=== PATIENT | female | born 1955 | race Caucasian/White ===

== ENCOUNTER 2016-11-07 15:25 | Inpatient (IN) | payer BC ==
[2016-11-07 15:45] LABS: #Lymphocytes 1.2 thou/uL (1.20-3.40); #Neutrophils 9.1 thou/uL (1.40-6.50); %Basophils 0.3 % (0.0-1.0); %Eosinophils 0.3 % (0.0-10.0); %Lymphocytes 10.4 % (21.0-51.0); Hematocrit 38.5 % (36.0-47.0); Mean Platelet Volume 7.3 fL (7.4-10.4); White Blood Cell (WBC) Count 11.3 thou/uL (4.8-10.8)
[2016-11-07 15:46] LABS: Oxyhemoglobin 96.4 % (94.0-97.0); Sodium 140 mmol/L (135-148)
[2016-11-07 15:47] LABS: Mode RA; Modified Allen's Test POSITIVE; Vent NO
[2016-11-07] MEDS ORDERED: Nitroglycerin 0.4 MG TAB (25 Tab Bottle) SL PRN (16:01)
[2016-11-07] MEDS ORDERED: Mag-Al 1200 mg/1200 mg/30 ML UDCUP PO PRN (16:01)
[2016-11-07] MEDS ORDERED: Bisacodyl 5 MG TAB PO PRN ×2 (16:01)
[2016-11-07] MEDS ORDERED: Senokot 8.6 MG TAB PO PRN ×2 (16:01)
[2016-11-07] MEDS ORDERED: Calcium Carbonate 500 MG ChewTAB PO PRN (16:01)
[2016-11-07] MEDS ORDERED: cloNIDine HCl 0.1 MG TAB PO PRN (16:01)
[2016-11-07] MEDS ORDERED: Loratadine 10 MG TAB PO PRN (16:01)
[2016-11-07] MEDS ORDERED: Potassium Chloride 20 MEQ TAB ONE (16:05)
[2016-11-07 16:09] LABS: Lactic Acid - Sepsis 3.9 mmol/L (0.5-2.2)
[2016-11-07 16:13] LABS: ALT (SGPT) 54 U/L (8-55); AST (SGOT) 41 U/L (5-34); Alkaline Phosphatase 384 U/L (40-150); Anion Gap 19 mmol/L (10-20); BUN (Urea Nitrogen) 6 mg/dL (9.8-20.1); Bilirubin, Total 0.5 mg/dL (0.2-1.2); CK (CPK) 595 U/L (29-168); Calc. Creatinine Clearance 0 mL/min (70-130); Calcium 9.1 mg/dL (7.8-10.44); Carbon Dioxide 20 mmol/L (22-29); Chloride 103 mmol/L (98-107); Estimated GFR-MDRD Greater than 90; Globulin 3.3 g/dL (2.4-3.5); Protein, Total 7.1 g/dL (6.0-8.3)
[2016-11-07 16:17] LABS: Troponin I Less than 0.010 ng/mL (< 0.028)
--- NOTE | 2016-11-07 16:19 | RAD ---
PORTABLE CHEST ONE VIEW: 11/07/16 at 3:11 p.m. HISTORY: Cough, fever, chills. FINDINGS: Comparison made to the exam of 07/10/15. The heart size is borderline. There is mild infiltrate in the right suprahilar region. No pneumothor aces or large effusions are seen. IMPRESSION: Findings are suspicious for pneumonia. POS: [facility]
[2016-11-07 17:17] LABS: Bilirubin Negative (Negative); Blood, Urine Small (Negative); Glucose, Urine (Dipstick) Negative (Negative); Ketone, Urine Negative (Negative); Nitrite Negative (Negative); Protein, Urine (Dipstick) Trace mg/dL (Neg-Trace); Urobilinogen 0.2 mg/dL (0.2-1.0)
[2016-11-07 17:26] LABS: Bacteria/HPF Rare-Few HPF (None Seen); Hyaline Casts/LPF 4-6 HYALINE CAST LPF (0-3 Hyaline); RBC/HPF 0-3 HPF (0-3); Squamous Epithelial 0-3 HPF (0-3)
[2016-11-07] MEDS: Benzonatate 100 MG CAP PO PRN (20:16)
[2016-11-07] MEDS: guaiFENesin ER 600 MG TAB PO SCH (20:16)
[2016-11-07] MEDS: Lorazepam 1 MG TAB PO PRN (20:16)
[2016-11-07] MEDS: Famotidine 20 MG TAB PO SCH (20:16)
[2016-11-07] MEDS: 1/2 NS w/KCL 20 mEq 1,000 ML IV SCH (20:17)
[2016-11-07] MEDS: Acetaminophen 325 MG TAB PO PRN (20:46)
[2016-11-07 21:01] LABS: Bilirubin Negative (Negative); Blood, Urine Trace (Negative); Glucose, Urine (Dipstick) Negative (Negative); Ketone, Urine Negative (Negative); Nitrite Negative (Negative); Protein, Urine (Dipstick) Negative (Neg-Trace); Urobilinogen 0.2 mg/dL (0.2-1.0)
[2016-11-07 21:03] LABS: Bacteria/HPF None Seen HPF (None Seen); Hyaline Casts/LPF 0-3 HYALINE CAST LPF (0-3 Hyaline); Squamous Epithelial 0-3 HPF (0-3); WBC/HPF 0-3 HPF (0-3)
--- NOTE | 2016-11-07 21:49 | NM ---
NUCLEAR MEDICINE VQ SCAN: 11/07/16 COMPARISON: 01/26/15 HISTORY: Dyspnea with cough, fever and chills for the past two days. TECHNIQUE: A nuclear medicine VQ scan was performed. Ventilation images were obtained using 17 millicuries of X enon 133. Perfusion images were obtained using 6.3 millicuries of technetium 99m MAA. FINDINGS: VENTILATION: Breath hold, equilibrium, and washout phases are normal. No air trapping is seen. No ventilatory def ects are seen. PERFUSION: No small, medium, or large perfusion defects are seen. IMPRESSION: Normal VQ scan. POS: [facility]
--- NOTE | 2016-11-07 23:11 | HP ---
DATE OF ADMISSION: 11/07/2016 PRIMARY CARE PHYSICIAN: Pedro Herrmann M.D. CHIEF COMPLAINT: Fever and worsening cough. HISTORY OF PRESENT ILLNESS: Ms. Henderson is a 61-year-old female with past medical history of Prabhakar-e n-Y gastric bypass status post PEG tube placement, chronic pain, and nonalcoholic steatohepatitis, w ho presented as a direct admit from Dr. Herrmann's office for above-mentioned complaints. History is m ainly obtained by the patient herself and discussion with Dr. Herrmann. Electronic medical records hav e been reviewed. The patient came up to the floor as a direct admit, but unfortunately had trouble breathing at the t maribeth of reaching the floor and a code green was called and she was sent into the emergency room for s tabilization and evaluation. I have seen and examined the patient in the emergency room 26. According to Ms. Henderson, she started to have high-grade fever of 103 about 1 week ago associated wi th worsening cough. She did not have any particular shortness of breath. She denies any other rece nt illnesses. She did have sick contacts in the form of her . She did receive her influenza and pneumococcal vaccine earlier this year. She denies any recent travel. She denies any chest pa in or swelling of the legs. She presented to her primary care physician's office and was noticed to be in mild respiratory discomfort and was sent over here with presumptive diagnosis of pneumonia fo r direct admission. After the code green was called and the patient was transferred to the ER. She underwent a chest x- ray which suggested right upper lobe pneumonia. Because of the code green, she also had ABGs done w hich mainly demonstrated hyperventilation with pH of 7.5, pCO2 of 22 and pO2 of 82. She did have ev idence of leukocytosis with left shift and elevated lactic acid. She did have D-dimer elevated at 0 .58 and is scheduled to undergo a VQ scan and the clinical probability is low. She has reported all ergy to IODINATED CONTRAST MEDIA. Her cardiac enzymes and her BNP are within normal limits. Her po tassium was found to be low at 2.5 and ABGs with normal magnesium. She is being admitted for commun ity-acquired pneumonia at this time with need to rule out silent aspiration due to PEG tube feeds. The patient reports that she has not eaten anything by mouth for the last week or so and even prior to that, she was eating very little. For the last week she has been using her PEG feed entirely. S he also follows up with Gastroenterology, Dr. Bauer for chronically elevated liver enzymes and rece ntly had an MRCP/MRI done and the results were relayed to me by Dr. Bauer's today on the phone as t he MRI being normal. PAST MEDICAL HISTORY: 1. Chronic abdominal pain. 2. History of recurrent urinary tract infection. 3. Nonalcoholic steatohepatitis. 4. Chronic back pain and chronic narcotic dependence. 5. History of pneumonia, multiple times. PAST SURGICAL HISTORY: 1. MINH-BSO. 2. Laparoscopic cholecystectomy. 3. Appendectomy. 4. Abdominoplasty 5. Prabhakar-en-Y gastric bypass. 6. Status post bilateral breast reduction surgery in [place], [place]. 7. Status post PEG tube placement. FAMILY HISTORY: Significant for coronary artery disease in her mother. Both her parents are alive. SOCIAL HISTORY: The patient is and lives with her . She denies any drug, alcohol or tobacco abuse. She does use chronic narcotics for her abdominal pain and she is trying to minimize those. She has 2 grown children and 5 grandchildren. ALLERGIES: 1. CIPROFLOXACIN. 2. ORAL AND IV CONTRAST. 3. MORPHINE. 4. NSAIDS. CURRENT MEDICATIONS: Unknown at this time, but according to her last ER visit, she takes the follow in. Alprazolam. 2. Protonix. 3. Phenergan. 4. Folic acid. 5. Potassium chloride, doses need to be confirmed. REVIEW OF SYSTEMS: Twelve-point review of systems is done and except for those mentioned in the HPI , it is negative. The following complete review of systems was negative, unless otherwise mentioned in the HPI or belo w: Constitutional: Weight loss or gain, ability to conduct usual activities. Skin: Rash, itching. Eyes: Double vision, pain. ENT/Mouth: Nose bleeding, neck stiffness, pain, tenderness. Cardiovascular: Palpitations, dyspnea on exertion, orthopnea. Respiratory: Shortness of breath, wheezing, cough, hemoptysis, fever or night sweats. Gastrointestinal: Poor appetite, abdominal pain, heartburn, nausea, vomiting, constipation, or diar marcia. Genitourinary: Urgency, frequency, dysuria, nocturia. Musculoskeletal: Pain, swelling. Neurologic/Psychiatric: Anxiety, depression. Allergy/Immunologic: Skin rash, bleeding tendency. LABORATORY DATA: Her CBC shows WBCs at 11.3 with 80% neutrophils, hemoglobin 12.3, and platelet cou nt 308. D-dimer is 0.58. ABG as per HPI. Serum chemistry, bicarbonate at 20, blood sugar 155, lac tic acid 3.9, AST 41, ALT 54, alkaline phosphatase is 384, and creatinine kinase 595. BNP 85. Trop onin less than 0.010. Chest x-ray by my review has evidence of right upper lobe infiltrate. PHYSICAL EXAMINATION: VITAL SIGNS: Upon presentation include blood pressure 149/66, pulse of 89, saturating 97% on room a ir, respirations 36, and temperature 100.4. GENERAL: She is coughing and appears somewhat sick and toxic looking, but no acute distress. She i s awake, alert, and oriented x3. HEENT: Mucous membranes appear slightly dry. No oropharyngeal exudate or erythema. Head is normoc ephalic and atraumatic. Pupils are equal and reactive to light and accommodation. Extraocular move ments are intact. NECK: Supple without any lymphadenopathy, JVD or bruit. CHEST: Clear to auscultation without any wheezing, rales or rhonchi. Rate and rhythm is regular wi thout any murmur, rubs or gallops. ABDOMEN: Soft, nontender, nondistended, positive bowel sounds. EXTREMITIES: Free of any cyanosis, clubbing, or edema. NEUROLOGIC: Neurological examination is nonfocal. SKIN: Free of any rashes or bruises, feel warm and dry to touch. PSYCHIATRIC: Somewhat anxious. VASCULAR: +2 pedal pulses felt bilaterally. IMPRESSION AND PLAN: 1. Acute respiratory distress. This is likely secondary to pneumonia. At this time, we will start her on empiric antibiotic and obtain influenza testing as well. Start her on normal saline with se psis protocol and provide symptomatic and supportive care in the form of p.r.n. and scheduled nebuli zers. We will start her on Robitussin as well as p.r.n. medications for intractable cough. We will consult Pulmonary Medicine, Dr. Cifuentes who has seen her in the past. We will also consult speech therapist for possible aspiration. 2. Pneumonia. As #1, continue IV antibiotics and consult speech therapist to evaluate for aspirati on pneumonia. Continue tube feeds for now. 3. Elevated D-dimer. The patient's presenting symptoms are not consistent with pulmonary embolism. She has no history of shortness of breath. She does not have any lower extremity edema. She does not have any history of recent travel. However, given the fever, we will obtain a nuclear medicine lung ventilation perfusion scan for completion. The patient cannot get a CT angio due to allergic reaction to IODINATED CONTRAST MEDIA. 4. Hypokalemia. We will replace as required and recheck in the morning. Continue with potassium c hloride and the normal saline for now. 5. Chronically elevated liver enzymes. The patient follows up with Dr. Bauer and her recent MRI a s an outpatient is normal. 6. Vitamin B12 deficiency. We will recheck the levels in the hospital and start her on oral supple mentation as required. 7. History of narcotic dependence. We will avoid any narcotics and sedatives while she is in the h ospital. 8. History of gastric bypass. Continue symptomatic care. 9. Deep venous thrombosis and gastrointestinal prophylaxis. CODE STATUS: FULL CODE. DISPOSITION: The patient will be admitted to telemetry unit due to her \\\\"code green\\\\" for respira tory distress. She appears stable for now. She can be transferred to medical floor in the morning if she remains stable throughout the night. Estimated length of stay is at least 2-3 midnight at th is point. Further management will depend upon her clinical course.
[2016-11-07] MEDS: Zolpidem Tartrate 5 MG TAB PO PRN (23:27)
[2016-11-08] MEDS: Diabetic Tussin 200 MG/10 ML UDCUP PO PRN ×3 (01:26→19:48)
[2016-11-08] MEDS: Acetaminophen 325 MG TAB PO PRN ×3 (01:26→19:48)
[2016-11-08] MEDS: guaiFENesin/Codeine Phosphate 200 mg/20 mg 10 ml UD Cup PO PRN (05:19)
[2016-11-08 06:05] LABS: #Eosinphils 0.1 thou/uL (0.0-0.7); #Lymphocytes 1.5 thou/uL (1.20-3.40); #Monocytes 0.7 thou/uL (0.11-0.59); #Neutrophils 3.8 thou/uL (1.40-6.50); %Basophils 0.1 % (0.0-1.0); %Eosinophils 1.5 % (0.0-10.0); %Monocytes 11.4 % (0.0-10.0); Hematocrit 33.5 % (36.0-47.0); Mean Platelet Volume 7.5 fL (7.4-10.4); Red Blood Cell (RBC) Count 3.35 mill/uL (4.20-5.40); White Blood Cell (WBC) Count 6.2 thou/uL (4.8-10.8)
[2016-11-08 06:28] LABS: Anion Gap 14 mmol/L (10-20); BUN (Urea Nitrogen) 5 mg/dL (9.8-20.1); Calc. Creatinine Clearance 116 mL/min (70-130); Calcium 8.3 mg/dL (7.8-10.44); Carbon Dioxide 23 mmol/L (22-29); Chloride 106 mmol/L (98-107); Estimated GFR-MDRD Greater than 90
[2016-11-08] MEDS: guaiFENesin ER 600 MG TAB PO SCH ×2 (08:34→19:49)
[2016-11-08] MEDS: 1/2 NS w/KCL 20 mEq 1,000 ML IV SCH ×2 (08:34→19:51)
[2016-11-08] MEDS: Famotidine 20 MG TAB PO SCH ×2 (08:35→19:50)
[2016-11-08] MEDS: Enoxaparin Sodium 40 MG/0.4 ML SYRINGE SC SCH (08:36)
[2016-11-08] MEDS: Lorazepam 1 MG TAB PO PRN (08:38)
[2016-11-08] MEDS ORDERED: Zolpidem Tartrate 5 MG TAB PO PRN (08:42)
[2016-11-08] MEDS: Benzonatate 100 MG CAP PO PRN ×2 (10:45→16:29)
[2016-11-08] MEDS: Folic Acid 1 MG TAB PO SCH (10:46)
[2016-11-08] MEDS: Magnesium Oxide 250 MG TAB PO SCH (10:46)
[2016-11-08] MEDS: Lorazepam 1 MG TAB PO SCH ×3 (10:46→19:51)
--- NOTE | 2016-11-08 11:20 | PQF ---
CLINICAL DOCUMENTATION IMPROVEMENT CLARIFICATION FORM: ICD-10 Updated PLEASE DO AN ADDENDUM TO THE PROGRESS NOTE WITH ANY DOCUMENTATION UPDATES OR ADDITIONS AND CARRY THROUGH TO DC SUMMARY. THANK YOU. DATE: 11/08/16 ATTN: DR. ZHENG The following CLINICAL INDICATORS - SIGNS / SYMPTOMS are present in the medical record: H&P: "SHE DID HAVE EVIDENCE OF LEUKOCYTOSIS WITH LEFT SHIFT AND ELEVATED LACTIC ACID." "START HER ON NORMAL SALINE WITH SEPSIS PROTOCOL AND PROVIDE SYMPTOMATIC AND SUPPORTIVE CARE IN THE FORM OF PRN AND SCHEDULED NEBULIZERS." TEMP 102.1 RR 36 WBC 11.3 LACTIC ACID 3.9 GLUCOSE 155 RISKS: PNEUMONIA TREATMENT: IV LEVAQUIN (ER-PRESENT) UNASYN (11-08) IV FLUIDS BLOOD CULTURES SERIAL LABS TELEMETRY MONITORING Please provide a response below if a more specific term indicating a diagnosis and/or acuity level for this condition can be identified. Please exercise your independent, professional judgment in responding to the clarification form. Present on Admission:[ X ] Yes[ ] No[ ] Unable to determine [ X] Sepsis (include causative agent if known) Due to: [ ] Device [ ] Implant [ ] Graft [ ] Infusion [ ] [ ] SIRS due to non-infectious process [ ] with organ dysfunction [ ] without organ dysfunction [ ] Severe sepsis with acute organ dysfunction of: (Examples: respiratory failure, encephalopathy, acute kidney failure, other) [ ] Septic shock [ ] Sepsis related to a device (i.e. port, IV line, pacer / ICD leads, New, etc.) [ ] Does not apply to this patient [ ] Unable to determine [ ] Other diagnosis Definitions [facility] clinic 2002: SIRS- clinical response to an insult, infection, or trauma that includes a systemic in?ammation as well as increased or decreased temp, increased pulse, respiration and white count. SEPSIS- SIRS due to infection without organ dysfunction. SEVERE SEPSIS- SIRS due to an infection that progress to organ dysfunction. SEPTIC SHOCK- circulatory failure associated with severe sepsis, and represents a type of acute organ dysfunction. (This form is maintained as a part of the permanent medical record) 2014 [employer] All Rights Reserved [email or web address] Office: [phone] [facility] CENTERTucker
--- NOTE | 2016-11-08 11:45 | PDOC.PN ---
- Subjective Encounter Start Date: 11/08/16 Encounter Start Time: 11:43 Subjective: feels a little better.still significant cough.no SOB - Objective MAR Reviewed: Yes Vital Signs & Weight: Vital Signs (12 hours) Temp Pulse Resp BP Pulse Ox 11/08/16 11:06 82 22 H 96 11/08/16 08:44 98.6 F 84 19 131/62 93 L 11/08/16 08:00 98.6 F 84 19 93 L 11/08/16 07:38 82 20 98 11/08/16 04:00 98.9 F 77 18 109/55 L 93 L 11/08/16 02:02 76 16 97 I&O: 11/07/16 11/08/16 11/09/16 06:59 06:59 06:59 Intake Total 1032 Output Total 900 Balance 132 Result Diagrams: 11/08/16 04:57 11/08/16 04:57 Additional Labs: Microbiology 11/07/16 20:38 Nasopharynx - Nares Influenza Types A,B Direct EIA - Final 11/07/16 15:34 Venous blood - Right Arm Blood Culture - Preliminary Specimen has been received and culture in progress. No Growth to date. 11/07/16 15:32 Venous blood - Left Arm Blood Culture - Preliminary Specimen has been received and culture in progress. No Growth to date. Phys Exam - Physical Examination Constitutional: NAD HEENT: PERRLA, moist MMs, sclera anicteric, oral pharynx no lesions Neck: no nodes, no JVD, supple, full ROM Respiratory: no wheezing, no rales, no rhonchi, clear to auscultation bilateral Cardiovascular: RRR, no significant murmur Gastrointestinal: soft, non-tender, no distention, positive bowel sounds Musculoskeletal: no edema, pulses present Neurological: non-focal, normal sensation, moves all 4 limbs Psychiatric: normal affect, A&O x 3 Skin: no rash Dx/Plan (1) Sepsis Code(s): A41.9 - SEPSIS, UNSPECIFIED ORGANISM Status: Acute (2) PNA (pneumonia) Code(s): J18.9 - PNEUMONIA, UNSPECIFIED ORGANISM Status: Acute (3) Hypokalemia Code(s): E87.6 - HYPOKALEMIA Status: Acute (4) Bariatric surgery status Status: Chronic (5) MORRIS (nonalcoholic steatohepatitis) Code(s): K75.81 - NONALCOHOLIC STEATOHEPATITIS (MORRIS) Status: Chronic - Plan continue antibiotics, 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 supportive care -: nebs.Is,O2 prn. -: restart home meds. -: am labs * . Review of Systems - Review of Systems Constitutional: Weakness, Malaise. negative: Fever, Chills, Sweats, Other Respiratory: Cough. negative: Dry, Shortness of Breath, Hemoptysis, SOB with Excertion, Pleuritic Pain, Sputum, Wheezing Cardiovascular: negative: Chest Pain, Palpitations, Orthopnea, Paroxysmal Noc. Dyspnea, Edema, Light Headedness, Other Gastrointestinal: negative: Nausea, Vomiting, Abdominal Pain, Diarrhea, Constipation, Melena, Hematochezia, Other Genitourinary: negative: Dysuria, Frequency, Incontinence, Hematuria, Retention , Other Musculoskeletal: negative: Neck Pain, Shoulder Pain, Arm Pain, Back Pain, Hand Pain, Leg Pain, Foot Pain, Other Neurological: negative: Weakness, Numbness, Incoordination, Change in Speech, Confusion, Seizures, Other - Medications/Allergies Allergies/Adverse Reactions: Allergies Allergy/AdvReac Type Severity Reaction Status Date / Time ciprofloxacin AdvReac Mild Stomach Verified 09/30/14 02:03 Ache Iodinated Contrast- Oral and AdvReac Mild Stomach Verified 09/30/14 02:03 IV Dye Ache [Iodinated Contrast Media - IV Dye] iodine AdvReac Mild Stomach Verified 09/30/14 02:03 Ache morphine AdvReac Mild Rash Verified 09/30/14 02:03 Medications: Current Medications Acetaminophen (Tylenol) 650 mg PO Q4H PRN PRN Reason: Headache/Fever or Pain Last Admin: 11/08/16 08:33 Dose: 650 mg Al Hydroxide/Mg Hydroxide (Maalox) 30 ml PO Q6H PRN PRN Reason: Heartburn or Indigestion Albuterol/Ipratropium (Duoneb) 3 ml NEB [id number] PRN PRN Reason: SOB &/or Wheezing Albuterol/Ipratropium (Duoneb) 3 ml NEB [id number] KAILEY Last Admin: 11/08/16 11:06 Dose: 3 ml Benzonatate (Tessalon) 100 mg PO Q4H PRN PRN Reason: Cough Last Admin: 11/08/16 10:45 Dose: 100 mg Bisacodyl (Dulcolax) 10 mg PO DAILYPRN PRN PRN Reason: Constipation Calcium Carbonate (Tums) 1,000 mg PO Q4H PRN PRN Reason: Heartburn or Indigestion Clonidine HCl (Catapres) 0.1 mg PO Q4H PRN PRN Reason: Systolic BP > 160 Cyanocobalamin (Vitamin B-12) 1,000 mcg IM [id number] REPLACED BY [facility] Enoxaparin Sodium (Lovenox) 40 mg SC 09 REPLACED BY [facility] Last Admin: 11/08/16 08:36 Dose: 40 mg Famotidine (Pepcid) 20 mg PO BID REPLACED BY [facility] Last Admin: 11/08/16 08:35 Dose: 20 mg Folic Acid (Folvite) 1 mg PO DAILY REPLACED BY [facility] Last Admin: 11/08/16 10:46 Dose: 1 mg Guaifenesin (Robitussin Sf) 200 mg PO Q4H PRN PRN Reason: Cough Last Admin: 11/08/16 01:26 Dose: 200 mg Guaifenesin (Mucinex) 600 mg PO Q12HR REPLACED BY [facility] Last Admin: 11/08/16 08:34 Dose: 600 mg Guaifenesin/Codeine Phosphate (Robitussin Ac) 10 ml PO Q6H PRN PRN Reason: Cough Last Admin: 11/08/16 05:19 Dose: 10 ml Hydralazine HCl (Apresoline) 10 mg SLOW IVP Q4H PRN PRN Reason: Systolic BP > 170 Levofloxacin 750 mg/ Device 150 mls @ 100 mls/hr IVPB 1700 REPLACED BY [facility] Potassium Chloride/Sodium Chloride (1/2 Ns W/Kcl 20 Meq) 1,000 mls @ 75 mls/hr IV .[id number] REPLACED BY [facility] Last Admin: 11/08/16 08:34 Dose: 1,000 mls Ampicillin Sodium/Sulbactam (Sodium 3 gm/ Sodium Chloride) 100 mls @ 200 mls/ hr IVPB Q6HR REPLACED BY [facility] Loratadine (Claritin) 10 mg PO DAILYPRN PRN PRN Reason: Sinus Symptoms Lorazepam (Ativan) 1 mg PO Q4H PRN PRN Reason: Anxiety/Agitation Last Admin: 11/08/16 08:38 Dose: 1 mg Lorazepam (Ativan) 1 mg PO TID REPLACED BY [facility] Last Admin: 11/08/16 10:46 Dose: Not Given Magnesium Oxide (Magnesium Oxide) 250 mg PO DAILY REPLACED BY [facility] Last Admin: 11/08/16 10:46 Dose: 250 mg Nitroglycerin (Nitrostat) 0.4 mg SL Q5MIN PRN PRN Reason: Chest Pain Ondansetron HCl (Zofran) 4 mg IVP Q6H PRN PRN Reason: Nausea/Vomiting Ondansetron HCl (Zofran Odt) 4 mg PO Q4H PRN PRN Reason: Nausea/Vomiting Pantoprazole Sodium (Protonix) 40 mg PO BID REPLACED BY [facility] Last Admin: 11/08/16 10:46 Dose: 40 mg Potassium Chloride (Klor-Con) 40 meq PER TUBE 0700,1200 REPLACED BY [facility] Stop: 11/08/16 13:00 Last Admin: 11/08/16 06:54 Dose: 40 meq Senna (Senokot) 2 tab PO HSPRN PRN PRN Reason: Constipation Sodium Chloride (Flush - Normal Saline) 10 ml IVF Q12HR REPLACED BY [facility] Last Admin: 11/08/16 08:34 Dose: Not Given Sodium Chloride (Flush - Normal Saline) 10 ml IVF PRN PRN PRN Reason: Saline Flush Zolpidem Tartrate (Ambien) 10 mg PO HSPRN PRN PRN Reason: Insomnia Last Admin: 11/07/16 23:27 Dose: 10 mg Zolpidem Tartrate (Ambien) 10 mg PO HS PRN PRN Reason: Insomnia
[2016-11-08] MEDS: Ampicillin/Sulbactam 3 GM in Sodium Chloride 0.9% 100 ML IVPB SCH ×3 (13:56→23:16)
--- NOTE | 2016-11-08 14:42 | CON ---
DATE OF CONSULTATION: 11/08/2016 CONSULTING PHYSICIAN: Antonella Rock MD REASON FOR CONSULTATION: Pneumonia. HISTORY OF PRESENT ILLNESS: Ms. Henderson is a 61-year-old female with fairly complex past medical hi story. I do not believe I have seen her in the last 4-5 years. She developed a fever on Friday and tried to tough it out at home. She felt that because she had taken the pneumonia shot in the past that she was immune from getting pneumonia. She also does not want to come to the hospital because she had bad experiences with being endotracheally intubated in the past. She was started on antibiotics last night and now feels better. She tells me that she takes most of her food through her PEG tube, but does occasionally try to drink soft drinks and water. She does not feel like she aspirated at this time. PAST MEDICAL HISTORY: 1. Cirrhosis of the liver. 2. Aspiration pneumonia. 3. Multiple episodes of respiratory failure. 4. Nonalcoholic steatohepatitis. 5. Chronic abdominal pain. 6. Recurrent urinary tract infections. 7. Anxiety. 8. Hypertension. PAST SURGICAL HISTORY: Breast reduction, bariatric surgery, appendectomy, cholecystectomy, hysterec deandre, spinal surgery, tonsillectomy, PEG tube placement. SOCIAL HISTORY: She is , lives with her . No alcohol or tobacco abuse. ALLERGIES: CIPRO, MORPHINE, NSAIDS. MEDICATIONS: Prior to admission, alprazolam, Protonix, Phenergan, folate, potassium chloride. REVIEW OF SYSTEMS: Twelve-point review of systems otherwise negative except for that mentioned abov e. PHYSICAL EXAMINATION: VITAL SIGNS: Temperature 98.6, pulse 84, respirations 19, O2 sat 93%, blood pressure 131/62. GENERAL: She is awake and alert and in no distress. HEENT: Pupils react. Sclerae anicteric. Oropharynx is clear. NECK: Without adenopathy or JVD. LUNGS: Few crackles in the right side, clear on the left. CARDIAC: S1, S2 regular. ABDOMEN: PEG tube in place, well cared for. EXTREMITIES: No clubbing, cyanosis, or edema. LABORATORY DATA: White blood cell count 6.2, down from 11.3 yesterday, hematocrit 33.5, platelet co unt 250. Sodium 140, potassium 2.9, chloride 106, CO2 23, BUN 5, creatinine 0.6, glucose 105. Ches t x-ray shows a right-sided infiltrate, perfusion scanning of her lungs was negative. ASSESSMENT: 1. Right-sided pneumonia. 2. History of multiple episodes of respiratory failure. 3. History of bariatric surgery with numerous complications. 4. PEG tube placement. RECOMMENDATIONS: 1. Agree with current antibiotic therapy. She seems to be responding because of aspiration risk. I would also favor her being on coverage for that. I think IV Unasyn would probably cover that very well. 2. If she is doing well over the weekend, she can probably switch to Augmentin through her PEG tube .
[2016-11-08] MEDS: Zolpidem Tartrate 5 MG TAB PO PRN (19:50)
[2016-11-09] MEDS: guaiFENesin/Codeine Phosphate 200 mg/20 mg 10 ml UD Cup PO PRN ×4 (01:07→20:41)
[2016-11-09] MEDS: Benzonatate 100 MG CAP PO PRN ×3 (01:07→15:31)
[2016-11-09] MEDS: Lorazepam 1 MG TAB PO PRN ×2 (01:07→15:31)
[2016-11-09] MEDS: 1/2 NS w/KCL 20 mEq 1,000 ML IV SCH (04:29)
[2016-11-09] MEDS: Ampicillin/Sulbactam 3 GM in Sodium Chloride 0.9% 100 ML IVPB SCH ×3 (05:08→18:59)
[2016-11-09 05:31] LABS: #Eosinphils 0.2 thou/uL (0.0-0.7); #Lymphocytes 1.7 thou/uL (1.20-3.40); #Monocytes 0.6 thou/uL (0.11-0.59); #Neutrophils 3.4 thou/uL (1.40-6.50); %Basophils 0.7 % (0.0-1.0); %Eosinophils 3.7 % (0.0-10.0); %Lymphocytes 28.3 % (21.0-51.0); %Monocytes 9.5 % (0.0-10.0); Mean Platelet Volume 7.1 fL (7.4-10.4); White Blood Cell (WBC) Count 5.9 thou/uL (4.8-10.8)
[2016-11-09 05:58] LABS: Anion Gap 13 mmol/L (10-20); BUN (Urea Nitrogen) 5 mg/dL (9.8-20.1); Calc. Creatinine Clearance 119 mL/min (70-130); Calcium 8.3 mg/dL (7.8-10.44); Carbon Dioxide 23 mmol/L (22-29); Chloride 108 mmol/L (98-107); Estimated GFR-MDRD Greater than 90
[2016-11-09] MEDS: Enoxaparin Sodium 40 MG/0.4 ML SYRINGE SC SCH (08:46)
[2016-11-09] MEDS: Magnesium Oxide 250 MG TAB PO SCH (08:47)
[2016-11-09] MEDS: guaiFENesin ER 600 MG TAB PO SCH ×2 (08:48→20:37)
[2016-11-09] MEDS: Famotidine 20 MG TAB PO SCH ×2 (08:48→20:37)
[2016-11-09] MEDS: Folic Acid 1 MG TAB PO SCH (08:49)
[2016-11-09] MEDS: Lorazepam 1 MG TAB PO SCH ×3 (08:49→20:37)
[2016-11-09] MEDS ORDERED: Cyanocobalamin 1000 MCG/ML VIAL IM SCH (09:00)
--- NOTE | 2016-11-09 11:54 | PDOC.PN ---
- Subjective Encounter Start Date: 11/09/16 Encounter Start Time: 08:40 -: old records requested/rev pt feels better than yesterday, she has cough and so that she is hurting in chest and abdomen - Objective MAR Reviewed: Yes Vital Signs & Weight: Vital Signs (12 hours) Temp Pulse Resp BP Pulse Ox 11/09/16 11:03 83 24 H 11/09/16 06:37 92 28 H 97 11/09/16 04:39 99.5 F 88 18 119/66 95 11/09/16 03:10 77 18 97 11/09/16 00:05 99.0 F 85 20 114/53 L 96 Weight Admit Weight 158 lb 4.8 oz Weight 159 lb 1.6 oz I&O: 11/08/16 11/09/16 11/10/16 06:59 06:59 06:59 Intake Total 1032 3270 Output Total 900 1900 Balance 132 1370 Result Diagrams: 11/09/16 04:53 11/09/16 04:53 Phys Exam - Physical Examination Constitutional: NAD HEENT: PERRLA, moist MMs, sclera anicteric Neck: no JVD, supple Respiratory: no wheezing, no rhonchi few scattered rales Cardiovascular: RRR, no significant murmur, no rub Gastrointestinal: soft, non-tender, no distention, positive bowel sounds peg tube+ Musculoskeletal: no edema, pulses present Neurological: non-focal, normal sensation, moves all 4 limbs Lymphatic: no nodes Psychiatric: normal affect, A&O x 3 Skin: no rash, normal turgor Dx/Plan (1) PNA (pneumonia) Code(s): J18.9 - PNEUMONIA, UNSPECIFIED ORGANISM Status: Acute Qualifiers: Laterality: right Comment: community acquired bacterial (2) Sepsis Code(s): A41.9 - SEPSIS, UNSPECIFIED ORGANISM Status: Acute (3) Abnormal LFTs Code(s): R79.89 - OTHER SPECIFIED ABNORMAL FINDINGS OF BLOOD CHEMISTRY Status : Chronic (4) Anxiety and depression Code(s): F41.8 - OTHER SPECIFIED ANXIETY DISORDERS Status: Chronic (5) Bariatric surgery status Status: Chronic (6) Macrocytic anemia with vitamin B12 deficiency Code(s): D51.9 - VITAMIN B12 DEFICIENCY ANEMIA, UNSPECIFIED Status: Chronic (7) MORRIS (nonalcoholic steatohepatitis) Code(s): K75.81 - NONALCOHOLIC STEATOHEPATITIS (MORRIS) Status: Chronic (8) Hypokalemia Code(s): E87.6 - HYPOKALEMIA Status: Resolved (9) Lactic acidosis Code(s): E87.2 - ACIDOSIS Status: Resolved - Plan cont current plan of care, continue antibiotics * continue IV unasyn and levaquin * medication reviewed as below * symptomatic treatment.. Review of Systems - Review of Systems ENT: negative: Ear Pain, Ear Discharge, Nose Pain, Nose Discharge, Nose Congestion, Mouth Pain, Mouth Swelling, Throat Pain, Throat Swelling, Other Respiratory: Cough, Shortness of Breath. negative: Dry, Hemoptysis, SOB with Excertion, Pleuritic Pain, Sputum, Wheezing Cardiovascular: negative: Chest Pain, Palpitations, Orthopnea, Paroxysmal Noc. Dyspnea, Edema, Light Headedness, Other Gastrointestinal: negative: Nausea, Vomiting, Abdominal Pain, Diarrhea, Constipation, Melena, Hematochezia, Other Genitourinary: negative: Dysuria, Frequency, Incontinence, Hematuria, Retention , Other Musculoskeletal: negative: Neck Pain, Shoulder Pain, Arm Pain, Back Pain, Hand Pain, Leg Pain, Foot Pain, Other - Medications/Allergies Allergies/Adverse Reactions: Allergies Allergy/AdvReac Type Severity Reaction Status Date / Time ciprofloxacin AdvReac Mild Stomach Verified 09/30/14 02:03 Ache Iodinated Contrast- Oral and AdvReac Mild Stomach Verified 09/30/14 02:03 IV Dye Ache [Iodinated Contrast Media - IV Dye] iodine AdvReac Mild Stomach Verified 09/30/14 02:03 Ache morphine AdvReac Mild Rash Verified 09/30/14 02:03 Medications: Current Medications Acetaminophen (Tylenol) 650 mg PO Q4H PRN PRN Reason: Headache/Fever or Pain Last Admin: 11/08/16 19:48 Dose: 650 mg Al Hydroxide/Mg Hydroxide (Maalox) 30 ml PO Q6H PRN PRN Reason: Heartburn or Indigestion Albuterol/Ipratropium (Duoneb) 3 ml NEB [id number] PRN PRN Reason: SOB &/or Wheezing Albuterol/Ipratropium (Duoneb) 3 ml NEB [id number] [facility] Last Admin: 11/09/16 11:03 Dose: 3 ml Benzonatate (Tessalon) 100 mg PO Q4H PRN PRN Reason: Cough Last Admin: 11/09/16 08:48 Dose: 100 mg Bisacodyl (Dulcolax) 10 mg PO DAILYPRN PRN PRN Reason: Constipation Calcium Carbonate (Tums) 1,000 mg PO Q4H PRN PRN Reason: Heartburn or Indigestion Clonidine HCl (Catapres) 0.1 mg PO Q4H PRN PRN Reason: Systolic BP > 160 Cyanocobalamin (Vitamin B-12) 1,000 mcg IM [id number] [facility] Last Admin: 11/09/16 08:46 Dose: 1,000 mcg Enoxaparin Sodium (Lovenox) 40 mg SC 09 [facility] Last Admin: 11/09/16 08:46 Dose: 40 mg Famotidine (Pepcid) 20 mg PO BID [facility] Last Admin: 11/09/16 08:48 Dose: 20 mg Folic Acid (Folvite) 1 mg PO DAILY [facility] Last Admin: 11/09/16 08:49 Dose: 1 mg Guaifenesin (Robitussin Sf) 200 mg PO Q4H PRN PRN Reason: Cough Last Admin: 11/08/16 19:48 Dose: 200 mg Guaifenesin (Mucinex) 600 mg PO Q12HR [facility] Last Admin: 11/09/16 08:48 Dose: 600 mg Guaifenesin/Codeine Phosphate (Robitussin Ac) 10 ml PO Q6H PRN PRN Reason: Cough Last Admin: 11/09/16 08:56 Dose: 10 ml Hydralazine HCl (Apresoline) 10 mg SLOW IVP Q4H PRN PRN Reason: Systolic BP > 170 Levofloxacin 750 mg/ Device 150 mls @ 100 mls/hr IVPB 1700 [facility] Last Admin: 11/08/16 17:27 Dose: 150 mls Potassium Chloride/Sodium Chloride (1/2 Ns W/Kcl 20 Meq) 1,000 mls @ 75 mls/hr IV .[id number] [facility] Last Admin: 11/09/16 04:29 Dose: 1,000 mls Ampicillin Sodium/Sulbactam (Sodium 3 gm/ Sodium Chloride) 100 mls @ 200 mls/ hr IVPB Q6HR [facility] Last Admin: 11/09/16 05:08 Dose: 100 mls Loratadine (Claritin) 10 mg PO DAILYPRN PRN PRN Reason: Sinus Symptoms Lorazepam (Ativan) 1 mg PO Q4H PRN PRN Reason: Anxiety/Agitation Last Admin: 11/09/16 01:07 Dose: 1 mg Lorazepam (Ativan) 1 mg PO TID [facility] Last Admin: 11/09/16 08:49 Dose: 1 mg Magnesium Oxide (Magnesium Oxide) 250 mg PO DAILY [facility] Last Admin: 11/09/16 08:47 Dose: 250 mg Nitroglycerin (Nitrostat) 0.4 mg SL Q5MIN PRN PRN Reason: Chest Pain Ondansetron HCl (Zofran) 4 mg IVP Q6H PRN PRN Reason: Nausea/Vomiting Ondansetron HCl (Zofran Odt) 4 mg PO Q4H PRN PRN Reason: Nausea/Vomiting Pantoprazole Sodium (Protonix) 40 mg PO BID [facility] Last Admin: 11/09/16 08:49 Dose: 40 mg Senna (Senokot) 2 tab PO HSPRN PRN PRN Reason: Constipation Sodium Chloride (Flush - Normal Saline) 10 ml IVF Q12HR [facility] Last Admin: 11/09/16 08:58 Dose: Not Given Sodium Chloride (Flush - Normal Saline) 10 ml IVF PRN PRN PRN Reason: Saline Flush Zolpidem Tartrate (Ambien) 10 mg PO HSPRN PRN PRN Reason: Insomnia Last Admin: 11/08/16 19:50 Dose: 10 mg Zolpidem Tartrate (Ambien) 10 mg PO HS PRN PRN Reason: Insomnia
[2016-11-09] MEDS: Ondansetron ODT 4 MG TAB PO PRN ×2 (12:50→17:21)
--- NOTE | 2016-11-09 14:25 | PRG ---
DATE OF SERVICE: 11/09/2016 SUBJECTIVE: She looks better this morning, less shortness of breath. OBJECTIVE: VITAL SIGNS: Respirations 28, temperature 98.5, blood pressure 190/66. No coughing or wheezing. CHEST: Decreased breath sounds, no wheezing. CARDIAC: Normal S1, S2, no gallops. ABDOMEN: Soft, no masses. LABORATORY DATA: White count is only 5000, H\T\H 10 and 32, platelet count 239. Electrolytes are n ormal. IMPRESSION: Aspiration pneumonia, improved. PLAN: Continue present supportive care, neb treatment, and supportive care. We will follow.
[2016-11-09] MEDS: Zolpidem Tartrate 5 MG TAB PO PRN (20:41)
[2016-11-10] MEDS: 1/2 NS w/KCL 20 mEq 1,000 ML IV SCH (00:01)
[2016-11-10] MEDS: Ampicillin/Sulbactam 3 GM in Sodium Chloride 0.9% 100 ML IVPB SCH ×5 (00:37→23:29)
[2016-11-10] MEDS: guaiFENesin/Codeine Phosphate 200 mg/20 mg 10 ml UD Cup PO PRN ×2 (06:07→20:43)
[2016-11-10] MEDS: Ondansetron ODT 4 MG TAB PO PRN ×2 (09:23→13:30)
[2016-11-10] MEDS: Famotidine 20 MG TAB PO SCH ×2 (09:24→20:40)
[2016-11-10] MEDS: Benzonatate 100 MG CAP PO PRN ×2 (09:24→23:33)
[2016-11-10] MEDS: Enoxaparin Sodium 40 MG/0.4 ML SYRINGE SC SCH (09:24)
[2016-11-10] MEDS: guaiFENesin ER 600 MG TAB PO SCH ×2 (09:25→20:40)
[2016-11-10] MEDS: Folic Acid 1 MG TAB PO SCH (09:25)
[2016-11-10] MEDS: Magnesium Oxide 250 MG TAB PO SCH (09:25)
[2016-11-10] MEDS: Lorazepam 1 MG TAB PO SCH ×3 (09:25→20:40)
--- NOTE | 2016-11-10 10:26 | PDOC.PN ---
- Subjective Encounter Start Date: 11/10/16 Encounter Start Time: 08:40 Patient seen and examined. No new complaints. No overnight events - Objective MAR Reviewed: Yes Vital Signs & Weight: Vital Signs (12 hours) Temp Pulse Resp BP Pulse Ox 11/10/16 10:06 82 12 11/10/16 08:10 98.4 F 85 20 114/74 96 11/10/16 06:23 82 16 11/10/16 04:00 98.6 F 81 18 120/64 96 11/10/16 02:32 12 11/09/16 22:52 81 16 Weight Admit Weight 158 lb 4.8 oz Weight 159 lb 1.6 oz I&O: 11/09/16 11/10/16 11/11/16 06:59 06:59 06:59 Intake Total 3270 270 Output Total 1900 Balance 1370 270 Result Diagrams: 11/09/16 04:53 11/09/16 04:53 Phys Exam - Physical Examination Constitutional: NAD HEENT: PERRLA, moist MMs, sclera anicteric Neck: no JVD, supple Respiratory: no wheezing, no rales, no rhonchi Cardiovascular: RRR, no significant murmur, no rub Gastrointestinal: soft, non-tender, no distention, positive bowel sounds peg+ Musculoskeletal: no edema, pulses present Neurological: non-focal, normal sensation Lymphatic: no nodes Psychiatric: normal affect, A&O x 3 Skin: no rash, normal turgor Dx/Plan (1) PNA (pneumonia) Code(s): J18.9 - PNEUMONIA, UNSPECIFIED ORGANISM Status: Acute Qualifiers: Laterality: right Comment: community acquired bacterial (2) Sepsis Code(s): A41.9 - SEPSIS, UNSPECIFIED ORGANISM Status: Acute (3) Abnormal LFTs Code(s): R79.89 - OTHER SPECIFIED ABNORMAL FINDINGS OF BLOOD CHEMISTRY Status : Chronic (4) Anxiety and depression Code(s): F41.8 - OTHER SPECIFIED ANXIETY DISORDERS Status: Chronic (5) Bariatric surgery status Status: Chronic (6) Macrocytic anemia with vitamin B12 deficiency Code(s): D51.9 - VITAMIN B12 DEFICIENCY ANEMIA, UNSPECIFIED Status: Chronic (7) MORRIS (nonalcoholic steatohepatitis) Code(s): K75.81 - NONALCOHOLIC STEATOHEPATITIS (MORRIS) Status: Chronic (8) Hypokalemia Code(s): E87.6 - HYPOKALEMIA Status: Resolved (9) Lactic acidosis Code(s): E87.2 - ACIDOSIS Status: Resolved - Plan cont current plan of care, continue antibiotics, respiratory therapy * DC IVF * continue unasyn and levaquin for now * medication reviewed as below * symptomatic treatment.. * expecting discharge tomorrow on oral antibiotics Review of Systems - Review of Systems Constitutional: negative: Fever, Chills, Sweats, Weakness, Malaise, Other Respiratory: Cough. negative: Dry, Shortness of Breath, Hemoptysis, SOB with Excertion, Pleuritic Pain, Sputum, Wheezing Cardiovascular: negative: Chest Pain, Palpitations, Orthopnea, Paroxysmal Noc. Dyspnea, Edema, Light Headedness, Other Gastrointestinal: negative: Nausea, Vomiting, Abdominal Pain, Diarrhea, Constipation, Melena, Hematochezia, Other Genitourinary: negative: Dysuria, Frequency, Incontinence, Hematuria, Retention , Other Musculoskeletal: negative: Neck Pain, Shoulder Pain, Arm Pain, Back Pain, Hand Pain, Leg Pain, Foot Pain, Other - Medications/Allergies Allergies/Adverse Reactions: Allergies Allergy/AdvReac Type Severity Reaction Status Date / Time ciprofloxacin AdvReac Mild Stomach Verified 09/30/14 02:03 Ache Iodinated Contrast- Oral and AdvReac Mild Stomach Verified 09/30/14 02:03 IV Dye Ache [Iodinated Contrast Media - IV Dye] iodine AdvReac Mild Stomach Verified 09/30/14 02:03 Ache morphine AdvReac Mild Rash Verified 09/30/14 02:03 Medications: Current Medications Acetaminophen (Tylenol) 650 mg PO Q4H PRN PRN Reason: Headache/Fever or Pain Last Admin: 11/08/16 19:48 Dose: 650 mg Al Hydroxide/Mg Hydroxide (Maalox) 30 ml PO Q6H PRN PRN Reason: Heartburn or Indigestion Albuterol/Ipratropium (Duoneb) 3 ml NEB [id number] PRN PRN Reason: SOB &/or Wheezing Albuterol/Ipratropium (Duoneb) 3 ml NEB [id number] [facility] Last Admin: 11/10/16 10:06 Dose: 3 ml Benzonatate (Tessalon) 100 mg PO Q4H PRN PRN Reason: Cough Last Admin: 11/10/16 09:24 Dose: 100 mg Bisacodyl (Dulcolax) 10 mg PO DAILYPRN PRN PRN Reason: Constipation Calcium Carbonate (Tums) 1,000 mg PO Q4H PRN PRN Reason: Heartburn or Indigestion Clonidine HCl (Catapres) 0.1 mg PO Q4H PRN PRN Reason: Systolic BP > 160 Cyanocobalamin (Vitamin B-12) 1,000 mcg IM [id number] [facility] Last Admin: 11/09/16 08:46 Dose: 1,000 mcg Enoxaparin Sodium (Lovenox) 40 mg SC 899 [facility] Last Admin: 11/10/16 09:24 Dose: 40 mg Famotidine (Pepcid) 20 mg PO BID [facility] Last Admin: 11/10/16 09:24 Dose: 20 mg Folic Acid (Folvite) 1 mg PO DAILY [facility] Last Admin: 11/10/16 09:25 Dose: 1 mg Guaifenesin (Robitussin Sf) 200 mg PO Q4H PRN PRN Reason: Cough Last Admin: 11/08/16 19:48 Dose: 200 mg Guaifenesin (Mucinex) 600 mg PO Q12HR [facility] Last Admin: 11/10/16 09:25 Dose: 600 mg Guaifenesin/Codeine Phosphate (Robitussin Ac) 10 ml PO Q6H PRN PRN Reason: Cough Last Admin: 11/10/16 06:07 Dose: 10 ml Hydralazine HCl (Apresoline) 10 mg SLOW IVP Q4H PRN PRN Reason: Systolic BP > 170 Levofloxacin 750 mg/ Device 150 mls @ 100 mls/hr IVPB 1700 [facility] Last Admin: 11/09/16 17:21 Dose: 150 mls Potassium Chloride/Sodium Chloride (1/2 Ns W/Kcl 20 Meq) 1,000 mls @ 75 mls/hr IV .[id number] [facility] Last Admin: 11/10/16 00:01 Dose: 1,000 mls Ampicillin Sodium/Sulbactam (Sodium 3 gm/ Sodium Chloride) 100 mls @ 200 mls/ hr IVPB Q6HR [facility] Last Admin: 11/10/16 05:22 Dose: 100 mls Loratadine (Claritin) 10 mg PO DAILYPRN PRN PRN Reason: Sinus Symptoms Lorazepam (Ativan) 1 mg PO Q4H PRN PRN Reason: Anxiety/Agitation Last Admin: 11/09/16 15:31 Dose: 1 mg Lorazepam (Ativan) 1 mg PO TID [facility] Last Admin: 11/10/16 09:25 Dose: 1 mg Magnesium Oxide (Magnesium Oxide) 250 mg PO DAILY [facility] Last Admin: 11/10/16 09:25 Dose: 250 mg Nitroglycerin (Nitrostat) 0.4 mg SL Q5MIN PRN PRN Reason: Chest Pain Ondansetron HCl (Zofran) 4 mg IVP Q6H PRN PRN Reason: Nausea/Vomiting Ondansetron HCl (Zofran Odt) 4 mg PO Q4H PRN PRN Reason: Nausea/Vomiting Last Admin: 11/10/16 09:23 Dose: 4 mg Pantoprazole Sodium (Protonix) 40 mg PO BID [facility] Last Admin: 11/10/16 09:25 Dose: 40 mg Senna (Senokot) 2 tab PO HSPRN PRN PRN Reason: Constipation Sodium Chloride (Flush - Normal Saline) 10 ml IVF Q12HR [facility] Last Admin: 11/10/16 09:26 Dose: Not Given Sodium Chloride (Flush - Normal Saline) 10 ml IVF PRN PRN PRN Reason: Saline Flush Zolpidem Tartrate (Ambien) 10 mg PO HSPRN PRN PRN Reason: Insomnia Last Admin: 11/09/16 20:41 Dose: 10 mg Zolpidem Tartrate (Ambien) 10 mg PO HS PRN PRN Reason: Insomnia
--- NOTE | 2016-11-10 17:19 | PRG ---
DATE OF SERVICE: 11/10/2016 SUBJECTIVE: The patient says she is better and less cough. OBJECTIVE: VITAL SIGNS: She is afebrile, temperature 98, pulse 82, respirations 12, blood pressure 100/74. CHEST: Decreased breath sounds, no wheezing. CARDIAC: Normal S1 and S2. No gallops. ABDOMEN: Soft, no masses. LABORATORY DATA: All cultures are negative. IMPRESSION: Pneumonia, probably aspiration. PLAN: Consider switching over to oral antibiotics. Continue neb treatments.
[2016-11-10] MEDS: Zolpidem Tartrate 5 MG TAB PO PRN (20:41)
[2016-11-11] MEDS: Ampicillin/Sulbactam 3 GM in Sodium Chloride 0.9% 100 ML IVPB SCH (05:05)
[2016-11-11] MEDS: guaiFENesin/Codeine Phosphate 200 mg/20 mg 10 ml UD Cup PO PRN ×4 (05:05→20:56)
--- NOTE | 2016-11-11 08:40 | PRG ---
DATE OF SERVICE: 11/11/2016 The patient is doing better. She was able to move up to the floor over the weekend. PHYSICAL EXAMINATION: VITAL SIGNS: Temperature is 98.1, pulse 73, respirations 12, O2 sat 92%, blood pressure 104/68. HEENT: Unremarkable. NECK: No JVD. CHEST: Fairly clear without rhonchi or wheezing. CARDIAC: S1 and S2 regular. ABDOMEN: Soft. EXTREMITIES: No edema. ASSESSMENT: Aspiration pneumonia. PLAN: I believe we can go ahead and switch her to antibiotics that can be given through her PEG tub e and I would anticipate her being able to go home by tomorrow at the latest.
[2016-11-11] MEDS: guaiFENesin ER 600 MG TAB PO SCH ×2 (09:33→20:51)
[2016-11-11] MEDS: Famotidine 20 MG TAB PO SCH ×2 (09:34→20:51)
[2016-11-11] MEDS: Enoxaparin Sodium 40 MG/0.4 ML SYRINGE SC SCH (09:34)
[2016-11-11] MEDS: Lorazepam 1 MG TAB PO SCH ×3 (09:34→20:51)
[2016-11-11] MEDS: Folic Acid 1 MG TAB PO SCH (09:34)
[2016-11-11] MEDS: Magnesium Oxide 250 MG TAB PO SCH (09:35)
[2016-11-11] MEDS: Benzonatate 100 MG CAP PO PRN (09:44)
[2016-11-11] MEDS: Amoxicillin/Potassium Clav 500 MG TAB PER TUBE SCH ×2 (10:32→20:50)
--- NOTE | 2016-11-11 11:08 | PDOC.PN ---
- Subjective Encounter Start Date: 11/11/16 Encounter Start Time: 08:15 Patient seen and examined. No new complaints. No overnight events - Objective MAR Reviewed: Yes Vital Signs & Weight: Vital Signs (12 hours) Temp Pulse Resp BP Pulse Ox 11/11/16 09:38 73 16 96 11/11/16 07:47 98.1 F 73 12 104/68 92 L 11/11/16 06:23 88 12 97 11/11/16 03:01 12 Weight Admit Weight 158 lb 4.8 oz Weight 159 lb 1.6 oz I&O: 11/10/16 11/11/16 11/12/16 06:59 06:59 06:59 Intake Total 510 Balance 510 Result Diagrams: 11/09/16 04:53 11/09/16 04:53 Phys Exam - Physical Examination Constitutional: NAD HEENT: PERRLA, moist MMs, sclera anicteric Neck: no JVD, supple Respiratory: no wheezing, no rales, no rhonchi Cardiovascular: RRR, no significant murmur, no rub Gastrointestinal: soft, non-tender, no distention, positive bowel sounds PEG+ Musculoskeletal: no edema, pulses present Neurological: non-focal, normal sensation Psychiatric: normal affect, A&O x 3 Skin: no rash, normal turgor Dx/Plan (1) PNA (pneumonia) Code(s): J18.9 - PNEUMONIA, UNSPECIFIED ORGANISM Status: Acute Qualifiers: Laterality: right Comment: community acquired bacterial (2) Sepsis Code(s): A41.9 - SEPSIS, UNSPECIFIED ORGANISM Status: Acute (3) Abnormal LFTs Code(s): R79.89 - OTHER SPECIFIED ABNORMAL FINDINGS OF BLOOD CHEMISTRY Status : Chronic (4) Anxiety and depression Code(s): F41.8 - OTHER SPECIFIED ANXIETY DISORDERS Status: Chronic (5) Bariatric surgery status Status: Chronic (6) Macrocytic anemia with vitamin B12 deficiency Code(s): D51.9 - VITAMIN B12 DEFICIENCY ANEMIA, UNSPECIFIED Status: Chronic (7) MORRIS (nonalcoholic steatohepatitis) Code(s): K75.81 - NONALCOHOLIC STEATOHEPATITIS (MORRIS) Status: Chronic (8) Hypokalemia Code(s): E87.6 - HYPOKALEMIA Status: Resolved (9) Lactic acidosis Code(s): E87.2 - ACIDOSIS Status: Resolved - Plan cont current plan of care, continue antibiotics * change to oral antibiotic today * as per dr peña , will plan for discharge tomorrow * medication reviewed as below * symptomatic treatment. * medically stable.. Review of Systems - Review of Systems ENT: negative: Ear Pain, Ear Discharge, Nose Pain, Nose Discharge, Nose Congestion, Mouth Pain, Mouth Swelling, Throat Pain, Throat Swelling, Other Respiratory: negative: Cough, Dry, Shortness of Breath, Hemoptysis, SOB with Excertion, Pleuritic Pain, Sputum, Wheezing Cardiovascular: negative: Chest Pain, Palpitations, Orthopnea, Paroxysmal Noc. Dyspnea, Edema, Light Headedness, Other Gastrointestinal: negative: Nausea, Vomiting, Abdominal Pain, Diarrhea, Constipation, Melena, Hematochezia, Other Genitourinary: negative: Dysuria, Frequency, Incontinence, Hematuria, Retention , Other Musculoskeletal: negative: Neck Pain, Shoulder Pain, Arm Pain, Back Pain, Hand Pain, Leg Pain, Foot Pain, Other - Medications/Allergies Allergies/Adverse Reactions: Allergies Allergy/AdvReac Type Severity Reaction Status Date / Time ciprofloxacin AdvReac Mild Stomach Verified 09/30/14 02:03 Ache Iodinated Contrast- Oral and AdvReac Mild Stomach Verified 09/30/14 02:03 IV Dye Ache [Iodinated Contrast Media - IV Dye] iodine AdvReac Mild Stomach Verified 09/30/14 02:03 Ache morphine AdvReac Mild Rash Verified 09/30/14 02:03 Medications: Current Medications Acetaminophen (Tylenol) 650 mg PO Q4H PRN PRN Reason: Headache/Fever or Pain Last Admin: 11/08/16 19:48 Dose: 650 mg Al Hydroxide/Mg Hydroxide (Maalox) 30 ml PO Q6H PRN PRN Reason: Heartburn or Indigestion Albuterol/Ipratropium (Duoneb) 3 ml NEB [id number] PRN PRN Reason: SOB &/or Wheezing Albuterol/Ipratropium (Duoneb) 3 ml NEB [id number] [facility] Last Admin: 11/11/16 09:38 Dose: 3 ml Amoxicillin/Clavulanate Potassium (Augmentin) 500 mg PER TUBE Q12HR [facility] Last Admin: 11/11/16 10:32 Dose: 500 mg Benzonatate (Tessalon) 100 mg PO Q4H PRN PRN Reason: Cough Last Admin: 11/11/16 09:44 Dose: 100 mg Bisacodyl (Dulcolax) 10 mg PO DAILYPRN PRN PRN Reason: Constipation Calcium Carbonate (Tums) 1,000 mg PO Q4H PRN PRN Reason: Heartburn or Indigestion Clonidine HCl (Catapres) 0.1 mg PO Q4H PRN PRN Reason: Systolic BP > 160 Cyanocobalamin (Vitamin B-12) 1,000 mcg IM [id number] [facility] Last Admin: 11/09/16 08:46 Dose: 1,000 mcg Enoxaparin Sodium (Lovenox) 40 mg SC 899 [facility] Last Admin: 11/11/16 09:34 Dose: 40 mg Famotidine (Pepcid) 20 mg PO BID [facility] Last Admin: 11/11/16 09:34 Dose: 20 mg Folic Acid (Folvite) 1 mg PO DAILY [facility] Last Admin: 11/11/16 09:34 Dose: 1 mg Guaifenesin (Robitussin Sf) 200 mg PO Q4H PRN PRN Reason: Cough Last Admin: 11/08/16 19:48 Dose: 200 mg Guaifenesin (Mucinex) 600 mg PO Q12HR [facility] Last Admin: 11/11/16 09:33 Dose: 600 mg Guaifenesin/Codeine Phosphate (Robitussin Ac) 10 ml PO Q6H PRN PRN Reason: Cough Last Admin: 11/11/16 09:44 Dose: 10 ml Hydralazine HCl (Apresoline) 10 mg SLOW IVP Q4H PRN PRN Reason: Systolic BP > 170 Levofloxacin (Levaquin) 500 mg PER TUBE DAILY [facility] Last Admin: 11/11/16 09:40 Dose: 500 mg Loratadine (Claritin) 10 mg PO DAILYPRN PRN PRN Reason: Sinus Symptoms Lorazepam (Ativan) 1 mg PO Q4H PRN PRN Reason: Anxiety/Agitation Last Admin: 11/09/16 15:31 Dose: 1 mg Lorazepam (Ativan) 1 mg PO TID [facility] Last Admin: 11/11/16 09:34 Dose: 1 mg Magnesium Oxide (Magnesium Oxide) 250 mg PO DAILY [facility] Last Admin: 11/11/16 09:35 Dose: 250 mg Nitroglycerin (Nitrostat) 0.4 mg SL Q5MIN PRN PRN Reason: Chest Pain Ondansetron HCl (Zofran) 4 mg IVP Q6H PRN PRN Reason: Nausea/Vomiting Ondansetron HCl (Zofran Odt) 4 mg PO Q4H PRN PRN Reason: Nausea/Vomiting Last Admin: 11/10/16 13:30 Dose: 4 mg Pantoprazole Sodium (Protonix) 40 mg PO BID [facility] Last Admin: 11/11/16 09:35 Dose: 40 mg Senna (Senokot) 2 tab PO HSPRN PRN PRN Reason: Constipation Sodium Chloride (Flush - Normal Saline) 10 ml IVF Q12HR [facility] Last Admin: 11/11/16 09:36 Dose: 10 ml Sodium Chloride (Flush - Normal Saline) 10 ml IVF PRN PRN PRN Reason: Saline Flush Zolpidem Tartrate (Ambien) 10 mg PO HS PRN PRN Reason: Insomnia
[2016-11-11] MEDS: Ondansetron HCl/PF 4 MG/2 ML Vial IVP PRN ×2 (12:49→18:15)
[2016-11-11 14:20] VITALS: BMI 27.3
[2016-11-12] MEDS: guaiFENesin/Codeine Phosphate 200 mg/20 mg 10 ml UD Cup PO PRN ×2 (05:33→12:14)
[2016-11-12 08:03] VITALS: BP 111/75; TEMP 98
--- NOTE | 2016-11-12 09:15 | PRG ---
DATE OF SERVICE: 11/12/2016 SUBJECTIVE: The patient is doing reasonably well. She says she is ready to go home. OBJECTIVE: VITAL SIGNS: Temperature is 98.0, pulse 70, respirations 16, O2 sat 95%, blood pressure 111/75. HEENT: Unremarkable. NECK: No JVD. CHEST: Clear without wheezing. CARDIAC: S1 and S2 regular. ABDOMEN: Soft. EXTREMITIES: No edema. ASSESSMENT: Aspiration pneumonia. PLAN: 1. She can go home on amoxicillin, Levaquin - she needs about 7 days of total treatment. 2. She can follow up with me in the office in 3-4 weeks and have her x-ray repeated.
[2016-11-12] MEDS: Amoxicillin/Potassium Clav 500 MG TAB PER TUBE SCH (09:53)
[2016-11-12] MEDS: Lorazepam 1 MG TAB PO SCH (09:53)
[2016-11-12] MEDS: Magnesium Oxide 250 MG TAB PO SCH (09:54)
[2016-11-12] MEDS: Famotidine 20 MG TAB PO SCH (09:56)
[2016-11-12] MEDS: guaiFENesin ER 600 MG TAB PO SCH (09:56)
[2016-11-12] MEDS: Enoxaparin Sodium 40 MG/0.4 ML SYRINGE SC SCH (09:56)
[2016-11-12] MEDS: Folic Acid 1 MG TAB PO SCH (09:56)
[2016-11-12] MEDS: Benzonatate 100 MG CAP PO PRN (12:15)
[2016-11-12] MEDS: Ondansetron HCl/PF 4 MG/2 ML Vial IVP PRN (12:15)
--- NOTE | 2016-11-12 13:34 | PDOC.PN ---
- Subjective Encounter Start Date: 11/12/16 Encounter Start Time: 07:15 Subjective: no sob, feels better, wants to go home - Objective MAR Reviewed: Yes Vital Signs & Weight: Vital Signs (12 hours) Temp Pulse Resp BP Pulse Ox 11/12/16 08:00 98 F 70 16 111/75 95 11/12/16 06:17 68 12 97 11/12/16 01:48 68 18 97 Weight Admit Weight 158 lb 4.8 oz Weight 159 lb 1.6 oz I&O: 11/11/16 11/12/16 11/13/16 06:59 06:59 06:59 Intake Total 510 Balance 510 Result Diagrams: 11/09/16 04:53 11/09/16 04:53 Phys Exam - Physical Examination HEENT: PERRLA, moist MMs Neck: no JVD, supple Respiratory: no wheezing, no rales Cardiovascular: RRR, no significant murmur Gastrointestinal: soft, no distention, positive bowel sounds peg+ Musculoskeletal: no edema, pulses present Neurological: non-focal, moves all 4 limbs Psychiatric: A&O x 3 Dx/Plan (1) PNA (pneumonia) Code(s): J18.9 - PNEUMONIA, UNSPECIFIED ORGANISM Status: Acute Qualifiers: Laterality: right Comment: likely aspiration pna (2) Sepsis Code(s): A41.9 - SEPSIS, UNSPECIFIED ORGANISM Status: Acute Qualifiers: Sepsis type: sepsis due to unspecified organism Qualified Code(s): A41.9 - Sepsis, unspecified organism (3) Anxiety and depression Code(s): F41.8 - OTHER SPECIFIED ANXIETY DISORDERS Status: Chronic (4) Macrocytic anemia with vitamin B12 deficiency Code(s): D51.9 - VITAMIN B12 DEFICIENCY ANEMIA, UNSPECIFIED Status: Chronic (5) MORRIS (nonalcoholic steatohepatitis) Code(s): K75.81 - NONALCOHOLIC STEATOHEPATITIS (MORRIS) Status: Chronic - Plan hemostable -: to continue augmentin and levaquin x1 week -: dc pt home -: d/w * .
--- NOTE | 2016-11-13 00:14 | DIS ---
DATE OF ADMISSION: 11/07/2016 DATE OF DISCHARGE: 11/12/2016 DISCHARGE DISPOSITION: To home. PRIMARY DISCHARGE DIAGNOSES: Aspiration pneumonia, sepsis. SECONDARY DISCHARGE DIAGNOSES: Vitamin B12 deficiency, macrocytic anemia, anxiety, depression, salvador lcoholic steatohepatitis. PROCEDURES DONE DURING HOSPITALIZATION: Patient has had chest x-ray done on the day of admission, w hich showed right suprahilar infiltrate. V/Q scan was normal. Blood cultures x2 no growth. Influe nza A and B antigens were negative. Had a white count of 11.3 on the day of admission with 80% neut rophils. Blood gas done on the showed a pH of 7.58, pCO2 of 22, pO2 of 82. Vitamin B12 levels were 122 picograms per mL. Folic acid was within normal limits. DISCHARGE MEDICATIONS: Augmentin 875 mg p.o. twice daily for 1 week, Levaquin 500 mg p.o. daily for 1 week, Protonix 40 mg p.o. twice daily, K-Dur 20 mEq p.o. twice daily. ALLERGIES: CIPROFLOXACIN and IODINE, also MORPHINE. INPATIENT CONSULTS: Dr. Cifuentes for Pulmonology. DISCHARGE PLAN: Patient to follow up with Dr. Cifuentes as advised and primary care physician in 1 we ek. BRIEF COURSE DURING HOSPITALIZATION: Patient initially got admitted on the with complaints of fever and worsening cough. She has had prior history of Prabhakar-en-Y gastric bypass with PEG tube plac ement as well done for complications arising from the bypass. Her initial x-ray was suspicious for pneumonia, likely patient aspirated. She has had consultation with Dr. Cifuentes during her stay here . She was on IV antibiotics and has done remarkably well. Her antibiotics has been switched over t o oral medications via PEG tube for another one week. She has remained hemodynamically stable and h as been cleared by Dr. Cifuentes. Please see a [id number] documentation on [facility] for the day of discharge.
== END 2016-11-12 12:38 | disposition home or self-care (01) | DRG 871 ==
LOC: ERS 15:25 → 2NO 18:35 → T4-A 11-09 08:01
PROVIDERS: ADMIT Internal Medicine; ATTEND Internal Medicine
DX: A41.9 Sepsis, unspecified organism (principal); J69.0 Pneumonitis due to inhalation of food and vomit; E87.2 Acidosis; E87.6 Hypokalemia; E53.8 Deficiency of other specified B group vitamins; Z98.84 Bariatric surgery status; Z93.1 Gastrostomy status; D53.9 Nutritional anemia, unspecified; K75.81 Nonalcoholic steatohepatitis (NASH); F41.8 Other specified anxiety disorders
CPT/HCPCS: 36415; 71010; 78582; 80048; 80053; 81003; 81015; 82550; 82553; 82607; 82746; 82805; 83605; 83735; 83880; 84484; 85025; 85379; 87040; 93005; 94640; 96365; A4216; A9540; A9558; G8996-GN-CI; G8997-GN-CI; J0295; J1650; J1956; J2405; J3420; J7050; J7620; Q0162

== ENCOUNTER 2016-11-23 12:22 | Emergency (ER) | payer BC | END 2016-11-23 14:14 | disposition home or self-care (01) | LOC: ERS 12:22 | DX: R44.3 Hallucinations, unspecified (principal); T50.995A Adverse effect of other drugs, medicaments and biological substances, initial encounter; I25.2 Old myocardial infarction; K21.9 Gastro-esophageal reflux disease without esophagitis; Z87.01 Personal history of pneumonia (recurrent); Z79.899 Other long term (current) drug therapy | CPT/HCPCS: 99284 ==

== ENCOUNTER 2016-11-23 19:50 | Observation (INO) | payer BC ==
--- NOTE | 2016-11-23 20:49 | CT ---
CT BRAIN WITHOUT CONTRAST: 11/23/16 HISTORY: 61-year-old female with hallucinations, fall. FINDINGS: Comparison is made with the exam of 02/01/15. FINDINGS: The small area of mildly decreased attenuation with some tiny punctate hypodensities in the left fro ntal periventricular white matter are stable since 08/05/14. The ventricular size is normal and the b asilar cisterns patent. No evidence of acute infarct, hemorrhage, midline shift or abnormal extra-ax ial fluid collections are seen. The bony calvarium is intact. The visualized paranasal sinuses and m astoid air cells are well aerated. IMPRESSION: Stable exam. No evidence of acute intracranial process. POS: [facility]
--- NOTE | 2016-11-23 20:51 | CT ---
CT CERVICAL SPINE WITH CORONAL AND SAGITTAL REFORMATIONS: 11/23/16 HISTORY: Fall, neck pain. FINDINGS/IMPRESSION: There is loss of the cervical lordosis with straightening of the cervical spine. Degenerative change s are present, most prominent at C5-6 level. No acute fracture or subluxation is identified. POS: JENN[facility]ER
[2016-11-23 20:58] LABS: #Basophils 0.1 thou/uL (0.0-0.2); #Eosinphils 0.1 thou/uL (0.0-0.7); #Lymphocytes 2.2 thou/uL (1.20-3.40); #Monocytes 0.9 thou/uL (0.11-0.59); #Neutrophils 6.3 thou/uL (1.40-6.50); %Basophils 1.2 % (0.0-1.0); %Eosinophils 0.5 % (0.0-10.0); %Lymphocytes 22.7 % (21.0-51.0); %Monocytes 9.9 % (0.0-10.0); Hematocrit 38.9 % (36.0-47.0); Red Blood Cell (RBC) Count 3.93 mill/uL (4.20-5.40); White Blood Cell (WBC) Count 9.5 thou/uL (4.8-10.8)
[2016-11-23] MEDS ORDERED: Multivitamins, Adult 10 ML, Thiamine HCl 100 MG, Folic Acid 1 MG in Dextrose 5 %-0.45 %... IV SCH ×4 (21:00)
[2016-11-23 21:07] LABS: ALT (SGPT) 37 U/L (8-55); AST (SGOT) 78 U/L (5-34); Alkaline Phosphatase 566 U/L (40-150); Anion Gap 15 mmol/L (10-20); BUN (Urea Nitrogen) 11 mg/dL (9.8-20.1); Bilirubin, Total 0.5 mg/dL (0.2-1.2); CK (CPK) 2621 U/L (29-168); Calc. Creatinine Clearance 0 mL/min (70-130); Calcium 8.8 mg/dL (7.8-10.44); Carbon Dioxide 22 mmol/L (22-29); Chloride 104 mmol/L (98-107); Estimated GFR-MDRD 86; Globulin 2.4 g/dL (2.4-3.5)
[2016-11-23 21:11] LABS: Troponin I Less than 0.010 ng/mL (< 0.028)
[2016-11-23] MEDS ORDERED: Lorazepam 1 MG TAB ONE (21:54)
[2016-11-23 23:27] LABS: Bilirubin Negative (Negative); Blood, Urine Negative (Negative); Glucose, Urine (Dipstick) Negative (Negative); Ketone, Urine Trace mg/dL (Negative); Nitrite Negative (Negative); Protein, Urine (Dipstick) Negative (Neg-Trace); Urobilinogen 0.2 mg/dL (0.2-1.0)
[2016-11-23 23:29] LABS: Bacteria/HPF None Seen HPF (None Seen); Hyaline Casts/LPF 0-3 HYALINE CAST LPF (0-3 Hyaline); RBC/HPF 0-3 HPF (0-3); Squamous Epithelial None Seen HPF (0-3); WBC/HPF 0-3 HPF (0-3)
[2016-11-23 23:36] LABS: Amphetamine Not Detected (NotDetected); Methadone Not Detected (NotDetected); Methamphetamine Not Detected (NotDetected)
[2016-11-24 00:18] LABS: Oxyhemoglobin 90.8 % (94.0-97.0); Sodium 140 mmol/L (135-148)
[2016-11-24 00:29] LABS: Mode RA; Modified Allen's Test POSITIVE; Vent NO
[2016-11-24] MEDS: Sodium Chloride 0.9% 1,000 ML IV SCH ×4 (01:12→23:14)
[2016-11-24] MEDS ORDERED: Ondansetron HCl/PF 4 MG/2 ML Vial IVP PRN (01:51)
[2016-11-24] MEDS ORDERED: Diabetic Tussin 200 MG/10 ML UDCUP PO PRN (01:51)
[2016-11-24] MEDS ORDERED: ALPRAZolam 0.25 MG TAB PO PRN (01:51)
[2016-11-24] MEDS ORDERED: Eucerin (Mineral Oil/Petrolatum,White) 30 gm Jar TOP PRN (01:51)
[2016-11-24] MEDS ORDERED: Ondansetron ODT 4 MG TAB PO PRN (01:51)
[2016-11-24] MEDS ORDERED: Senokot 8.6 MG TAB PO PRN (01:51)
[2016-11-24] MEDS ORDERED: Acetaminophen 325 MG TAB PO PRN (01:51)
[2016-11-24] MEDS ORDERED: Sodium Chloride 0.65% Nasal 44 ML BOT EA NARE PRN (01:51)
[2016-11-24] MEDS ORDERED: Artificial Tears 18 DROP/0.9 ML EA EYE PRN (01:51)
[2016-11-24] MEDS ORDERED: Milk Of Magnesia 30 ML UDCUP PO PRN (01:51)
[2016-11-24] MEDS ORDERED: Mag-Al 1200 mg/1200 mg/30 ML UDCUP PO PRN (01:51)
--- NOTE | 2016-11-24 02:15 | HP ---
PRIMARY CARE PHYSICIAN: Pedro Herrmann M.D. REASON FOR ADMISSION: Hallucinations and rhabdomyolysis. HISTORY OF PRESENT ILLNESS: A 61-year-old female who has a history of nonalcoholic steatohepatitis, chronic low back pain, and chronic pain medication, who was brought to the emergency room by parame melly for hallucination. This patient was also brought to the Emergency Room earlier today and she was discharged home. At t hat time, she presented to the ER with a similar complaint of hallucination. ER physician evaluated and subsequently, she was sent her home. Family member again called paramedics and paramedics brou ght her to ER again. As per paramedics, they found that her house was having scattered tramadol. T he patient was having hallucinations. She was seeing peoples hiding behind the house and in closet. As per family member, she was combative and family was there at home, but paramedics reported that she was not combative on the route. At this point, the patient is not able to provide incoherent h istory. She is awake, but she is talking all over the place, so exact history was unable to obtain from her and no family member present at the bedside in the emergency room. Today in the emergency room, she had routine workup with the CT brain, which was negative. CT cervi glenny spine negative for any fracture or dislocation. Patient had 3 weeks ago fall. REVIEW OF SYSTEMS: All review of systems tried to review with the patient, but unable to review and not reliable because of altered mental status. PAST MEDICAL HISTORY: Chronic pain disorder on chronic pain medication, history of recent admission in our hospital for aspiration pneumonia, chronic abdominal pain, recurrent urinary tract infection , nonalcoholic steatohepatitis, vitamin B12 deficiency, macrocytic anemia. PAST PSYCHIATRIC HISTORY: Anxiety and depression. PAST SURGICAL HISTORY: Total abdominal hysterectomy, bilateral salpingo-oophorectomy, laparoscopic cholecystectomy, appendicectomy, abdominoplasty, Prabhakar-en-Y gastric bypass, bilateral breast reductio n surgery in [place], [place], history of PEG tube placement. FAMILY HISTORY: Mother has a history of coronary artery disease. No strong family history of cance r or stroke. SOCIAL HISTORY: Patient is , lives with her . No history of tobacco, alcohol, or ill icit drug abuse. She does use chronic narcotics for her abdominal pain. ALLERGIES: CIPROFLOXACIN ORAL AND IV CONTRAST, MORPHINE, NSAIDS. CURRENT HOME MEDICATIONS: The patient does not have any medication with her at this point, but base d on our hospital records, the patient is on following medications: Xanax 0.25 mg p.o. t.i.d., foli c acid 0.8 mg p.o. daily, lorazepam 1 mg p.o. t.i.d., magnesium 500 mg p.o. daily, Zofran 4 mg q.4 h ourly p.r.n., Protonix 40 mg p.o. b.i.d., potassium chloride 20 mEq p.o. daily, Phenergan 25 mg b.i. d. p.r.n., Ambien 10 mg p.o. at bedtime p.r.n. EMERGENCY ROOM COURSE: Patient is getting IV fluids, banana bag, Ativan 1 mg given. PHYSICAL EXAMINATION: VITAL SIGNS: On the arrival, blood pressure 108/48, pulse 82, respiratory rate 18, temperature 98.9 , saturation 94% on room air. Weight 64.8 kilograms. GENERAL: Patient is currently sleepy after Ativan given, no obvious acute distress. Patient is pauly usable. She is alert and oriented x2. HEENT: Normocephalic, atraumatic. Eyes: Pupils round, reactive to light. Extraocular muscle inta ct. ENT: Dry mucous membranes, no oral lesion. Patient does have an old rash on her lip. NECK: Supple. Range of motion is normal. No meningeal signs of irritation. LUNGS: Clear to auscultation without any rhonchi or rales. CARDIAC: S1, S2 regular without any murmur. ABDOMEN: Soft, bowel sounds present, nontender, nondistended. No organomegaly, no mass, no suprapu bic tenderness. BACK: Unremarkable, no CVA tenderness. EXTREMITIES: Upper extremity passive movement of all joints are normal. Lower extremities: No renee ma. Good peripheral pulsation. SKIN: No skin rash. PSYCHIATRIC: Unable to assess currently because of altered mental status. NEUROLOGIC: This is a grossly looking patient, does not have any focal neurological deficit because she is moving all 4 limbs. Her speech is normal, but she is alert and oriented x2 only. HEMATOLOGICAL SYSTEM: No lymphadenopathy. SIGNIFICANT LABS: 1. CT brain based on my review, no acute intracranial process. CT cervical spine based on my revie w, no acute fracture or dislocation noted. 2. CBC: WBC 9.5, hemoglobin 12.3, platelet 289, ABG: pH 7.41, CO2 40.5, O2 64.2, bicarbonate 25.0 . 3. BMP: Sodium 137, potassium 3.7, chloride 104, carbon dioxide 22, BUN 11, creatinine 0.70, gluco se 93, calcium 8.8. 4. LFT: AST 78, ALT 37, alkaline phosphatase 566, albumin 3.6. CK 2621, CK-MB 14.4, troponin I le ss than 0.010. Urinalysis: Leukocyte esterase trace. Urine drug screen positive for opiates and b enzodiazepines. 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 ASSESSMENT AND PLAN: 1. Hallucination/altered mental status. I am suspecting from pain medication that there was eviden ce of multiple pain medications scattered at her home. She does have a urine drug screen positive f or opiates and benzodiazepines. 2. Underlying urinary tract infection is possible, but less likely to be given no fever. She also has elevated total CK from rhabdomyolysis. This patient does have chronically elevated alkaline flash sphatase and abnormal LFT from nonalcoholic steatohepatitis. I will check ammonia level, B12, folat e, TSH, RPR as a part of the altered mental status workup. She does not have any focal neurological deficit. Her CT brain is negative. We will keep this patient in the hospital for observation. 3. Rhabdomyolysis. The patient will be given IV fluid and will repeat CK level tomorrow. We will also check TSH. 4. Abnormal liver function tests. This patient has a hepatitis profile negative in the past. This patient has a history of abnormal liver function tests secondary to nonalcoholic steatohepatitis. 5. Anxiety and depression. We will continue Xanax 0.25 mg p.o. t.i.d. p.r.n. basis. 6. Macrocytosis anemia and B12 deficiency. We will check B12 and folate level and continue folic a karla and vitamin B12 therapy while in the hospital. 7. Chronic pain disorder at this point because of altered mental status. We will avoid any pain me dication while in the hospital. 8. Gastroesophageal reflux disease. We will continue Protonix 40 mg p.o. daily. 9. Asymptomatic urinary tract infection. Follow up on urine culture result. 10. Deep venous thrombosis prophylaxis not needed because we are expecting discharge in 24 hours. 11. Gastrointestinal prophylaxis, Protonix 40 mg p.o. daily. CODE STATUS: The patient is FULL CODE. Patient's is the surrogate decision maker. Disposition plan based on clinical course, we are expecting patient's stay in the hospital for 24 ho urs.
[2016-11-24 03:45] LABS: #Basophils 0.1 thou/uL (0.0-0.2); #Eosinphils 0.1 thou/uL (0.0-0.7); #Lymphocytes 2.3 thou/uL (1.20-3.40); #Monocytes 0.6 thou/uL (0.11-0.59); #Neutrophils 3.9 thou/uL (1.40-6.50); %Basophils 1.1 % (0.0-1.0); %Eosinophils 1.9 % (0.0-10.0); %Lymphocytes 32.3 % (21.0-51.0); %Monocytes 8.2 % (0.0-10.0); Hematocrit 35.2 % (36.0-47.0); Mean Platelet Volume 7.1 fL (7.4-10.4); Red Blood Cell (RBC) Count 3.56 mill/uL (4.20-5.40)
[2016-11-24 04:07] LABS: ALT (SGPT) 32 U/L (8-55); AST (SGOT) 65 U/L (5-34); Alkaline Phosphatase 496 U/L (40-150); Anion Gap 10 mmol/L (10-20); BUN (Urea Nitrogen) 7 mg/dL (9.8-20.1); Bilirubin, Total 0.5 mg/dL (0.2-1.2); CK (CPK) 1837 U/L (29-168); Calc. Creatinine Clearance 97 mL/min (70-130); Calcium 8.2 mg/dL (7.8-10.44); Carbon Dioxide 22 mmol/L (22-29); Chloride 108 mmol/L (98-107); Estimated GFR-MDRD Greater than 90; Globulin 2.4 g/dL (2.4-3.5); Protein, Total 5.6 g/dL (6.0-8.3)
[2016-11-24] MEDS ORDERED: Potassium Chloride 40 MEQ in Sodium Chloride 0.9% 500 ML IVPB SCH (04:45)
[2016-11-24] MEDS ORDERED: Folic Acid 1 MG TAB PO SCH (09:00)
[2016-11-24] MEDS: Cyanocobalamin (Vitamin B-12) 1,000 MCG TAB PO SCH (11:27)
[2016-11-24] MEDS ORDERED: Zolpidem Tartrate 5 MG TAB PO PRN (14:10)
--- NOTE | 2016-11-24 14:13 | PDOC.PN ---
- Subjective Encounter Start Date: 11/24/16 Encounter Start Time: 12:30 Subjective: lethargic but easily awakens -: oriented well - Objective Resuscitation Status: Resuscitation Status FULL:Full Resuscitation MAR Reviewed: Yes Vital Signs & Weight: Vital Signs (12 hours) Temp Pulse Resp BP Pulse Ox 11/24/16 11:27 97.8 F 74 18 115/73 95 11/24/16 07:40 97.7 F 74 18 105/60 94 L 11/24/16 04:00 98.1 F 68 20 101/56 L 11/24/16 03:00 97.6 F 71 18 I&O: 11/23/16 11/24/16 11/25/16 06:59 06:59 06:59 Intake Total 1176 240 Balance 1176 240 Result Diagrams: 11/24/16 03:35 11/24/16 03:35 Phys Exam - Physical Examination HEENT: PERRLA dry mucosa Neck: no JVD, supple Respiratory: no wheezing, no rales Cardiovascular: RRR, no significant murmur Gastrointestinal: soft, no distention, positive bowel sounds peg+ Musculoskeletal: pulses present multiple bruising due rec falls Neurological: non-focal, moves all 4 limbs Dx/Plan (1) Acute encephalopathy Code(s): G93.40 - ENCEPHALOPATHY, UNSPECIFIED Status: Acute Comment: resoving (2) Anxiety and depression Code(s): F41.8 - OTHER SPECIFIED ANXIETY DISORDERS Status: Chronic (3) Macrocytic anemia with vitamin B12 deficiency Code(s): D51.9 - VITAMIN B12 DEFICIENCY ANEMIA, UNSPECIFIED Status: Chronic (4) MORRIS (nonalcoholic steatohepatitis) Code(s): K75.81 - NONALCOHOLIC STEATOHEPATITIS (MORRIS) Status: Chronic (5) Hypokalemia Code(s): E87.6 - HYPOKALEMIA Status: Acute - Plan replace electrolytes -: family wants /Nacho to be consulted -: ck levels are trending down -: continue iv hydration/peg feeding ensure 1 can qid -: encourage po intake if she can take * . Review of Systems - Medications/Allergies Allergies/Adverse Reactions: Allergies Allergy/AdvReac Type Severity Reaction Status Date / Time ciprofloxacin AdvReac Mild Stomach Verified 09/30/14 02:03 Ache Iodinated Contrast- Oral and AdvReac Mild Stomach Verified 09/30/14 02:03 IV Dye Ache [Iodinated Contrast Media - IV Dye] iodine AdvReac Mild Stomach Verified 09/30/14 02:03 Ache morphine AdvReac Mild Rash Verified 09/30/14 02:03 Medications: Current Medications Acetaminophen (Tylenol) 650 mg PO Q4H PRN PRN Reason: Headache/Fever or Pain Al Hydroxide/Mg Hydroxide (Maalox) 30 ml PO Q6H PRN PRN Reason: Heartburn or Indigestion Alprazolam (Xanax) 0.25 mg PO TID [facility] Artificial Tears (Tears Naturale) 0 drop EA EYE PRN PRN PRN Reason: Dry Eyes Cyanocobalamin (Vitamin B-12) 1,000 mcg PO DAILY [facility] Last Admin: 11/24/16 11:27 Dose: 1,000 mcg Folic Acid (Folvite) 1 mg PO DAILY [facility] Guaifenesin (Robitussin Sf) 200 mg PO Q4H PRN PRN Reason: Cough Hydralazine HCl (Apresoline) 10 mg SLOW IVP Q4H PRN PRN Reason: Systolic BP > 180 Sodium Chloride (Normal Saline 0.9%) 1,000 mls @ 125 mls/hr IV .Q8H [facility] Last Admin: 11/24/16 13:09 Dose: Not Given Thiamine HCl 100 mg/ Sodium (Chloride) 51 mls @ 100 mls/hr IVPB Q24HR [facility] Last Admin: 11/24/16 13:11 Dose: 51 mls Magnesium Hydroxide (Milk Of Magnesium) 30 ml PO DAILYPRN PRN PRN Reason: Constipation Mineral Oil/White Petrolatum (Eucerin Cream) 0 gm TOP BIDPRN PRN PRN Reason: Dry Skin Ondansetron HCl (Zofran Odt) 4 mg PO Q6H PRN PRN Reason: Nausea/Vomiting Ondansetron HCl (Zofran) 4 mg IVP Q6H PRN PRN Reason: Nausea/Vomiting Pantoprazole Sodium (Protonix) 40 mg PO DAILY [facility] Last Admin: 11/24/16 11:27 Dose: 40 mg Senna (Senokot) 2 tab PO HSPRN PRN PRN Reason: Constipation Sodium Chloride ([place] Nasal [place] 0.65%) 0 ml EA NARE QIDPRN PRN PRN Reason: Nasal Congestion Sodium Chloride (Flush - Normal Saline) 10 ml IVF Q12HR [facility] Last Admin: 11/24/16 08:19 Dose: 10 ml Sodium Chloride (Flush - Normal Saline) 10 ml IVF PRN PRN PRN Reason: Saline Flush Zolpidem Tartrate (Ambien) 10 mg PO HS PRN PRN Reason: Insomnia
[2016-11-24] MEDS ORDERED: ALPRAZolam 0.25 MG TAB PO SCH (15:00)
[2016-11-24] MEDS: ALPRAZolam 0.25 MG TAB PO SCH ×2 (15:32→20:01)
[2016-11-25] MEDS: Sodium Chloride 0.9% 1,000 ML IV SCH ×3 (02:12→08:45)
[2016-11-25 05:13] LABS: Anion Gap 10 mmol/L (10-20); BUN (Urea Nitrogen) 5 mg/dL (9.8-20.1); Calc. Creatinine Clearance 109 mL/min (70-130); Calcium 7.8 mg/dL (7.8-10.44); Carbon Dioxide 21 mmol/L (22-29); Chloride 115 mmol/L (98-107); Estimated GFR-MDRD Greater than 90
[2016-11-25] MEDS: Cyanocobalamin (Vitamin B-12) 1,000 MCG TAB PO SCH (08:19)
[2016-11-25] MEDS: ALPRAZolam 0.25 MG TAB PO SCH (08:20)
[2016-11-25] MEDS ORDERED: Folic Acid 1 MG TAB PO SCH (09:00)
[2016-11-25] MEDS ORDERED: Non-Formulary Item 1 EACH (Folic Acid [Folic Acid] 0.8 MG) PO SCH (09:00)
[2016-11-25 12:56] VITALS: BP 122/72; TEMP 98.1
--- NOTE | 2016-11-25 15:06 | PDOC.PN ---
- Subjective Encounter Start Date: 11/25/16 Encounter Start Time: 07:30 Subjective: is awake and oriented -: is amb in room per patient - Objective Resuscitation Status: Resuscitation Status FULL:Full Resuscitation MAR Reviewed: Yes Vital Signs & Weight: Vital Signs (12 hours) Temp Pulse Resp BP BP BP Pulse Ox 11/25/16 12:00 98.1 F 76 18 122/72 97 11/25/16 08:00 98.0 F 75 18 111/71 96 11/25/16 04:22 98.3 F 72 16 116/73 95 11/25/16 03:40 96 I&O: 11/24/16 11/25/16 11/26/16 06:59 06:59 06:59 Intake Total 1176 3491 Balance 1176 3491 Result Diagrams: 11/24/16 03:35 11/25/16 04:28 Phys Exam - Physical Examination HEENT: PERRLA, moist MMs Neck: no JVD, supple Respiratory: no wheezing, no rales Cardiovascular: RRR, no significant murmur Gastrointestinal: soft, non-tender, positive bowel sounds Musculoskeletal: no edema, pulses present Neurological: non-focal, moves all 4 limbs Psychiatric: A&O x 3 Dx/Plan (1) Acute encephalopathy Code(s): G93.40 - ENCEPHALOPATHY, UNSPECIFIED Status: Acute Comment: resoving (2) Anxiety and depression Code(s): F41.8 - OTHER SPECIFIED ANXIETY DISORDERS Status: Chronic (3) Macrocytic anemia with vitamin B12 deficiency Code(s): D51.9 - VITAMIN B12 DEFICIENCY ANEMIA, UNSPECIFIED Status: Chronic (4) MORRIS (nonalcoholic steatohepatitis) Code(s): K75.81 - NONALCOHOLIC STEATOHEPATITIS (MORRIS) Status: Chronic (5) Hypokalemia Code(s): E87.6 - HYPOKALEMIA Status: Acute - Plan needs close f/u with her PCP -: may dc pt home * .
--- NOTE | 2016-11-25 23:31 | DIS ---
DATE OF ADMISSION: 11/23/2016 DATE OF DISCHARGE: 11/25/2016 DISCHARGE DISPOSITION: To home. PRIMARY DISCHARGE DIAGNOSIS: Acute encephalopathy, likely due to medications, resolved. SECONDARY DISCHARGE DIAGNOSES: History of macrocytic anemia, history of nonalcoholic steatohepatiti s, anxiety and depression. PROCEDURES DONE DURING HOSPITALIZATION: CT brain done on the day of admission showed no evidence of acute intracranial process. CT cervical spine showed no acute fracture or subluxation. Had a whit e count of 9 with H\T\H of 12 and 38 on the day of admission. Discharge electrolytes are stable. V itamin B12 of 285, folic acid greater than 76, CK levels were 2621 on the day of admission. Urine d rug screen was positive for opiates and benzodiazepines. Urine culture, no growth. DISCHARGE MEDICATIONS: Folic acid 0.8 mg p.o. daily, magnesium 500 mg p.o. daily, Protonix 40 mg p. o. at bedtime, K-Dur 40 mEq p.o. twice daily, Florastor 250 mg p.o. daily, Ambien 10 mg p.o. at bedt maribeth. ALLERGIES: CIPROFLOXACIN, IODINE, and MORPHINE. DISCHARGE PLAN: Patient to follow up with primary care physician in 1 week. BRIEF COURSE DURING HOSPITALIZATION: The patient initially was placed under observation after she h ad hallucinations. She also was found to have had rhabdomyolysis. The patient was gently hydrated during her stay here. She has had history of falls at home. Twenty-four hours in the hospitalizati on, the patient is fully oriented. She is also ambulating in the room. She is wanting to go home. She is advised to drink at least 2.5 liters of free water. She was also counseled to follow up wit h her primary care physician in 1 week. She has otherwise remained hemodynamically stable and neuro logically stable prior to discharge. Please see a [id number] documentation on [facility] for the da y of discharge.
== END 2016-11-25 14:03 | disposition home or self-care (01) ==
LOC: ERS 19:50 → T4-B 11-24 01:34
PROVIDERS: ADMIT Internal Medicine; ATTEND Internal Medicine
DX: G93.40 Encephalopathy, unspecified (principal); F32.9 Major depressive disorder, single episode, unspecified; F41.9 Anxiety disorder, unspecified; D64.9 Anemia, unspecified; K75.81 Nonalcoholic steatohepatitis (NASH); K21.9 Gastro-esophageal reflux disease without esophagitis; Z88.1 Allergy status to other antibiotic agents; Z88.5 Allergy status to narcotic agent; Z88.6 Allergy status to analgesic agent; Z91.041 Radiographic dye allergy status; Z79.899 Other long term (current) drug therapy; Z90.710 Acquired absence of both cervix and uterus; Z90.722 Acquired absence of ovaries, bilateral; Z90.49 Acquired absence of other specified parts of digestive tract; Z98.84 Bariatric surgery status; Z93.1 Gastrostomy status; Z98.890 Other specified postprocedural states; Z87.440 Personal history of urinary (tract) infections; Z82.49 Family history of ischemic heart disease and other diseases of the circulatory system
CPT/HCPCS: 36415; 51701; 70450; 72125; 80048; 80053; 80306; 81003; 81015; 82140; 82550; 82553; 82607; 82746; 82805; 84443; 84484; 85025; 86780; 87086; 96361; 96365; 96366; 96367; 96375; 96376; A4216; A4353; G0378; G8978-GP-CJ; G8979-GP-CJ; G8980-GP-CJ; J3411; J3480; J7042; J7050

== ENCOUNTER 2017-03-10 14:50 | Emergency (ER) | payer BC ==
[2017-03-10 15:48] LABS: #Basophils 0.1 thou/uL (0.0-0.2); #Eosinphils 0.1 thou/uL (0.0-0.7); #Lymphocytes 2.2 thou/uL (1.20-3.40); #Monocytes 0.5 thou/uL (0.11-0.59); #Neutrophils 4.2 thou/uL (1.40-6.50); %Basophils 0.8 % (0.0-1.0); %Eosinophils 1.2 % (0.0-10.0); %Lymphocytes 31.8 % (21.0-51.0); %Monocytes 6.7 % (0.0-10.0); %Neutrophils 59.6 % (42.0-75.0); Hemoglobin 12.6 g/dL (12.0-16.0); Mean Corpuscular Hemoglobin 30.1 pg (27.0-31.0); Mean Corpuscular Volume 97.2 fl (81.0-99.0); Mean Platelet Volume 7.8 fL (7.4-10.4); Platelet Count 273 thou/uL (130-400); Red Blood Cell (RBC) Count 4.18 mill/uL (4.20-5.40)
[2017-03-10 15:54] LABS: INR-International Normal Ratio 0.9; PTT 25.1 SEC (22.9-36.1); Prothrombin Time 12.6 SEC (12.0-14.7)
[2017-03-10 15:58] LABS: ALT (SGPT) 55 U/L (8-55); AST (SGOT) 23 U/L (5-34); Albumin 4.1 g/dL (3.5-5.0); Alkaline Phosphatase 391 U/L (40-150); Anion Gap 15 mmol/L (10-20); BUN (Urea Nitrogen) 15 mg/dL (9.8-20.1); Bilirubin, Total 0.2 mg/dL (0.2-1.2); Calc. Creatinine Clearance 0 mL/min (70-130); Calcium 9.1 mg/dL (7.8-10.44); Carbon Dioxide 24 mmol/L (22-29); Chloride 107 mmol/L (98-107); Estimated GFR-MDRD 83; Globulin 2.9 g/dL (2.4-3.5); Glucose 90 mg/dL (70-105); Potassium 4.3 mmol/L (3.5-5.1); Sodium 142 mmol/L (136-145)
[2017-03-10] MEDS ORDERED: HYDROmorphone 0.5 MG/0.5 ML SYRINGE ONE ×2 (15:59)
[2017-03-10] MEDS ORDERED: Ondansetron HCl/PF 4 MG/2 ML Vial ONE (15:59)
[2017-03-10] MEDS ORDERED: Fentanyl 100 MCG/2 ML VIAL ONE ×2 (16:07→19:33)
[2017-03-10] MEDS ORDERED: HYDROcodone/Acetaminophen 7.5/325 mg Tablet ONE (16:10)
[2017-03-10 16:38] LABS: Bilirubin Negative (Negative); Blood, Urine Negative (Negative); Clarity CLEAR (Clear); Glucose, Urine (Dipstick) Negative (Negative); Leukocyte Small (Negative); Nitrite Negative (Negative); Protein, Urine (Dipstick) Negative (Neg-Trace); Specific Gravity, Urine 1.009 (1.002-1.036); Urobilinogen 0.2 mg/dL (0.2-1.0)
[2017-03-10 16:40] LABS: Bacteria/HPF None Seen HPF (None Seen); Hyaline Casts/LPF 0-3 HYALINE CAST LPF (0-3 Hyaline); RBC/HPF 0-3 HPF (0-3); Squamous Epithelial 0-3 HPF (0-3); WBC/HPF 0-3 HPF (0-3)
--- NOTE | 2017-03-10 20:20 | MRI ---
MRI OF THE ABDOMEN WITHOUT CONTRAST: Date: 03-10-17 Provided Clinical History: Right sided abdominal pain. FINDINGS: Comparison is made with a study dated 10-26-14. The liver demonstrates no evidence for mass or intrahepatic biliary ductal dilatation. The common katie t is ectatic, similar to the prior examination but there is no evidence for a choledocholith. There i s no evidence for intrahepatic biliary ductal dilatation. The liver, spleen, pancreas, and adrenal gl ands demonstrate an unremarkable unenhanced MR appearance. There is no bowel dilatation or free fluid apparent. Percutaneous gastrostomy catheter is noted within the stomach. The regional marrow signal appears normal. There is no inflammatory fat stranding apparent. The gallbladder is again noted to be surgically absent. IMPRESSION: No evidence for choledocholithiasis or biliary ductal dilatation. POS: JENN[facility]ER
== END 2017-03-10 20:44 | disposition home or self-care (01) ==
LOC: ERS 14:50
DX: R10.31 Right lower quadrant pain (principal); I25.2 Old myocardial infarction; F41.9 Anxiety disorder, unspecified; F32.9 Major depressive disorder, single episode, unspecified
CPT/HCPCS: 74181; 80053; 81003; 81015; 83605; 84425; 85025; 85610; 85730; 87086; 96372; 96374; 96375; 96376; J1170; J2405; J3010

== ENCOUNTER 2017-06-16 08:42 | Outpatient (CLI) | payer BC ==
[2017-06-16 10:05] LABS: Estimated GFR-MDRD - POC Greater than 90
--- NOTE | 2017-06-16 11:58 | CT ---
CT ABDOMEN AND PELVIS WITH ORAL AND IV CONTRAST: HISTORY: Adult hypertrophic pyloric stenosis, stent in the stomach. COMPARISON: 09/01/16. FINDINGS: Comparison is made with the exam of 09/01/16. Mild chronic changes in the lung bases again seen. Postop changes of bariatric surgery, cholecystect oumou, hysterectomy, and lower spine surgery are again seen. There has been interval removal of the pe rcutaneous gastrostomy tube since the last exam with placement of a stent in the gastric remnant. Th e gastrostomy tract is again seen. There is intrahepatic biliary ductal air. The common bile duct measures about 6 mm in the distal asp ect. No liver masses are identified. The spleen, pancreas, adrenal glands, and kidneys appear reji l. No free air, free fluid, or lymphadenopathy is seen in the abdomen or pelvis. There are vascular glenny cifications without evidence of aneurysmal dilatation of the abdominal aorta. There are degenerative changes in the spine. The small bowel loops are not abnormally dilated. There is colonic diverticu losis. The urinary bladder is well distended and grossly unremarkable. IMPRESSION: No acute process. Discussed over the telephone with Dr. Pedro Griffith at 10:40 a.m. CODE CR POS: JENN[facility]ER
[2017-06-16 13:05] LABS: #Monocytes 0.1 thou/uL (0.11-0.59); #Neutrophils 7.4 thou/uL (1.40-6.50); %Basophils 0.2 % (0.0-1.0); %Eosinophils 0.1 % (0.0-10.0); %Lymphocytes 11.2 % (21.0-51.0); %Monocytes 1.4 % (0.0-10.0); %Neutrophils 87.1 % (42.0-75.0); Hemoglobin 13.2 g/dL (12.0-16.0); Mean Corpuscular Hemoglobin 30.1 pg (27.0-31.0); Mean Corpuscular Volume 94.1 fl (81.0-99.0); Mean Platelet Volume 7.8 fL (7.4-10.4); Platelet Count 267 thou/uL (130-400); RBC Distribution Width 12.4 % (11.5-14.5); Red Blood Cell (RBC) Count 4.37 mill/uL (4.20-5.40); White Blood Cell (WBC) Count 8.5 thou/uL (4.8-10.8)
[2017-06-16 13:42] LABS: ALT (SGPT) 24 U/L (8-55); AST (SGOT) 21 U/L (5-34); Albumin 4.6 g/dL (3.5-5.0); Alkaline Phosphatase 353 U/L (40-150); Anion Gap 15 mmol/L (10-20); BUN (Urea Nitrogen) 8 mg/dL (9.8-20.1); Bilirubin, Direct 0.2 mg/dL (0.1-0.3); Bilirubin, Total 0.3 mg/dL (0.2-1.2); Calc. Creatinine Clearance 0 mL/min (70-130); Calcium 9.6 mg/dL (7.8-10.44); Carbon Dioxide 20 mmol/L (22-29); Chloride 105 mmol/L (98-107); Estimated GFR-MDRD 81; Glucose 178 mg/dL (70-105); Potassium 3.8 mmol/L (3.5-5.1); Protein, Total 7.2 g/dL (6.0-8.3); Sodium 136 mmol/L (136-145)
--- NOTE | 2017-06-17 07:26 | EKG ---
Test Reason : Blood Pressure : / mmHG Vent. Rate : 079 BPM Atrial Rate : 079 BPM P-R Int : 118 ms QRS Dur : 082 ms QT Int : 384 ms P-R-T Axes : 000 -19 072 degrees QTc Int : 440 ms Poor data quality, interpretation may be adversely affected Normal sinus rhythm Nonspecific T wave abnormality Abnormal ECG When compared with ECG of 07-NOV-2016 15:39, Nonspecific T wave abnormality, worse in Inferior leads Nonspecific T wave abnormality, worse in Anterolateral leads Confirmed by DR. Traci ROOT (3) on 06/17/2017 7:25:54 AM Referred By: ROYAL Confirmed By:DR. Traci ROOT
== END 2017-06-16 08:43 | disposition home or self-care (01) ==
LOC: CT 08:42
PROVIDERS: ATTEND Surgery
DX: K31.6 Fistula of stomach and duodenum (principal)
CPT/HCPCS: 74177; 80048; 80076; 82565; 85025; 93005; 93010

== ENCOUNTER 2017-06-17 06:01 | Inpatient (IN) | payer BC ==
[2017-06-17] MEDS ORDERED: cefOXitin 2 GM, Syringe 1 ML in Sterile Water 10 ML SLOW IVP SCH ×2 (06:45→14:00)
[2017-06-17] MEDS ORDERED: Fentanyl 100 MCG/2 ML VIAL ONE ×4 (06:54→10:18)
[2017-06-17] MEDS ORDERED: Midazolam HCl 2 mg/2 ml Vial ONE (06:54)
[2017-06-17] MEDS ORDERED: Dexamethasone 4 mg/ml Vial ONE (06:54)
[2017-06-17] MEDS ORDERED: Fentanyl 250 MCG/5 ML VIAL ONE (07:29)
[2017-06-17] MEDS ORDERED: Promethazine HCl 25 MG/ML VIAL IM PRN ×3 (09:24→09:53)
[2017-06-17] MEDS ORDERED: Promethazine HCl 25 MG/ML VIAL SLOW IVP PRN (09:24)
[2017-06-17] MEDS ORDERED: Ondansetron HCl/PF 4 MG/2 ML Vial IVP PRN ×3 (09:24→09:53)
[2017-06-17] MEDS ORDERED: Promethazine HCl 25 MG/ML VIAL ONE (09:35)
[2017-06-17] MEDS ORDERED: diphenhydrAMINE 50 MG/ML VIAL IM PRN ×2 (09:43→09:53)
[2017-06-17] MEDS ORDERED: diphenhydrAMINE 50 MG/ML VIAL IVP PRN ×2 (09:43→09:53)
[2017-06-17] MEDS ORDERED: Naloxone HCl 0.4 mg/ml Vial IV PRN ×2 (09:43→09:53)
[2017-06-17] MEDS ORDERED: Fentanyl 5000 MCG/250 ML CADD IVPB PRN ×2 (09:43→09:54)
[2017-06-17] MEDS ORDERED: diphenhydrAMINE 25 MG CAP PO PRN ×2 (09:43→09:53)
[2017-06-17] MEDS ORDERED: Zolpidem Tartrate 5 MG TAB PO PRN (09:43)
[2017-06-17] MEDS ORDERED: Communication Order-Pharmacy FS SCH ×2 (09:45→10:00)
[2017-06-17] MEDS ORDERED: fentaNYL Citrate/PF 2,000 MCG in Sodium Chloride 0.9% 60 ML IV PRN (10:00)
--- NOTE | 2017-06-17 11:02 | OP ---
DATE OF PROCEDURE: 06/17/2017 PREOPERATIVE DIAGNOSES: Gastrocutaneous fistula, retained foreign body, stomach. POSTOPERATIVE DIAGNOSES: Gastrocutaneous fistula, retained foreign body, stomach. PROCEDURE: 1. Closure of gastrocutaneous fistula. 2. Gastrotomy with extraction of retained foreign body. SURGEON: Liban Griffith M.D. ANESTHESIA: General. ESTIMATED BLOOD LOSS: 50 mL. COMPLICATIONS: None. HISTORY: The patient is a 62-year-old female who is status post conversion of Rockwell band to partial gastrectomy Prabhakar-Y gastrojejunostomy. Her postop course was complicated by leak and multiple operat ions. She has now been doing fairly well except that she started to make gallstones primarily in her bile duct. She had previously had a cholecystectomy. She had to be sent to Dr. Blanco, a GI spec ialist in [place], where she underwent a procedure where a tunnel was made from her gastric pouch to her remnant stomach and a stent was placed in order to facilitate passage of ERCP scope. That was domínguez ccessful; however, the tunnel stent moved into the remnant stomach. Her G-tube has come out and is u nable to be replaced. She does not need it anymore and she has for the last 2 months continued drain age of stomach contents through the old hole. She understands risks and benefits of takedown and ext raction of the foreign body as well as potential alternative procedures or treatments and she does gi ve consent. TECHNIQUE: The patient underwent preoperative tap blocks as well as antibiotics. She was taken to [facility] operating room and placed supine on the table. After general anesthetic was obtained, midline inc ision is made and the abdominal cavity was entered carefully without injury. The remnant stomach is fused to the posterior abdominal wall in the area of previous G-tube. This is taken down carefully u sing sharp dissection. The remnant stomach is taken down from the posterior abdominal wall. There i s just a small hole here. Just next to it a gastrotomy was made in order to facilitate extraction of the previous stent. The stent is able to be felt, it is able to be pulled without difficulty. The opening from the gastrocutaneous fistula and the gastrotomy are connected to make one larger gastroto my. This gastrotomy was closed using 2 layers of 2-0 Vicryl. The first is full-thickness, the outer layer is serosal only. The omentum below was able to be flipped up on top of this closure and held in place using some silk sutures. The abdomen is irrigated using warm sterile solution until returns are clear. The surgeon and help desk assistant changed gloves. The hole from the posterior fascial opening f or the G-tube site is closed using a PDS. The skin was ellipsed out at the G-tube site all the way d own to the fascia. Midline fascia was closed using #1 PDS from the top and the bottom and tied in e middle. Subcutaneous tissues were irrigated and the incision is using 3-0 Vicryl, 4-0 Monocryl, an d Dermabond. The old G-tube site is closed with a pursestring of Prolene and a Ravena was left in t he middle. The patient is en route to recovery in stable condition. All instrument counts, needle c ounts, lap counts were correct.
[2017-06-17] MEDS ORDERED: Mag-Al 1200 mg/1200 mg/30 ML UDCUP PO PRN (12:10)
[2017-06-17] MEDS ORDERED: Dextrose 5% in Water 1,000 ML IV PRN (12:10)
[2017-06-17] MEDS ORDERED: Dextrose 50% Abboject 50 ML SYRINGE SLOW IVP PRN (12:10)
[2017-06-17] MEDS ORDERED: hydrALAZINE 20 MG/ML VIAL SLOW IVP PRN (12:10)
[2017-06-17] MEDS ORDERED: Calcium Carbonate 500 MG ChewTAB PO PRN (12:10)
[2017-06-17] MEDS ORDERED: Pantoprazole 40 MG VIAL IVP SCH (12:30)
[2017-06-17] MEDS ORDERED: cefOXitin 2 GM in Sodium Chloride 0.9% 100 ML IVPB SCH (14:00)
[2017-06-17] MEDS: Lorazepam 1 MG TAB PO SCH ×2 (14:33→20:42)
[2017-06-17] MEDS: Sodium Chloride 0.9% 1,000 ML IV SCH (14:35)
[2017-06-17] MEDS: Ondansetron HCl/PF 4 MG/2 ML Vial IVP PRN (14:44)
[2017-06-17] MEDS ORDERED: Bupivacaine HCl 0.5%/Epinephrine 1:200,000/PF 30 ml Vial ONE (15:59)
[2017-06-17] MEDS ORDERED: Lidocaine 1% PF 5 ML VIAL ONE (16:01)
[2017-06-17] MEDS ORDERED: Glycopyrrolate 0.2 MG/ML 5 ML SYRINGE ONE (16:01)
[2017-06-17] MEDS ORDERED: ePHEDrine/0.9% NaCl/PF SYRINGE 50 mg/10 ml ONE (16:01)
[2017-06-17] MEDS ORDERED: PROPOFOL 200 MG/20 ML VIAL ONE (16:01)
[2017-06-17] MEDS ORDERED: Dexamethasone 20 MG/5 ML VIAL ONE (16:01)
[2017-06-17] MEDS ORDERED: PHENYLEPHRINE-NS 100 MCG/ML 10 ML SYRINGE ONE (16:01)
[2017-06-17] MEDS: cefOXitin 2 GM, Syringe 1 ML in Sterile Water 10 ML SLOW IVP SCH (16:26)
[2017-06-17] MEDS: Promethazine HCl 25 MG/ML VIAL IM PRN (20:42)
[2017-06-17] MEDS: Enoxaparin Sodium 40 MG/0.4 ML SYRINGE SC SCH (20:42)
[2017-06-17] MEDS: Zolpidem Tartrate 5 MG TAB PO PRN (22:14)
[2017-06-18] MEDS: cefOXitin 2 GM, Syringe 1 ML in Sterile Water 10 ML SLOW IVP SCH ×2 (00:55→08:29)
[2017-06-18] MEDS: Sodium Chloride 0.9% 1,000 ML IV SCH ×2 (00:56→12:02)
[2017-06-18 05:34] LABS: #Basophils 0.1 thou/uL (0.0-0.2); #Lymphocytes 2.7 thou/uL (1.20-3.40); #Monocytes 0.7 thou/uL (0.11-0.59); #Neutrophils 5.7 thou/uL (1.40-6.50); %Basophils 0.6 % (0.0-1.0); %Eosinophils 0.3 % (0.0-10.0); %Lymphocytes 29.5 % (21.0-51.0); %Monocytes 7.7 % (0.0-10.0); %Neutrophils 61.9 % (42.0-75.0); Hemoglobin 10.8 g/dL (12.0-16.0); Mean Corpuscular HGB CONC 32.5 g/dL (32.0-36.0); Mean Corpuscular Hemoglobin 30.7 pg (27.0-31.0); Mean Corpuscular Volume 94.5 fl (81.0-99.0); Mean Platelet Volume 7.8 fL (7.4-10.4); Platelet Count 182 thou/uL (130-400); RBC Distribution Width 12.6 % (11.5-14.5); Red Blood Cell (RBC) Count 3.53 mill/uL (4.20-5.40); White Blood Cell (WBC) Count 9.3 thou/uL (4.8-10.8)
--- NOTE | 2017-06-18 07:46 | PDOC.GSPN ---
Surgery Progress Note: Subj - Subjective Patient reports: still having pain, tolerating liquids well Surgery Progress Note: Obj - Vital signs Vital signs: Vital Signs - Most Recent Temp Pulse Resp BP Pulse Ox 98.6 F 73 20 123/72 96 06/18/17 04:09 06/18/17 04:15 06/18/17 04:15 06/18/17 04:15 06/18/17 04:15 - Physical Exam General: no distress, moderate pain Respiratory: clear to auscultation Abdomen: soft, positive bowel sounds, appropriately tender Wound: healing well Surgery Progress Note: Results - Labs Result Diagrams: 06/18/17 04:54 Lab results: Laboratory Results - last 24 hr 06/18/17 04:54 WBC 9.3 RBC 3.53 L Hgb 10.8 L Hct 33.4 L MCV 94.5 MCH 30.7 MCHC 32.5 RDW 12.6 Plt Count 182 MPV 7.8 Neutrophils % 61.9 Lymphocytes % 29.5 Monocytes % 7.7 Eosinophils % 0.3 Basophils % 0.6 Neutrophils # 5.7 Lymphocytes # 2.7 Monocytes # 0.7 H Eosinophils # 0.0 Basophils # 0.1 Surgery Progress Note: A/P - Problem (1) Gastrocutaneous fistula Current Visit: Yes Code(s): K31.6 - FISTULA OF STOMACH AND DUODENUM Status: Acute Assessment and Plan: Pain not controlled but she has chronic pain and her pain issues have been significant in the past. 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 Resume her xanax and advance to full liquid diet.
[2017-06-18] MEDS: Pantoprazole 40 MG VIAL IVP SCH (08:30)
[2017-06-18] MEDS: ALPRAZolam 0.5 MG TAB PO PRN ×2 (08:30→21:02)
[2017-06-18] MEDS: Promethazine HCl 25 MG/ML VIAL IM PRN ×3 (09:07→23:14)
[2017-06-18] MEDS: Ondansetron HCl/PF 4 MG/2 ML Vial IVP PRN (10:32)
[2017-06-18] MEDS: Acetaminophen 1,000 MG in Premix Bag 1 BAG IVPB SCH ×3 (11:58→23:14)
[2017-06-18] MEDS: fentaNYL Citrate/PF 2,000 MCG in Sodium Chloride 0.9% 60 ML IV PRN (16:55)
[2017-06-18] MEDS: Enoxaparin Sodium 40 MG/0.4 ML SYRINGE SC SCH (21:02)
[2017-06-18] MEDS: Zolpidem Tartrate 5 MG TAB PO PRN (21:02)
[2017-06-19] MEDS: Sodium Chloride 0.9% 1,000 ML IV SCH (02:30)
[2017-06-19] MEDS: Acetaminophen 1,000 MG in Premix Bag 1 BAG IVPB SCH ×2 (05:22→11:04)
[2017-06-19] MEDS: Promethazine HCl 25 MG/ML VIAL IM PRN ×3 (05:23→16:43)
[2017-06-19] MEDS: ALPRAZolam 0.5 MG TAB PO PRN ×2 (05:23→21:56)
[2017-06-19] MEDS: Pantoprazole 40 MG VIAL IVP SCH (09:24)
[2017-06-19] MEDS ORDERED: Sodium Chloride 0.9% 1,000 ML IV SCH (10:45)
[2017-06-19] MEDS: fentaNYL Citrate/PF 2,000 MCG in Sodium Chloride 0.9% 60 ML IV PRN ×2 (11:37→22:29)
[2017-06-19] MEDS: Ondansetron HCl/PF 4 MG/2 ML Vial IVP PRN ×2 (11:43→18:57)
[2017-06-19 21:47] LABS: Bilirubin Negative (Negative); Blood, Urine Negative (Negative); Clarity CLEAR (Clear); Glucose, Urine (Dipstick) Negative (Negative); Leukocyte Negative (Negative); Nitrite Negative (Negative); Protein, Urine (Dipstick) Negative (Neg-Trace); Specific Gravity, Urine 1.009 (1.002-1.036); Urobilinogen 0.2 mg/dL (0.2-1.0)
[2017-06-19] MEDS: Enoxaparin Sodium 40 MG/0.4 ML SYRINGE SC SCH (21:56)
[2017-06-19] MEDS: Zolpidem Tartrate 5 MG TAB PO PRN (21:56)
[2017-06-20] MEDS: Ondansetron HCl/PF 4 MG/2 ML Vial IVP PRN ×3 (03:30→22:49)
[2017-06-20] MEDS: Promethazine HCl 25 MG/ML VIAL IM PRN ×2 (08:08→17:15)
[2017-06-20] MEDS: Pantoprazole 40 MG VIAL IVP SCH (08:08)
[2017-06-20] MEDS ORDERED: Milk Of Magnesia 30 ML UDCUP PO ONE (08:38)
[2017-06-20] MEDS ORDERED: HYDROcodone/Acetaminophen 10/325 mg Tablet PO PRN (08:39)
[2017-06-20] MEDS ORDERED: Fentanyl 100 MCG/2 ML VIAL SLOW IVP PRN (08:39)
[2017-06-20] MEDS ORDERED: Ondansetron ODT 8 MG TAB SL PRN (08:41)
[2017-06-20] MEDS: ALPRAZolam 0.5 MG TAB PO PRN ×2 (09:36→22:12)
[2017-06-20] MEDS: HYDROcodone/Acetaminophen 10/325 mg Tablet PO PRN ×2 (15:44→22:48)
[2017-06-20] MEDS: Fentanyl 100 MCG/2 ML VIAL SLOW IVP PRN (18:31)
[2017-06-20] MEDS: Zolpidem Tartrate 5 MG TAB PO PRN (22:12)
[2017-06-20] MEDS: Enoxaparin Sodium 40 MG/0.4 ML SYRINGE SC SCH (22:12)
[2017-06-21] MEDS: HYDROcodone/Acetaminophen 10/325 mg Tablet PO PRN ×2 (06:29→11:34)
[2017-06-21] MEDS: Fentanyl 100 MCG/2 ML VIAL SLOW IVP PRN ×2 (07:38→13:06)
[2017-06-21] MEDS: Pantoprazole 40 MG VIAL IVP SCH (07:38)
[2017-06-21] MEDS: ALPRAZolam 0.5 MG TAB PO PRN (08:40)
[2017-06-21] MEDS: Promethazine HCl 25 MG/ML VIAL IM PRN ×2 (10:02→14:58)
[2017-06-21 16:21] VITALS: BP 118/63; TEMP 98.9
--- NOTE | 2017-06-21 16:45 | PRG ---
DATE OF SERVICE: 06/21/2017 SUBJECTIVE: Nela Henderson is doing well today. I have seen her today for Dr. Griffith. The patient states she is tolerating her diet. She reports chronic nausea. She states her [facility] has closed at noon and desires more prescriptions of alprazolam, Vidalia 10, Phenergan 25 mg, and Zofran ODT 8 mg. I have written this prescription for her, so she can fill them and patient can get to her pharmacy on Friday. OBJECTIVE: LUNGS: Clear to auscultation. CARDIAC: Regular rate and rhythm without murmur or gallop. ABDOMEN: Soft, nontender. Surgical wound clean and dry. Absorbable sutures and Dermabond intact. VITAL SIGNS: Temperature 98.8 degrees, pulse 70, blood pressure 95/56. LABORATORY DATA: None. ASSESSMENT AND PLAN: Doing well post-laparotomy, gastric remnant stent retrieval and closure of vincent rocutaneous fistula. She will follow up with Dr. Griffith in two weeks. Resume her home medications. Diet and activity as tolerated. Avoid lifting over 25 pounds for 6 weeks.
== END 2017-06-21 16:45 | disposition home or self-care (01) | DRG 328 ==
LOC: SURG A 06:01 → SURG B 12:09
PROVIDERS: ADMIT Surgery; ATTEND Surgery
PROC: 0DQ60ZZ Repair Stomach, Open Approach (ICD-10-PCS; principal; 2017-06-17)
PROC: 0DP Gastrointestinal System, Removal (ICD-10-PCS; 2017-06-17)
DX: K31.6 Fistula of stomach and duodenum (principal); E78.00 Pure hypercholesterolemia, unspecified; G89.29 Other chronic pain; T18.2XXS Foreign body in stomach, sequela; Z88.5 Allergy status to narcotic agent; Z91.041 Radiographic dye allergy status; Z79.899 Other long term (current) drug therapy; X58.XXXS Exposure to other specified factors, sequela
CPT/HCPCS: 36415; 81003; 85025; A4216; C9113; J0131; J0670; J0694; J1100; J1200; J1650; J2001; J2250; J2405; J2550; J2704; J3010; J7050

== ENCOUNTER 2017-06-27 10:44 | Emergency (ER) | payer BC ==
[2017-06-27] MEDS ORDERED: Fentanyl 100 MCG/2 ML VIAL ONE (12:52)
[2017-06-27 12:53] LABS: #Basophils 0.1 thou/uL (0.0-0.2); #Eosinphils 0.1 thou/uL (0.0-0.7); #Lymphocytes 1.7 thou/uL (1.20-3.40); #Monocytes 0.5 thou/uL (0.11-0.59); #Neutrophils 8.7 thou/uL (1.40-6.50); %Basophils 0.6 % (0.0-1.0); %Eosinophils 0.6 % (0.0-10.0); %Lymphocytes 15.7 % (21.0-51.0); %Monocytes 4.9 % (0.0-10.0); %Neutrophils 78.3 % (42.0-75.0); Hemoglobin 12.1 g/dL (12.0-16.0); Mean Corpuscular HGB CONC 33.6 g/dL (32.0-36.0); Mean Corpuscular Hemoglobin 30.8 pg (27.0-31.0); Mean Corpuscular Volume 91.7 fl (81.0-99.0); Mean Platelet Volume 5.5 fL (7.4-10.4); Platelet Count 457 thou/uL (130-400); RBC Distribution Width 12.8 % (11.5-14.5); Red Blood Cell (RBC) Count 3.92 mill/uL (4.20-5.40); White Blood Cell (WBC) Count 11.1 thou/uL (4.8-10.8)
[2017-06-27 12:58] LABS: ALT (SGPT) 14 U/L (8-55); AST (SGOT) 13 U/L (5-34); Albumin 3.7 g/dL (3.5-5.0); Alkaline Phosphatase 309 U/L (40-150); Anion Gap 15 mmol/L (10-20); BUN (Urea Nitrogen) 11 mg/dL (9.8-20.1); Bilirubin, Total 0.2 mg/dL (0.2-1.2); CKMB 0.3 ng/mL (0-6.6); Calc. Creatinine Clearance 0 mL/min (70-130); Calcium 8.8 mg/dL (7.8-10.44); Carbon Dioxide 22 mmol/L (22-29); Chloride 109 mmol/L (98-107); Estimated GFR-MDRD Greater than 90; Globulin 3.1 g/dL (2.4-3.5); Glucose 101 mg/dL (70-105); Lipase 20 U/L (8-78); Potassium 3.7 mmol/L (3.5-5.1); Protein, Total 6.8 g/dL (6.0-8.3); Sodium 142 mmol/L (136-145); Troponin I Less than 0.010 ng/mL (< 0.028)
--- NOTE | 2017-06-27 13:05 | RAD ---
KUB AND UPRIGHT AND PA CHEST: History Left-sided abdomen pain. History of gastric band. FINDINGS: Heart size and mediastinum are within normal limits. The lungs are clear of any infiltrative process . The bowel gas pattern is nonobstructive. Surgical chain-type sutures are seen in the left upper quad rant which appear to be related to previous gastric bypass procedure. No gastric band is seen. No f ree air. IMPRESSION: No acute findings. Postoperative changes of the abdomen. POS: JENNIFER
[2017-06-27] MEDS ORDERED: Thiamine HCl 200 MG/2 ML VIAL ONE (13:41)
[2017-06-27] MEDS ORDERED: Multivit, Adult Inj 10 ML VIAL ONE (13:44)
[2017-06-27 15:24] LABS: Bilirubin Negative (Negative); Blood, Urine Trace (Negative); Clarity Slightly Cloudy (Clear); Glucose, Urine (Dipstick) Negative (Negative); Leukocyte Trace (Negative); Nitrite Negative (Negative); Protein, Urine (Dipstick) Negative (Neg-Trace); Urobilinogen 0.2 mg/dL (0.2-1.0)
[2017-06-27 15:26] LABS: Squamous Epithelial 0-3 HPF (0-3)
[2017-06-27 15:27] LABS: Bacteria/HPF Rare-Few HPF (None Seen); Hyaline Casts/LPF 0-3 HYALINE CAST LPF (0-3 Hyaline)
[2017-06-27] MEDS ORDERED: Sodium Chloride 0.9% 100 ML ONE (15:54)
[2017-06-27] MEDS ORDERED: cefTRIAXone\\ROCEPHIN 1 GM VIAL ONE (15:54)
== END 2017-06-27 16:42 | disposition home or self-care (01) ==
LOC: SCSER 10:44
DX: G89.18 Other acute postprocedural pain (principal); R10.12 Left upper quadrant pain; N39.0 Urinary tract infection, site not specified; R53.1 Weakness; K21.9 Gastro-esophageal reflux disease without esophagitis; F41.9 Anxiety disorder, unspecified; F32.9 Major depressive disorder, single episode, unspecified; I25.2 Old myocardial infarction; Z79.899 Other long term (current) drug therapy
CPT/HCPCS: 74022; 80053; 81003; 81015; 82553; 83605; 83690; 84484; 85025; 87086; 93005; 96361; 96365; 96366; 96367; 96372; J0696; J3010; J3411; J7050

== ENCOUNTER 2017-07-06 14:25 | Emergency (ER) | payer BC ==
[2017-07-06] MEDS ORDERED: Thiamine HCl 200 MG/2 ML VIAL ONE (15:31)
[2017-07-06 15:52] LABS: #Basophils 0.1 thou/uL (0.0-0.2); #Eosinphils 0.1 thou/uL (0.0-0.7); #Monocytes 0.3 thou/uL (0.11-0.59); #Neutrophils 3.9 thou/uL (1.40-6.50); %Basophils 1.2 % (0.0-1.0); %Eosinophils 1.1 % (0.0-10.0); %Lymphocytes 31.2 % (21.0-51.0); %Monocytes 4.7 % (0.0-10.0); %Neutrophils 61.7 % (42.0-75.0); Hemoglobin 12.5 g/dL (12.0-16.0); Mean Corpuscular HGB CONC 33.2 g/dL (32.0-36.0); Mean Corpuscular Hemoglobin 29.8 pg (27.0-31.0); Mean Corpuscular Volume 89.7 fl (81.0-99.0); Mean Platelet Volume 6.8 fL (7.4-10.4); Platelet Count 359 thou/uL (130-400); Red Blood Cell (RBC) Count 4.19 mill/uL (4.20-5.40); White Blood Cell (WBC) Count 6.4 thou/uL (4.8-10.8)
[2017-07-06 16:02] LABS: Anion Gap 15 mmol/L (10-20); BUN (Urea Nitrogen) 5 mg/dL (9.8-20.1); Calc. Creatinine Clearance 0 mL/min (70-130); Calcium 9.2 mg/dL (7.8-10.44); Carbon Dioxide 21 mmol/L (22-29); Chloride 108 mmol/L (98-107); Estimated GFR-MDRD Greater than 90; Glucose 110 mg/dL (70-105); Potassium 3.5 mmol/L (3.5-5.1); Sodium 140 mmol/L (136-145)
== END 2017-07-06 16:47 | disposition home or self-care (01) ==
LOC: SCSER 14:25
DX: E86.0 Dehydration (principal); I25.2 Old myocardial infarction; K21.9 Gastro-esophageal reflux disease without esophagitis; F41.9 Anxiety disorder, unspecified; F32.9 Major depressive disorder, single episode, unspecified; Z79.899 Other long term (current) drug therapy; Z86.14 Personal history of Methicillin resistant Staphylococcus aureus infection
CPT/HCPCS: 80048; 85025; 96365; J3411

== ENCOUNTER 2017-08-24 08:46 | Emergency (ER) | payer BC ==
[2017-08-24 09:49] LABS: #Basophils 0.1 thou/uL (0.0-0.2); #Eosinphils 0.1 thou/uL (0.0-0.7); #Monocytes 0.5 thou/uL (0.11-0.59); #Neutrophils 3.6 thou/uL (1.40-6.50); %Basophils 1.2 % (0.0-1.0); %Eosinophils 1.1 % (0.0-10.0); %Lymphocytes 32.4 % (21.0-51.0); %Monocytes 7.4 % (0.0-10.0); Hemoglobin 11.8 g/dL (12.0-16.0); Mean Corpuscular HGB CONC 33.3 g/dL (32.0-36.0); Mean Corpuscular Hemoglobin 30.6 pg (27.0-31.0); Mean Corpuscular Volume 91.9 fL (78.0-98.0); Mean Platelet Volume 7.2 fL (7.4-10.4); Platelet Count 201 thou/uL (130-400); RBC Distribution Width 13.9 % (11.5-14.5); Red Blood Cell (RBC) Count 3.84 mill/uL (4.20-5.40); White Blood Cell (WBC) Count 6.2 thou/uL (4.8-10.8)
[2017-08-24 10:10] LABS: ALT (SGPT) 19 U/L (8-55); AST (SGOT) 23 U/L (5-34); Albumin 3.9 g/dL (3.5-5.0); Alkaline Phosphatase 233 U/L (40-150); Anion Gap 12 mmol/L (10-20); BUN (Urea Nitrogen) 16 mg/dL (9.8-20.1); Bilirubin, Total 0.3 mg/dL (0.2-1.2); Calc. Creatinine Clearance 0 mL/min (70-130); Calcium 8.6 mg/dL (7.8-10.44); Carbon Dioxide 22 mmol/L (22-29); Chloride 104 mmol/L (98-107); Estimated GFR-MDRD 84; Globulin 2.6 g/dL (2.4-3.5); Glucose 106 mg/dL (70-105); Magnesium 2.3 mg/dL (1.6-2.6); Potassium 4.1 mmol/L (3.5-5.1); Protein, Total 6.5 g/dL (6.0-8.3); Sodium 134 mmol/L (136-145)
[2017-08-24] MEDS ORDERED: Multivitamins, Adult 10 ML, Thiamine HCl 100 MG, Folic Acid 1 MG in Dextrose 5 %-0.45 %... IV SCH (11:15)
--- NOTE | 2017-08-24 14:27 | HP ---
HISTORY OF PRESENT ILLNESS: Nela Henderson is a 62-year-old female patient of Dr. Griffith. The sunny ent on had a feeding tube malfunction and replaced with a 16 Malay PEG tube. On 06/17/2017, patient had closure of gastrocutaneous fistula, gastrostomy extraction. Patient initially presented with Rockwell band, subsequent laparoscopic conversion of gastric bypass performed Dr. Griffith on 11/08. She had a laparoscopic gastrojejunostomy Prabhakar-en-Y short limb. The patient had abdominal was hout, placement of drains and open jejunostomy and central lines and numerous endoscopies by Dr. Elmer huitron. She had a PEG tube placed subsequently. She has suffered thiamine deficiency. The patient's called me this morning. 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 She told me that she was coming to the emergency room, had a history of thiamine deficiency and want to be sure s he is treated appropriately. I told him that I would see her. I then informed the emergency room. She arrived and Dr. Prakash evaluated her. Her electrolytes are normal. CBC is normal. Vitamin ord ered, banana bag and thiamine administered, IV fluid one liter given. The patient is alert and orien eris and GCS 15. Her lungs are clear to auscultation. Her abdomen is soft, nontender. Thiamine leve l has been ordered, but it will not be available today. She has been given thiamine supplementation. The patient states that when her called her at home, she was slumber and confused and he pa nicked and sent her to the emergency room. She states she wants to go home and I agreed to do so. P atcele since calls her , discussed this matter and he is comfortable with her discharge home. She will follow up with Dr. Griffith next week.
== END 2017-08-24 14:15 | disposition home or self-care (01) ==
LOC: ERS 08:46
DX: E86.0 Dehydration (principal); I25.2 Old myocardial infarction; K21.9 Gastro-esophageal reflux disease without esophagitis; N39.0 Urinary tract infection, site not specified; F41.9 Anxiety disorder, unspecified; F32.9 Major depressive disorder, single episode, unspecified; Z79.899 Other long term (current) drug therapy
CPT/HCPCS: 36415; 80053; 83735; 85025; 96365; 96366; J3411; J7042

== ENCOUNTER 2017-09-17 08:54 | Emergency (ER) | payer BC ==
[2017-09-17] MEDS ORDERED: Multivitamins, Adult 10 ML, Thiamine HCl 100 MG, Folic Acid 1 MG in Dextrose 5 %-0.45 %... IV SCH (10:00)
[2017-09-17 10:04] LABS: #Lymphocytes 1.8 thou/uL (1.20-3.40); #Monocytes 0.3 thou/uL (0.11-0.59); %Basophils 0.3 % (0.0-1.0); %Eosinophils 0.5 % (0.0-10.0); %Lymphocytes 28.8 % (21.0-51.0); %Monocytes 5.3 % (0.0-10.0); %Neutrophils 65.1 % (42.0-75.0); Mean Corpuscular HGB CONC 33.3 g/dL (32.0-36.0); Mean Corpuscular Hemoglobin 30.7 pg (27.0-31.0); Mean Platelet Volume 7.6 fL (7.4-10.4); Platelet Count 222 thou/uL (130-400); RBC Distribution Width 14.1 % (11.5-14.5); Red Blood Cell (RBC) Count 3.91 mill/uL (4.20-5.40); White Blood Cell (WBC) Count 6.1 thou/uL (4.8-10.8)
[2017-09-17 10:30] LABS: ALT (SGPT) 24 U/L (8-55); AST (SGOT) 25 U/L (5-34); Alkaline Phosphatase 238 U/L (40-150); Anion Gap 17 mmol/L (10-20); BUN (Urea Nitrogen) 11 mg/dL (9.8-20.1); Bilirubin, Total 0.4 mg/dL (0.2-1.2); Calc. Creatinine Clearance 0 mL/min (70-130); Calcium 8.6 mg/dL (7.8-10.44); Carbon Dioxide 20 mmol/L (22-29); Chloride 107 mmol/L (98-107); Estimated GFR-MDRD Greater than 90; Globulin 2.8 g/dL (2.4-3.5); Glucose 111 mg/dL (70-105); Lipase 26 U/L (8-78); Magnesium 2.3 mg/dL (1.6-2.6); Phosphorus 3.8 mg/dL (2.3-4.7); Potassium 4.1 mmol/L (3.5-5.1); Protein, Total 6.8 g/dL (6.0-8.3); Sodium 140 mmol/L (136-145)
[2017-09-17 12:15] LABS: Bilirubin Negative (Negative); Blood, Urine Trace (Negative); Clarity CLEAR (Clear); Glucose, Urine (Dipstick) Negative (Negative); Leukocyte Negative (Negative); Nitrite Negative (Negative); Protein, Urine (Dipstick) Negative (Neg-Trace); Specific Gravity, Urine 1.018 (1.002-1.036); Urobilinogen 0.2 mg/dL (0.2-1.0)
[2017-09-17 12:18] LABS: Bacteria/HPF None Seen HPF (None Seen); Hyaline Casts/LPF 0-3 HYALINE CAST LPF (0-3 Hyaline); Pathc Cast-AUWi Flag 0.43 (0-2.49); Squamous Epithelial 0-3 HPF (0-3); WBC/HPF 0-3 HPF (0-3)
--- NOTE | 2017-09-18 10:09 | CT ---
PRELIMINARY REPORT/[facility]/EMERGENTY AFTER-HOURS PROCEDURE Addendum created by Jackie Camara MD on 09/18/2017 5:13 AM Central Time ([place] & [place]) 1. Several tiny hyperdensities in the left centrum semiovale may represent calcifications are tiny he morrhagic foci. Comparison with prior studies is recommended. THIS REPORT CONTAINS FINDINGS THAT MAY BE CRITICAL TO PATIENT CARE. The findings were verbally commun icated via telephone conference with KAREN MENDOZA at 5:12 AM CDT on 09/18/2017. The findings were acknowledged and understood. Initial Report created on 09/18/2017 4:47 AM Central Time ([place] & [place]) CT Head Without Intravenous Contrast EXAM DATE/TIME: 09/18/2017 3:58 AM CLINICAL HISTORY: 62 years old, female; Signs and symptoms; Altered mental status/memory loss; Confusion ordisorientati on; Patient HX: Er 12; AMS; F60 reports to ed C/O low thiamine. Ems reports patient stated she had b ariatric surgery in 2010 and has been having difficulties since. Ems reports PT was reporting when he r thiamine drops she begins to hallucinate. PT told ems she was seeing people on horse back turning h er lights off. PT was seen yesterday in ed and received a banana bag. PT did not discuss symptoms dur ing ermd exam, PT just requested to be given her thiamine for the day. TECHNIQUE: Axial computed tomography images of the head/brain without intravenous contrast. COMPARISON: No relevant prior studies available. FINDINGS: Brain: Several tiny calcifications in the left centrum semiovale may represent calcifications are tin y hemorrhagic foci. Ventricles: Normal. No ventriculomegaly. Bones/joints: Normal. No acute fracture. Sinuses: Normal as visualized. No acute sinusitis. Mastoid air cells: Normal as visualized. No mastoid effusion. Soft tissues: Normal. IMPRESSION: 1. Several tiny calcifications in the left centrum semiovale may represent calcifications are tiny he morrhagic foci. Comparison with prior studies is recommended. Thank you for allowing us to participate in the care of your patient. Dictated and Authenticated by: Jackie Camara MD 09/18/2017 4:47 AM Central Time ([place] & [place]) EMERGENT AFTER HOURS CT BRAIN: FINDINGS/IMPRESSION: I agree with the preliminary interpretation given by [facility]. There is subtle diminished attenuation at the anterior left centrum semiovale with small foci of incr eased attenuation. This appears stable with respect to prior comparison examinations, the most recent of which is 11-23-16. There is no evidence for intracranial hemorrhage or mass effect. Code QA POS: JENNIFER
== END 2017-09-17 15:57 | disposition home or self-care (01) ==
LOC: ERS 08:54
DX: E86.0 Dehydration (principal); K21.9 Gastro-esophageal reflux disease without esophagitis; F41.9 Anxiety disorder, unspecified; F32.9 Major depressive disorder, single episode, unspecified; Z79.899 Other long term (current) drug therapy
CPT/HCPCS: 70450; 80053; 81003; 81015; 83690; 83735; 84100; 85025; 96365; 96366; J3411; J7042

== ENCOUNTER 2017-09-18 03:24 | Inpatient (IN) | payer BC ==
[2017-09-18] MEDS ORDERED: Thiamine HCl 200 MG/2 ML VIAL SLOW IVP SCH (06:30)
[2017-09-18] MEDS ORDERED: ALPRAZolam 0.5 MG TAB PO SCH (07:15)
[2017-09-18] MEDS ORDERED: Ondansetron HCl/PF 4 MG/2 ML Vial IVP PRN ×2 (07:49→08:42)
[2017-09-18] MEDS ORDERED: Ondansetron ODT 4 MG TAB PO PRN (07:49)
[2017-09-18 08:08] VITALS: BMI 23.6
[2017-09-18] MEDS: Enoxaparin Sodium 40 MG/0.4 ML SYRINGE SC SCH (09:07)
[2017-09-18] MEDS: Multivitamins, Adult 10 ML, Folic Acid 1 MG, Thiamine HCl 100 MG in Dextrose 5 %-0.45 %... IV SCH (11:25)
--- NOTE | 2017-09-18 13:16 | HP ---
PRIMARY CARE PROVIDER: Dr. Pedro Herrmann. CHIEF COMPLAINT: Hallucinations. HISTORY OF PRESENT ILLNESS: Ms. Henderson is a pleasant 62-year-old lady who was seen at [facility] on 09/18/2017. She presented to the emergency room 2 nights ago complaining of low thiamine levels. She received thiamine infusion and was discharged home. She presented again to the emergency room complaining of ongoing symptoms. She reports that she had a gastric bypass surgery in 2009. She reports that since then, she has had occasional episodes of low thiamine levels. Her main symptoms consist of visual hallucinations. She also reports feeling confused, "hyper" and being paranoid. She is able to recognize that these are irrational, but she is still bothered by these symptoms. She denies any chest pain or shortness of breath. She denies any fevers or chills. She denies any n ausea or vomiting. PAST MEDICAL HISTORY: Chronic pain disorder on chronic pain medication, aspiration pneumonia, chroni c abdominal pain, recurrent urinary tract infection, nonalcoholic steatohepatitis, vitamin B12 defici ency and macrocytic anemia. PSYCHIATRIC HISTORY: Anxiety and depression. PAST SURGICAL HISTORY: PEG tube placement and removal, closure of gastrocutaneous fistula, total abd ominal hysterectomy, bilateral salpingo-oophorectomy, laparoscopic appendectomy, abdominoplasty, Prabhakar -en-Y gastric bypass, bilateral breast reduction surgery. FAMILY HISTORY: Coronary artery bypass graft in her father, coronary stents and strokes in her mothe r. ALLERGIES: CIPROFLOXACIN ORAL and IV CONTRAST, MORPHINE, and NONSTEROIDAL ANTI-INFLAMMATORY AGENTS. CURRENT MEDICATIONS: Zofran 4 mg every 6 hours as needed taken after meals, Phenergan 25 mg 3 times a day before meals, Protonix 40 mg 2 times a day, folic acid 1 mg daily, and Xanax 1 mg 3 times a da y as needed. SOCIAL HISTORY: The patient denies tobacco use, alcohol use or recreational drug use. PHYSICAL EXAMINATION: GENERAL: On examination, Ms. Henderson is awake and alert, not in acute distress. VITAL SIGNS: Blood pressure is 117/74, pulse 68, respiratory rate 16 and oxygen saturation 96% on ro om air. She is afebrile. BMI is 23. EYES: No scleral icterus. No conjunctival pallor. ENT: Moist mucosal membranes, no oropharyngeal erythema or exudates. NECK: Supple, nontender, trachea is midline. RESPIRATORY: Accessory muscles of breathing are not active. Chest wall movements are symmetric bila terally. LUNGS: Clear to auscultation without wheeze, rhonchi or crepitations. CARDIOVASCULAR: S1 and S2 are heard, regular. Peripheral pulses palpable. No carotid bruit, no per icardial rub. ABDOMEN: Soft, nontender, bowel sounds heard, no hepatomegaly, no splenomegaly. NEUROLOGIC: Cranial nerves II-XII intact. Deep tendon reflexes are 2+. MUSCULOSKELETAL: Power is 5/5 in all 4 extremities. SKIN: No rashes or subcutaneous nodules. LYMPHATIC: No cervical lymphadenopathy. PSYCHIATRIC: Normal mood, normal affect. The patient is oriented to person and place, not to time. IMAGING DATA AND LABORATORY DATA: Ms. Peterson labs and investigations were reviewed. She had a no ncontrast CT scan of the brain, which showed subtle diminished attenuation at the anterior left centr um semiovale with small foci of increased attenuation, stable when compared to previous examinations. She has an ammonia level of 31, unremarkable CBC, normal sodium, normal potassium, normal creatinin e, elevated alkaline phosphatase of 238, alkaline phosphatase is elevated at 233 on 08/24/2017 and cruz s been elevated at least since 2011, but liver profile is otherwise unremarkable. ASSESSMENT AND PLAN: Ms. Henderson is a pleasant 62-year-old lady who was seen at [facility] on 09/18/2017. Her problem list includes: 1. Acute encephalopathy: Etiology unclear. The patient reports similar symptoms when her thiamine levels are low. Thiamine level has been sent off by the emergency room physician. We will await the result. We will treat her with intravenous thiamine for now. I should note that she had an unremar kable urinalysis in the emergency room. 2. Chronic pain disorder: Continue home medications. 3. Vitamin B12 deficiency: Continue B12 supplementation. Many thanks for allowing me to participate in your patient's care. Please feel free to contact me wi th any questions or concerns. LEVEL OF RISK: Moderate. LEVEL OF COMPLEXITY: Moderate.
[2017-09-18] MEDS ORDERED: Ondansetron ODT 4 MG TAB PO SCH (15:00)
[2017-09-18] MEDS ORDERED: Promethazine 25 MG TAB PO SCH ×2 (15:00→17:00)
[2017-09-18] MEDS: Promethazine 25 MG TAB PO SCH (18:16)
[2017-09-18] MEDS: Ondansetron ODT 4 MG TAB PO SCH (18:45)
[2017-09-18] MEDS: ALPRAZolam 1 MG TAB PO PRN (20:55)
[2017-09-19 04:04] LABS: #Basophils 0.1 thou/uL (0.0-0.2); #Eosinphils 0.1 thou/uL (0.0-0.7); #Lymphocytes 3.1 thou/uL (1.20-3.40); #Monocytes 0.5 thou/uL (0.11-0.59); #Neutrophils 3.1 thou/uL (1.40-6.50); %Basophils 0.9 % (0.0-1.0); %Eosinophils 1.5 % (0.0-10.0); %Lymphocytes 45.1 % (21.0-51.0); %Monocytes 6.6 % (0.0-10.0); %Neutrophils 45.9 % (42.0-75.0); Mean Corpuscular HGB CONC 33.4 g/dL (32.0-36.0); Mean Corpuscular Hemoglobin 31.2 pg (27.0-31.0); Mean Corpuscular Volume 93.2 fL (78.0-98.0); Mean Platelet Volume 7.7 fL (7.4-10.4); Platelet Count 205 thou/uL (130-400); RBC Distribution Width 14.2 % (11.5-14.5); Red Blood Cell (RBC) Count 3.86 mill/uL (4.20-5.40); White Blood Cell (WBC) Count 6.8 thou/uL (4.8-10.8)
[2017-09-19 04:15] LABS: Anion Gap 13 mmol/L (10-20); BUN (Urea Nitrogen) 10 mg/dL (9.8-20.1); Calc. Creatinine Clearance 94 mL/min (70-130); Carbon Dioxide 22 mmol/L (22-29); Chloride 108 mmol/L (98-107); Estimated GFR-MDRD Greater than 90; Glucose 106 mg/dL (70-105); Sodium 139 mmol/L (136-145)
--- NOTE | 2017-09-19 07:39 | CON ---
DATE OF CONSULTATION: 09/18/2017 CHIEF COMPLAINT: Altered mental status. HISTORY OF PRESENT ILLNESS: This is a 62-year-old female, who is well-known to me from previous hosp italization. She has a history of Rockwell band converted to gastric bypass. She had a leak. She had a severe stenosis, had a revision with a leak. She has a history of thiamine deficiency, has a hist ory of narcotic addiction. Most recently, she has a history of spontaneous choledocholithiasis sever al years status post laparoscopic cholecystectomy, had undergone some interventional procedures with Dr. Salvador done in [place]. Most recently, I had to perform remnant stomach stent removal and repai r of stomach after G-tube removal. She has now been struggling for the last few months with eating. She says she cannot eat anything except cantaloupe without nausea and vomiting. She says she has be en taking her vitamins. No significant abdominal pain. Last night, the called me from [facility]. He works out of state and said the Keyseater Operator's were at his 's house and she was acting cr azy. He informed them that she had probably thiamine deficiency, so she was brought to the emergency room here. I am seeing her in consult from the Hospitalist. This morning, she is alert, oriented, not confused. MEDICAL HISTORY, SURGICAL HISTORY, SOCIAL HISTORY: See previous H and P and consults. PHYSICAL EXAMINATION: ABDOMEN: Soft. Her wounds are all well healed. She is nontender, nondistended. LABORATORY DATA: Her sodium is 139, potassium 4.0, creatinine is 0.63. White blood cell count is 6, hemoglobin 12, platelet count is 205. ASSESSMENT: 1. Status post multiple abdominal operations with gastric bypass. 2. History of thiamine deficiency, although on all most recent labs, her thiamin is normal, but now with altered mental status, improved after IV thiamin. PLAN: We will wait for her thiamin level. I am going to check a prealbumin. Her weight is stable e esdras though she acts like she does not eat very much. If, in fact, her prealbumin is markedly low, ma y need to replace G-tube.
[2017-09-19] MEDS ORDERED: Calcium Carbonate 500 MG TAB PO SCH (09:00)
[2017-09-19] MEDS ORDERED: Magnesium Oxide 400 MG TAB PO SCH (09:00)
[2017-09-19] MEDS: Promethazine 25 MG TAB PO SCH ×2 (09:03→11:59)
[2017-09-19] MEDS: Enoxaparin Sodium 40 MG/0.4 ML SYRINGE SC SCH (09:03)
[2017-09-19] MEDS: ALPRAZolam 1 MG TAB PO PRN (09:09)
[2017-09-19] MEDS: Ondansetron ODT 4 MG TAB PO SCH ×2 (09:40→13:13)
[2017-09-19] MEDS: Multivitamins, Adult 10 ML, Folic Acid 1 MG, Thiamine HCl 100 MG in Dextrose 5 %-0.45 %... IV SCH (10:23)
--- NOTE | 2017-09-19 12:04 | PRG ---
DATE OF SERVICE: 09/19/2017 SUBJECTIVE: Ms. Henderson is agreeable to a feeding tube. We had a long discussion about its usefulne ss as well as risks. She does give consent. My plan would be to let her go home and to bring her ba ck next week to do that. My office will call her on Friday. She is safe to be discharged home over the weekend now.
[2017-09-19 14:19] VITALS: BP 111/72; TEMP 97.6
--- NOTE | 2017-09-19 17:16 | DIS ---
DATE OF ADMISSION: 09/18/2017 DATE OF DISCHARGE: 09/19/2017 PRIMARY CARE PROVIDER: Pedro Herrmann M.D. DISCHARGE DIAGNOSES: 1. Acute encephalopathy. 2. Suspected thiamine deficiency. CONDITION OF PATIENT ON THE DAY OF DISCHARGE: Stable. I assessed Ms. Henderson on the day of discharge. She denies any chest pain or shortness of breath. V ital signs are stable. She is awake, alert and oriented x3. S1 and S2 are heard, regular. Lungs ar e clear to auscultation bilaterally. DISCHARGE MEDICATIONS: She is being discharged home on thiamine 100 mg daily. Otherwise, her preadm ission home medications as dictated on my history and physical note from 09/18/2017 remain the same. CONSULTATIONS DURING THIS HOSPITALIZATION: General surgery, Dr. Griffith. HOSPITAL COURSE: Ms. Henderson is a pleasant 62-year-old lady who was admitted to [facility] for acute encephalopathy, likely secondary to thiamine deficiency. She improved with t maribeth and infusion. A thiamine level was sent out from the emergency room and is pending at the time o f this dictation. She improved clinically. She was seen by General Surgery Service. Plan is for her to have a G-tube at some point in the near future, General Surgery will follow up on that. She has been started on daily thiamine and is being discharged home in a stable condition. On the day of discharge, she has a white count of 6800, hemoglobin 12, platelet count 205,000, normal sodium, normal potassium, normal creatinine, normal ammonia and normal prealbumin of 24. DISCHARGE DESTINATION: Home. TOTAL AMOUNT OF TIME SPENT COORDINATING THIS DISCHARGE: 32 minutes.
== END 2017-09-19 14:53 | disposition home or self-care (01) | DRG 640 ==
LOC: ERS 03:24 → T4-B 06:54
PROVIDERS: ADMIT Hospitalist; ATTEND Hospitalist
DX: E51.9 Thiamine deficiency, unspecified (principal); G93.40 Encephalopathy, unspecified; Z98.84 Bariatric surgery status; F41.9 Anxiety disorder, unspecified; F32.9 Major depressive disorder, single episode, unspecified; Z88.6 Allergy status to analgesic agent; Z88.1 Allergy status to other antibiotic agents; Z88.5 Allergy status to narcotic agent; G89.29 Other chronic pain; E53.8 Deficiency of other specified B group vitamins
CPT/HCPCS: 36415; 80048; 82140; 84134; 84425; 85025; 94760; 96365; A4216; J1650; J3411; J7042; Q0162

== ENCOUNTER 2017-09-24 13:01 | Inpatient (IN) | payer BC ==
[~2017-09-24 13:01] MED LIST: Dexamethasone 20 MG/5 ML VIAL ONE; Glycopyrrolate 0.2 MG/ML 5 ML SYRINGE ONE; Ketorolac Tromethamine 30 MG/ML VIAL ONE; Lidocaine 1% PF 5 ML VIAL ONE; Metoclopramide HCl 10 MG/2 ML VIAL ONE; Ondansetron HCl/PF 4 MG/2 ML Vial ONE; PHENYLEPHRINE-NS 100 MCG/ML 10 ML SYRINGE ONE; PROPOFOL 200 MG/20 ML VIAL ONE; Succinylcholine Chloride 20 MG/ML 10 ml SYRINGE FS ONE; ePHEDrine/0.9% NaCl/PF SYRINGE 50 mg/10 ml ONE
[2017-09-24] MEDS ORDERED: Sodium Chloride 0.9% 100 ML ONE (15:12)
[2017-09-24] MEDS ORDERED: cefOXitin 2 GM VIAL ONE (15:12)
[2017-09-24] MEDS ORDERED: Fentanyl 100 MCG/2 ML VIAL ONE ×2 (16:40→18:23)
[2017-09-24] MEDS ORDERED: Promethazine HCl 25 MG/ML VIAL IM PRN ×2 (18:36→23:30)
[2017-09-24] MEDS ORDERED: HYDROmorphone 2 MG/ML VIAL SLOW IVP PRN (18:36)
[2017-09-24] MEDS ORDERED: Promethazine HCl 25 MG/ML VIAL SLOW IVP PRN (18:36)
[2017-09-24] MEDS ORDERED: Meperidine HCl/PF 25 MG/ML VIAL SLOW IVP PRN (18:36)
[2017-09-24] MEDS ORDERED: Ondansetron HCl/PF 4 MG/2 ML Vial IVP PRN ×2 (18:36→23:30)
[2017-09-24] MEDS ORDERED: Promethazine HCl 25 MG/ML VIAL ONE (18:37)
[2017-09-24] MEDS ORDERED: HYDROmorphone 0.5 MG/0.5 ML SYRINGE ONE ×2 (18:38→19:01)
[2017-09-24] MEDS ORDERED: diphenhydrAMINE 50 MG/ML VIAL IVP PRN (18:46)
[2017-09-24] MEDS ORDERED: diphenhydrAMINE 25 MG CAP PO PRN (18:46)
[2017-09-24] MEDS ORDERED: diphenhydrAMINE 50 MG/ML VIAL IM PRN (18:46)
[2017-09-24] MEDS ORDERED: Naloxone HCl 0.4 mg/ml Vial IV PRN (18:46)
[2017-09-24] MEDS ORDERED: Meperidine HCl/PF 25 MG/ML VIAL ONE (18:49)
[2017-09-24] MEDS ORDERED: Communication Order-Pharmacy FS SCH (19:00)
[2017-09-24] MEDS ORDERED: hydrALAZINE 20 MG/ML VIAL SLOW IVP PRN (23:30)
[2017-09-24] MEDS ORDERED: Dextrose 50% Abboject 50 ML SYRINGE SLOW IVP PRN (23:30)
[2017-09-24] MEDS ORDERED: ALPRAZolam 0.5 MG TAB PO PRN (23:30)
[2017-09-24] MEDS ORDERED: Dextrose 5% in Water 1,000 ML IV PRN (23:30)
[2017-09-24 23:31] VITALS: BMI 24.5
[2017-09-25] MEDS: D5 1/2 NS w/20 mEq KCL 1,000 ML IV SCH ×3 (00:30→15:54)
[2017-09-25] MEDS: Ondansetron HCl/PF 4 MG/2 ML Vial IVP PRN ×3 (00:30→18:15)
[2017-09-25 04:33] LABS: #Lymphocytes 1.5 thou/uL (1.20-3.40); %Basophils 0.1 % (0.0-1.0); %Eosinophils 0.1 % (0.0-10.0); %Monocytes 7.1 % (0.0-10.0); %Neutrophils 81.7 % (42.0-75.0); Hemoglobin 8.8 g/dL (12.0-16.0); Mean Corpuscular HGB CONC 32.7 g/dL (32.0-36.0); Mean Corpuscular Hemoglobin 31.5 pg (27.0-31.0); Mean Corpuscular Volume 96.1 fL (78.0-98.0); Mean Platelet Volume 7.8 fL (7.4-10.4); Platelet Count 183 thou/uL (130-400); RBC Distribution Width 14.2 % (11.5-14.5); Red Blood Cell (RBC) Count 2.81 mill/uL (4.20-5.40); White Blood Cell (WBC) Count 13.5 thou/uL (4.8-10.8)
[2017-09-25 04:49] LABS: Anion Gap 14 mmol/L (10-20); BUN (Urea Nitrogen) 12 mg/dL (9.8-20.1); Calc. Creatinine Clearance 75 mL/min (70-130); Calcium 8.2 mg/dL (7.8-10.44); Carbon Dioxide 21 mmol/L (22-29); Chloride 106 mmol/L (98-107); Estimated GFR-MDRD 71; Glucose 219 mg/dL (70-105); Potassium 4.7 mmol/L (3.5-5.1); Sodium 136 mmol/L (136-145)
[2017-09-25] MEDS: Promethazine HCl 25 MG/ML VIAL IM PRN ×2 (08:16→13:14)
[2017-09-25] MEDS ORDERED: Pantoprazole 40 MG VIAL IVP SCH (09:00)
--- NOTE | 2017-09-25 10:03 | PRG ---
DATE OF SERVICE: 09/25/2017 SUBJECTIVE: Ms. Henderson is complaining of pain. She is complaining of nausea this morning as well. The dietitian is in the room discussing dietary options. Her abdomen is softer. Wound is healing well. ASSESSMENT: Postop day #1 open G-tube. PLAN: Decrease IV fluids. Start tube feeds today. Hopefully, discharge in the next 24-48 hours.
[2017-09-25] MEDS: ALPRAZolam 0.5 MG TAB PO PRN ×2 (11:32→20:44)
[2017-09-25] MEDS: HYDROmorphone 10 mg/100 ml CADD IVPB PRN (11:36)
[2017-09-25] MEDS: Pantoprazole 40 MG VIAL IVP SCH (20:43)
[2017-09-26] MEDS: D5 1/2 NS w/20 mEq KCL 1,000 ML IV SCH ×2 (01:17→15:55)
[2017-09-26] MEDS: ALPRAZolam 0.5 MG TAB PO PRN ×2 (08:19→21:06)
[2017-09-26] MEDS: Pantoprazole 40 MG VIAL IVP SCH ×2 (08:19→21:06)
[2017-09-26 12:40] LABS: #Lymphocytes 1.8 thou/uL (1.20-3.40); #Monocytes 0.6 thou/uL (0.11-0.59); #Neutrophils 5.7 thou/uL (1.40-6.50); %Basophils 0.6 % (0.0-1.0); %Eosinophils 0.4 % (0.0-10.0); %Lymphocytes 22.1 % (21.0-51.0); %Monocytes 7.6 % (0.0-10.0); %Neutrophils 69.3 % (42.0-75.0); Hemoglobin 7.4 g/dL (12.0-16.0); Mean Corpuscular HGB CONC 32.2 g/dL (32.0-36.0); Mean Corpuscular Hemoglobin 30.6 pg (27.0-31.0); Mean Corpuscular Volume 95.3 fL (78.0-98.0); Platelet Count 147 thou/uL (130-400); Red Blood Cell (RBC) Count 2.41 mill/uL (4.20-5.40); White Blood Cell (WBC) Count 8.2 thou/uL (4.8-10.8)
--- NOTE | 2017-09-26 13:40 | RAD ---
PORTABLE CHEST 1 VIEW: Date: 09/26/17 Time: 1333 hours HISTORY: Postop dyspnea. FINDINGS: Comparison made with exam of 06/27/17. The heart size is normal. The lungs are expanded without lobar consolidation, pneumothoraces, or pleu ral effusions. IMPRESSION: No radiographic evidence of acute cardiopulmonary process. POS: H
--- NOTE | 2017-09-26 14:15 | PDOC.GSPN ---
Surgery Progress Note: Subj - Subjective Narrative: Febrile today. Pain improved somewhat. Tolerated TF this am. No taking much PO. Surgery Progress Note: Obj - Vital signs Vital signs: Vital Signs - Most Recent Temp Pulse Resp BP Pulse Ox 100.9 F H 92 20 83/50 L 95 09/26/17 12:25 09/26/17 10:53 09/26/17 10:53 09/26/17 10:53 09/26/17 10:53 - Physical Exam General: no distress Neck: no bruits Cardiovascular: regular rate and rhythm Respiratory: clear to auscultation Abdomen: soft, nondistended, appropriately tender Wound: healing well Surgery Progress Note: Results - Labs Result Diagrams: 09/26/17 12:25 09/25/17 04:01 Lab results: Laboratory Results - last 24 hr 09/26/17 12:25 WBC 8.2 RBC 2.41 L Hgb 7.4 L Hct 22.9 L MCV 95.3 MCH 30.6 MCHC 32.2 RDW 14.0 Plt Count 147 MPV 8.0 Neutrophils % 69.3 Lymphocytes % 22.1 Monocytes % 7.6 Eosinophils % 0.4 Basophils % 0.6 Neutrophils # 5.7 Lymphocytes # 1.8 Monocytes # 0.6 H Eosinophils # 0.0 Basophils # 0.0 Surgery Progress Note: A/P - Problem (1) History of gastrectomy Current Visit: Yes Code(s): Z90.3 - ACQUIRED ABSENCE OF STOMACH [PART OF] Status: Acute - Plan Plan: POD 2 open gastric feeding tube in gastric remnant. -Fevers today, WBC normal. Check UA, CXR, start antibiotics -pain control -TF as tolerated. -home over weekend if feeling better, I will send over her pain medicine through [facility]. - for TF being set up
[2017-09-26] MEDS: Ondansetron HCl/PF 4 MG/2 ML Vial IVP PRN (15:45)
[2017-09-26 16:09] LABS: Bilirubin Negative (Negative); Blood, Urine Negative (Negative); Clarity CLEAR (Clear); Glucose, Urine (Dipstick) Negative (Negative); Leukocyte Negative (Negative); Nitrite Negative (Negative); Protein, Urine (Dipstick) Negative (Neg-Trace); Specific Gravity, Urine 1.007 (1.002-1.036)
[2017-09-26] MEDS: HYDROmorphone 10 mg/100 ml CADD IVPB PRN (16:43)
[2017-09-26] MEDS: Piperacillin/Tazobactam 3.375 GM in Sodium Chloride 0.9% 100 ML IVPB SCH ×2 (18:03→23:47)
[2017-09-26] MEDS: Promethazine HCl 25 MG/ML VIAL IM PRN (19:22)
[2017-09-26] MEDS ORDERED: Enoxaparin Sodium 40 MG/0.4 ML SYRINGE SC SCH (21:00)
[2017-09-27] MEDS: ALPRAZolam 0.5 MG TAB PO PRN ×3 (04:40→23:07)
[2017-09-27] MEDS: Piperacillin/Tazobactam 3.375 GM in Sodium Chloride 0.9% 100 ML IVPB SCH ×4 (05:29→23:52)
[2017-09-27] MEDS: D5 1/2 NS w/20 mEq KCL 1,000 ML IV SCH ×2 (05:31→09:11)
[2017-09-27] MEDS ORDERED: ALPRAZolam 1 MG TAB PO PRN ×2 (07:50→08:07)
[2017-09-27] MEDS: Pantoprazole 40 MG VIAL IVP SCH ×2 (09:11→21:58)
[2017-09-27 09:20] LABS: Magnesium 1.7 mg/dL (1.6-2.6); Phosphorus 2.8 mg/dL (2.3-4.7)
[2017-09-27] MEDS: Ondansetron HCl/PF 4 MG/2 ML Vial IVP PRN (09:33)
[2017-09-27] MEDS ORDERED: Hydrocortisone Sod Succ/PF 100 mg/2 ml Vial IVP SCH (10:30)
[2017-09-27] MEDS: Cepastat Lozenges 1 LOZ PO PRN (11:49)
[2017-09-27] MEDS: Promethazine HCl 25 MG/ML VIAL IM PRN (13:24)
[2017-09-27] MEDS: Hydrocortisone Sod Succ/PF 100 mg/2 ml Vial IVP SCH ×2 (14:47→21:58)
--- NOTE | 2017-09-27 15:07 | PRG ---
DATE OF SERVICE: 09/27/2017 SUBJECTIVE: The patient is postop day #3 status post open gastric feeding tube placement in the vincent isaiah remnant. The patient overnight had no reported issues. The patient reportedly was afebrile over night. No other complaints. OBJECTIVE: VITAL SIGNS: This morning, temperature is 100.2, heart rate is 78, blood pressure 79/43, respiration s 18, oxygen saturation 96% on room air. GENERAL: The patient is resting comfortably in bed. She is awake, alert, and oriented x3, complains of some dizziness, but otherwise is feeling fine. States that she does have lower than normal blood pressure, but this is lower than what she considers her normal. HEENT: Unremarkable. LUNGS: Clear to auscultation bilaterally. HEART: Regular rate and rhythm. ABDOMEN: Soft with minimal tenderness. Postop dressing is clean, dry, and intact. EXTREMITIES: Neurovascularly intact x4. LABORATORY DATA: There are no labs or radiographs to review this morning. We will order labs in lig ht of her hypotension, though she is only minimally symptomatic at this time, though she has not work ed with therapy. We will also check cortisol level. We will treat appropriately. Otherwise, we chinedu l continue supportive care. The evaluation and examination were done with Dr. Mclain this morning dur ing rounds.
[2017-09-27 15:09] LABS: #Basophils 0.1 thou/uL (0.0-0.2); #Lymphocytes 0.4 thou/uL (1.20-3.40); #Monocytes 0.2 thou/uL (0.11-0.59); #Neutrophils 6.2 thou/uL (1.40-6.50); %Eosinophils 0.1 % (0.0-10.0); %Lymphocytes 5.6 % (21.0-51.0); %Monocytes 2.9 % (0.0-10.0); %Neutrophils 90.3 % (42.0-75.0); Hemoglobin 7.7 g/dL (12.0-16.0); Mean Corpuscular HGB CONC 33.1 g/dL (32.0-36.0); Mean Corpuscular Hemoglobin 31.8 pg (27.0-31.0); Mean Corpuscular Volume 96.2 fL (78.0-98.0); Platelet Count 131 thou/uL (130-400); RBC Distribution Width 14.1 % (11.5-14.5); Red Blood Cell (RBC) Count 2.41 mill/uL (4.20-5.40); White Blood Cell (WBC) Count 6.9 thou/uL (4.8-10.8)
[2017-09-27 15:25] LABS: Anion Gap 9 mmol/L (10-20); BUN (Urea Nitrogen) 7 mg/dL (9.8-20.1); Calc. Creatinine Clearance 82 mL/min (70-130); Calcium 8.1 mg/dL (7.8-10.44); Carbon Dioxide 23 mmol/L (22-29); Chloride 106 mmol/L (98-107); Estimated GFR-MDRD 79; Glucose 185 mg/dL (70-105); Potassium 3.9 mmol/L (3.5-5.1); Sodium 134 mmol/L (136-145)
[2017-09-27] MEDS ORDERED: Magnesium Sulfate 3 GM in Sodium Chloride 0.9% 250 ML 250 ML IVPB SCH (20:15)
[2017-09-27] MEDS: Ascorbic Acid 500 mg Chewable Tablet PO SCH (22:05)
[2017-09-27] MEDS: Senokot S 8.6-50 MG TAB PO SCH (22:06)
[2017-09-28] MEDS: Promethazine HCl 25 MG/ML VIAL IM PRN ×2 (00:59→09:42)
[2017-09-28] MEDS: D5 1/2 NS w/20 mEq KCL 1,000 ML IV SCH ×2 (05:16→20:50)
[2017-09-28] MEDS: Piperacillin/Tazobactam 3.375 GM in Sodium Chloride 0.9% 100 ML IVPB SCH ×4 (05:16→23:24)
[2017-09-28] MEDS: Hydrocortisone Sod Succ/PF 100 mg/2 ml Vial IVP SCH ×3 (05:17→21:00)
[2017-09-28] MEDS: HYDROmorphone 10 mg/100 ml CADD IVPB PRN (05:38)
[2017-09-28 06:27] LABS: #Basophils 0.1 thou/uL (0.0-0.2); #Lymphocytes 0.5 thou/uL (1.20-3.40); #Monocytes 0.4 thou/uL (0.11-0.59); #Neutrophils 3.3 thou/uL (1.40-6.50); %Basophils 1.3 % (0.0-1.0); %Eosinophils 0.1 % (0.0-10.0); %Lymphocytes 12.6 % (21.0-51.0); %Monocytes 9.3 % (0.0-10.0); %Neutrophils 76.7 % (42.0-75.0); Hemoglobin 8.3 g/dL (12.0-16.0); Mean Corpuscular HGB CONC 33.9 g/dL (32.0-36.0); Mean Corpuscular Volume 94.5 fL (78.0-98.0); Mean Platelet Volume 8.2 fL (7.4-10.4); Platelet Count 127 thou/uL (130-400); RBC Distribution Width 13.6 % (11.5-14.5); Red Blood Cell (RBC) Count 2.58 mill/uL (4.20-5.40); White Blood Cell (WBC) Count 4.2 thou/uL (4.8-10.8)
[2017-09-28 06:41] LABS: Anion Gap 10 mmol/L (10-20); BUN (Urea Nitrogen) 6 mg/dL (9.8-20.1); Calc. Creatinine Clearance 102 mL/min (70-130); Calcium 8.2 mg/dL (7.8-10.44); Carbon Dioxide 24 mmol/L (22-29); Chloride 109 mmol/L (98-107); Estimated GFR-MDRD Greater than 90; Glucose 131 mg/dL (70-105); Magnesium 2.7 mg/dL (1.6-2.6); Phosphorus 2.5 mg/dL (2.3-4.7); Potassium 3.7 mmol/L (3.5-5.1); Sodium 139 mmol/L (136-145)
[2017-09-28] MEDS: Ascorbic Acid 500 mg Chewable Tablet PO SCH ×2 (08:10→20:49)
[2017-09-28] MEDS: Senokot S 8.6-50 MG TAB PO SCH ×2 (08:10→20:49)
[2017-09-28] MEDS: Ferrous Sulfate 325 MG TAB PO SCH ×2 (08:10→17:39)
[2017-09-28] MEDS: Polyethylene Glycol 3350 17 GM Packet PO SCH (08:11)
[2017-09-28] MEDS: Pantoprazole 40 MG VIAL IVP SCH ×2 (08:11→20:49)
[2017-09-28] MEDS: ALPRAZolam 1 MG TAB PO PRN ×2 (11:43→20:49)
--- NOTE | 2017-09-28 15:24 | CON ---
DATE OF CONSULTATION: 09/28/2017 Following consultation encompassed 70 minutes time; of that, greater than 50% was spent with the patient and/or in the patient's unit in the hospital. CONSULTING PHYSICIAN: Dr. Mclain. REASON FOR CONSULTATION: Increased shortness of breath. HISTORY OF PRESENT ILLNESS: Ms. Henderson is well known to me from past hospitalizations. She is currently here for revision of a J-tube. She has had increasing shortness of breath since the operation. She has not been able to do incentive spirometry, because of discomfort. PAST MEDICAL HISTORY: 1. Aspiration pneumonia. 2. Cirrhosis of liver. 3. Multiple episodes of respiratory failure. 4. Nonalcoholic steatohepatitis. 5. Chronic abdominal pain. 6. Recurrent urinary tract infection. 7. Anxiety. 8. Hypertension. PAST SURGICAL HISTORY: 1. Breast reduction. 2. Bariatric surgery. 3. Appendectomy. 4. Cholecystectomy. 5. Hysterectomy. 6. Spinal surgery. 7. Tonsillectomy. 8. PEG tube placement. SOCIAL HISTORY: , lives with her . Does not smoke, does not drink alcohol. ALLERGIES: CIPRO, MORPHINE, NSAIDS, and IODINATED CONTRAST. REVIEW OF SYSTEMS: Twelve-point review of systems is, otherwise, negative. PHYSICAL EXAMINATION: VITAL SIGNS: Temperature 97.7, pulse 88, respirations 16, O2 sat 96% on room air. GENERAL: She is awake and alert. She is in no acute distress. HEENT: Unremarkable. NECK: Without adenopathy, JVD, or bruits. LUNGS: She has slightly diminished breath sounds at the base. No crackles, no wheezing. CARDIAC: S1 and S2, regular, without murmur. ABDOMEN: Soft. Surgical feeding tube is noted. EXTREMITIES: Without clubbing, cyanosis, or edema. X-RAY FINDINGS: Chest x-ray done on 09/26/2017 showed no mass, effusion, or infiltrate. LABORATORY DATA: White blood cell count 4.2, hematocrit 24.4, platelet count 127. Sodium 139, potassium 3.7, chloride 109, CO2 of 24, BUN 6, creatinine 0.6 , glucose 131. ASSESSMENT: Chronic respiratory failure - multiple episodes of pneumonia in the past. Currently, she has some symptoms of atelectasis, which probably means she is not taking deep breaths, because she is sore in the abdominal region. PLAN: I will add EzPAP to her nebulization treatments. I will follow with you. JENNIFER
[2017-09-28] MEDS: Ondansetron HCl/PF 4 MG/2 ML Vial IVP PRN (17:40)
[2017-09-29] MEDS: ALPRAZolam 1 MG TAB PO PRN ×3 (04:47→21:14)
[2017-09-29] MEDS: Ondansetron HCl/PF 4 MG/2 ML Vial IVP PRN ×3 (04:49→19:46)
[2017-09-29] MEDS: Hydrocortisone Sod Succ/PF 100 mg/2 ml Vial IVP SCH ×3 (05:01→21:14)
[2017-09-29] MEDS: Piperacillin/Tazobactam 3.375 GM in Sodium Chloride 0.9% 100 ML IVPB SCH (05:02)
[2017-09-29] MEDS ORDERED: guaiFENesin/Dextromethorphan 10 ML UDCUP PO PRN (08:28)
--- NOTE | 2017-09-29 08:44 | PRG ---
DATE OF SERVICE: 09/29/2017 The patient says she is about the same. She is coughing up more material than what she was . PHYSICAL EXAMINATION: VITAL SIGNS: On exam her temperature is 97.8, pulse 76, respirations 18, O2 sat 90% on room air, blo od pressure 110/71. HEENT: Unremarkable. NECK: No JVD. CHEST: Clear without wheezing or rhonchi. CARDIAC: S1 and S2 regular. ABDOMEN: PEG tube noted. EXTREMITIES: No edema. LABORATORY DATA: No labs were done today. ASSESSMENT: Chronic respiratory failure with multiple episodes of pneumonia in the past - has a mild degree of respiratory insufficiency at this time, but she does not appear much worse than what I hav e seen her in the last several years. RECOMMENDATIONS: 1. Continue the EzPAP with nebs. 2. She is on antibiotics which should give her any kind of pulmonary coverage that she would need. 3. Add some cough syrup.
[2017-09-29] MEDS: Polyethylene Glycol 3350 17 GM Packet PO SCH (09:00)
[2017-09-29] MEDS: Ferrous Sulfate 325 MG TAB PO SCH ×2 (09:00→18:13)
[2017-09-29] MEDS: Ascorbic Acid 500 mg Chewable Tablet PO SCH ×2 (09:01→19:49)
[2017-09-29] MEDS: Senokot S 8.6-50 MG TAB PO SCH ×2 (09:01→19:26)
[2017-09-29] MEDS: Pantoprazole 40 MG VIAL IVP SCH ×2 (09:01→19:48)
[2017-09-29] MEDS: Guaifenesin DM 100-10/5 ML UDCUP PO PRN ×3 (10:03→21:15)
--- NOTE | 2017-09-29 10:07 | PDOC.GSPN ---
Surgery Progress Note: Subj - Subjective Narrative: Feels better today. Ambulatory but having diarrhea due to tube feeds. Still having pain midline incision Surgery Progress Note: Obj - Vital signs Vital signs: Vital Signs - Most Recent Temp Pulse Resp BP Pulse Ox 97.8 F 76 16 110/71 98 09/29/17 04:00 09/29/17 06:50 09/29/17 06:50 09/29/17 04:00 09/29/17 06:50 - Physical Exam General: no distress Cardiovascular: regular rate and rhythm Respiratory: clear to auscultation Abdomen: soft, appropriately tender Wound: healing well Surgery Progress Note: Results - Labs Result Diagrams: 09/28/17 05:56 09/28/17 05:56 Surgery Progress Note: A/P - Problem (1) History of gastrectomy Current Visit: Yes Code(s): Z90.3 - ACQUIRED ABSENCE OF STOMACH [PART OF] Status: Acute (2) Adrenal insufficiency Current Visit: Yes Code(s): E27.40 - UNSPECIFIED ADRENOCORTICAL INSUFFICIENCY Status: Acute - Plan Plan: Better after steroids. 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
[2017-09-29] MEDS ORDERED: HYDROcodone/Acetaminophen 10/325 mg Tablet PO PRN (10:08)
[2017-09-29] MEDS ORDERED: Fentanyl 100 MCG/2 ML VIAL SLOW IVP PRN (10:08)
[2017-09-29] MEDS: Diphenoxylate HCl/Atropine Tablet PO PRN (10:37)
[2017-09-29] MEDS: D5 1/2 NS w/20 mEq KCL 1,000 ML IV SCH (10:38)
[2017-09-29] MEDS: Fentanyl 100 MCG/2 ML VIAL SLOW IVP PRN ×3 (16:14→21:16)
[2017-09-29] MEDS: HYDROcodone/Acetaminophen 10/325 mg Tablet PO PRN (19:49)
[2017-09-30] MEDS: Guaifenesin DM 100-10/5 ML UDCUP PO PRN (03:39)
[2017-09-30] MEDS: ALPRAZolam 1 MG TAB PO PRN ×2 (03:39→16:24)
[2017-09-30] MEDS: Fentanyl 100 MCG/2 ML VIAL SLOW IVP PRN ×6 (03:39→21:49)
[2017-09-30] MEDS: Hydrocortisone Sod Succ/PF 100 mg/2 ml Vial IVP SCH (06:08)
[2017-09-30] MEDS: Ascorbic Acid 500 mg Chewable Tablet PO SCH ×2 (08:41→20:00)
[2017-09-30] MEDS: Polyethylene Glycol 3350 17 GM Packet PO SCH (08:41)
[2017-09-30] MEDS: Cepastat Lozenges 1 LOZ PO PRN (08:41)
[2017-09-30] MEDS: Ferrous Sulfate 325 MG TAB PO SCH ×2 (08:42→16:24)
[2017-09-30] MEDS: Senokot S 8.6-50 MG TAB PO SCH ×2 (08:42→20:00)
[2017-09-30] MEDS: Pantoprazole 40 MG VIAL IVP SCH ×2 (08:42→19:59)
--- NOTE | 2017-09-30 08:50 | PRG ---
DATE OF SERVICE: 09/20/2017 The patient is complaining of increasing shortness of breath and some rattling in the left side of he r chest. PHYSICAL EXAMINATION: VITAL SIGNS: Temperature is 98.1 with no fever overnight, pulse 65, respirations 18, O2 sat 92-97% o n room air, blood pressure 136/74. 24 hour intake 1930, output 600. HEENT: Unremarkable. NECK: No JVD. LUNGS: Few crackles on the left, the right side clear. CARDIOVASCULAR: S1, S2 regular. ABDOMEN: Soft, nontender. EXTREMITIES: No edema. LABORATORY DATA: No labs were done today. ASSESSMENT: Respiratory insufficiency - probably has underlying chronic obstructive pulmonary diseas e to a certain degree. She is also extremely nervous because of situations with past illnesses. PLAN: 1. Intensify nebulization treatment. 2. Continue antibiotics. 3. I will change her steroids to Solu-Medrol as that may help her more than Solu-Cortef.
[2017-09-30] MEDS: Ondansetron HCl/PF 4 MG/2 ML Vial IVP PRN ×2 (12:52→21:46)
[2017-09-30] MEDS: Diphenoxylate HCl/Atropine Tablet PO PRN (12:58)
--- NOTE | 2017-09-30 16:45 | PDOC.GSPN ---
Surgery Progress Note: Subj - Subjective Narrative: Complaining of dyspnea at times. Pain around her incision with inspiration. Surgery Progress Note: Obj - Vital signs Vital signs: Vital Signs - Most Recent Temp Pulse Resp BP Pulse Ox 98.1 F 73 18 126/67 98 09/30/17 16:43 09/30/17 16:43 09/30/17 16:43 09/30/17 16:43 09/30/17 16:43 - Physical Exam General: no distress Cardiovascular: regular rate and rhythm Respiratory: clear to auscultation Abdomen: soft, non tender, appropriately tender Wound: healing well Surgery Progress Note: Results - Labs Result Diagrams: 09/28/17 05:56 09/28/17 05:56 Surgery Progress Note: A/P - Problem (1) History of gastrectomy Current Visit: Yes Code(s): Z90.3 - ACQUIRED ABSENCE OF STOMACH [PART OF] Status: Acute (2) Adrenal insufficiency Current Visit: Yes Code(s): E27.40 - UNSPECIFIED ADRENOCORTICAL INSUFFICIENCY Status: Acute - Plan Plan: Overall doing well. -ALLIED HEALTH PROFESSIONAL DC'd. -Perative TF to be delivered tomorrow. Will make sure she tolerates before DC
[2017-09-30] MEDS: Promethazine HCl 25 MG/ML VIAL IM PRN (17:51)
[2017-09-30] MEDS: Arformoterol 15 MCG/2 ML NEB NEB SCH (18:59)
[2017-09-30] MEDS: Budesonide 0.5 MG/2 ML NEB INH SCH (19:02)
[2017-09-30] MEDS: HYDROcodone/Acetaminophen 10/325 mg Tablet PO PRN (20:00)
[2017-09-30] MEDS: D5 1/2 NS w/20 mEq KCL 1,000 ML IV SCH (20:09)
[2017-10-01] MEDS: ALPRAZolam 1 MG TAB PO PRN ×4 (00:10→22:56)
[2017-10-01] MEDS: HYDROcodone/Acetaminophen 10/325 mg Tablet PO PRN ×5 (00:10→22:55)
[2017-10-01] MEDS: Promethazine HCl 25 MG/ML VIAL IM PRN ×2 (00:11→13:47)
[2017-10-01] MEDS: Fentanyl 100 MCG/2 ML VIAL SLOW IVP PRN ×4 (03:23→20:29)
[2017-10-01 06:21] LABS: #Lymphocytes 0.7 thou/uL (1.20-3.40); #Monocytes 0.7 thou/uL (0.11-0.59); #Neutrophils 6.2 thou/uL (1.40-6.50); %Basophils 0.2 % (0.0-1.0); %Eosinophils 0.5 % (0.0-10.0); %Lymphocytes 9.2 % (21.0-51.0); %Monocytes 8.9 % (0.0-10.0); %Neutrophils 81.2 % (42.0-75.0); Hemoglobin 9.1 g/dL (12.0-16.0); Mean Corpuscular HGB CONC 32.6 g/dL (32.0-36.0); Mean Corpuscular Hemoglobin 31.3 pg (27.0-31.0); Mean Platelet Volume 7.6 fL (7.4-10.4); Platelet Count 210 thou/uL (130-400); RBC Distribution Width 14.3 % (11.5-14.5); Red Blood Cell (RBC) Count 2.91 mill/uL (4.20-5.40); White Blood Cell (WBC) Count 7.7 thou/uL (4.8-10.8)
[2017-10-01 06:46] LABS: Anion Gap 13 mmol/L (10-20); BUN (Urea Nitrogen) 13 mg/dL (9.8-20.1); Calc. Creatinine Clearance 102 mL/min (70-130); Calcium 8.5 mg/dL (7.8-10.44); Carbon Dioxide 23 mmol/L (22-29); Chloride 108 mmol/L (98-107); Estimated GFR-MDRD Greater than 90; Glucose 133 mg/dL (70-105); Potassium 3.9 mmol/L (3.5-5.1); Sodium 140 mmol/L (136-145)
[2017-10-01] MEDS: Budesonide 0.5 MG/2 ML NEB INH SCH ×2 (07:56→19:12)
[2017-10-01] MEDS: Arformoterol 15 MCG/2 ML NEB NEB SCH ×2 (08:08→19:12)
--- NOTE | 2017-10-01 08:30 | PRG ---
DATE OF SERVICE: 10/01/2017. SUBJECTIVE: She says she is breathing a little better today. PHYSICAL EXAMINATION: VITAL SIGNS: Temperature is 97.8, pulse 67, respirations 16, O2 sat 95% on room air, blood pressure 154/88. HEENT: Unremarkable. NECK: No JVD. LUNGS: Clear without wheezing. CARDIAC: S1 and S2 regular. ABDOMEN: Mildly distended. Bowel sounds diminished. EXTREMITIES: No edema. LABORATORY DATA: White blood cell count 7.7, hematocrit 27.9, platelet count 210. Sodium 140, potas sium 3.9, chloride 108, CO2 23, BUN 13, creatinine 0.6, glucose 133. ASSESSMENT: 1. Respiratory insufficiency aggravated by the recent abdominal procedure. 2. Probable underlying chronic obstructive pulmonary disease. PLAN: Continue low dose Solu-Medrol, antibiotics and EzPAP. Hopefully, able to go home in a few day s.
[2017-10-01] MEDS: Polyethylene Glycol 3350 17 GM Packet PO SCH (08:40)
[2017-10-01] MEDS: Ferrous Sulfate 325 MG TAB PO SCH ×2 (08:40→17:26)
[2017-10-01] MEDS: Pantoprazole 40 MG VIAL IVP SCH ×2 (08:40→20:28)
[2017-10-01] MEDS: Senokot S 8.6-50 MG TAB PO SCH ×2 (08:40→20:29)
[2017-10-01] MEDS: Ascorbic Acid 500 mg Chewable Tablet PO SCH ×2 (08:40→20:29)
[2017-10-01] MEDS: Ondansetron HCl/PF 4 MG/2 ML Vial IVP PRN ×2 (09:32→15:46)
[2017-10-01] MEDS: Diphenoxylate HCl/Atropine Tablet PO PRN (18:07)
[2017-10-01] MEDS: Guaifenesin DM 100-10/5 ML UDCUP PO PRN (22:56)
[2017-10-01] MEDS: D5 1/2 NS w/20 mEq KCL 1,000 ML IV SCH (23:04)
[2017-10-02] MEDS: Fentanyl 100 MCG/2 ML VIAL SLOW IVP PRN ×7 (01:35→22:16)
[2017-10-02] MEDS: Ondansetron HCl/PF 4 MG/2 ML Vial IVP PRN ×3 (04:03→17:00)
[2017-10-02] MEDS: Budesonide 0.5 MG/2 ML NEB INH SCH ×2 (07:30→18:42)
[2017-10-02] MEDS: Arformoterol 15 MCG/2 ML NEB NEB SCH ×2 (07:30→18:42)
[2017-10-02] MEDS: ALPRAZolam 1 MG TAB PO PRN ×2 (08:22→20:27)
[2017-10-02] MEDS: Pantoprazole 40 MG VIAL IVP SCH ×2 (08:23→20:12)
[2017-10-02] MEDS: Ferrous Sulfate 325 MG TAB PO SCH ×2 (08:23→18:34)
[2017-10-02] MEDS: Ascorbic Acid 500 mg Chewable Tablet PO SCH ×2 (08:24→20:12)
[2017-10-02] MEDS: Polyethylene Glycol 3350 17 GM Packet PO SCH (08:24)
[2017-10-02] MEDS: Senokot S 8.6-50 MG TAB PO SCH ×2 (09:09→20:13)
[2017-10-02] MEDS: HYDROcodone/Acetaminophen 10/325 mg Tablet PO PRN ×3 (10:26→21:08)
--- NOTE | 2017-10-02 11:59 | PRG ---
DATE OF SERVICE: 10/03/2015 SUBJECTIVE: Ms. Henderson feels a little better today. OBJECTIVE: VITAL SIGNS: , respirations 16, O2 sat 97% room air, blood pressure 147/78. HEENT: Unremarkable. NECK: No JVD. CHEST: Clear without wheeze or rhonchi. CARDIAC: S1 and S2 regular. ABDOMEN: Soft. EXTREMITIES: No edema. ASSESSMENT: Chronic obstructive pulmonary disease/chronic bronchitis. PLAN: 1. Continue breathing treatments. 2. I will cut down her steroid dose. 3. Hopefully home soon.
--- NOTE | 2017-10-02 12:52 | PDOC.GSPN ---
Surgery Progress Note: Subj - Subjective Narrative: Still complaining of pain below incision. Not taking much PO. TF arrived. Surgery Progress Note: Obj - Vital signs Vital signs: Vital Signs - Most Recent Temp Pulse Resp BP Pulse Ox 98.5 F 68 18 112/69 96 10/02/17 12:04 10/02/17 12:04 10/02/17 12:04 10/02/17 12:04 10/02/17 12:04 - Physical Exam General: no distress Respiratory: clear to auscultation Abdomen: soft, appropriately tender Wound: healing well Surgery Progress Note: Results - Labs Result Diagrams: 10/01/17 05:24 10/01/17 05:24 Surgery Progress Note: A/P - Problem (1) History of gastrectomy Current Visit: Yes Code(s): Z90.3 - ACQUIRED ABSENCE OF STOMACH [PART OF] Status: Acute (2) Adrenal insufficiency Current Visit: Yes Code(s): E27.40 - UNSPECIFIED ADRENOCORTICAL INSUFFICIENCY Status: Acute - Plan Plan: Try Perative derivative today. -[place] for pain -Ambulate in [place]. -Home in next few days if tolerates TF
[2017-10-02] MEDS: Promethazine HCl 25 MG/ML VIAL IM PRN (20:27)
[2017-10-03] MEDS: HYDROcodone/Acetaminophen 10/325 mg Tablet PO PRN ×2 (00:42→22:32)
[2017-10-03] MEDS: Fentanyl 100 MCG/2 ML VIAL SLOW IVP PRN ×7 (02:24→23:55)
[2017-10-03] MEDS: Ondansetron HCl/PF 4 MG/2 ML Vial IVP PRN ×2 (02:28→23:55)
[2017-10-03 05:36] LABS: #Eosinphils 0.1 thou/uL (0.0-0.7); #Lymphocytes 1.5 thou/uL (1.20-3.40); #Monocytes 0.6 thou/uL (0.11-0.59); #Neutrophils 7.1 thou/uL (1.40-6.50); %Basophils 0.2 % (0.0-1.0); %Eosinophils 0.6 % (0.0-10.0); %Lymphocytes 15.8 % (21.0-51.0); %Monocytes 6.9 % (0.0-10.0); %Neutrophils 76.5 % (42.0-75.0); Hemoglobin 9.3 g/dL (12.0-16.0); Mean Corpuscular HGB CONC 32.6 g/dL (32.0-36.0); Mean Corpuscular Hemoglobin 31.5 pg (27.0-31.0); Mean Corpuscular Volume 96.6 fL (78.0-98.0); Mean Platelet Volume 6.9 fL (7.4-10.4); Platelet Count 261 thou/uL (130-400); RBC Distribution Width 15.1 % (11.5-14.5); Red Blood Cell (RBC) Count 2.96 mill/uL (4.20-5.40); White Blood Cell (WBC) Count 9.3 thou/uL (4.8-10.8)
[2017-10-03 05:40] LABS: Anion Gap 11 mmol/L (10-20); BUN (Urea Nitrogen) 18 mg/dL (9.8-20.1); Calc. Creatinine Clearance 96 mL/min (70-130); Calcium 8.1 mg/dL (7.8-10.44); Carbon Dioxide 26 mmol/L (22-29); Chloride 105 mmol/L (98-107); Estimated GFR-MDRD Greater than 90; Glucose 127 mg/dL (70-105); Potassium 4.3 mmol/L (3.5-5.1); Sodium 138 mmol/L (136-145)
[2017-10-03] MEDS: Budesonide 0.5 MG/2 ML NEB INH SCH ×2 (07:22→19:19)
[2017-10-03] MEDS: Arformoterol 15 MCG/2 ML NEB NEB SCH ×2 (07:26→19:19)
[2017-10-03] MEDS: Ascorbic Acid 500 mg Chewable Tablet PO SCH ×2 (07:58→20:13)
[2017-10-03] MEDS: Polyethylene Glycol 3350 17 GM Packet PO SCH (07:59)
[2017-10-03] MEDS: Senokot S 8.6-50 MG TAB PO SCH ×2 (07:59→20:13)
[2017-10-03] MEDS: Promethazine HCl 25 MG/ML VIAL IM PRN (08:09)
[2017-10-03] MEDS: Pantoprazole 40 MG VIAL IVP SCH ×2 (08:11→20:16)
[2017-10-03] MEDS: Ferrous Sulfate 325 MG TAB PO SCH ×2 (08:11→16:49)
--- NOTE | 2017-10-03 08:15 | PRG ---
DATE OF SERVICE: 10/03/2017 The patient feels better, has no acute complaints. PHYSICAL EXAMINATION: VITAL SIGNS: Temperature is 98.1, pulse 50, respirations 16, O2 sat 95% on room air, blood pressure 126/56. HEENT: Unremarkable. NECK: No adenopathy or JVD. CHEST: Clear without wheezing or rhonchi. CARDIAC: S1 and S2 regular. ABDOMEN: Soft, nontender. PEG tube noted. EXTREMITIES: No edema. LABORATORY DATA: White blood cell count 9.3, hematocrit 28.6, platelet count 261. Sodium 138, potas sium 4.3, chloride 105, CO2 26, BUN 18, creatinine 0.6, glucose 127. ASSESSMENT: 1. Underlying chronic obstructive pulmonary disease, which appears to be improved. 2. Extensive gastrointestinal issues which appear to be resolving. PLAN: I will go ahead and switch her to oral prednisone. This can be given either through her PEG o r orally. She needs to remain on this for about 7 days and then it can be stopped. Her pulmonary st atus is stable for discharge at any time.
[2017-10-03] MEDS: ALPRAZolam 1 MG TAB PO PRN ×2 (08:28→16:50)
[2017-10-03] MEDS: predniSONE 20 MG TAB PER TUBE SCH (12:12)
[2017-10-04] MEDS: ALPRAZolam 1 MG TAB PO PRN ×3 (00:52→20:35)
[2017-10-04] MEDS: HYDROcodone/Acetaminophen 10/325 mg Tablet PO PRN ×4 (02:22→20:34)
[2017-10-04] MEDS: Fentanyl 100 MCG/2 ML VIAL SLOW IVP PRN ×4 (05:18→22:16)
[2017-10-04] MEDS: Budesonide 0.5 MG/2 ML NEB INH SCH ×2 (06:23→18:32)
[2017-10-04] MEDS: Arformoterol 15 MCG/2 ML NEB NEB SCH ×2 (06:30→18:24)
[2017-10-04] MEDS: Pantoprazole 40 MG VIAL IVP SCH ×2 (08:15→20:33)
[2017-10-04] MEDS: Promethazine HCl 25 MG/ML VIAL IM PRN ×2 (08:15→20:58)
[2017-10-04] MEDS: predniSONE 20 MG TAB PER TUBE SCH (08:16)
[2017-10-04] MEDS: Ferrous Sulfate 325 MG TAB PO SCH ×2 (08:16→17:09)
[2017-10-04] MEDS: Polyethylene Glycol 3350 17 GM Packet PO SCH (08:17)
[2017-10-04] MEDS: Senokot S 8.6-50 MG TAB PO SCH ×2 (08:17→19:40)
[2017-10-04] MEDS: Ascorbic Acid 500 mg Chewable Tablet PO SCH ×2 (08:18→19:40)
[2017-10-04] MEDS: Ondansetron HCl/PF 4 MG/2 ML Vial IVP PRN ×2 (10:31→18:40)
--- NOTE | 2017-10-04 18:17 | PRG ---
DATE OF SERVICE: 10/04/2017 SERVICE: Pulmonary Medicine. INTERVAL HISTORY: The patient's breathing is actually improving quite a bit. Today, she was able to make two laps around the entire unit without having to stop and rest to breathe. By the time she go t back, she was exhausted. That being said, this is the most activity she has been able to do at one time since she has been here. She is having aphthous ulcers erupted inside of her mouth, this happe ns from time to time whenever things get stressful. She thinks the nebulized medications exacerbate that discomfort. As such, she is requesting guide changer to as needed, which is reasonable. She watson es any current fevers or chills. She is not coughing. She has no sputum production. PHYSICAL EXAMINATION: VITAL SIGNS: Afebrile, pulse 62, blood pressure 121/74, respirations 14, saturation 97% on room air. GENERAL: The patient is awake, alert, no apparent distress. LUNGS: There is absolutely excellent air entry. There is slightly prolonged expiratory phase, but I do not hear wheezing, rhonchi, or crackles present. HEART: Normal rate, regular. ABDOMEN: Soft, nontender, nondistended. Bowel sounds are positive. MUSCULOSKELETAL: No cyanosis or clubbing. There is no pitting in the bilateral lower extremities. NEUROLOGIC: Grossly nonfocal. LABORATORY DATA: WBC 9.3, hemoglobin 9.3, platelets 261,000. Basic metabolic profile is otherwise u nremarkable. Urinalysis is negative. Urine culture is unremarkable. ASSESSMENT: 1. Chronic obstructive pulmonary disease status post acute exacerbation. 2. GI issues, improving. DISCUSSION AND PLAN: We will continue our steroids. I will switch the nebulized medications over as needed, which is the way she uses them at home. From purely respiratory perspective, there is nothi ng that prevents discharge from the hospital.
[2017-10-04] MEDS: Zolpidem Tartrate 5 MG TAB PO PRN (20:35)
[2017-10-05] MEDS: Fentanyl 100 MCG/2 ML VIAL SLOW IVP PRN ×7 (00:21→23:26)
[2017-10-05] MEDS: HYDROcodone/Acetaminophen 10/325 mg Tablet PO PRN ×3 (02:00→19:33)
[2017-10-05] MEDS: ALPRAZolam 1 MG TAB PO PRN ×3 (04:58→20:52)
[2017-10-05] MEDS: Arformoterol 15 MCG/2 ML NEB NEB SCH ×2 (07:25→20:03)
[2017-10-05] MEDS: Budesonide 0.5 MG/2 ML NEB INH SCH ×2 (07:26→20:04)
[2017-10-05] MEDS: Ondansetron HCl/PF 4 MG/2 ML Vial IVP PRN ×2 (08:39→18:28)
[2017-10-05] MEDS: Pantoprazole 40 MG VIAL IVP SCH ×2 (08:48→20:51)
[2017-10-05] MEDS: Ascorbic Acid 500 mg Chewable Tablet PO SCH ×2 (08:48→19:55)
[2017-10-05] MEDS: Ferrous Sulfate 325 MG TAB PO SCH ×2 (08:48→16:54)
[2017-10-05] MEDS: Polyethylene Glycol 3350 17 GM Packet PO SCH (08:48)
[2017-10-05] MEDS: Senokot S 8.6-50 MG TAB PO SCH ×2 (08:49→19:55)
[2017-10-05] MEDS: predniSONE 20 MG TAB PER TUBE SCH (08:54)
[2017-10-05] MEDS: Promethazine HCl 25 MG/ML VIAL IM PRN ×2 (12:06→20:52)
[2017-10-05] MEDS ORDERED: traZODone HCl 50 MG TAB PO PRN (15:41)
[2017-10-05] MEDS ORDERED: Fentanyl 100 MCG/2 ML VIAL SLOW IVP PRN ×2 (15:43→15:45)
--- NOTE | 2017-10-05 18:20 | PDOC.GSPN ---
Surgery Progress Note: Subj - Subjective Narrative: Patient tripped over her IV tubing yesterday while going to the bathroom and fell forward hitting her stomach on the toilet. Her incision is intact but she has been having a lot more incisional pain since that time and didn't sleep last night. I will increase her fentanyl slightly and draped for some trazodone. She is tolerating her tube feeds poorly due to diarrhea and is working with her insurance company to get the specific type of tube feeds that she tolerates. Surgery Progress Note: Obj - Vital signs Vital signs: Vital Signs - Most Recent Temp Pulse Resp BP Pulse Ox 98.3 F 59 L 22 H 106/61 98 10/05/17 15:50 10/05/17 15:50 10/05/17 15:50 10/05/17 15:50 10/05/17 15:50 Surgery Progress Note: Results - Labs Result Diagrams: 10/03/17 04:48 10/03/17 04:48
[2017-10-05] MEDS: traZODone HCl 50 MG TAB PO PRN (20:51)
[2017-10-06] MEDS: HYDROcodone/Acetaminophen 10/325 mg Tablet PO PRN ×2 (01:47→11:54)
[2017-10-06] MEDS: Diphenoxylate HCl/Atropine Tablet PO PRN (01:47)
[2017-10-06] MEDS: Fentanyl 100 MCG/2 ML VIAL SLOW IVP PRN ×8 (04:49→22:53)
[2017-10-06] MEDS: ALPRAZolam 1 MG TAB PO PRN ×3 (04:49→20:51)
[2017-10-06] MEDS: Arformoterol 15 MCG/2 ML NEB NEB SCH (07:37)
[2017-10-06] MEDS: Budesonide 0.5 MG/2 ML NEB INH SCH (07:38)
--- NOTE | 2017-10-06 08:14 | PRG ---
DATE OF SERVICE: 10/06/2017 The patient is doing well from a respiratory standpoint. However, she has numerous gastrointestinal concerns and she is not sure she feels comfortable going home. PHYSICAL EXAMINATION: VITAL SIGNS: On exam temperature is 98.8, pulse 56, respirations 18, O2 sat 98%, blood pressure 122/ 66. HEENT: Unremarkable. NECK: No JVD. LUNGS: Clear without wheezing or rhonchi. CARDIAC: S1 and S2 regular. ABDOMEN: Soft, nontender. PEG tube noted. EXTREMITIES: No edema. ASSESSMENT: 1. Stable chronic obstructive pulmonary disease with exacerbation. 2. Diarrhea. 3. Multiple gastrointestinal issues. PLAN: For the time being, she remains on oral prednisone. She should go home on probably 5 more day s of that dose before stopping. She is ready for discharge at any time from a pulmonary standpoint. The rest will be up to General Surgery.
[2017-10-06] MEDS ORDERED: Budesonide 0.5 MG/2 ML NEB INH PRN (08:15)
[2017-10-06] MEDS ORDERED: Arformoterol 15 MCG/2 ML NEB NEB PRN (08:15)
[2017-10-06] MEDS: Ferrous Sulfate 325 MG TAB PO SCH ×2 (08:32→16:04)
[2017-10-06] MEDS: Pantoprazole 40 MG VIAL IVP SCH ×2 (08:33→20:31)
[2017-10-06] MEDS: predniSONE 20 MG TAB PER TUBE SCH (08:33)
[2017-10-06] MEDS: Senokot S 8.6-50 MG TAB PO SCH ×2 (09:24→20:33)
[2017-10-06] MEDS: Polyethylene Glycol 3350 17 GM Packet PO SCH (09:24)
[2017-10-06] MEDS: Ascorbic Acid 500 mg Chewable Tablet PO SCH ×2 (09:24→20:33)
--- NOTE | 2017-10-06 11:25 | PDOC.GSPN ---
Surgery Progress Note: Subj - Subjective Patient reports: no new complaints (Her preferred TF still has not arrrived and the Pivot is causing diarrhea) Surgery Progress Note: Obj - Vital signs Vital signs: Vital Signs - Most Recent Temp Pulse Resp BP Pulse Ox 98.2 F 55 L 14 94/54 L 96 10/06/17 08:30 10/06/17 08:30 10/06/17 08:30 10/06/17 07:25 10/06/17 08:30 - Physical Exam General: no distress Cardiovascular: regular rate and rhythm Respiratory: clear to auscultation Abdomen: appropriately tender Wound: healing well Surgery Progress Note: Results - Labs Result Diagrams: 10/03/17 04:48 10/03/17 04:48 Surgery Progress Note: A/P - Problem (1) History of gastrectomy Current Visit: Yes Code(s): Z90.3 - ACQUIRED ABSENCE OF STOMACH [PART OF] Status: Acute (2) Adrenal insufficiency Current Visit: Yes Code(s): E27.40 - UNSPECIFIED ADRENOCORTICAL INSUFFICIENCY Status: Acute - Plan Plan: Plan DC tomorrow. She is able to get her preferred TF as an outpatient. Check stool for cdiff
[2017-10-06] MEDS: Promethazine HCl 25 MG/ML VIAL IM PRN ×2 (11:59→20:33)
[2017-10-06] MEDS: Ondansetron HCl/PF 4 MG/2 ML Vial IVP PRN (16:05)
[2017-10-06] MEDS: Zolpidem Tartrate 5 MG TAB PO PRN (20:32)
[2017-10-06] MEDS: traZODone HCl 50 MG TAB PO PRN (20:51)
[2017-10-07] MEDS: Fentanyl 100 MCG/2 ML VIAL SLOW IVP PRN ×4 (00:59→10:55)
[2017-10-07] MEDS: Promethazine HCl 25 MG/ML VIAL IM PRN ×2 (00:59→09:36)
[2017-10-07] MEDS: Diphenoxylate HCl/Atropine Tablet PO PRN (01:26)
[2017-10-07] MEDS: ALPRAZolam 1 MG TAB PO PRN (05:00)
[2017-10-07] MEDS: Pantoprazole 40 MG VIAL IVP SCH (08:29)
[2017-10-07] MEDS: Ferrous Sulfate 325 MG TAB PO SCH (08:29)
[2017-10-07] MEDS: Polyethylene Glycol 3350 17 GM Packet PO SCH (08:29)
[2017-10-07] MEDS: Ascorbic Acid 500 mg Chewable Tablet PO SCH (08:29)
[2017-10-07] MEDS: predniSONE 20 MG TAB PER TUBE SCH (08:29)
[2017-10-07] MEDS: Senokot S 8.6-50 MG TAB PO SCH (08:30)
--- NOTE | 2017-10-07 08:32 | PRG ---
DATE OF SERVICE: 10/07/2017 Ms. Henderson says she is going home today. She has no respiratory complaints. PHYSICAL EXAMINATION: VITAL SIGNS: Temperature 97.9, pulse 54, respirations 16, O2 saturation 98%, blood pressure 106/69. HEENT: Unremarkable. NECK: No JVD. LUNGS: Clear without wheezing or rhonchi. CARDIAC: S1 and S2 regular. ABDOMEN: Soft, nontender. PEG tube noted. EXTREMITIES: No edema. ASSESSMENT: Stable chronic obstructive pulmonary disease. PLAN: She is stable for discharge. She will follow up in the office in about a month.
[2017-10-07 11:05] VITALS: BP 95/62; TEMP 97.8
== END 2017-10-07 12:36 | disposition home or self-care (01) | DRG 327 ==
LOC: SDC 13:01 → SJJU 19:10 → OBSVTOIN 19:10
PROVIDERS: ADMIT Surgery; ATTEND Surgery
PROC: 0DH60UZ Insertion of Feeding Device into Stomach, Open Approach (ICD-10-PCS; principal; 2017-09-24)
DX: K31.6 Fistula of stomach and duodenum (principal); E46 Unspecified protein-calorie malnutrition; J96.10 Chronic respiratory failure, unspecified whether with hypoxia or hypercapnia; E27.40 Unspecified adrenocortical insufficiency; J44.1 Chronic obstructive pulmonary disease with (acute) exacerbation; E78.00 Pure hypercholesterolemia, unspecified; K75.81 Nonalcoholic steatohepatitis (NASH); K12.0 Recurrent oral aphthae; I10 Essential (primary) hypertension; Z98.84 Bariatric surgery status; F41.9 Anxiety disorder, unspecified; R19.7 Diarrhea, unspecified; Z68.24 Body mass index [BMI] 24.0-24.9, adult
CPT/HCPCS: 36415; 36430; 71045; 80048; 81003; 82533; 83735; 84100; 85025; 86850; 86900; 86901; 87086; 87324; 87449; 87493; 94640; A4216; C9113; J0694; J1100; J1170; J1720; J1885; J2001; J2175; J2405; J2543; J2550; J2704; J2765; J2920; J3010; J3475; J7050; J7506; J7620; J7626; P9016

== ENCOUNTER 2017-10-14 10:05 | Emergency (ER) | payer BC ==
[2017-10-14 11:44] LABS: #Eosinphils 0.2 thou/uL (0.0-0.7); #Lymphocytes 2.5 thou/uL (1.20-3.40); #Monocytes 0.7 thou/uL (0.11-0.59); %Basophils 0.6 % (0.0-1.0); %Eosinophils 2.5 % (0.0-10.0); %Lymphocytes 29.5 % (21.0-51.0); %Monocytes 8.2 % (0.0-10.0); %Neutrophils 59.2 % (42.0-75.0); Mean Corpuscular HGB CONC 32.7 g/dL (32.0-36.0); Mean Corpuscular Hemoglobin 31.7 pg (27.0-31.0); Mean Corpuscular Volume 96.8 fL (78.0-98.0); Mean Platelet Volume 6.7 fL (7.4-10.4); Platelet Count 284 thou/uL (130-400); RBC Distribution Width 14.5 % (11.5-14.5); Red Blood Cell (RBC) Count 3.48 mill/uL (4.20-5.40); White Blood Cell (WBC) Count 8.4 thou/uL (4.8-10.8)
[2017-10-14 11:46] LABS: Bilirubin Negative (Negative); Blood, Urine Negative (Negative); Clarity CLEAR (Clear); Glucose, Urine (Dipstick) Negative (Negative); Leukocyte Negative (Negative); Nitrite Negative (Negative); Protein, Urine (Dipstick) Negative (Neg-Trace); Specific Gravity, Urine 1.008 (1.002-1.036); Urobilinogen 0.2 mg/dL (0.2-1.0)
[2017-10-14] MEDS ORDERED: Fentanyl 100 MCG/2 ML VIAL ONE (12:02)
[2017-10-14 12:03] LABS: ALT (SGPT) 13 U/L (8-55); AST (SGOT) 19 U/L (5-34); Albumin 3.6 g/dL (3.5-5.0); Alkaline Phosphatase 197 U/L (40-150); Anion Gap 8 mmol/L (10-20); BUN (Urea Nitrogen) 10 mg/dL (9.8-20.1); Bilirubin, Total 0.4 mg/dL (0.2-1.2); Calc. Creatinine Clearance 0 mL/min (70-130); Calcium 8.7 mg/dL (7.8-10.44); Carbon Dioxide 24 mmol/L (22-29); Chloride 108 mmol/L (98-107); Estimated GFR-MDRD 88; Glucose 85 mg/dL (70-105); Lipase 10 U/L (8-78); Potassium 3.2 mmol/L (3.5-5.1); Protein, Total 6.6 g/dL (6.0-8.3); Sodium 137 mmol/L (136-145)
== END 2017-10-14 12:59 | disposition home or self-care (01) ==
LOC: ERS 10:05
DX: R10.12 Left upper quadrant pain (principal); I25.2 Old myocardial infarction; K21.9 Gastro-esophageal reflux disease without esophagitis; F41.9 Anxiety disorder, unspecified; F32.9 Major depressive disorder, single episode, unspecified; F43.10 Post-traumatic stress disorder, unspecified; Z79.899 Other long term (current) drug therapy
CPT/HCPCS: 80053; 81003; 83690; 85025; 94760; 96374; J3010

== ENCOUNTER 2017-10-17 10:38 | Inpatient (IN) | payer BC ==
[2017-10-17] MEDS ORDERED: Glycopyrrolate 0.2 MG/ML 5 ML SYRINGE ONE (11:03)
[2017-10-17] MEDS ORDERED: PHENYLEPHRINE-NS 100 MCG/ML 10 ML SYRINGE ONE (11:03)
[2017-10-17] MEDS ORDERED: Lidocaine 1% PF 5 ML VIAL ONE (11:03)
[2017-10-17] MEDS ORDERED: PROPOFOL 200 MG/20 ML VIAL ONE (11:03)
[2017-10-17] MEDS ORDERED: Succinylcholine Chloride 20 MG/ML 10 ml SYRINGE FS ONE (11:03)
[2017-10-17] MEDS ORDERED: Ondansetron HCl/PF 4 MG/2 ML Vial ONE ×2 (11:03→13:29)
[2017-10-17 11:48] LABS: #Monocytes 0.8 thou/uL (0.11-0.59); %Basophils 0.2 % (0.0-1.0); %Eosinophils 0.3 % (0.0-10.0); %Lymphocytes 10.1 % (21.0-51.0); %Monocytes 8.1 % (0.0-10.0); %Neutrophils 81.3 % (42.0-75.0); Hemoglobin 12.1 g/dL (12.0-16.0); Mean Corpuscular HGB CONC 32.7 g/dL (32.0-36.0); Mean Corpuscular Volume 97.8 fL (78.0-98.0); Mean Platelet Volume 6.7 fL (7.4-10.4); Platelet Count 238 thou/uL (130-400); RBC Distribution Width 14.4 % (11.5-14.5); Red Blood Cell (RBC) Count 3.78 mill/uL (4.20-5.40); White Blood Cell (WBC) Count 9.8 thou/uL (4.8-10.8)
[2017-10-17 12:01] LABS: ALT (SGPT) 15 U/L (8-55); AST (SGOT) 21 U/L (5-34); Albumin 3.4 g/dL (3.5-5.0); Alkaline Phosphatase 259 U/L (40-150); Anion Gap 11 mmol/L (10-20); BUN (Urea Nitrogen) 6 mg/dL (9.8-20.1); Bilirubin, Total 0.6 mg/dL (0.2-1.2); Calc. Creatinine Clearance 0 mL/min (70-130); Calcium 8.6 mg/dL (7.8-10.44); Carbon Dioxide 22 mmol/L (22-29); Estimated GFR-MDRD 90; Globulin 3.3 g/dL (2.4-3.5); Glucose 102 mg/dL (70-105); Potassium 3.2 mmol/L (3.5-5.1); Protein, Total 6.7 g/dL (6.0-8.3)
[2017-10-17 12:08] LABS: Chloride 106 mmol/L (98-107); Sodium 136 mmol/L (136-145)
[2017-10-17] MEDS ORDERED: Piperacillin/Tazobactam 4.5 GM VIAL ONE (12:09)
--- NOTE | 2017-10-17 12:28 | CT ---
CT ABDOMEN AND PELVIS NONCONTRAST: Date: )10/17/17 HISTORY: Abdominal wall pain, infection around G-tube. COMPARISON: 06/16/17. FINDINGS: IV contrast was not given due to patient iodine allergy. Oral contrast was also not administered. Mild atelectasis at the lung bases. Each renal collecting system, ureter, and the urinary bladder are decompressed without stone evident. Postoperative changes of the pelvis are apparent. Lack of contrast limits evaluation for other abnormalities. Gallbladder is surgically absent. There i s calcification throughout the arterial structures. Degenerative and postoperative changes lumbar spi ne. Postoperative changes of the bowel. Left upper quadrant percutaneous gastrostomy catheter is in place. Bulb is in the gastric lumen, wher e there is also air and fluid. At the midline, above the level of the umbilicus, a large, irregular f luid and soft tissue density mass-like process extends as superficially as immediately below the skin surface, it goes through the midline anterior abdominal wall and as deep as immediately anterior to the superior mesenteric artery. It is 9.1 cm length x 3.2 cm width. The coronal images best show this abnormality to have a wide connection with the stomach along the inferior margin of the gastric tube insertion site. There is subtle stranding in the adjacent fat. No free air. IMPRESSION: Large soft tissue and fluid density abnormality at the anterior abdomen as detailed above, apparently related to and arising from the stomach and anterior wall where the gastric tube enters the gastric lumen. The abnormality extends from immediately deep to the skin surface to the deep central abdomen. Gas and fluid are not reliably demonstrated within the abnormal that does not appear overtly infecte d. It could be related to blood products or could still be related to infection. Without IV and oral con trast, evaluation of the scanlon of the lesion or any direct communication to the enteric lumen is not possible. POS: JENNIFER
[2017-10-17] MEDS ORDERED: Fluconazole In NaCl,Iso-Osm 100 MG IVPB SCH ×2 (13:30→13:45)
[2017-10-17] MEDS ORDERED: HYDROmorphone 0.5 MG/0.5 ML SYRINGE ONE ×2 (13:46→14:59)
[2017-10-17] MEDS ORDERED: Vancomycin HCl 1 GM in Premix Bag 1 BAG IVPB SCH (14:30)
[2017-10-17] MEDS ORDERED: Hydrocortisone Sod Succ/PF 100 mg/2 ml Vial ONE (14:59)
[2017-10-17 15:19] LABS: Bilirubin Negative (Negative); Blood, Urine Negative (Negative); Clarity CLEAR (Clear); Glucose, Urine (Dipstick) Negative (Negative); Leukocyte Negative (Negative); Nitrite Negative (Negative); Protein, Urine (Dipstick) Negative (Neg-Trace); Specific Gravity, Urine 1.012 (1.002-1.036); pH, Urine 6.5 (5.0-9.0)
[2017-10-17 16:51] LABS: Troponin I Less than 0.010 ng/mL (< 0.028)
[2017-10-17] MEDS ORDERED: Fentanyl 100 MCG/2 ML VIAL ONE (17:32)
[2017-10-17] MEDS ORDERED: Midazolam HCl 2 mg/2 ml Vial ONE (18:35)
[2017-10-17] MEDS ORDERED: Fentanyl 250 MCG/5 ML VIAL ONE (18:35)
--- NOTE | 2017-10-17 18:54 | HP ---
DATE OF ADMISSION: 10/17/2017 CHIEF COMPLAINT: Wound, pain. HISTORY OF PRESENT ILLNESS: This is a 62-year-old female with a complicated history of multiple surg eries, well known to the Surgery Service at [facility]. Most recently, had open G-tube plac ed by me on 09/24/2017. She has been doing well actually, is home with home health, getting tube fee ds. She has had a couple of falls in the last week, the last one was 2 days ago. This caused bleedi ng at her PEG tube site. Now, she presents with pain at her PEG tube site that is intractable, sever e. She was seen in my office this morning, appears to have a wound infection, sent to the emergency room for further workup. CT scan shows evidence of fluid in the abdomen next to the stomach as well as going up into the wound. Her pressures are in the 90 systolic, but she is not tachycardic in the emergency room, not febrile, but she is shaking. She has a history of adrenal insufficiency, thiamin e deficiency. PAST MEDICAL HISTORY: As above. PAST SURGICAL HISTORY: As above. MEDICINES: Xanax, hydrocodone elixir. ALLERGIES: MORPHINE, CIPRO, IODINE, IODINATED CONTRAST. REVIEW OF SYSTEMS: Otherwise, negative. PHYSICAL EXAMINATION: CHEST: Clear. HEART: Regular rate and rhythm. ABDOMEN: Soft with severe tenderness around midline incision and PEG tube site, redness, fluctuance, but no bulla formation. EXTREMITIES: No ischemia or edema to extremities. LABORATORY DATA: White blood cell count is 9, hemoglobin 12, platelet count is 238,000, no bands. S odium 136, potassium 3.2, creatinine 0.67. Alkaline phosphatase 259. Urine negative. ASSESSMENT: Wound infection, likely secondary to manipulation of her G-tube, history of chronic thia mine deficiency. PLAN: Admit to the hospital. We will perform I and D of her incision with placement of wound VAC la ter today. I think we strongly need to consider shelter unless she is going home with family secondary to all these falls.
[2017-10-17] MEDS ORDERED: Ondansetron HCl/PF 4 MG/2 ML Vial IVP PRN ×2 (19:24→21:44)
[2017-10-17] MEDS ORDERED: Promethazine HCl 25 MG/ML VIAL IM PRN (19:24)
[2017-10-17] MEDS ORDERED: Promethazine HCl 25 MG/ML VIAL SLOW IVP PRN (19:24)
[2017-10-17] MEDS ORDERED: Heparin 1,000 UNITS/ML VIAL ONE (19:57)
[2017-10-17] MEDS ORDERED: diphenhydrAMINE 50 MG/ML VIAL IVP PRN (20:10)
[2017-10-17] MEDS ORDERED: diphenhydrAMINE 50 MG/ML VIAL IM PRN (20:10)
[2017-10-17] MEDS ORDERED: Naloxone HCl 0.4 mg/ml Vial IV PRN (20:10)
--- NOTE | 2017-10-17 20:13 | OP ---
DATE OF PROCEDURE: 10/17/2017 PREOPERATIVE DIAGNOSIS: Intra-abdominal abscess and wound infection. POSTOPERATIVE DIAGNOSIS: Intraabdominal abscess and wound infection. PROCEDURE: Reopening of laparotomy with abdominal washout, placement of wound VAC. SURGEON: Liban Griffith M.D. ANESTHESIA: General. ESTIMATED BLOOD LOSS: Minimal. COMPLICATIONS: None. FINDINGS: Gross purulence into the abdominal cavity in the space where the open G-tube was performed . TECHNIQUE: The patient was taken to the operating room and placed supine on the table. After genera l anesthetic was obtained, a New was placed. The abdomen was prepped and draped in a sterile fashi on. The G-tube to the left side of the abdomen outside of the field. Midline incision is reop ened. There is gross purulence. Cultures were obtained for anaerobes and aerobes. All loculations were broken up. The wound was irrigated copiously. There was a hole in the midline muscle going rickey n into a cavity just in and around the previous area of dissection when the G-tube was placed. This was all washed out as well. The fascia was able to be closed using 2 interrupted PDS sutures. A wou nd VAC is placed on the left open wound. The patient is en route to recovery in stable condition. A ll instrument counts, needle counts and lap counts are correct.
[2017-10-17] MEDS ORDERED: Communication Order-Pharmacy FS SCH (20:15)
[2017-10-17] MEDS ORDERED: Ondansetron ODT 4 MG TAB PO PRN (21:44)
[2017-10-17] MEDS ORDERED: Dextrose 5% in Water 1,000 ML IV PRN (21:44)
[2017-10-17] MEDS ORDERED: Dextrose 50% Abboject 50 ML SYRINGE SLOW IVP PRN (21:44)
[2017-10-17] MEDS ORDERED: hydrALAZINE 20 MG/ML VIAL SLOW IVP PRN (21:44)
[2017-10-17] MEDS: D5 1/2 NS w/20 mEq KCL 1,000 ML IV SCH (22:13)
[2017-10-17] MEDS: Hydrocortisone Sod Succ/PF 100 mg/2 ml Vial IVP SCH (22:14)
[2017-10-17] MEDS: Piperacillin/Tazobactam 3.375 GM in Sodium Chloride 0.9% 100 ML IVPB SCH (23:52)
[2017-10-18] MEDS: Vancomycin HCl 1 GM in Premix Bag 1 BAG IVPB SCH ×2 (02:01→15:00)
[2017-10-18] MEDS: Ondansetron HCl/PF 4 MG/2 ML Vial IVP PRN ×2 (02:31→22:51)
[2017-10-18] MEDS: Promethazine HCl 25 MG/ML VIAL IM PRN ×2 (02:52→07:36)
[2017-10-18 04:42] LABS: #Lymphocytes 0.4 thou/uL (1.20-3.40); #Monocytes 0.2 thou/uL (0.11-0.59); #Neutrophils 5.7 thou/uL (1.40-6.50); %Eosinophils 0.2 % (0.0-10.0); %Lymphocytes 6.3 % (21.0-51.0); %Monocytes 3.6 % (0.0-10.0); %Neutrophils 89.9 % (42.0-75.0); Mean Corpuscular Hemoglobin 32.3 pg (27.0-31.0); Mean Platelet Volume 6.8 fL (7.4-10.4); Platelet Count 202 thou/uL (130-400); RBC Distribution Width 14.1 % (11.5-14.5); Red Blood Cell (RBC) Count 3.08 mill/uL (4.20-5.40); White Blood Cell (WBC) Count 6.3 thou/uL (4.8-10.8)
[2017-10-18 05:05] LABS: Anion Gap 11 mmol/L (10-20); BUN (Urea Nitrogen) 4 mg/dL (9.8-20.1); Calc. Creatinine Clearance 92 mL/min (70-130); Calcium 7.7 mg/dL (7.8-10.44); Carbon Dioxide 19 mmol/L (22-29); Chloride 113 mmol/L (98-107); Estimated GFR-MDRD Greater than 90; Glucose 200 mg/dL (70-105); Potassium 3.2 mmol/L (3.5-5.1); Sodium 140 mmol/L (136-145)
[2017-10-18] MEDS: Hydrocortisone Sod Succ/PF 100 mg/2 ml Vial IVP SCH ×3 (05:39→22:47)
[2017-10-18] MEDS: Piperacillin/Tazobactam 3.375 GM in Sodium Chloride 0.9% 100 ML IVPB SCH ×4 (05:39→23:00)
[2017-10-18] MEDS ORDERED: Potassium Chloride 20 MEQ in Premix Bag 1 BAG IVPB SCH (07:30)
[2017-10-18] MEDS: ALPRAZolam 0.25 MG TAB PO PRN ×2 (07:36→22:47)
[2017-10-18] MEDS: D5 1/2 NS w/20 mEq KCL 1,000 ML IV SCH ×3 (07:36→22:50)
[2017-10-18] MEDS ORDERED: Multivitamins, Adult 10 ML, Folic Acid 1 MG, Thiamine HCl 100 MG in Dextrose 5 %-0.45 %... IV SCH (09:00)
[2017-10-18] MEDS: Pantoprazole 40 MG VIAL IVP SCH (09:42)
[2017-10-18] MEDS ORDERED: ALPRAZolam 0.25 MG TAB PO SCH (11:00)
[2017-10-18] MEDS: HYDROmorphone 10 mg/100 ml CADD IVPB PRN (15:24)
--- NOTE | 2017-10-18 20:56 | PDOC.GSPN ---
Surgery Progress Note: Subj - Subjective Narrative: Patient had a brief period of anxiety and shortness of breath earlier which resolved rapidly. Other than that her day has been uneventful. Her pain is controlled and she is not having much nausea. There is not much drainage from the VAC dressing And her vital signs stable. The area where she had some blisters on her lower abdomen is stable in appearance. No erythema or induration or crepitance to suggest an infectious process. I suspect this was due to swelling and edema in the skin. Assessment/plan: Continue with current management for infection. Allow oral intake as tolerated. FOOD SERVICE COUNTER CLERK for pain control. Await cultures. Gram-negative rods on Gram stain. Surgery Progress Note: Obj - Vital signs Vital signs: Vital Signs - Most Recent Temp Pulse Resp BP Pulse Ox 97.8 F 73 17 107/67 95 10/18/17 20:00 10/18/17 20:00 10/18/17 20:00 10/18/17 20:00 10/18/17 20:00 Surgery Progress Note: Results - Labs Result Diagrams: 10/18/17 04:20 10/18/17 04:20
[2017-10-18] MEDS: Thiamine HCl 200 MG/2 ML VIAL SLOW IVP SCH (22:48)
[2017-10-19] MEDS: Vancomycin HCl 1 GM in Premix Bag 1 BAG IVPB SCH ×2 (03:18→14:03)
[2017-10-19] MEDS: Promethazine HCl 25 MG/ML VIAL IM PRN ×2 (03:18→17:50)
[2017-10-19] MEDS: ALPRAZolam 0.25 MG TAB PO PRN ×3 (05:39→22:05)
[2017-10-19] MEDS: Hydrocortisone Sod Succ/PF 100 mg/2 ml Vial IVP SCH ×3 (05:40→22:03)
[2017-10-19] MEDS: Piperacillin/Tazobactam 3.375 GM in Sodium Chloride 0.9% 100 ML IVPB SCH ×3 (05:40→17:50)
[2017-10-19] MEDS: Pantoprazole 40 MG VIAL IVP SCH (09:24)
[2017-10-19 13:41] LABS: Vancomycin, Trough 19.7 ug/mL
--- NOTE | 2017-10-19 16:16 | PDOC.GSPN ---
Surgery Progress Note: Subj - Subjective Narrative: Patient was feeling a little rough when I saw her because her COOK DESSERT hadn't been working for 30 minutes. She felt shaky like she was about to get a fever. She hasn't had any fevers since her admission. She has Escherichia coli growing from her culture which should be covered by her current antibiotics. She would like to advance her diet so I have written for GI soft diet. She usually takes Phenergan before eating and Zofran after so I will make sure that is available for her. Her abdominal exam is stable. Her VAC is in place with minimal drainage and the 2 blisters on her lower abdomen look a little little irritated but are otherwise unchanged. Surgery Progress Note: Obj - Vital signs Vital signs: Vital Signs - Most Recent Temp Pulse Resp BP Pulse Ox 98.0 F 70 18 139/74 96 10/19/17 15:30 10/19/17 15:30 10/19/17 15:30 10/19/17 15:30 10/19/17 15:30 Surgery Progress Note: Results - Labs Result Diagrams: 10/18/17 04:20 10/18/17 04:20 Lab results: Laboratory Results - last 24 hr 10/19/17 13:08 Vancomycin Trough 19.7
[2017-10-19] MEDS: HYDROmorphone 10 mg/100 ml CADD IVPB PRN (17:53)
[2017-10-19] MEDS: Ondansetron HCl/PF 4 MG/2 ML Vial IVP PRN (19:32)
[2017-10-19] MEDS: Bacitracin Zinc 1 Packet TOP SCH (22:04)
[2017-10-19] MEDS: D5 1/2 NS w/20 mEq KCL 1,000 ML IV SCH (22:04)
[2017-10-19] MEDS: Thiamine HCl 200 MG/2 ML VIAL SLOW IVP SCH (22:08)
[2017-10-20] MEDS: Promethazine HCl 25 MG/ML VIAL IM PRN ×4 (00:28→18:18)
[2017-10-20] MEDS: Piperacillin/Tazobactam 3.375 GM in Sodium Chloride 0.9% 100 ML IVPB SCH ×5 (00:31→23:26)
[2017-10-20] MEDS: Vancomycin HCl 1 GM in Premix Bag 1 BAG IVPB SCH ×2 (03:05→13:46)
[2017-10-20] MEDS: Zolpidem Tartrate 5 MG TAB PO PRN ×2 (03:07→21:15)
[2017-10-20] MEDS: HYDROmorphone 10 mg/100 ml CADD IVPB PRN ×2 (03:59→17:51)
[2017-10-20 05:41] LABS: #Lymphocytes 0.5 thou/uL (1.20-3.40); #Monocytes 0.6 thou/uL (0.11-0.59); #Neutrophils 7.5 thou/uL (1.40-6.50); %Basophils 0.1 % (0.0-1.0); %Eosinophils 0.2 % (0.0-10.0); %Lymphocytes 5.3 % (21.0-51.0); %Monocytes 6.9 % (0.0-10.0); %Neutrophils 87.5 % (42.0-75.0); Hemoglobin 10.4 g/dL (12.0-16.0); Mean Corpuscular HGB CONC 32.3 g/dL (32.0-36.0); Mean Corpuscular Hemoglobin 31.8 pg (27.0-31.0); Mean Corpuscular Volume 98.3 fL (78.0-98.0); Mean Platelet Volume 6.9 fL (7.4-10.4); Platelet Count 199 thou/uL (130-400); RBC Distribution Width 14.2 % (11.5-14.5); Red Blood Cell (RBC) Count 3.27 mill/uL (4.20-5.40); White Blood Cell (WBC) Count 8.5 thou/uL (4.8-10.8)
[2017-10-20 06:00] LABS: Anion Gap 11 mmol/L (10-20); BUN (Urea Nitrogen) 5 mg/dL (9.8-20.1); Calc. Creatinine Clearance 64 mL/min (70-130); Calcium 8.2 mg/dL (7.8-10.44); Carbon Dioxide 21 mmol/L (22-29); Chloride 112 mmol/L (98-107); Estimated GFR-MDRD 67; Glucose 137 mg/dL (70-105); Sodium 141 mmol/L (136-145)
[2017-10-20] MEDS: Hydrocortisone Sod Succ/PF 100 mg/2 ml Vial IVP SCH ×3 (06:00→21:01)
[2017-10-20] MEDS: ALPRAZolam 0.25 MG TAB PO PRN ×3 (06:00→23:26)
--- NOTE | 2017-10-20 09:50 | CT ---
PRELIMINARY REPORT/[facility]/EMERGENTY AFTER-HOURS PROCEDURE CT Head Without Intravenous Contrast CLINICAL HISTORY: 62 years old, female; Dizziness: R/O bleed TECHNIQUE: Axial computed tomography images of the head/brain without intravenous contrast. COMPARISON: CT Brain WO Con 09/18/2017 3:58 AM FINDINGS: Brain: Compared to 09/18/2017, no interval change in focal hypodense area within the left periventric ular white matter with a few internal punctate calcifications. No hemorrhage. Ventricles: Unremarkable. No ventriculomegaly. Bones/joints: Unremarkable. No acute fracture. Soft tissues: Unremarkable. Sinuses: Unremarkable as visualized. No acute sinusitis. Mastoid air cells: Stable partial inferior right mastoiditis. IMPRESSION: 1. No acute intracranial findings. 2. Compared to 09/18/2017, no interval change in focal hypodense area within the left periventricular white matter with a few internal punctate calcifications. Thank you for allowing us to participate in the care of your patient. Dictated and Authenticated by: Ever Bermudez MD 10/20/2017 1:04 AM Central Time ([place] & [place]) FINAL REPORT CT OF BRAIN PERFORMED WITHOUT CONTRAST ENHANCEMENT: COMPARISON: 09/18/17 study. HISTORY: Dizziness. FINDINGS: Ventricular and cisternal system is within normal limits. Tiny focus in the left periventricular whi te matter which is hypodense with some internal punctate areas which appear to represent calcificatio ns. Review is also made of a 11/23/16 study. This area appears stable as compared to that exam. The mastoid air cells and visualized sinuses are clear. IMPRESSION: 1. No acute intracranial abnormalities. 2. Stable area of subtle hypodensity with what appears to be some internal punctate calcifications i n the left periventricular white matter which may indicate some underlying congenital venous anomaly. 3. This report is in agreement with the temporary report issued by [facility].
[2017-10-20] MEDS: D5 1/2 NS w/20 mEq KCL 1,000 ML IV SCH ×2 (10:32→20:55)
[2017-10-20] MEDS: Bacitracin Zinc 1 Packet TOP SCH ×2 (10:35→20:55)
[2017-10-20] MEDS: Pantoprazole 40 MG VIAL IVP SCH (10:35)
[2017-10-20] MEDS ORDERED: Potassium Chloride 20 MEQ in Premix Bag 1 BAG IVPB SCH (10:45)
[2017-10-20] MEDS: Ondansetron HCl/PF 4 MG/2 ML Vial IVP PRN ×2 (11:45→21:01)
--- NOTE | 2017-10-20 16:29 | PDOC.GSPN ---
Surgery Progress Note: Subj - Subjective Narrative: Had episode of disorientation last night; also c/o terrible headache. CT head unchanged from prior. Also c/o diarrhea and needs immodium. Midline incision is clean but slight fascial separation centrally; promogran placed and VAC replaced. Ate all her food yesterday and tolerated at baseline. May restart G- tube supplements soon. Potassium low, replaced. Surgery Progress Note: Obj - Vital signs Vital signs: Vital Signs - Most Recent Temp Pulse Resp BP Pulse Ox 98.8 F 78 20 132/61 97 10/20/17 15:43 10/20/17 15:43 10/20/17 15:43 10/20/17 15:43 10/20/17 15:43 Surgery Progress Note: Results - Labs Result Diagrams: 10/20/17 05:09 10/20/17 05:09 Lab results: Laboratory Results - last 24 hr 10/20/17 10/20/17 05:09 05:09 WBC 8.5 RBC 3.27 L Hgb 10.4 L Hct 32.1 L MCV 98.3 H MCH 31.8 H MCHC 32.3 RDW 14.2 Plt Count 199 MPV 6.9 L Neutrophils % 87.5 H Lymphocytes % 5.3 L Monocytes % 6.9 Eosinophils % 0.2 Basophils % 0.1 Neutrophils # 7.5 H Lymphocytes # 0.5 L Monocytes # 0.6 H Eosinophils # 0.0 Basophils # 0.0 Sodium 141 Potassium 3.0 L Chloride 112 H Carbon Dioxide 21 L Anion Gap 11 BUN 5 L Creatinine 0.86 Estimated GFR (MDRD) 67 Glucose 137 H Calcium 8.2
[2017-10-20] MEDS: Loperamide HCl 2 MG CAP PO PRN (18:12)
[2017-10-20] MEDS: Thiamine HCl 200 MG/2 ML VIAL SLOW IVP SCH (21:01)
[2017-10-21] MEDS: Vancomycin HCl 1 GM in Premix Bag 1 BAG IVPB SCH (01:35)
[2017-10-21] MEDS: Promethazine HCl 25 MG/ML VIAL IM PRN ×3 (01:36→21:31)
[2017-10-21] MEDS: HYDROmorphone 10 mg/100 ml CADD IVPB PRN ×2 (04:38→12:37)
[2017-10-21] MEDS: Hydrocortisone Sod Succ/PF 100 mg/2 ml Vial IVP SCH ×4 (05:21→23:36)
[2017-10-21] MEDS: Piperacillin/Tazobactam 3.375 GM in Sodium Chloride 0.9% 100 ML IVPB SCH ×3 (05:21→19:19)
[2017-10-21] MEDS ORDERED: Guaifenesin DM 100-10/5 ML UDCUP PO SCH (06:30)
[2017-10-21] MEDS: ALPRAZolam 0.25 MG TAB PO PRN ×3 (08:21→23:35)
[2017-10-21] MEDS: Bacitracin Zinc 1 Packet TOP SCH ×2 (08:21→20:14)
[2017-10-21] MEDS: Pantoprazole 40 MG VIAL IVP SCH (08:21)
--- NOTE | 2017-10-21 08:47 | PDOC.GSPN ---
Surgery Progress Note: Subj - Subjective Narrative: tachypneic this am but able to talk without difficulty. Surgery Progress Note: Obj - Vital signs Vital signs: Vital Signs - Most Recent Temp Pulse Resp BP Pulse Ox 98.6 F 71 18 132/62 91 L 10/21/17 07:15 10/21/17 07:15 10/21/17 07:15 10/21/17 07:15 10/21/17 07:15 - Physical Exam General: no distress Cardiovascular: regular rate and rhythm Respiratory: clear to auscultation Abdomen: soft, nondistended, appropriately tender Wound: wound vac Surgery Progress Note: Results - Labs Result Diagrams: 10/20/17 05:09 10/20/17 05:09 Surgery Progress Note: A/P - Problem (1) Abdominal abscess Current Visit: Yes Code(s): [id number] - Status: Acute - Plan Plan: Wound care: will need outpatient wound care -set up home vac -Cx's show Ecoli -stop vanc -dc mao, mobilize
--- NOTE | 2017-10-21 09:16 | PRG ---
DATE OF SERVICE: 10/21/2017 Ms. Henderson is currently in the hospital for treatment of an abdominal wall abscess. Her con tacted Dr. Meza last night, wanting me to see the patient, because he thought she had pneumonia. It turns out he is in [place] and he is learning all this information second- and thirdhand. Ms. Amador ansari is actually doing reasonably well. She has got a cough, which is not out of the ordinary for her. She is on broad-spectrum IV antibiotics for treatment of the abscess. PHYSICAL EXAMINATION: VITAL SIGNS: Temperature is 98.6, pulse 71, respirations 18, O2 sat 91%, blood pressure 132/62. HEENT: Unremarkable. NECK: No JVD. LUNGS: Clear to auscultation except for diminished sounds in the base. CARDIAC: S1 and S2, regular. ABDOMEN: Midline wound VAC noted. Otherwise, soft. EXTREMITIES: No edema. LABORATORY DATA: White blood cell count 8.5, hematocrit 32.1, platelet count 199. Sodium 141, potas sium 3.0, chloride 112, CO2 of 21, BUN 5, creatinine 0.6, glucose 0.8. ASSESSMENT: 1. I doubt she has pneumonia. She probably has atelectasis due to the abdominal pain and inability to take deep breaths. 2. Underlying chronic obstructive pulmonary disease/asthma. PLAN: I will order easy Pap with nebs with current antibiotics to cover any potential infection. I will go ahead and check a chest x-ray.
--- NOTE | 2017-10-21 10:34 | RAD ---
AP VIEW OF THE CHEST: INDICATION: Pneumonia. COMPARISON: Prior exam dated 09/26/17. FINDINGS: There are patchy airspace opacities seen throughout both lungs suspicious for multifocal pneumonia. There is cardiomegaly. There is a tiny pleural effusion on the left. No acute osseous abnormality i s evident. IMPRESSION: 1. Patchy interstitial and airspace opacities, in the light of the patient's diagnosis of pneumonia, is suspicious for multifocal pneumonia. Continued radiographic followup is recommended. 2. There is mild cardiomegaly and small left pleural effusion. A component of volume overload or co ngestive heart failure is not excluded. POS: [facility]
[2017-10-21] MEDS: Ondansetron HCl/PF 4 MG/2 ML Vial IVP PRN ×3 (10:38→23:48)
[2017-10-21] MEDS: D5 1/2 NS w/20 mEq KCL 1,000 ML IV SCH (11:22)
[2017-10-21] MEDS ORDERED: Furosemide 40 MG/4 ML VIAL SLOW IVP SCH (14:30)
[2017-10-21] MEDS ORDERED: Enoxaparin Sodium 40 MG/0.4 ML SYRINGE SC SCH (14:30)
[2017-10-21] MEDS ORDERED: Cyanocobalamin 1000 MCG/ML VIAL IM SCH (14:30)
[2017-10-21 14:33] LABS: Actual Bicarbonate (HCO3a) 21.6 mEq/L (22-28); Base Excess (BEa) -1.3 mEq/L (-2.0 to +3.0); Hemoglobin (Hb) 10.1 g/dL (12.0-16.0); O2 Tension (PaO2) 182.7 mmHg (> 80.0); pH, Arterial 7.48 (7.35-7.45)
[2017-10-21 14:34] LABS: Carboxyhemoglobin (COHb) 0.6 gm% (0.0-3.0); Potassium - ABG Lab 2.2 mmol/L (3.70-5.30); Puncture Site RBA
[2017-10-21] MEDS ORDERED: Potassium Chloride 40 MEQ in Premix Bag 1 BAG IVPB SCH (14:45)
[2017-10-21 15:22] LABS: Anion Gap 12 mmol/L (10-20); BUN (Urea Nitrogen) 6 mg/dL (9.8-20.1); Calc. Creatinine Clearance 60 mL/min (70-130); Calcium 8.1 mg/dL (7.8-10.44); Carbon Dioxide 22 mmol/L (22-29); Chloride 108 mmol/L (98-107); Estimated GFR-MDRD 62; Glucose 128 mg/dL (70-105); Magnesium 1.3 mg/dL (1.6-2.6); Phosphorus 2.6 mg/dL (2.3-4.7); Sodium 140 mmol/L (136-145)
[2017-10-21] MEDS: Potassium Chloride 20 MEQ in Premix Bag 1 BAG IVPB SCH ×2 (15:29→20:14)
[2017-10-21 15:30] LABS: Potassium 2.2 mmol/L (3.5-5.1)
[2017-10-21] MEDS: Cepastat Lozenges 1 LOZ PO PRN ×2 (15:43→23:49)
[2017-10-21] MEDS ORDERED: Calcium Gluconate 4.6 MEQ in Sodium Chloride 0.9% 100 ML IVPB SCH (16:00)
[2017-10-21] MEDS ORDERED: Magnesium Sulfate 4 GM in Sodium Chloride 0.9% 250 ML 250 ML IVPB SCH (16:00)
[2017-10-21] MEDS: Potassium Chloride 20 MEQ TAB PO SCH ×2 (20:14→23:35)
[2017-10-21] MEDS: Loperamide HCl 2 MG CAP PO PRN (21:30)
[2017-10-21] MEDS: Thiamine HCl 200 MG/2 ML VIAL SLOW IVP SCH (21:31)
[2017-10-21] MEDS: Zolpidem Tartrate 5 MG TAB PO PRN (23:35)
[2017-10-22] MEDS: HYDROmorphone 10 mg/100 ml CADD IVPB PRN (01:11)
[2017-10-22] MEDS: Piperacillin/Tazobactam 3.375 GM in Sodium Chloride 0.9% 100 ML IVPB SCH ×4 (02:37→22:09)
[2017-10-22 05:58] LABS: Anion Gap 13 mmol/L (10-20); BUN (Urea Nitrogen) 7 mg/dL (9.8-20.1); Calc. Creatinine Clearance 61 mL/min (70-130); Calcium 8.6 mg/dL (7.8-10.44); Carbon Dioxide 26 mmol/L (22-29); Chloride 107 mmol/L (98-107); Estimated GFR-MDRD 63; Glucose 150 mg/dL (70-105); Magnesium 2.3 mg/dL (1.6-2.6); Sodium 143 mmol/L (136-145)
[2017-10-22 06:10] LABS: Potassium 2.8 mmol/L (3.5-5.1)
[2017-10-22] MEDS: Hydrocortisone Sod Succ/PF 100 mg/2 ml Vial IVP SCH (06:35)
--- NOTE | 2017-10-22 07:53 | PDOC.GSPN ---
Surgery Progress Note: Subj - Subjective Narrative: More dyspnea since walking yesterday. On mask this am. Surgery Progress Note: Obj - Vital signs Vital signs: Vital Signs - Most Recent Temp Pulse Resp BP Pulse Ox 98.8 F 89 18 131/75 90 L 10/22/17 07:24 10/22/17 07:24 10/22/17 07:24 10/22/17 07:24 10/22/17 07:24 - Physical Exam General: no distress Cardiovascular: regular rate and rhythm Respiratory: coarse breath sounds Abdomen: soft, nondistended, appropriately tender Wound: wound vac (G tube site clear) Surgery Progress Note: Results - Labs Result Diagrams: 10/20/17 05:09 10/22/17 05:18 Lab results: Laboratory Results - last 24 hr 10/22/17 05:18 Sodium 143 Potassium 2.8 L* Chloride 107 Carbon Dioxide 26 Anion Gap 13 BUN 7 L Creatinine 0.91 Estimated GFR (MDRD) 63 Glucose 150 H Calcium 8.6 Magnesium 2.3 Surgery Progress Note: A/P - Problem (1) Abdominal abscess Current Visit: Yes Code(s): [id number] - Status: Acute - Plan Plan: Respiratory insufficiency -likely somewhat overload -restart TF -continue zosyn -recheck K after K infusion- -home health for vac -possible custodial if not ready for home
[2017-10-22] MEDS: Potassium Chloride 20 MEQ in Premix Bag 1 BAG IVPB SCH ×2 (08:02→10:52)
[2017-10-22] MEDS: Bacitracin Zinc 1 Packet TOP SCH ×2 (08:09→22:07)
[2017-10-22] MEDS: Pantoprazole 40 MG VIAL IVP SCH (08:09)
[2017-10-22] MEDS: Enoxaparin Sodium 40 MG/0.4 ML SYRINGE SC SCH (08:09)
[2017-10-22] MEDS: ALPRAZolam 0.25 MG TAB PO PRN ×3 (08:09→23:43)
--- NOTE | 2017-10-22 08:29 | PRG ---
DATE OF SERVICE: 10/22/2017 Thirty-five minutes critical care time. SUBJECTIVE: Ms. Henderson looks very bad this morning. She had a rough night yesterday. She is requi ring Ventimask for the purpose of oxygen administration. PHYSICAL EXAMINATION: VITAL SIGNS: Her O2 sat are 87% on 50% oxygen, temperature 98.8, pulse 89, respirations 18, blood pr essure 131/75. GENERAL: She looks acutely ill. HEENT: Remarkable for bitemporal wasting. NECK: No JVD. LUNGS: Coarse breath sounds bilaterally. CARDIOVASCULAR: S1, S2 regular. ABDOMEN: Distended, tender to palpation. EXTREMITIES: No edema. LABORATORY DATA: Sodium 143, potassium 2.8, chloride 107, CO2 26, BUN 7, creatinine 0.9, glucose 150 . BNP is 720. White blood cell count 8.5, hematocrit 32.1, platelet count 199. ASSESSMENT: 1. Acute hypoxic respiratory failure. I think this is a combination of atelectasis and could be mellisa e degree due to pneumonia. 2. History of acute respiratory distress syndrome in the past. 3. Acute hypoxic respiratory failure. PLAN: 1. We will move to CCU and institute BiPAP. 2. Check chest x-ray. 3. Continue the antibiotics. 4. Change to IV Solu-Medrol from Solu-Cortef. 5. Monitor closely as she is high risk for deteriorating to the point where she needs intubation.
[2017-10-22] MEDS ORDERED: CCU Electrolyte Replacement 1 EACH FS ONE (09:54)
[2017-10-22] MEDS ORDERED: Potassium Chloride 20 MEQ TAB PO PRN (10:11)
[2017-10-22] MEDS ORDERED: Potassium Phosphate 15 MMOL in Sodium Chloride 0.9% 250 ML 250 ML IV PRN (10:11)
[2017-10-22] MEDS ORDERED: Potassium Phosphate 9 MMOL in Sodium Chloride 0.9% 100 ML IVPB PRN (10:11)
[2017-10-22] MEDS ORDERED: Potassium Phosphate 12 MMOL in Sodium Chloride 0.9% 250 ML 250 ML IV PRN (10:11)
[2017-10-22] MEDS ORDERED: Magnesium Oxide 400 MG TAB PO PRN ×2 (10:11)
[2017-10-22] MEDS ORDERED: Potassium Chloride 40 MEQ in Premix Bag 1 BAG IVPB PRN (10:11)
[2017-10-22] MEDS ORDERED: Magnesium 2 GM/NS 0.9% 100 ML 2 GM in Premix Bag 1 BAG IVPB PRN (10:11)
[2017-10-22] MEDS ORDERED: Potassium Chloride 40 MEQ in Sodium Chloride 0.9% 250 ML 250 ML IVPB PRN (10:11)
--- NOTE | 2017-10-22 11:30 | RAD ---
SINGLE VIEW CHEST: 10/22/2017 HISTORY: Respiratory distress. COMPARISON: 11/07/2016 and 10/21/2017 FINDINGS: A single view of the chest shows a normal sized cardiomediastinal silhouette. Diffuse mixed intersti tial/alveolar opacities are seen. There is no evidence of pleural effusion. IMPRESSION: Stable multifocal infiltrates. POS: [facility]
[2017-10-22] MEDS: Ketorolac Tromethamine 30 MG/ML VIAL IVP SCH ×2 (13:07→22:07)
[2017-10-22] MEDS: Acetaminophen 1,000 MG in Premix Bag 1 BAG IVPB SCH ×2 (14:06→18:57)
[2017-10-22] MEDS: D5 1/2 NS w/20 mEq KCL 1,000 ML IV SCH (14:12)
[2017-10-22 15:26] LABS: Potassium 3.3 mmol/L (3.5-5.1)
[2017-10-22] MEDS: Thiamine HCl 200 MG/2 ML VIAL SLOW IVP SCH (23:41)
[2017-10-22] MEDS: Zolpidem Tartrate 5 MG TAB PO PRN (23:53)
[2017-10-23] MEDS: Acetaminophen 1,000 MG in Premix Bag 1 BAG IVPB SCH ×3 (00:04→11:34)
[2017-10-23 05:31] LABS: #Eosinphils 0.4 thou/uL (0.0-0.7); #Lymphocytes 1.5 thou/uL (1.20-3.40); #Monocytes 1.7 thou/uL (0.11-0.59); #Neutrophils 11.6 thou/uL (1.40-6.50); %Basophils 0.3 % (0.0-1.0); %Eosinophils 2.9 % (0.0-10.0); %Monocytes 11.3 % (0.0-10.0); %Neutrophils 75.4 % (42.0-75.0); Hemoglobin 11.7 g/dL (12.0-16.0); Mean Corpuscular HGB CONC 34.3 g/dL (32.0-36.0); Mean Corpuscular Hemoglobin 30.5 pg (27.0-31.0); Mean Corpuscular Volume 88.8 fL (78.0-98.0); Mean Platelet Volume 6.4 fL (7.4-10.4); Platelet Count 173 thou/uL (130-400); RBC Distribution Width 12.3 % (11.5-14.5); Red Blood Cell (RBC) Count 3.85 mill/uL (4.20-5.40); White Blood Cell (WBC) Count 15.4 thou/uL (4.8-10.8)
[2017-10-23 05:45] LABS: Anion Gap 13 mmol/L (10-20); BUN (Urea Nitrogen) 12 mg/dL (9.8-20.1); Calc. Creatinine Clearance 69 mL/min (70-130); Calcium 8.7 mg/dL (7.8-10.44); Carbon Dioxide 25 mmol/L (22-29); Chloride 106 mmol/L (98-107); Estimated GFR-MDRD 73; Glucose 140 mg/dL (70-105); Magnesium 2.3 mg/dL (1.6-2.6); Potassium 3.6 mmol/L (3.5-5.1); Sodium 140 mmol/L (136-145)
[2017-10-23] MEDS: Piperacillin/Tazobactam 3.375 GM in Sodium Chloride 0.9% 100 ML IVPB SCH ×3 (05:50→14:22)
[2017-10-23] MEDS: Ketorolac Tromethamine 30 MG/ML VIAL IVP SCH ×3 (05:51→21:23)
[2017-10-23] MEDS: HYDROmorphone 10 mg/100 ml CADD IVPB PRN (06:01)
[2017-10-23] MEDS ORDERED: Furosemide 40 MG/4 ML VIAL SLOW IVP SCH (08:00)
--- NOTE | 2017-10-23 08:10 | PRG ---
DATE OF SERVICE: 10/23/2017 Thirty-five minutes critical care time. The patient remains on mechanical ventilation via BiPAP. She is much more talkative through the mask today, says she actually slept well last night. PHYSICAL EXAMINATION: VITAL SIGNS: Temperature 98.7, pulse 96, blood pressure 134/63, O2 sat running generally in the mid 90s on 50% oxygen through BiPAP. 24 hour intake 2106, output 951. She looks to be about 3 liters up since admission. HEENT: Unremarkable. NECK: No adenopathy or JVD. LUNGS: Crackles bilaterally. CARDIOVASCULAR: S1, S2 regular. ABDOMEN: She is tender along the right lower quadrant. She has a wound VAC present midline, PEG tub e noted. EXTREMITIES: No clubbing, cyanosis, trace edema. LABORATORY DATA: Sodium 140, potassium 3.6, chloride 106, CO2 25, BUN 12, creatinine 0.8, glucose 14 0, white blood cell count 15.4, hematocrit 34.2, platelet count 173 with 75% neutrophils, 10% lymphoc ytes. ASSESSMENT: 1. The patient has developed either cardiogenic or noncardiogenic pulmonary edema. She does have a history of coronary disease in the past. However, she has also had adult respiratory distress syndro me in the hospital in the past after sepsis. I very much favor this presentation being adult respira tory distress syndrome. 2. Acute hypoxic respiratory failure requiring mechanical ventilation. 3. Abdominal sepsis from abdominal wall abscess. 4. Underlying chronic obstructive pulmonary disease. PLAN: 1. Continue mechanical ventilation with BiPAP. That seems to be serving her well right now. 2. Check echocardiogram to assess cardiac status. 3. One dose of diuretics. 4. Insert New. 5. Recheck labs tomorrow and recheck chest x-ray tomorrow.
[2017-10-23] MEDS: ALPRAZolam 0.25 MG TAB PO PRN ×2 (09:02→17:02)
[2017-10-23] MEDS: Bacitracin Zinc 1 Packet TOP SCH ×2 (09:10→21:29)
[2017-10-23] MEDS: D5 1/2 NS w/20 mEq KCL 1,000 ML IV SCH (09:10)
[2017-10-23] MEDS: Pantoprazole 40 MG VIAL IVP SCH (09:11)
[2017-10-23] MEDS: Enoxaparin Sodium 40 MG/0.4 ML SYRINGE SC SCH (09:11)
[2017-10-23] MEDS: Potassium Chloride 20 MEQ in Premix Bag 1 BAG IVPB SCH ×2 (09:14→11:46)
[2017-10-23] MEDS: Promethazine HCl 25 MG/ML VIAL IM PRN ×3 (12:24→22:45)
[2017-10-23] MEDS ORDERED: Acetaminophen 500 MG TAB PO SCH ×2 (15:00→18:00)
--- NOTE | 2017-10-23 15:27 | PDOC.GSPN ---
Surgery Progress Note: Subj - Subjective Narrative: Pain improved. IV tylenol works better for her. No nausea. Flushing G tube without pain. Breathing improved Surgery Progress Note: Obj - Vital signs Vital signs: Vital Signs - Most Recent Temp Pulse Resp BP Pulse Ox 98.2 F 85 25 H 131/75 94 L 10/23/17 11:00 10/23/17 14:38 10/23/17 14:38 10/22/17 07:24 10/23/17 14:38 - Physical Exam General: no distress Cardiovascular: regular rate and rhythm Respiratory: clear to auscultation Abdomen: soft, nondistended Wound: wound vac Surgery Progress Note: Results - Labs Result Diagrams: 10/23/17 05:00 10/23/17 05:00 Lab results: Laboratory Results - last 24 hr 10/21/17 10/23/17 10/23/17 09:14 05:00 05:00 WBC 15.4 H RBC 3.85 L Hgb 11.7 L Hct 34.2 L MCV 88.8 MCH 30.5 MCHC 34.3 RDW 12.3 Plt Count 173 MPV 6.4 L Neutrophils % 75.4 H Lymphocytes % 10.0 L Monocytes % 11.3 H Eosinophils % 2.9 Basophils % 0.3 Neutrophils # 11.6 H Lymphocytes # 1.5 Monocytes # 1.7 H Eosinophils # 0.4 Basophils # 0.0 Sodium 140 Potassium 3.6 Chloride 106 Carbon Dioxide 25 Anion Gap 13 BUN 12 Creatinine 0.80 Estimated GFR (MDRD) 73 Glucose 140 H Calcium 8.7 Magnesium 2.3 Vitamin B1 304.0 H Surgery Progress Note: A/P - Problem (1) Abdominal abscess Current Visit: Yes Code(s): [id number] - Status: Acute - Plan Plan: Overall doing better -changed to meropenum -restart TF -Change back to IV tylenol
[2017-10-23 15:35] LABS: Potassium 4.5 mmol/L (3.5-5.1)
[2017-10-23] MEDS: Acetaminophen 1,000 MG in Premix Bag 1 BAG IVPB PRN ×2 (17:09→23:12)
[2017-10-23] MEDS: Meropenem 2 GM in Sodium Chloride 0.9% 100 ML IVPB SCH ×2 (17:10→23:09)
[2017-10-23] MEDS: Ondansetron HCl/PF 4 MG/2 ML Vial IVP PRN ×2 (17:42→23:09)
[2017-10-23] MEDS: Zolpidem Tartrate 5 MG TAB PO PRN (21:22)
[2017-10-23] MEDS: Lorazepam 2 MG/ML VIAL SLOW IVP PRN (21:26)
[2017-10-23] MEDS: Thiamine HCl 200 MG/2 ML VIAL SLOW IVP SCH (23:11)
[2017-10-24] MEDS: ALPRAZolam 0.25 MG TAB PO PRN ×4 (00:58→18:44)
[2017-10-24] MEDS: Ketorolac Tromethamine 30 MG/ML VIAL IVP SCH ×2 (05:11→14:33)
[2017-10-24 07:21] LABS: #Lymphocytes 0.6 thou/uL (1.20-3.40); #Monocytes 0.6 thou/uL (0.11-0.59); #Neutrophils 9.4 thou/uL (1.40-6.50); %Eosinophils 0.4 % (0.0-10.0); %Monocytes 5.4 % (0.0-10.0); %Neutrophils 88.2 % (42.0-75.0); Hemoglobin 9.9 g/dL (12.0-16.0); Mean Corpuscular HGB CONC 32.9 g/dL (32.0-36.0); Mean Corpuscular Hemoglobin 32.5 pg (27.0-31.0); Mean Corpuscular Volume 98.9 fL (78.0-98.0); Mean Platelet Volume 8.7 fL (7.4-10.4); Platelet Count 343 thou/uL (130-400); RBC Distribution Width 14.4 % (11.5-14.5); Red Blood Cell (RBC) Count 3.05 mill/uL (4.20-5.40); White Blood Cell (WBC) Count 10.7 thou/uL (4.8-10.8)
[2017-10-24 07:41] LABS: Anion Gap 15 mmol/L (10-20); BUN (Urea Nitrogen) 22 mg/dL (9.8-20.1); Calc. Creatinine Clearance 71 mL/min (70-130); Calcium 8.2 mg/dL (7.8-10.44); Carbon Dioxide 23 mmol/L (22-29); Chloride 105 mmol/L (98-107); Estimated GFR-MDRD 61; Glucose 127 mg/dL (70-105); Potassium 4.1 mmol/L (3.5-5.1); Sodium 139 mmol/L (136-145)
--- NOTE | 2017-10-24 09:12 | PRG ---
DATE OF SERVICE: 10/24/2017 Ms. Henderson is currently on high flow nasal cannula. She is off the BiPAP. She is actually doing qu ite well on the high flow. PHYSICAL EXAMINATION: VITAL SIGNS: Temperature is 98.6, O2 sat generally in the mid 90s, blood pressure 139/65. 24 hour i ntake 3101, output 1845. I am not sure her weight is accurate on the chart. HEENT: She has high flow nasal cannula in place. NECK: No JVD. LUNGS: Diminished breath sounds throughout. CARDIAC: S1 and S2 regular. ABDOMEN: Soft. Midline wound VAC in place, not as tender in the right lower quadrant as she was yes terday. EXTREMITIES: Trace edema throughout. LABORATORY DATA: White blood cell count 10, hematocrit 30.2, platelet count 343. Sodium 139, potass ium 4.1, chloride 105, CO2 23, BUN 22, creatinine 0.9, glucose 127. Her abdominal wound grew out E. coli and something called Hafnia alvei, intermittently resistant to Z osyn. Therefore, Dr. Griffith changed the patient's antibiotic to meropenem. The patient's chest x-ray continues to show a reticular nodule infiltrate bilaterally. ASSESSMENT: Acute respiratory failure related to either pneumonitis or adult respiratory distress sy ndrome. Less likely this is cardiogenic in nature. However, echocardiogram is still pending. PLAN: 1. Continue high flow oxygen. 2. Check vasculitis panel. 3. Continue steroids. 4. Add antifungal. 5. Continue meropenem. 6. Trend laboratory data.
--- NOTE | 2017-10-24 09:15 | RAD ---
CHEST 1 VIEW: History Ventilated patient. COMPARISON: Radiograph 10/22/17. FINDINGS: Small to moderate left effusion. Increasing edema. Increasing left basilar opacity. No pneumothora x. Cardiac silhouette is similar. No acute osseous abnormality. IMPRESSION: 1. Worsening edema. 2. Increased left effusion. 3. Worsening left basilar airspace opacity which could be sequelae of compressive atelectasis versus developing aspiration or infection. POS: [facility]
[2017-10-24] MEDS: Promethazine HCl 25 MG/ML VIAL IM PRN ×2 (09:19→17:59)
[2017-10-24] MEDS: Pantoprazole 40 MG VIAL IVP SCH (09:21)
[2017-10-24] MEDS: Enoxaparin Sodium 40 MG/0.4 ML SYRINGE SC SCH (09:21)
[2017-10-24] MEDS: Meropenem 2 GM in Sodium Chloride 0.9% 100 ML IVPB SCH ×3 (09:21→23:03)
[2017-10-24] MEDS: Bacitracin Zinc 1 Packet TOP SCH ×2 (09:21→20:32)
[2017-10-24] MEDS: Fluconazole In NaCl,Iso-Osm 400 MG in Premix Bag 1 BAG IVPB SCH (09:58)
[2017-10-24] MEDS: Ondansetron HCl/PF 4 MG/2 ML Vial IVP PRN ×2 (11:07→18:44)
[2017-10-24] MEDS: HYDROmorphone 10 mg/100 ml CADD IVPB PRN (12:06)
--- NOTE | 2017-10-24 14:13 | PQF ---
DATE: 10-29-17 ATTN : DR. KIA LOW Please exercise your independent, professional judgment in responding to the clarification form. Clinical indicators are provided on the bottom of this form for your review Please check appropriate box(s) to clarify if the following diagnosis has been ruled in or ruled out: SEPSIS [ ] Ruled in diagnosis [ ] Continue to treat [ ] Resolved [ ] Ruled out diagnosis [ X ] Other diagnosis No sepsis [ ] Unable to determine In addition, please specify: Present on Admission (POA): [ ] Yes [ ] No [ ] Unable to determine For continuity of documentation, please document condition throughout progress notes and discharge summary. Thank You. CLINICAL INDICATORS - SIGNS / SYMPTOMS / LABS ER DX: SEPSIS, ABDOMINAL WALL ABSCESS WITH SURROUNDING INFLAMMATION H&P: WOUND INFECTION, LIKELY SECONDARY TO MANIPULATION OF HER G TUBE CONSULT NOTE DR. 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 All Rights Reserved MYNOR [email or web address] Office: [phone] [facility]
--- NOTE | 2017-10-24 14:14 | PDOC.GSPN ---
Surgery Progress Note: Subj - Subjective Patient reports: no new complaints Surgery Progress Note: Obj - Vital signs Vital signs: Vital Signs - Most Recent Temp Pulse Resp BP Pulse Ox 98.2 F 72 20 131/75 99 10/24/17 08:00 10/24/17 14:08 10/24/17 14:08 10/22/17 07:24 10/24/17 14:08 - Physical Exam General: no distress Cardiovascular: regular rate and rhythm Respiratory: coarse breath sounds Abdomen: soft, appropriately tender Wound: wound vac Surgery Progress Note: Results - Labs Result Diagrams: 10/24/17 07:10 10/24/17 07:10 Lab results: Laboratory Results - last 24 hr 10/24/17 10/24/17 07:10 07:10 WBC 10.7 RBC 3.05 L Hgb 9.9 L Hct 30.2 L MCV 98.9 H MCH 32.5 H MCHC 32.9 RDW 14.4 Plt Count 343 MPV 8.7 Neutrophils % 88.2 H Neutrophils % (Manual) Not Reportable Lymphocytes % 6.0 L Monocytes % 5.4 Eosinophils % 0.4 Basophils % 0.0 Neutrophils # 9.4 H Lymphocytes # 0.6 L Monocytes # 0.6 H Eosinophils # 0.0 Basophils # 0.0 Sodium 139 Potassium 4.1 Chloride 105 Carbon Dioxide 23 Anion Gap 15 BUN 22 H Creatinine 0.94 Estimated GFR (MDRD) 61 Glucose 127 H Calcium 8.2 Magnesium 2.0 Surgery Progress Note: A/P - Problem (1) Abdominal abscess Current Visit: Yes Code(s): [id number] - Status: Acute - Plan Plan: Picc line today -start TF -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 Then switch over to oral pain
--- NOTE | 2017-10-24 14:27 | SPC ---
XRAY GUIDED PICC LINE PLACEMENT: HISTORY: Need for long-term IV access. COMPARISON: Chest radiograph of same day. FINDINGS: The exam was done in the patient's room in the ICU. The patient's left arm and midline were prepped and draped in normal sterile fashion. Through the in dwelling midline, a wire was placed and a PICC was placed with tip at the inferior SVC. The patient tolerated the procedure well without complication. IMPRESSION: Technically successful [id number] PICC line placement. POS: [facility]
[2017-10-24] MEDS: Acetaminophen 1,000 MG in Premix Bag 1 BAG IVPB PRN (14:33)
[2017-10-24] MEDS: Thiamine HCl 200 MG/2 ML VIAL SLOW IVP SCH (23:02)
[2017-10-24] MEDS: Zolpidem Tartrate 5 MG TAB PO PRN (23:15)
[2017-10-25] MEDS: ALPRAZolam 0.25 MG TAB PO PRN ×4 (00:56→21:35)
[2017-10-25] MEDS: Ondansetron HCl/PF 4 MG/2 ML Vial IVP PRN ×3 (00:57→19:07)
[2017-10-25 05:02] LABS: Anion Gap 12 mmol/L (10-20); BUN (Urea Nitrogen) 27 mg/dL (9.8-20.1); Calc. Creatinine Clearance 70 mL/min (70-130); Calcium 8.2 mg/dL (7.8-10.44); Carbon Dioxide 29 mmol/L (22-29); Chloride 102 mmol/L (98-107); Estimated GFR-MDRD 59; Glucose 148 mg/dL (70-105); Magnesium 2.3 mg/dL (1.6-2.6); Potassium 4.1 mmol/L (3.5-5.1); Sodium 139 mmol/L (136-145)
[2017-10-25 05:06] LABS: Band 18 % (5-11); Hemoglobin 9.6 g/dL (12.0-16.0); Lymphocytes 14 % (21-51); MDiff Complete? YES; Mean Corpuscular HGB CONC 32.7 g/dL (32.0-36.0); Mean Corpuscular Volume 97.8 fL (78.0-98.0); Mean Platelet Volume 7.4 fL (7.4-10.4); Metamyelocyte 1 % (0-0); Monocytes 3 % (0-10); Myelocyte 1 % (0-0); Neutrophil 63 % (42-75); PLT Morphology Comment Appears Adequate; Platelet Count 345 thou/uL (130-400); Red Blood Cell (RBC) Count 3.01 mill/uL (4.20-5.40); White Blood Cell (WBC) Count 8.3 thou/uL (4.8-10.8)
[2017-10-25] MEDS: Promethazine HCl 25 MG/ML VIAL IM PRN ×3 (08:13→18:03)
[2017-10-25] MEDS: Meropenem 2 GM in Sodium Chloride 0.9% 100 ML IVPB SCH ×3 (08:25→23:37)
[2017-10-25] MEDS: Enoxaparin Sodium 40 MG/0.4 ML SYRINGE SC SCH (08:45)
[2017-10-25] MEDS: Pantoprazole 40 MG VIAL IVP SCH (08:45)
[2017-10-25] MEDS: Bacitracin Zinc 1 Packet TOP SCH ×2 (08:45→21:35)
[2017-10-25] MEDS: Fluconazole In NaCl,Iso-Osm 400 MG in Premix Bag 1 BAG IVPB SCH (08:46)
--- NOTE | 2017-10-25 09:05 | RAD ---
SEMIUPRIGHT PORTABLE CHEST 1 VIEW: HISTORY: A 62-year-old female with respiratory insufficiency. COMPARISON: 10/24/17. FINDINGS: Monitor leads overlie the chest. Left PICC line in place. Bilateral vascular congestion as well as stable bilateral diffuse interstitial changes. No new confluent process. IMPRESSION: Overall stable chest. POS: [facility]
--- NOTE | 2017-10-25 09:17 | PDOC.GSPN ---
Surgery Progress Note: Subj - Subjective Patient reports: no new complaints (Noticing more swelling in hands/feet now) Surgery Progress Note: Obj - Vital signs Vital signs: Vital Signs - Most Recent Temp Pulse Resp BP Pulse Ox 98.4 F 60 14 131/75 100 10/25/17 03:00 10/25/17 06:34 10/25/17 06:34 10/22/17 07:24 10/25/17 06:38 - Physical Exam General: no distress Cardiovascular: regular rate and rhythm Respiratory: coarse breath sounds Abdomen: soft Wound: wound vac Surgery Progress Note: Results - Labs Result Diagrams: 10/25/17 04:30 10/25/17 04:30 Lab results: Laboratory Results - last 24 hr 10/25/17 10/25/17 04:30 04:30 WBC 8.3 RBC 3.01 L Hgb 9.6 L Hct 29.4 L MCV 97.8 MCH 32.0 H MCHC 32.7 RDW 14.0 Plt Count 345 MPV 7.4 Neutrophils % (Manual) 63 Band Neuts % (Manual) 18 H Lymphocytes % (Manual) 14 L Monocytes % (Manual) 3 Metamyelocytes % (Man) 1 H Myelocytes % 1 H Plt Morphology Comment Appears Adequate Sodium 139 Potassium 4.1 Chloride 102 Carbon Dioxide 29 Anion Gap 12 BUN 27 H Creatinine 0.97 Estimated GFR (MDRD) 59 Glucose 148 H Calcium 8.2 Magnesium 2.3 Surgery Progress Note: A/P - Problem (1) Abdominal abscess Current Visit: Yes Code(s): [id number] - Status: Acute - Plan Plan: CXR better -stay in ICU for now -Starting TF today
--- NOTE | 2017-10-25 09:47 | PRG ---
DATE OF SERVICE: 10/25/2017 SUBJECTIVE: Ms. Henderson says she does not feel as well, but she looks better than she has. She is c ontinued on the high flow oxygen and has done quite well with that. PHYSICAL EXAMINATION: VITAL SIGNS: Temperature is 98.4, O2 sat is generally running about 100%, pulse 53, blood pressure 1 31/76. A 24-hour intake 2160, output 1193. HEENT: Unremarkable. NECK: No JVD. LUNGS: A few inspiratory crackles. CARDIOVASCULAR: S1, S2 regular. ABDOMEN: Soft, slightly tender lower quadrant. EXTREMITIES: No clubbing, cyanosis, but trace edema. LABORATORY DATA: Sodium 139, potassium 4.1, chloride 102, CO2 29, BUN 27, creatinine 0.9, glucose 14 8. White blood cell count 8.3, hematocrit 29.4, platelet count 345. IMAGING: An echocardiogram report that resulted yesterday showed EF of 55%-60% with mild mitral regu rgitation, essentially an unremarkable echocardiogram. Chest x-ray today shows some clearing of the bilateral infiltrative changes. ASSESSMENT: 1. Acute hypoxic respiratory failure secondary to acute respiratory distress syndrome. 2. Abdominal abscess. 3. Underlying chronic obstructive pulmonary disease. PLAN: 1. Wean high flow oxygen as tolerated. 2. Begin to taper steroids if at all possible. 3. Await results of vasculitis panel ordered yesterday. 4. Monitor daily labs. The above encompassed 30 minutes of critical care time.
[2017-10-25] MEDS: HYDROmorphone 10 mg/100 ml CADD IVPB PRN (16:44)
[2017-10-25] MEDS: Acetaminophen 1,000 MG in Premix Bag 1 BAG IVPB PRN ×2 (18:04→23:36)
[2017-10-25] MEDS: Zolpidem Tartrate 5 MG TAB PO PRN (21:35)
[2017-10-25] MEDS: Lorazepam 2 MG/ML VIAL SLOW IVP PRN (21:36)
[2017-10-25] MEDS: Thiamine HCl 200 MG/2 ML VIAL SLOW IVP SCH (21:36)
[2017-10-25] MEDS: Loperamide HCl 2 MG CAP PO PRN (23:37)
[2017-10-26] MEDS: Lorazepam 2 MG/ML VIAL SLOW IVP PRN ×5 (01:42→20:23)
[2017-10-26] MEDS: Acetaminophen 1,000 MG in Premix Bag 1 BAG IVPB PRN ×3 (06:01→17:32)
[2017-10-26 06:07] LABS: Anion Gap 11 mmol/L (10-20); BUN (Urea Nitrogen) 22 mg/dL (9.8-20.1); Calc. Creatinine Clearance 84 mL/min (70-130); Calcium 8.1 mg/dL (7.8-10.44); Carbon Dioxide 26 mmol/L (22-29); Chloride 104 mmol/L (98-107); Estimated GFR-MDRD 72; Glucose 143 mg/dL (70-105); Magnesium 2.1 mg/dL (1.6-2.6); Sodium 137 mmol/L (136-145)
[2017-10-26 06:09] LABS: #Lymphocytes 1.2 thou/uL (1.20-3.40); #Monocytes 0.6 thou/uL (0.11-0.59); #Neutrophils 8.1 thou/uL (1.40-6.50); %Basophils 0.1 % (0.0-1.0); %Eosinophils 0.4 % (0.0-10.0); %Monocytes 6.3 % (0.0-10.0); %Neutrophils 81.2 % (42.0-75.0); Hemoglobin 9.9 g/dL (12.0-16.0); Mean Corpuscular HGB CONC 31.4 g/dL (32.0-36.0); Mean Corpuscular Hemoglobin 30.8 pg (27.0-31.0); Mean Platelet Volume 7.2 fL (7.4-10.4); Platelet Count 303 thou/uL (130-400); RBC Distribution Width 14.2 % (11.5-14.5); Red Blood Cell (RBC) Count 3.22 mill/uL (4.20-5.40)
--- NOTE | 2017-10-26 09:20 | RAD ---
UPRIGHT PORTABLE CHEST 1 VIEW: HISTORY: A 62-year-old female with a history of respiratory insufficiency. COMPARISON: 10/25/17. FINDINGS: Left PICC line in place. Monitor leads overlie the chest. Bilateral vascular congestion with some s cattered interstitial and fine alveolar nodular parenchymal changes bilaterally and costophrenic angl e blunting with improvement in the parenchymal changes when compared to 10/24. IMPRESSION: Persistent parenchymal changes in the right and left lungs bilaterally showing improvement from 10/24. Continued short-term followup. POS: [facility]
--- NOTE | 2017-10-26 09:24 | PRG ---
DATE OF SERVICE: 10/26/2017 This is 35 minutes critical care time. SUBJECTIVE: Ms. Henderson remains on high-flow oxygen, although the amount has been reduced from 25 li ters per minute to 10 liters per minute. She says she feels better. PHYSICAL EXAMINATION: VITAL SIGNS: Her temperature is 99.3, pulse 59, blood pressure 153/77, O2 sat 100%, a 24-hour intake 1786 and output 1655. HEENT EXAM: Unremarkable. NECK: No JVD. LUNGS: Few scattered crackles bilaterally. CARDIOVASCULAR: S1 and S2, regular. ABDOMEN: Softer, nontender. EXTREMITIES: Trace edema. LABORATORY DATA: Sodium 137, potassium 4, chloride 104, CO2 of 26, BUN 22, creatinine 0.8, glucose 1 43. White blood cell count 10, hematocrit 31.5, platelet count 303. ASSESSMENT: 1. Acute respiratory distress syndrome, which is improving on serial x-rays including the x-ray from today. 2. Acute respiratory failure, requiring high-flow oxygen. 3. Abdominal abscess. 4. Underlying chronic obstructive pulmonary disease. PLAN: We are continuing efforts to wean her oxygen. She will continue on the antifungals, antibioti cs, and IV steroids. I will attempt to wean the steroids tomorrow. Her progress is encouraging. I am still awaiting results from the vasculitis panel that was drawn. Her is expected to arriv e later today.
[2017-10-26] MEDS: Meropenem 2 GM in Sodium Chloride 0.9% 100 ML IVPB SCH ×2 (09:48→15:34)
[2017-10-26] MEDS: Fluconazole In NaCl,Iso-Osm 400 MG in Premix Bag 1 BAG IVPB SCH (09:49)
[2017-10-26] MEDS: Bacitracin Zinc 1 Packet TOP SCH ×2 (09:51→19:52)
[2017-10-26] MEDS: Enoxaparin Sodium 40 MG/0.4 ML SYRINGE SC SCH (09:51)
[2017-10-26] MEDS: Pantoprazole 40 MG VIAL IVP SCH (09:52)
[2017-10-26] MEDS: ALPRAZolam 0.25 MG TAB PO PRN ×2 (11:22→20:23)
[2017-10-26] MEDS: Promethazine HCl 25 MG/ML VIAL IM PRN ×2 (14:59→19:51)
[2017-10-26] MEDS: Ondansetron HCl/PF 4 MG/2 ML Vial IVP PRN (15:28)
--- NOTE | 2017-10-26 15:58 | PRG ---
DATE OF SERVICE: 10/26/2017 SUBJECTIVE: The patient reports that she is feeling a little bit better. She is still on high flow oxygen to maintain her sats. She does not have any nausea. She is tolerating the tube feedings. Graciela abraham is having loose stools. PHYSICAL EXAMINATION: VITAL SIGNS: Her temperature is 99.3, pulse 83, blood pressure 161/67. She is on high flow oxygen 3 0, and O2 sats 95. She is receiving 3 cans of tube feedings daily. She has wound VAC on, the G-tube looks like it is in good position. Urine output is good at 1655. S he does have one bowel movement. LABORATORY DATA: White count 10, H&H are 9.9 and 31, platelet count 303. Electrolytes are fine. ASSESSMENT: Doing well. PLAN: Continue current treatment.
[2017-10-26] MEDS ORDERED: Acetaminophen 1,000 MG in Premix Bag 1 BAG IVPB SCH (18:00)
[2017-10-26] MEDS: Zolpidem Tartrate 5 MG TAB PO PRN (20:24)
[2017-10-26] MEDS: Thiamine HCl 200 MG/2 ML VIAL SLOW IVP SCH (22:36)
[2017-10-27] MEDS: Meropenem 2 GM in Sodium Chloride 0.9% 100 ML IVPB SCH ×4 (00:36→23:20)
[2017-10-27] MEDS: Acetaminophen 1,000 MG in Premix Bag 1 BAG IVPB PRN ×3 (01:38→14:52)
[2017-10-27] MEDS: Lorazepam 2 MG/ML VIAL SLOW IVP PRN ×2 (02:41→08:20)
[2017-10-27 05:05] LABS: #Lymphocytes 0.9 thou/uL (1.20-3.40); #Monocytes 0.5 thou/uL (0.11-0.59); #Neutrophils 7.6 thou/uL (1.40-6.50); %Basophils 0.1 % (0.0-1.0); %Eosinophils 0.5 % (0.0-10.0); %Lymphocytes 9.6 % (21.0-51.0); %Monocytes 5.6 % (0.0-10.0); %Neutrophils 84.3 % (42.0-75.0); Hemoglobin 10.2 g/dL (12.0-16.0); Mean Corpuscular Hemoglobin 31.9 pg (27.0-31.0); Mean Corpuscular Volume 96.9 fL (78.0-98.0); Platelet Count 307 thou/uL (130-400); RBC Distribution Width 13.9 % (11.5-14.5)
[2017-10-27 05:32] LABS: Anion Gap 11 mmol/L (10-20); BUN (Urea Nitrogen) 21 mg/dL (9.8-20.1); Calc. Creatinine Clearance 91 mL/min (70-130); Carbon Dioxide 29 mmol/L (22-29); Chloride 101 mmol/L (98-107); Estimated GFR-MDRD 79; Glucose 143 mg/dL (70-105); Magnesium 2.2 mg/dL (1.6-2.6); Potassium 3.7 mmol/L (3.5-5.1); Sodium 137 mmol/L (136-145)
[2017-10-27] MEDS: HYDROmorphone 10 mg/100 ml CADD IVPB PRN (07:02)
[2017-10-27] MEDS: Enoxaparin Sodium 40 MG/0.4 ML SYRINGE SC SCH (08:17)
[2017-10-27] MEDS: Bacitracin Zinc 1 Packet TOP SCH ×2 (08:18→21:41)
[2017-10-27] MEDS: ALPRAZolam 0.25 MG TAB PO PRN ×3 (08:18→21:37)
[2017-10-27] MEDS: Fluconazole In NaCl,Iso-Osm 400 MG in Premix Bag 1 BAG IVPB SCH (08:18)
[2017-10-27] MEDS: Pantoprazole 40 MG VIAL IVP SCH (08:19)
--- NOTE | 2017-10-27 08:33 | RAD ---
CHEST 1 VIEW: COMPARISON: 10/26/17. HISTORY: Respiratory insufficiency. FINDINGS: Essentially stable opacification of the lung parenchyma. Stable left-sided PICC line. NO pneumothor ax. IMPRESSION: No significant interval change. POS: [facility]
--- NOTE | 2017-10-27 08:56 | PRG ---
DATE OF SERVICE: 10/27/2017 The patient is doing better this morning. She has been weaned down to a standard nasal cannula from a high flow. PHYSICAL EXAMINATION: VITAL SIGNS: Temperature is 98.7, pulse 49, blood pressure 159/68, O2 sat 93%, 24-hour intake 1613, output 2955. HEENT: Unremarkable. NECK: No JVD. LUNGS: A few inspiratory crackles. CARDIAC: S1 and S2 regular. ABDOMEN: Soft, nontender. EXTREMITIES: No edema. LABORATORY DATA: Sodium 137, potassium 3.74, chloride 101, CO2 29, BUN 21, creatinine 0.7, glucose 1 43. White blood cell count 9, hematocrit 31, platelet count 307. ASSESSMENT: 1. Acute respiratory distress syndrome with clinical improvement. 2. Acute respiratory failure requiring high flow oxygen - now weaned. 3. Abdominal abscess. 4. Underlying chronic obstructive pulmonary disease. PLAN: She will remain in ICU today just so that we can make sure she does not need high flow oxygen again. She is continuing antifungals and antibiotics. Continuing IV steroids at present dose. Tana whitten the results of vasculitis panel that was ordered last week.
[2017-10-27] MEDS: Ondansetron HCl/PF 4 MG/2 ML Vial IVP PRN (09:53)
[2017-10-27 12:22] LABS: ANA Symphony (Qualitative) Negative (Negative); dsDNA IgG Antibody 2.7 IU/mL (<10 Negative)
[2017-10-27] MEDS ORDERED: Fentanyl 100 MCG/2 ML VIAL SLOW IVP PRN (13:20)
--- NOTE | 2017-10-27 13:23 | PDOC.GSPN ---
Surgery Progress Note: Subj - Subjective Narrative: Sleeping today. Had IV ativan and xanax. 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 Tolerating TF Surgery Progress Note: Obj - Vital signs Vital signs: Vital Signs - Most Recent Temp Pulse Resp BP Pulse Ox 97.6 F 67 19 131/75 97 10/27/17 08:00 10/27/17 10:41 10/27/17 10:41 10/22/17 07:24 10/27/17 10:41 - Physical Exam General: no distress Respiratory: clear to auscultation Abdomen: soft, appropriately tender Wound: wound vac Surgery Progress Note: Results - Labs Result Diagrams: 10/27/17 04:46 10/27/17 04:46 Lab results: Laboratory Results - last 24 hr 10/24/17 10/27/17 10/27/17 08:44 04:46 04:46 WBC 9.0 RBC 3.20 L Hgb 10.2 L Hct 31.0 L MCV 96.9 MCH 31.9 H MCHC 33.0 RDW 13.9 Plt Count 307 MPV 7.0 L Neutrophils % 84.3 H Lymphocytes % 9.6 L Monocytes % 5.6 Eosinophils % 0.5 Basophils % 0.1 Neutrophils # 7.6 H Lymphocytes # 0.9 L Monocytes # 0.5 Eosinophils # 0.0 Basophils # 0.0 Sodium 137 Potassium 3.7 Chloride 101 Carbon Dioxide 29 Anion Gap 11 BUN 21 H Creatinine 0.75 Estimated GFR (MDRD) 79 Glucose 143 H Calcium 8.0 Magnesium 2.2 SOPHIA Screen Negative SOPHIA IgG Screen Negative Anti-ds DNA IgG Ab 2.7 Surgery Progress Note: A/P - Problem (1) Abdominal abscess Current Visit: Yes Code(s): [id number] - Status: Acute - Plan 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
[2017-10-27] MEDS: Fentanyl 100 MCG/2 ML VIAL SLOW IVP PRN ×2 (15:39→23:22)
[2017-10-27] MEDS: Promethazine HCl 25 MG/ML VIAL IM PRN (17:00)
[2017-10-27] MEDS: Hydrocodone-Acetamin 15 ML UDCUP PO PRN (17:53)
[2017-10-27] MEDS: Thiamine HCl 200 MG/2 ML VIAL SLOW IVP SCH (22:02)
[2017-10-28] MEDS: Fentanyl 100 MCG/2 ML VIAL SLOW IVP PRN ×4 (04:11→20:50)
[2017-10-28 04:34] LABS: Anion Gap 9 mmol/L (10-20); BUN (Urea Nitrogen) 20 mg/dL (9.8-20.1); Calc. Creatinine Clearance 89 mL/min (70-130); Carbon Dioxide 29 mmol/L (22-29); Chloride 103 mmol/L (98-107); Estimated GFR-MDRD 83; Glucose 149 mg/dL (70-105); Magnesium 2.3 mg/dL (1.6-2.6); Potassium 3.4 mmol/L (3.5-5.1); Sodium 138 mmol/L (136-145)
[2017-10-28 04:52] LABS: Band 2 % (5-11); Hemoglobin 10.9 g/dL (12.0-16.0); Hypochromia SLIGHT = 6-15 cells (100X) (0-5/hpf); Lymphocytes 13 % (21-51); MDiff Complete? YES; Mean Corpuscular HGB CONC 33.6 g/dL (32.0-36.0); Mean Corpuscular Hemoglobin 32.5 pg (27.0-31.0); Mean Corpuscular Volume 96.8 fL (78.0-98.0); Mean Platelet Volume 6.9 fL (7.4-10.4); Monocytes 4 % (0-10); Neutrophil 81 % (42-75); Nucleated RBC 1 % (0); PLT Morphology Comment Appears Adequate; Platelet Count 327 thou/uL (130-400); RBC Distribution Width 14.5 % (11.5-14.5); Red Blood Cell (RBC) Count 3.33 mill/uL (4.20-5.40); White Blood Cell (WBC) Count 9.7 thou/uL (4.8-10.8)
[2017-10-28] MEDS: Hydrocodone-Acetamin 15 ML UDCUP PO PRN ×2 (04:55→21:59)
[2017-10-28] MEDS ORDERED: ALPRAZolam 0.25 MG TAB ONE (08:06)
--- NOTE | 2017-10-28 11:23 | PRG ---
DATE OF SERVICE: 10/28/2017 SUBJECTIVE: Ms. Henderson seems to be doing well. She has been weaned down from her nasal cannula. PHYSICAL EXAMINATION: VITAL SIGNS: Temperature is 98, O2 sat 98% on 3 liters, pulse 63, respirations 20, blood pressure 16 1/100. HEENT: Unremarkable. NECK: No adenopathy or JVD. LUNGS: She has a few inspiratory crackles at bases. CARDIOVASCULAR: S1, S2 regular. ABDOMEN: Distended, but nontender. EXTREMITIES: Trace edema. LABORATORY DATA: White blood cell count 9.7, hematocrit 32.3, platelet count 327. Sodium 138, potas sium 3.4, chloride 103, CO2 29, BUN 10, creatinine 0.7. ASSESSMENT: 1. Acute respiratory distress syndrome, which is improving. 2. Acute hypoxic respiratory failure, which is improving. 3. Abdominal wall infection. 4. Chronic obstructive pulmonary disease. PLAN: 1. The patient will be transferred out to the surgical floor. 2. Increase activity as tolerated. 3. Continue antibiotics, steroids, and nebulization treatments.
[2017-10-28] MEDS: Meropenem 2 GM in Sodium Chloride 0.9% 100 ML IVPB SCH ×2 (13:06→18:04)
[2017-10-28] MEDS: Bacitracin Zinc 1 Packet TOP SCH ×2 (13:06→21:58)
[2017-10-28] MEDS: Fluconazole In NaCl,Iso-Osm 400 MG in Premix Bag 1 BAG IVPB SCH (13:06)
[2017-10-28] MEDS: Enoxaparin Sodium 40 MG/0.4 ML SYRINGE SC SCH (13:06)
[2017-10-28] MEDS: Pantoprazole 40 MG VIAL IVP SCH (13:07)
[2017-10-28] MEDS: Promethazine HCl 25 MG/ML VIAL IM PRN (14:00)
[2017-10-28] MEDS: Ondansetron HCl/PF 4 MG/2 ML Vial IVP PRN (15:11)
[2017-10-28] MEDS: ALPRAZolam 0.25 MG TAB PO PRN (16:00)
[2017-10-28 16:14] LABS: Cytoplasmic (C-ANCA) <1:20 titer (Neg:<1:20); Myeloperoxidase AutoAbs <9.0 U/mL (0.0-9.0); Perinuclear (P-ANCA) <1:20 titer (Neg:<1:20); Proteinase-3 AutoAbs Less than 3.5 U/mL (0.0-3.5)
--- NOTE | 2017-10-28 16:50 | PDOC.GSPN ---
Surgery Progress Note: Subj - Subjective Patient reports: no new complaints (Pain controlled on oral norco with fentanyl prn. Tolerating TF) Surgery Progress Note: Obj - Vital signs Vital signs: Vital Signs - Most Recent Temp Pulse Resp BP Pulse Ox 97.7 F 78 19 131/75 95 10/28/17 16:00 10/28/17 15:29 10/28/17 15:29 10/22/17 07:24 10/28/17 15:29 - Physical Exam General: no distress Abdomen: soft, non tender, nondistended Wound: wound vac Surgery Progress Note: Results - Labs Result Diagrams: 10/28/17 04:05 10/28/17 04:05 Lab results: Laboratory Results - last 24 hr 10/24/17 10/28/17 08:44 04:05 WBC 9.7 RBC 3.33 L Hgb 10.9 L Hct 32.3 L MCV 96.8 MCH 32.5 H MCHC 33.6 RDW 14.5 Plt Count 327 MPV 6.9 L Neutrophils % (Manual) 81 H Band Neuts % (Manual) 2 L Lymphocytes % (Manual) 13 L Monocytes % (Manual) 4 Nucleated RBCs # (Man) 1 H Hypochromia SLIGHT = 6-15 cells Plt Morphology Comment Appears Adequate Anti-Proteinase 3 Less than 3.5 Atypical p-ANCA <1:20 Anti-Myeloperoxidase <9.0 ANCA <1:20 ANCA Pattern <1:20 Surgery Progress Note: A/P - Problem (1) Abdominal abscess Current Visit: Yes Code(s): [id number] - Status: Acute - Plan Plan: Overall doing better. Oxygen requirements down -to floor when bed available. -TF, abx, wound vac
[2017-10-28] MEDS: Zolpidem Tartrate 5 MG TAB PO PRN (21:58)
[2017-10-28] MEDS: Thiamine HCl 200 MG/2 ML VIAL SLOW IVP SCH (21:58)
[2017-10-29] MEDS: ALPRAZolam 0.25 MG TAB PO PRN ×3 (00:06→21:17)
[2017-10-29] MEDS: Meropenem 2 GM in Sodium Chloride 0.9% 100 ML IVPB SCH ×4 (00:06→23:05)
[2017-10-29] MEDS: Fentanyl 100 MCG/2 ML VIAL SLOW IVP PRN ×4 (03:17→21:07)
[2017-10-29 05:47] LABS: Anion Gap 12 mmol/L (10-20); BUN (Urea Nitrogen) 19 mg/dL (9.8-20.1); Calc. Creatinine Clearance 92 mL/min (70-130); Calcium 8.1 mg/dL (7.8-10.44); Carbon Dioxide 27 mmol/L (22-29); Chloride 105 mmol/L (98-107); Estimated GFR-MDRD 88; Glucose 160 mg/dL (70-105); Magnesium 2.5 mg/dL (1.6-2.6); Potassium 3.9 mmol/L (3.5-5.1); Sodium 140 mmol/L (136-145)
[2017-10-29 05:50] LABS: Band 14 % (5-11); Hemoglobin 10.7 g/dL (12.0-16.0); Lymphocytes 7 % (21-51); MDiff Complete? YES; Mean Corpuscular HGB CONC 32.9 g/dL (32.0-36.0); Mean Corpuscular Hemoglobin 31.9 pg (27.0-31.0); Mean Corpuscular Volume 97.2 fL (78.0-98.0); Metamyelocyte 1 % (0-0); Monocytes 3 % (0-10); Myelocyte 1 % (0-0); Neutrophil 74 % (42-75); PLT Morphology Comment Appears Adequate; Platelet Count 304 thou/uL (130-400); Red Blood Cell (RBC) Count 3.34 mill/uL (4.20-5.40); White Blood Cell (WBC) Count 10.6 thou/uL (4.8-10.8)
[2017-10-29] MEDS: Promethazine HCl 25 MG/ML VIAL IM PRN ×3 (06:51→18:44)
[2017-10-29] MEDS: Hydrocodone-Acetamin 15 ML UDCUP PO PRN ×2 (08:01→16:05)
[2017-10-29] MEDS: Ondansetron HCl/PF 4 MG/2 ML Vial IVP PRN ×2 (08:04→20:51)
[2017-10-29] MEDS: Pantoprazole 40 MG VIAL IVP SCH (08:07)
[2017-10-29] MEDS: Bacitracin Zinc 1 Packet TOP SCH ×2 (08:08→21:05)
[2017-10-29] MEDS: Enoxaparin Sodium 40 MG/0.4 ML SYRINGE SC SCH (08:08)
[2017-10-29] MEDS: Fluconazole In NaCl,Iso-Osm 400 MG in Premix Bag 1 BAG IVPB SCH (08:17)
--- NOTE | 2017-10-29 09:01 | PDOC.GSPN ---
Surgery Progress Note: Subj - Subjective Patient reports: no new complaints Surgery Progress Note: Obj - Vital signs Vital signs: Vital Signs - Most Recent Temp Pulse Resp BP Pulse Ox 98.2 F 71 20 137/79 97 10/29/17 07:17 10/29/17 07:17 10/29/17 07:17 10/29/17 07:17 10/29/17 07:17 - Physical Exam General: no distress Cardiovascular: regular rate and rhythm Respiratory: clear to auscultation Abdomen: soft, appropriately tender Wound: wound vac Surgery Progress Note: Results - Labs Result Diagrams: 10/29/17 05:15 10/29/17 05:15 Lab results: Laboratory Results - last 24 hr 10/29/17 10/29/17 05:15 05:15 WBC 10.6 RBC 3.34 L Hgb 10.7 L Hct 32.5 L MCV 97.2 MCH 31.9 H MCHC 32.9 RDW 15.0 H Plt Count 304 MPV 7.0 L Neutrophils % (Manual) 74 Band Neuts % (Manual) 14 H Lymphocytes % (Manual) 7 L Monocytes % (Manual) 3 Metamyelocytes % (Man) 1 H Myelocytes % 1 H Plt Morphology Comment Appears Adequate Sodium 140 Potassium 3.9 Chloride 105 Carbon Dioxide 27 Anion Gap 12 BUN 19 Creatinine 0.68 Estimated GFR (MDRD) 88 Glucose 160 H Calcium 8.1 Magnesium 2.5 Surgery Progress Note: A/P - Problem (1) Abdominal abscess Current Visit: Yes Code(s): [id number] - Status: Acute - Plan Plan: Wound infection after G tube -continue wound vac -start to mobilize PT now that on surgical floor -home with home health when lung function stable/improved
[2017-10-29 11:17] VITALS: BMI 23.5
--- NOTE | 2017-10-29 11:27 | PRG ---
DATE OF SERVICE: 10/29/2017 SUBJECTIVE: The patient is doing better. She has no acute complaints. PHYSICAL EXAMINATION: VITAL SIGNS: Temperature is 98.2, pulse 81, respirations 20, O2 sat 97% on 2 liters, and blood press ure 137/79. HEENT: Unremarkable. NECK: No JVD. CHEST: Fairly clear anteriorly. CARDIOVASCULAR: S1 and S2, regular. ABDOMEN: Soft. EXTREMITIES: No edema. LABORATORY DATA: White blood cell count 10.6, hematocrit 32.5, platelet count 304. Sodium 140, pota ssium 3.9, chloride 105, CO2 of 22, BUN 19, creatinine 0.6, glucose 160. ASSESSMENT: 1. Improved acute respiratory distress syndrome. 2. Status post hypoxic respiratory failure. 3. Abdominal wall infection. 4. Chronic obstructive pulmonary disease. PLAN: I think we can stop her daily labs. Increase activity as tolerated. I will wean her steroid dose.
[2017-10-29] MEDS ORDERED: Sterile Water 10 ML VIAL IVP SCH (17:00)
[2017-10-29] MEDS ORDERED: Activase 2 MG VIAL CATH SCH (17:00)
[2017-10-29] MEDS: Thiamine HCl 200 MG/2 ML VIAL SLOW IVP SCH (21:03)
[2017-10-29] MEDS: Zolpidem Tartrate 5 MG TAB PO PRN (23:03)
[2017-10-29] MEDS: D5 1/2 NS w/20 mEq KCL 1,000 ML IV SCH (23:05)
[2017-10-29] MEDS: Loperamide HCl 2 MG CAP PO PRN (23:57)
[2017-10-30] MEDS: Fentanyl 100 MCG/2 ML VIAL SLOW IVP PRN ×5 (03:14→21:25)
[2017-10-30] MEDS: Promethazine HCl 25 MG/ML VIAL IM PRN ×3 (06:27→17:05)
[2017-10-30] MEDS: Pantoprazole 40 MG VIAL IVP SCH (08:07)
[2017-10-30] MEDS: Fluconazole In NaCl,Iso-Osm 400 MG in Premix Bag 1 BAG IVPB SCH (08:07)
[2017-10-30] MEDS: ALPRAZolam 0.25 MG TAB PO PRN ×2 (08:08→20:26)
[2017-10-30] MEDS: Enoxaparin Sodium 40 MG/0.4 ML SYRINGE SC SCH (08:08)
[2017-10-30] MEDS: Ondansetron HCl/PF 4 MG/2 ML Vial IVP PRN ×3 (08:08→19:10)
[2017-10-30] MEDS: Meropenem 2 GM in Sodium Chloride 0.9% 100 ML IVPB SCH ×3 (08:31→23:44)
--- NOTE | 2017-10-30 09:17 | PDOC.GSPN ---
Surgery Progress Note: Subj - Subjective Patient reports: no new complaints Surgery Progress Note: Obj - Vital signs Vital signs: Vital Signs - Most Recent Temp Pulse Resp BP Pulse Ox 98.5 F 68 16 134/78 99 10/30/17 08:39 10/30/17 08:39 10/30/17 08:39 10/30/17 08:39 10/30/17 08:39 - Physical Exam General: no distress Abdomen: soft, non tender, appropriately tender Wound: wound vac Surgery Progress Note: Results - Labs Result Diagrams: 10/29/17 05:15 10/29/17 05:15 Surgery Progress Note: A/P - Problem (1) Abdominal abscess Current Visit: Yes Code(s): [id number] - Status: Acute (2) ARDS (adult respiratory distress syndrome) Current Visit: Yes Code(s): J80 - ACUTE RESPIRATORY DISTRESS SYNDROME Status : Acute - Plan Plan: Overall much improved -PT, ambulate -probably home early next week
--- NOTE | 2017-10-30 10:33 | PRG ---
DATE OF SERVICE: 10/30/2017 She is doing well, has no acute complaints. PHYSICAL EXAMINATION: VITAL SIGNS: Temperature 98.5, pulse 66, respirations 16, O2 sat 95% on 2 liters, blood pressure 134 /78. HEENT: Unremarkable. NECK: No JVD. CHEST: Few inspiratory crackles. CARDIAC: S1 and S2 regular. ABDOMEN: Soft. EXTREMITIES: No edema. ASSESSMENT: 1. Acute respiratory distress syndrome, which is improved. 2. Question of pneumonia. 3. Abdominal wall abscess. PLAN: 1. Steroids were weaned yesterday. Probably wean the dose again tomorrow. 2. Continue antifungal through 10/31/2017. I will discuss with Dr. Griffith in regards to duration o f meropenem.
[2017-10-30] MEDS: Thiamine HCl 200 MG/2 ML VIAL SLOW IVP SCH (21:20)
[2017-10-30] MEDS: Zolpidem Tartrate 5 MG TAB PO PRN (21:32)
[2017-10-31] MEDS: Fentanyl 100 MCG/2 ML VIAL SLOW IVP PRN ×4 (06:16→20:44)
[2017-10-31] MEDS: Promethazine HCl 25 MG/ML VIAL IM PRN (06:25)
[2017-10-31] MEDS: Pantoprazole 40 MG VIAL IVP SCH (08:19)
[2017-10-31] MEDS: Ondansetron HCl/PF 4 MG/2 ML Vial IVP PRN ×2 (08:21→14:42)
[2017-10-31] MEDS: Enoxaparin Sodium 40 MG/0.4 ML SYRINGE SC SCH (08:22)
[2017-10-31] MEDS: Meropenem 2 GM in Sodium Chloride 0.9% 100 ML IVPB SCH ×3 (08:22→23:54)
[2017-10-31] MEDS: ALPRAZolam 0.25 MG TAB PO PRN ×3 (08:22→23:54)
[2017-10-31] MEDS: Fluconazole In NaCl,Iso-Osm 400 MG in Premix Bag 1 BAG IVPB SCH (08:22)
--- NOTE | 2017-10-31 09:48 | PRG ---
DATE OF SERVICE: 10/31/2017 The patient is in good spirits. She has been weaned off the oxygen. She feels fine. PHYSICAL EXAMINATION: VITAL SIGNS: Temperature 97.6, pulse 60, respirations 16, O2 sat 95% on room air, blood pressure 180 /103. HEENT: Unremarkable. NECK: No JVD. LUNGS: A few crackles in the bases. CARDIAC: S1 and S2 regular. ABDOMEN: Soft. EXTREMITIES: No edema. ASSESSMENT: The patient has improved from adult respiratory distress syndrome related to abdominal s epsis. PLAN: 1. I will go ahead and stop the Diflucan, meropenem probably will need to be stopped in a few days. I will try to discuss with Dr. Griffith. 2. Change to oral steroids with slow taper over a couple of weeks.
[2017-10-31] MEDS ORDERED: Promethazine HCl 25 MG/ML VIAL IM PRN (11:00)
--- NOTE | 2017-10-31 11:12 | PRG ---
DATE OF SERVICE: 10/31/2017 Ms. Henderson is doing well. She is still taking quite a bit of Phenergan IM, but she is in general to lerating her tube feeds at goal. She has been ambulatory. Her breathing is much improved. PHYSICAL EXAMINATION: VITAL SIGNS: She is afebrile. Vital signs are stable. ABDOMEN: Soft, nondistended, nontender. Wound VAC. ASSESSMENT: 1. Postop wound infection washout. 2. History of postop adrenal insufficiency and adult respiratory distress syndrome, resolved. PLAN: Transition IV antibiotics to oral over the weekend and plan discharge home Friday.
[2017-10-31] MEDS: Hydrocodone-Acetamin 15 ML UDCUP PO PRN ×2 (14:42→23:54)
[2017-10-31] MEDS: D5 1/2 NS w/20 mEq KCL 1,000 ML IV SCH (15:24)
[2017-10-31] MEDS: Promethazine 25 MG TAB PO PRN (18:03)
[2017-10-31] MEDS: Thiamine HCl 200 MG/2 ML VIAL SLOW IVP SCH (20:44)
[2017-10-31] MEDS: Zolpidem Tartrate 5 MG TAB PO PRN (20:45)
[2017-10-31] MEDS: diphenhydrAMINE 25 MG CAP PO PRN (20:45)
[2017-11-01] MEDS: diphenhydrAMINE 25 MG CAP PO PRN (02:56)
[2017-11-01] MEDS: Promethazine 25 MG TAB PO PRN (02:56)
[2017-11-01] MEDS: Fentanyl 100 MCG/2 ML VIAL SLOW IVP PRN ×4 (02:57→20:49)
[2017-11-01] MEDS: Meropenem 2 GM in Sodium Chloride 0.9% 100 ML IVPB SCH ×3 (09:12→23:02)
[2017-11-01] MEDS: Enoxaparin Sodium 40 MG/0.4 ML SYRINGE SC SCH (09:13)
[2017-11-01] MEDS: Pantoprazole 40 MG VIAL IVP SCH (09:13)
[2017-11-01] MEDS: predniSONE 20 MG TAB PER TUBE SCH (09:13)
--- NOTE | 2017-11-01 10:06 | PRG ---
DATE OF SERVICE: 11/01/2017 SUBJECTIVE: Ms. Henderson is doing well. She is ambulatory now. Oxygen requirements are minimal. Graciela abraham is off oxygen right now and her O2 sats are fine. OBJECTIVE: VITAL SIGNS: She is afebrile. Vital signs are stable. ABDOMEN: Soft, nontender. Wound VAC is in place. ASSESSMENT: Postoperative wound infection, acute respiratory distress syndrome resolved, chronic adr enal insufficiency. PLAN: Home Friday with home health for G-tube feeds.
[2017-11-01] MEDS: Hydrocodone-Acetamin 15 ML UDCUP PO PRN ×2 (12:53→18:41)
[2017-11-01] MEDS: Ondansetron HCl/PF 4 MG/2 ML Vial IVP PRN ×2 (12:54→20:59)
--- NOTE | 2017-11-01 15:07 | PRG ---
DATE OF SERVICE: 11/01/2017 SERVICE: Pulmonary Medicine. INTERVAL HISTORY: The patient is actually doing quite well. She has been able to ambulate the hallw ays with some assistance. She does have a little shortness of breath with that. That being said, terese abraham seems to be moving her body pretty well. She denies any current fevers or chills. There are no si gnificant overnight events. PHYSICAL EXAMINATION: VITAL SIGNS: Afebrile, pulse 75, blood pressure 105/67, respirations 18, saturation 97% on room air. GENERAL: The patient is awake, alert, no apparent distress. LUNGS: Decent air entry. There is no prolonged expiratory phase or wheezing appreciated. HEART: Normal rate, regular. ABDOMEN: Soft, nontender, nondistended. Bowel sounds are positive. MUSCULOSKELETAL: No cyanosis or clubbing. There is no pitting in the bilateral lower extremities. NEUROLOGIC: Grossly nonfocal. ASSESSMENT: 1. Acute hypoxic respiratory failure, resolved. 2. Adult respiratory distress syndrome, resolved. 3. Gross peritonitis. DISCUSSION AND PLAN: The patient is doing really well from a respiratory standpoint. Supportive salina sures will be continued. Pulmonary Critical Care will continue to follow along.
[2017-11-01] MEDS: Thiamine HCl 200 MG/2 ML VIAL SLOW IVP SCH (20:49)
[2017-11-01] MEDS: Zolpidem Tartrate 5 MG TAB PO PRN (20:59)
[2017-11-01] MEDS: ALPRAZolam 0.25 MG TAB PO PRN (21:00)
[2017-11-01] MEDS ORDERED: Clopidogrel Bisulfate 75 MG TAB ONE (22:48)
[2017-11-02] MEDS: Hydrocodone-Acetamin 15 ML UDCUP PO PRN ×3 (00:57→20:34)
[2017-11-02] MEDS: Fentanyl 100 MCG/2 ML VIAL SLOW IVP PRN ×5 (02:14→22:44)
[2017-11-02] MEDS: ALPRAZolam 0.25 MG TAB PO PRN ×3 (05:01→22:43)
[2017-11-02] MEDS: Ondansetron HCl/PF 4 MG/2 ML Vial IVP PRN ×3 (05:02→17:28)
[2017-11-02] MEDS: Meropenem 2 GM in Sodium Chloride 0.9% 100 ML IVPB SCH ×2 (08:15→16:39)
[2017-11-02] MEDS: Enoxaparin Sodium 40 MG/0.4 ML SYRINGE SC SCH (08:16)
[2017-11-02] MEDS: Pantoprazole 40 MG VIAL IVP SCH (08:16)
[2017-11-02] MEDS: predniSONE 20 MG TAB PER TUBE SCH (08:16)
--- NOTE | 2017-11-02 08:33 | PDOC.GSPN ---
Surgery Progress Note: Subj - Subjective Patient reports: no new complaints Surgery Progress Note: Obj - Vital signs Vital signs: Vital Signs - Most Recent Temp Pulse Resp BP Pulse Ox 97.6 F 64 16 110/59 L 100 11/02/17 07:17 11/02/17 07:17 11/02/17 07:17 11/02/17 07:17 11/02/17 07:17 - Physical Exam General: no distress Cardiovascular: regular rate and rhythm Respiratory: clear to auscultation Abdomen: soft, non tender, nondistended Wound: wound vac Surgery Progress Note: Results - Labs Result Diagrams: 10/29/17 05:15 10/29/17 05:15 Surgery Progress Note: A/P - Problem (1) Abdominal abscess Current Visit: Yes Code(s): [id number] - Status: Acute (2) ARDS (adult respiratory distress syndrome) Current Visit: Yes Code(s): J80 - ACUTE RESPIRATORY DISTRESS SYNDROME Status : Acute - Plan Plan: s/p G tube -Home tomorrow -Question need for steriods after discharge -Probably no antibiotics after DC
--- NOTE | 2017-11-02 16:19 | PRG ---
DATE OF SERVICE: 11/02/2017 SERVICE: Pulmonary Medicine. INTERVAL HISTORY: The patient is doing great from a respiratory standpoint. She is breathing comfor tably. She denies any chest discomfort, nausea or vomiting. She continues to have a little bit of a dry cough. She also has sore throat, and lip pain associated with these herpes lesions. Otherwise, there has been no interval change to her condition. PHYSICAL EXAMINATION: VITAL SIGNS: Afebrile, pulse 71, blood pressure 97/63, respirations 18, saturation 97% on room air. GENERAL: The patient is awake, alert, no apparent distress. LUNGS: Decent air entry with no prolonged expiratory phase. Dependent crackles are minimal. No whe ezing or rhonchi appreciated. HEART: Normal rate, regular. ABDOMEN: Soft, nontender, nondistended. Bowel sounds are positive. MUSCULOSKELETAL: No cyanosis or clubbing. No pitting in the bilateral lower extremities. NEUROLOGIC: Grossly nonfocal. ASSESSMENT: 1. Acute hypoxic respiratory failure, resolved. 2. Adult respiratory distress syndrome, resolved. 3. Gross peritonitis, improving. 4. Herpes lip infection. DISCUSSION AND PLAN: I will put the patient on some acyclovir for 5 days. From a pure lung standpoi nt, the patient is stable for transition out of the hospital. Pulmonary Critical Care will continue to follow while she remains in-house.
[2017-11-02] MEDS: Zolpidem Tartrate 5 MG TAB PO PRN (20:34)
[2017-11-02] MEDS: Thiamine HCl 200 MG/2 ML VIAL SLOW IVP SCH (20:35)
[2017-11-02] MEDS: Acyclovir 400 mg Tablet PO SCH ×2 (20:35→22:43)
[2017-11-03] MEDS: Hydrocodone-Acetamin 15 ML UDCUP PO PRN ×3 (01:43→12:56)
[2017-11-03] MEDS: Fentanyl 100 MCG/2 ML VIAL SLOW IVP PRN ×3 (04:00→14:05)
[2017-11-03] MEDS: ALPRAZolam 0.25 MG TAB PO PRN ×2 (06:34→14:04)
[2017-11-03] MEDS: Pantoprazole 40 MG VIAL IVP SCH (07:34)
[2017-11-03] MEDS: Enoxaparin Sodium 40 MG/0.4 ML SYRINGE SC SCH (07:34)
[2017-11-03] MEDS: predniSONE 20 MG TAB PER TUBE SCH (07:34)
[2017-11-03] MEDS: Ondansetron HCl/PF 4 MG/2 ML Vial IVP PRN ×2 (07:35→14:04)
[2017-11-03] MEDS: Acyclovir 400 mg Tablet PO SCH ×3 (07:35→16:20)
--- NOTE | 2017-11-03 08:14 | PRG ---
DATE OF SERVICE: 11/03/2017 SUBJECTIVE: The patient is doing better except for some herpetic lesions around her lips and a sore throat. She has been off oxygen for quite some time. PHYSICAL EXAMINATION: VITAL SIGNS: On exam, her O2 sat is 96% on room air, pulse 68, temperature 98.4, blood pressure 89/5 9. HEENT: Unremarkable. NECK: No JVD. CHEST: Clear. CARDIAC: S1 and S2, regular. ABDOMEN: Soft. EXTREMITIES: No edema. LABORATORY DATA: No labs were done today. ASSESSMENT: 1. Status post acute respiratory distress syndrome. 2. Herpetiform lesions around the mouth. 2. Status post abdominal wall abscess. PLAN: I will taper the patient down to 10 mg of prednisone a day. She is to remain on that for a we ek and then stop the medication. She should probably do acyclovir for about 5 days. She is clear fo r discharge from a pulmonary standpoint. We will discuss with Dr. Griffith.
[2017-11-03] MEDS ORDERED: predniSONE 20 MG TAB PER TUBE SCH (09:00)
[2017-11-03] MEDS: D5 1/2 NS w/20 mEq KCL 1,000 ML IV SCH (14:04)
[2017-11-03 15:56] VITALS: BP 96/61; TEMP 98.5
--- NOTE | 2017-11-04 11:53 | DIS ---
ADMISSION DIAGNOSES: Intra-abdominal abscess, adrenal insufficiency, adult respiratory distress synd serafin, protein calorie malnutrition. DISCHARGE DIAGNOSES: Intra-abdominal abscess, adrenal insufficiency, adult respiratory distress synd serafin, protein calorie malnutrition. PROCEDURES: Abdominal washout, wound VAC placement. CONDITION AT DISCHARGE: Improved. STAFF: Dr. Liban Griffith. HOSPITAL COURSE: The patient was admitted with an intraabdominal abscess. She had manipulated her t ube as in outpatient in one of her periods of confusion secondary to chronic thiamine deficiency. Graciela abraham was brought into the operating room and had her abdomen washed out. Postoperatively, she developed ARDS and adrenal insufficiency, was seen by Pulmonary. She had a prolonged hospital course. She had her tube feeds started. On the day of discharge, she is doing well. She is discharged to home. Graciela abraham has ski tow operator help at home now, she has home health set up for wound care, wound VAC and her G-tube feeds. She will follow up with me in 2 weeks. See hospital chart for details of the hospitalization.
== END 2017-11-03 18:49 | disposition home health service (06) | DRG 856 ==
LOC: ERS 10:38 → SDC 17:00 → SURG B 19:36 → CCU 10-22 09:16 → SURG A 10-29 05:56
PROVIDERS: ADMIT Surgery; ATTEND Surgery
PROC: 0W9F0ZZ Drainage of Abdominal Wall, Open Approach (ICD-10-PCS; principal; 2017-10-17)
PROC: 5A1935Z Respiratory Ventilation, Less than 24 Consecutive Hours (ICD-10-PCS; 2017-10-22)
PROC: 02HV33Z Insertion of Infusion Device into Superior Vena Cava, Percutaneous Approach (ICD-10-PCS; 2017-10-24)
DX: T81.4XXA Infection following a procedure, initial encounter (principal); K65.9 Peritonitis, unspecified; J96.01 Acute respiratory failure with hypoxia; L02.211 Cutaneous abscess of abdominal wall; E27.40 Unspecified adrenocortical insufficiency; E51.9 Thiamine deficiency, unspecified; E46 Unspecified protein-calorie malnutrition; I25.2 Old myocardial infarction; I10 Essential (primary) hypertension; E78.5 Hyperlipidemia, unspecified; Z87.01 Personal history of pneumonia (recurrent); Z98.84 Bariatric surgery status; K21.9 Gastro-esophageal reflux disease without esophagitis; F41.9 Anxiety disorder, unspecified; F32.9 Major depressive disorder, single episode, unspecified; F43.10 Post-traumatic stress disorder, unspecified; B00.1 Herpesviral vesicular dermatitis; J44.9 Chronic obstructive pulmonary disease, unspecified; Z68.20 Body mass index [BMI] 20.0-20.9, adult
CPT/HCPCS: 36415; 36569; 70450; 71045; 74176; 80048; 80053; 80202; 81003; 82607; 82805; 83520; 83605; 83735; 83880; 84100; 84425; 84484; 85025; 86038; 86225; 86256; 87040; 87070; 87076; 87077; 87186; 87205; 87324; 87449; 93306; 94640; 94660; 96365; 96366; 96367; 96368; 96375; A4216; C1751; C9113; G8978-GP-CM; G8979-GP-CK; J0131; J1170; J1200; J1450; J1644; J1650; J1720; J1885; J1940; J2001; J2060; J2185; J2250; J2405; J2543; J2550; J2704; J2920; J2997; J3010; J3370; J3411; J3420; J3475; J3480; J7050; J7506; J7620; Q0162

== ENCOUNTER 2017-12-11 13:44 | Inpatient (IN) | payer BC ==
[2017-12-11] MEDS ORDERED: Multivitamins, Adult 10 ML, Thiamine HCl 100 MG, Folic Acid 1 MG in Dextrose 5 %-0.45 %... IV SCH (14:00)
[2017-12-11 14:09] LABS: #Basophils 0.1 thou/uL (0.0-0.2); #Eosinphils 0.1 thou/uL (0.0-0.7); #Lymphocytes 3.4 thou/uL (1.20-3.40); #Monocytes 0.8 thou/uL (0.11-0.59); #Neutrophils 8.3 thou/uL (1.40-6.50); %Basophils 0.9 % (0.0-1.0); %Eosinophils 0.7 % (0.0-10.0); %Lymphocytes 26.5 % (21.0-51.0); %Monocytes 6.6 % (0.0-10.0); %Neutrophils 65.3 % (42.0-75.0); Hemoglobin 12.5 g/dL (12.0-16.0); Mean Corpuscular HGB CONC 32.1 g/dL (32.0-36.0); Mean Corpuscular Hemoglobin 31.3 pg (27.0-31.0); Mean Corpuscular Volume 97.6 fL (78.0-98.0); Mean Platelet Volume 7.8 fL (7.4-10.4); Platelet Count 223 thou/uL (130-400); RBC Distribution Width 13.6 % (11.5-14.5); White Blood Cell (WBC) Count 12.7 thou/uL (4.8-10.8)
[2017-12-11 14:20] LABS: Bilirubin Negative (Negative); Blood, Urine Negative (Negative); Clarity CLEAR (Clear); Glucose, Urine (Dipstick) Negative (Negative); Leukocyte Trace (Negative); Nitrite Negative (Negative); Protein, Urine (Dipstick) Negative (Neg-Trace); Specific Gravity, Urine 1.012 (1.002-1.036); Urobilinogen 0.2 mg/dL (0.2-1.0); pH, Urine 5.5 (5.0-9.0)
[2017-12-11 14:22] LABS: Bacteria/HPF None Seen HPF (None Seen); Hyaline Casts/LPF 0-3 HYALINE CAST LPF (0-3 Hyaline); Pathc Cast-AUWi Flag 0.58 (0-2.49); RBC/HPF 0-3 HPF (0-3); Squamous Epithelial None Seen HPF (0-3); WBC/HPF 0-3 HPF (0-3)
[2017-12-11] MEDS ORDERED: Fentanyl 100 MCG/2 ML VIAL ONE (14:34)
[2017-12-11 14:35] LABS: Troponin I Less than 0.010 ng/mL (< 0.028)
[2017-12-11 14:36] LABS: ALT (SGPT) 32 U/L (8-55); AST (SGOT) 42 U/L (5-34); Albumin 3.7 g/dL (3.5-5.0); Alkaline Phosphatase 231 U/L (40-150); Anion Gap 12 mmol/L (10-20); BUN (Urea Nitrogen) 16 mg/dL (9.8-20.1); Bilirubin, Total 0.2 mg/dL (0.2-1.2); Calc. Creatinine Clearance 0 mL/min (70-130); Calcium 8.5 mg/dL (7.8-10.44); Carbon Dioxide 23 mmol/L (22-29); Chloride 108 mmol/L (98-107); Estimated GFR-MDRD 73; Glucose 107 mg/dL (70-105); Lipase 24 U/L (8-78); Magnesium 1.8 mg/dL (1.6-2.6); Protein, Total 6.7 g/dL (6.0-8.3); Sodium 139 mmol/L (136-145)
[2017-12-11] MEDS ORDERED: HYDROcodone/Acetaminophen 5/325 mg Tablet PER TUBE PRN ×2 (17:06)
[2017-12-11] MEDS ORDERED: Ondansetron ODT 4 MG TAB PO PRN (17:06)
[2017-12-11] MEDS: diphenhydrAMINE 25 MG in Sodium Chloride 0.9% 50 ML IVPB PRN (18:47)
[2017-12-11] MEDS: Morphine 4 MG/ML VIAL SLOW IVP PRN (18:48)
[2017-12-11] MEDS ORDERED: Zolpidem Tartrate 5 MG TAB PO PRN (18:58)
[2017-12-11 20:12] VITALS: BMI 24.0
[2017-12-11] MEDS: ALPRAZolam 1 MG TAB PO PRN (20:56)
[2017-12-12] MEDS: diphenhydrAMINE 25 MG in Sodium Chloride 0.9% 50 ML IVPB PRN ×2 (00:44→07:31)
[2017-12-12] MEDS: Morphine 4 MG/ML VIAL SLOW IVP PRN ×5 (01:17→23:54)
[2017-12-12] MEDS: ALPRAZolam 1 MG TAB PO PRN (08:32)
--- NOTE | 2017-12-12 09:12 | HP ---
DATE OF ADMISSION: 12/11/2017 CHIEF COMPLAINT: Altered mental status. HISTORY OF PRESENT ILLNESS: This patient is a 62-year-old female who presented to the emergency depa rtment. This patient has a history of several gastric surgeries initially starting with a gastric ba nding, subsequently had a Prabhakar-en-Y procedure and most recently had a G-tube placed. The patient has a history of thiamine deficiency going back as far as 2011. She has had multiple episodes in which she becomes symptomatic with some altered mental status and some physical complaints that have been a ttributed to the thiamine deficiency. She presented to [facility] Emergency Room with these sy mptoms initially on a couple of separate occasions and then ultimately presented here for the third t maribeth in a week to see an emergency room physician regarding her symptoms. The patient's primary cally rn is that she is having difficulty speaking and having a significant carpopedal spasm. She reports that this has been typical of her prior symptoms with her thiamine deficiency. She also reports that in general she has been having some difficulty with things like her memory, difficulty remembering h ow to use a TV remote and such. She also has chronic pain syndrome and is reporting that she has mellisa e abdominal pain and headache. She reports that she got fentanyl in the emergency department which r elizabethy did not help her significantly. She also specifically tells me that she has an allergy to MORP WANDA listed, but she is capable of taking that along with Benadryl. She follows closely with Dr. Angelo hilario and he has told her that he is concerned that she may have some chronic brain damage. It is rec ommended that she follow up with Neurology; however, that has not occurred as of yet. The patient re ports that her abdominal pain was associated with some swelling and some constipation. REVIEW OF SYSTEMS: Most notable for no significant numbness, tingling. She had a questionable tremo r on the right side. She has been having some falls as well. Otherwise the 10-system review is negative. PAST MEDICAL HISTORY: Notable for the chronic thiamine deficiency. Of note, the patient has multipl e thiamine levels in the computer since 2011, they have all been normal or even elevated. She has ch ronic pain syndrome, history of aspiration pneumonia, history of urinary tract infections, nonalcohol ic steatohepatitis, B12 deficiency and macrocytic anemia. PAST SURGICAL HISTORY: She has had a PEG placement, closure of a gastrocutaneous fistula, total abdo carina hysterectomy, bilateral BSO, appendectomy, abdominoplasty, Prabhakar-en-Y bypass, bilateral breast r eduction surgery. FAMILY HISTORY: Coronary artery bypass in her father, coronary stents and strokes in her mother. SOCIAL HISTORY: The patient is a nonsmoker, nondrinker, nondrug user. She is . CODE STATUS: She is a full code. Her is her surrogate decision maker. ALLERGIES: Include MORPHINE, CIPRO, IODINATED CONTRAST, IODINE. CURRENT MEDICATIONS: B12 100 mcg IM as directed, vitamin B complex 1 p.o. daily, calcium 500 mg ever y day, Xanax 1 mg t.i.d., potassium 20 mEq b.i.d., Phenergan 25 mg p.o. t.i.d. Protonix 40 mg b.i.d. Folate 0.8 mg p.o. daily, Zofran 4 mg sublingual t.i.d. p.r.n., magnesium 400 mg daily, Ambien 10 m g at bedtime, [place] 1 to 2 p.o. q.4 hours p.r.n., thiamine 100 mg p.o. daily. PHYSICAL EXAMINATION: VITAL SIGNS: Temperature 98.1, pulse 70, respirations 16, O2 sat 93% on room air, BP 111/76. GENERAL APPEARANCE: Age appropriate female. She is awake and alert and conversant. She does have f airly good movement of her extremities. At the moment she is not distressed. HEENT: Pupils are reactive. She has no OP lesions. CARDIOVASCULAR: Regular rate and rhythm without murmurs, gallops or rubs. LUNGS: Clear bilaterally. ABDOMEN: Flat, soft. She does have some tenderness to palpation in the periumbilical and slightly i n the epigastric area as well. EXTREMITIES: Warm and dry without edema. NEUROLOGIC: The patient is slightly delayed at times in her responses. She does have some word find ing difficulties at times. She appears to have good movement in her hands and feet now which she sta facundo is already improving since she has been receiving a banana bag in the emergency department. She has no other gross deficits. LABORATORY DATA: White count is 12.7, hemoglobin 12.5, chloride 108, glucose 107, AST 42, alkaline p hosphatase 231, otherwise chemistry is normal. Lipase is 24. Troponin less than 0.01. Urinalysis i s negative. ASSESSMENT AND PLAN: 1. Carpopedal spasm, presumably secondary to a thiamine deficiency. The patient is already improvin g with the use of a banana bag. We will continue with the infusion and give a second bag as this has typically been a reasonable treatment course for her in the past and she has responded well to it. We will not recheck a thiamine level at this time as she has already had some infusion and her levels have been quite normal on recent checks. 2. Chronic pain syndrome. We will give the patient some pain medications for abdominal pain and hea dache. We will give the morphine along with the Benadryl to be slightly longer acting than the fenta nyl. 3. Headache, unclear etiology, appears benign. 4. Mild leukocytosis, likely stress reaction with demargination. We will recheck in the morning and follow vital signs to ensure that she does not develop any fever. 5. I believe there is some concern that she may have some Wernicke-Korsakoff syndrome related to her chronic thiamine deficiency. I certainly agree that the patient needs to have a neurological evalua tion which can be arranged as an outpatient at discharge.
[2017-12-12 11:50] LABS: #Eosinphils 0.1 thou/uL (0.0-0.7); #Lymphocytes 2.3 thou/uL (1.20-3.40); #Monocytes 0.5 thou/uL (0.11-0.59); #Neutrophils 3.2 thou/uL (1.40-6.50); %Basophils 0.5 % (0.0-1.0); %Eosinophils 1.4 % (0.0-10.0); %Lymphocytes 37.4 % (21.0-51.0); %Monocytes 7.5 % (0.0-10.0); %Neutrophils 53.1 % (42.0-75.0); Hemoglobin 11.5 g/dL (12.0-16.0); Mean Corpuscular HGB CONC 32.8 g/dL (32.0-36.0); Mean Corpuscular Hemoglobin 32.3 pg (27.0-31.0); Mean Corpuscular Volume 98.5 fL (78.0-98.0); Mean Platelet Volume 8.1 fL (7.4-10.4); Platelet Count 157 thou/uL (130-400); RBC Distribution Width 13.5 % (11.5-14.5); Red Blood Cell (RBC) Count 3.57 mill/uL (4.20-5.40); White Blood Cell (WBC) Count 6.1 thou/uL (4.8-10.8)
[2017-12-12] MEDS ORDERED: diphenhydrAMINE 25 MG CAP PO PRN (12:32)
--- NOTE | 2017-12-12 15:12 | PDOC.PN ---
- Subjective Encounter Start Date: 12/12/17 Encounter Start Time: 15:10 Subjective: c/o SEVERE shoulder pain at IO access site.mentation NL -: wants her to stay in [facility] she is taking 5 cans TD daily -: want morphine w benadryl every 6 hours.no N/V/abd pain - Objective Resuscitation Status: Resuscitation Status FULL:Full Resuscitation MAR Reviewed: Yes Vital Signs & Weight: Vital Signs (12 hours) Temp Pulse Resp BP Pulse Ox 12/12/17 11:50 97.9 F 79 18 108/73 93 L 12/12/17 07:55 97.9 F 73 18 109/64 94 L Weight Admit Weight 140 lb 4.8 oz Weight 140 lb 4.8 oz I&O: 12/11/17 12/12/17 12/13/17 06:59 06:59 06:59 Intake Total 1751 Balance 1751 Result Diagrams: 12/12/17 11:34 12/11/17 13:54 Phys Exam - Physical Examination Constitutional: NAD HEENT: PERRLA, moist MMs, sclera anicteric, oral pharynx no lesions Neck: no nodes, no JVD, supple, full ROM Cardiovascular: RRR, no significant murmur, no rub Gastrointestinal: soft, non-tender, no distention, positive bowel sounds Musculoskeletal: no edema, pulses present Neurological: non-focal, normal sensation, moves all 4 limbs Psychiatric: normal affect, A&O x 3 Skin: no rash Dx/Plan (1) Acute encephalopathy Code(s): G93.40 - ENCEPHALOPATHY, UNSPECIFIED Status: Acute Comment: resoving (2) History of gastrectomy Code(s): Z90.3 - ACQUIRED ABSENCE OF STOMACH [PART OF] Status: Acute (3) Anxiety and depression Code(s): F41.8 - OTHER SPECIFIED ANXIETY DISORDERS Status: Chronic (4) Macrocytic anemia with vitamin B12 deficiency Code(s): D51.9 - VITAMIN B12 DEFICIENCY ANEMIA, UNSPECIFIED Status: Chronic (5) MORRIS (nonalcoholic steatohepatitis) Code(s): K75.81 - NONALCOHOLIC STEATOHEPATITIS (MORRIS) Status: Chronic - Plan plan discussed w/ family, PT/OT, DVT proph w/SCDs Pt was only getting 2 cans/day by d/t ignorance -: increase TF per dietitian to 100 ml/hr to give 5 cans/day -: HH nurse to continue to increase till at goal at home -: mentation at baseline. DC later today -: Stop IV benadryl.morphine w caution * .Pt very weak and essentially bed bound but both refused HH w PT/OT * refuses Vidor and tramdol fo rpain control"they don't work" * denies chronic pain med use Review of Systems - Review of Systems Constitutional: negative: fever, chills, sweats, weakness, malaise, other ENT: negative: Ear Pain, Ear Discharge, Nose Pain, Nose Discharge, Nose Congestion, Mouth Pain, Mouth Swelling, Throat Pain, Throat Swelling, Other Respiratory: negative: Cough, Dry, Shortness of Breath, Hemoptysis, SOB with Excertion, Pleuritic Pain, Sputum, Wheezing Cardiovascular: negative: chest pain, palpitations, orthopnea, paroxysmal nocturnal dyspnea, edema, light headedness, other Gastrointestinal: negative: Nausea, Vomiting, Abdominal Pain, Diarrhea, Constipation, Melena, Hematochezia, Other Genitourinary: negative: Dysuria, Frequency, Incontinence, Hematuria, Retention , Other Musculoskeletal: negative: Neck Pain, Shoulder Pain, Arm Pain, Back Pain, Hand Pain, Leg Pain, Foot Pain, Other Skin: negative: Rash, Lesions, Koko, Bruising, Other Neurological: negative: Weakness, Numbness, Incoordination, Change in Speech, Confusion, Seizures, Other - Medications/Allergies Allergies/Adverse Reactions: Allergies Allergy/AdvReac Type Severity Reaction Status Date / Time morphine AdvReac Severe hives, sob Verified 12/11/17 19:51 ciprofloxacin AdvReac Mild Stomach Verified 12/11/17 19:51 Ache Iodinated Contrast- Oral and AdvReac Mild Stomach Verified 12/11/17 19:51 IV Dye Ache [Iodinated Contrast Media - IV Dye] iodine AdvReac Mild Stomach Verified 12/11/17 19:51 Ache Medications: Current Medications Acetaminophen (Tylenol) 650 mg PER TUBE Q4H PRN PRN Reason: Headache/Fever/Mild Pain (1-3) Hydrocodone Bitart/Acetaminophen (Vidor 5/325) 1 tab PER TUBE Q4H PRN PRN Reason: Moderate Pain (4-6) Hydrocodone Bitart/Acetaminophen (Vidor 5/325) 2 tab PER TUBE Q4H PRN PRN Reason: Severe Pain (7-10) Last Admin: 12/12/17 06:18 Dose: 2 tab Alprazolam (Xanax) 1 mg PO TIDPRN PRN PRN Reason: Anxiety/Agitation Last Admin: 12/12/17 08:32 Dose: 1 mg Diphenhydramine HCl (Benadryl) 25 mg PO Q6H PRN PRN Reason: Itching & Insomnia Last Admin: 12/12/17 12:44 Dose: 25 mg Multivitamins 10 ml/ Thiamine HCl 100 mg/ Folic Acid 1 mg/Dextrose/Sodium Chloride 1,011.2 mls @ 125 mls/hr IV INF KAILEY Stop: 12/12/17 22:06 Last Admin: 12/11/17 20:51 Dose: 1,011.2 mls Thiamine HCl 100 mg/ Sodium (Chloride) 51 mls @ 100 mls/hr IVPB Q24HR KAILEY Morphine Sulfate (Morphine) 4 mg SLOW IVP Q6H PRN PRN Reason: Moderate to Severe Pain (6-10) Last Admin: 12/12/17 12:59 Dose: 4 mg Ondansetron HCl (Zofran Odt) 4 mg PO Q6H PRN PRN Reason: Nausea/Vomiting Last Admin: 12/12/17 09:11 Dose: 4 mg Zolpidem Tartrate (Ambien) 5 mg PO HSPRN PRN PRN Reason: .INSOMNIA Last Admin: 12/11/17 22:22 Dose: 5 mg
--- NOTE | 2017-12-12 15:18 | PDOC.EVN ---
Event Note - Event Note Event Note: Notified by RN that Dr Griffith saw the pt and recommend IV thiamine infusion and some "port" on Friday and pt needs to stay. will change to Inpatient.Await final recs
--- NOTE | 2017-12-12 16:05 | PRG ---
DATE OF SERVICE: 12/12/2017 SUBJECTIVE: Ms. Henderson comes in with symptoms of being unresponsive and a contractured state. She improved with banana bag initiation in the emergency room. She is confused still and slurring some w ords, but for the most part alert and oriented. Discussed with her , Emmanuel this morning her cu rrent symptoms. Her exam is stable and her wounds are all well healed. Hemoglobin is 11.5, platelet s are 157. Sodium is 139, potassium is 4.0. Her albumin is 3.7. Her alkaline phosphatase is 231 th at is a chronic thing from chronic steatohepatitis, AST elevated at 42, likely from the same. Urine was clear. Per second assessment is chronic malnourished state. Really, she has been told and couns eled that she needs to be taking more tube feeds which could even be bolus tube feeds in her remnant stomach; however, she does very little of this at home. Although now that [place], that should not be as big of a problem. Her thiamine levels are always normal w hen we check it. She does respond to thiamine almost wonder if this is a placebo effect. Trey fuchs, for thinking this is thiamine deficiency, she needs IV thiamine for a few more days in the hospi ирина, maximize nutrition via her G-tube as well as continued observation. I would consult Neurology i f there are any more episodes of mental status change. I have already called into [facility] her Thiamine 100 mg to be taken twice via her G-tube at home. This certainly needs to be given in the G-tube that way, it is absorbed in the normal way given her anatomy. Her G-tube is in her remnan t/antrum and so any feeds or vitamins or medicines given via her G-tube will be absorbed in the reji l way. Anything she swallows by mouth given her Prabhakar-en-Y gastrojejunostomy and previous stomach res ection may not be so from a nutrition standpoint, all nutrition and medicines should be given via thi s G-tube. She also needs to stop her Phenergan at home. Some of these symptoms could be tardive dys kinesia or extrapyramidal symptoms. She was taken that Phenergan around the clock at home, although she states that she just recently. She also is taking both Ativan and Xanax as an outpatient. She needs to stop the Ativan and I would not recommend she probably needs to be on Xanax twice a day . We can wean that off as an outpatient with the help of her primary care doctor. They have also th ought about she asked about MediPort since she has chronic IV fluids needs. I think when we maximize nutrition and close followup and cut out the medicines with potential side effects cause any symptom s, I think that she will need as much IV intervention. However, I am agreeable to place a MediPort i n her as an outpatient within the next few weeks. If this facilitates IV access on future potential admissions, Dr. Quezada is covering me for this weekend. I will be back on Friday. If she is still h ere, I could theoretically do that MediPort on Friday afternoon.
--- NOTE | 2017-12-12 16:10 | PDOC.GSPN ---
Surgery Progress Note: Subj - Subjective Narrative: Seems more alert. Confused at times Surgery Progress Note: Obj - Vital signs Vital signs: Vital Signs - Most Recent Temp Pulse Resp BP Pulse Ox 97.9 F 79 18 108/73 93 L 12/12/17 11:50 12/12/17 11:50 12/12/17 11:50 12/12/17 11:50 12/12/17 11:50 - Physical Exam General: no distress Cardiovascular: regular rate and rhythm Respiratory: clear to auscultation Abdomen: soft, non tender Surgery Progress Note: Results - Labs Result Diagrams: 12/12/17 11:34 12/11/17 13:54 Lab results: Laboratory Results - last 24 hr 12/12/17 11:34 WBC 6.1 RBC 3.57 L Hgb 11.5 L Hct 35.1 L MCV 98.5 H MCH 32.3 H MCHC 32.8 RDW 13.5 Plt Count 157 MPV 8.1 Neutrophils % 53.1 Lymphocytes % 37.4 Monocytes % 7.5 Eosinophils % 1.4 Basophils % 0.5 Neutrophils # 3.2 Lymphocytes # 2.3 Monocytes # 0.5 Eosinophils # 0.1 Basophils # 0.0 Surgery Progress Note: A/P - Problem (1) Wernicke encephalopathy Current Visit: Yes Code(s): E51.2 - WERNICKE'S ENCEPHALOPATHY Status: Acute Assessment and Plan: I started IV thiamine. continue for 4 days then oral 100 mg per G tube twice a day. I sent rx to her pharmacy. It will have to be crushed and placed thru the G tube. No medicines should be given by mouth given her questionable malabsorption. The G tube is in her remnant stomach (antrum) and anything given per G tube should be absorbed normally. (2) Delirium Current Visit: Yes Code(s): R41.0 - DISORIENTATION, UNSPECIFIED Status: Acute Assessment and Plan: Likely multifactoral. I told her she needs to stop taking any oral phenergan at home given rare but possible tardive dyskinesia which could have been responsible for her presenting symptoms. She was also taking both oral ativan and xanax. Again all meds need to be given per G tube and she should stop the ativan completely.
--- NOTE | 2017-12-12 16:14 | PDOC.EVN ---
Event Note - Event Note Event Note: Given her potential malabsorption and unpredictable effect of medicines given PO all oral meds should be converted to per G tube. I also recommend no phenergan or benadryl given her potential history of tardive dyskinesia.
[2017-12-12] MEDS ORDERED: Hydrocodone-Acetamin 15 ML UDCUP PO PRN (17:25)
[2017-12-12] MEDS ORDERED: Zolpidem Tartrate 5 MG TAB PER TUBE PRN (20:30)
[2017-12-12] MEDS: Ondansetron ODT 4 MG TAB PER TUBE PRN (21:10)
[2017-12-12] MEDS: Pantoprazole 40 MG VIAL IVP SCH (21:13)
[2017-12-12] MEDS ORDERED: Lorazepam 2 MG/ML VIAL ONE (22:12)
[2017-12-12] MEDS ORDERED: Polyethylene Glycol 3350 17 GM Packet PER TUBE PRN (22:19)
[2017-12-12] MEDS ORDERED: Lorazepam 2 MG/ML VIAL SLOW IVP SCH (22:30)
[2017-12-12] MEDS ORDERED: Multivitamins, Adult 10 ML, Thiamine HCl 100 MG, Folic Acid 1 MG in Dextrose 5 %-0.45 %... IV SCH (22:30)
[2017-12-12 22:42] LABS: ALT (SGPT) 44 U/L (8-55); AST (SGOT) 58 U/L (5-34); Albumin 3.8 g/dL (3.5-5.0); Alkaline Phosphatase 274 U/L (40-150); Anion Gap 13 mmol/L (10-20); BUN (Urea Nitrogen) 11 mg/dL (9.8-20.1); Bilirubin, Total 0.3 mg/dL (0.2-1.2); Calc. Creatinine Clearance 86 mL/min (70-130); Calcium 9.1 mg/dL (7.8-10.44); Carbon Dioxide 24 mmol/L (22-29); Chloride 105 mmol/L (98-107); Estimated GFR-MDRD 85; Globulin 3.2 g/dL (2.4-3.5); Glucose 132 mg/dL (70-105); Magnesium 1.7 mg/dL (1.6-2.6); Phosphorus 3.7 mg/dL (2.3-4.7); Potassium 4.5 mmol/L (3.5-5.1); Sodium 137 mmol/L (136-145)
[2017-12-13] MEDS: Ondansetron ODT 4 MG TAB PER TUBE PRN ×2 (05:48→16:45)
[2017-12-13] MEDS: Morphine 4 MG/ML VIAL SLOW IVP PRN ×3 (06:11→19:00)
[2017-12-13] MEDS ORDERED: Pantoprazole 40 MG VIAL IVP SCH (09:00)
[2017-12-13] MEDS: Acetaminophen 325 MG TAB PER TUBE PRN ×2 (09:35→16:47)
[2017-12-13 09:41] LABS: Anion Gap 12 mmol/L (10-20); BUN (Urea Nitrogen) 8 mg/dL (9.8-20.1); Calc. Creatinine Clearance 95 mL/min (70-130); Calcium 9.1 mg/dL (7.8-10.44); Carbon Dioxide 22 mmol/L (22-29); Chloride 105 mmol/L (98-107); Estimated GFR-MDRD Greater than 90; Glucose 115 mg/dL (70-105); Magnesium 1.9 mg/dL (1.6-2.6); Phosphorus 3.7 mg/dL (2.3-4.7); Potassium 4.4 mmol/L (3.5-5.1); Sodium 135 mmol/L (136-145)
[2017-12-13] MEDS ORDERED: Gadobenate Dimeglumine 529 MG/1 ML (20ML VIAL) ONE (10:57)
[2017-12-13] MEDS: ALPRAZolam 1 MG TAB PER TUBE PRN ×2 (12:34→21:05)
--- NOTE | 2017-12-13 13:19 | PDOC.PN ---
- Subjective Encounter Start Date: 12/13/17 Encounter Start Time: 13:18 Subjective: had another "episode " last night of unresponsiveness & carpal spasms -: wants to get it"sorted out"this admission -: pt reports similar going on "for years' feels better for now They report that these episodes are happening more frequently and they resolve w banana Bag - Objective Resuscitation Status: Resuscitation Status FULL:Full Resuscitation MAR Reviewed: Yes Vital Signs & Weight: Vital Signs (12 hours) Temp Pulse Resp BP Pulse Ox 12/13/17 04:00 98.0 F 74 18 127/82 96 12/13/17 01:31 98 Weight Admit Weight 140 lb 4.8 oz Weight 140 lb 4.8 oz I&O: 12/12/17 12/13/17 12/14/17 06:59 06:59 06:59 Intake Total 1751 1100 30 Balance 1751 1100 30 Result Diagrams: 12/12/17 11:34 12/13/17 09:06 Additional Labs: Accuchecks 12/12/17 22:12 POC Glucose 135 H Laboratory Tests 12/13/17 09:06 Calcium 9.1 Phosphorus 3.7 Magnesium 1.9 Phys Exam - Physical Examination Constitutional: NAD HEENT: PERRLA, moist MMs, sclera anicteric, oral pharynx no lesions Neck: no nodes, no JVD, supple, full ROM Respiratory: no wheezing, no rales, no rhonchi, clear to auscultation bilateral Cardiovascular: RRR, no significant murmur, no rub Gastrointestinal: soft, non-tender, no distention, positive bowel sounds Musculoskeletal: no edema, pulses present Neurological: non-focal, normal sensation, moves all 4 limbs Psychiatric: normal affect, A&O x 3 Skin: no rash Dx/Plan (1) Acute encephalopathy Code(s): G93.40 - ENCEPHALOPATHY, UNSPECIFIED Status: Resolved Comment: resoving (2) History of gastrectomy Code(s): Z90.3 - ACQUIRED ABSENCE OF STOMACH [PART OF] Status: Acute (3) Anxiety and depression Code(s): F41.8 - OTHER SPECIFIED ANXIETY DISORDERS Status: Chronic (4) Macrocytic anemia with vitamin B12 deficiency Code(s): D51.9 - VITAMIN B12 DEFICIENCY ANEMIA, UNSPECIFIED Status: Chronic (5) MORRIS (nonalcoholic steatohepatitis) Code(s): K75.81 - NONALCOHOLIC STEATOHEPATITIS (MORRIS) Status: Chronic - Plan plan discussed w/ family, out of bed/ambulate, DVT proph w/SCDs Unsure about the cause of spasms.Thiamine level pending.Ca,Mag levels NL -: will check MRI and consult neuro per family request.no recent neuro work up -: supportive care -: TF at goals as directed by Dietitian yesterday. -: all meds per G tube as per Dr Brice.mediport Friday per Dr brice * .HD stable. * home meds as below Review of Systems - Review of Systems Constitutional: weakness, malaise. negative: fever, chills, sweats, other ENT: negative: Ear Pain, Ear Discharge, Nose Pain, Nose Discharge, Nose Congestion, Mouth Pain, Mouth Swelling, Throat Pain, Throat Swelling, Other Respiratory: negative: Cough, Dry, Shortness of Breath, Hemoptysis, SOB with Excertion, Pleuritic Pain, Sputum, Wheezing Cardiovascular: negative: chest pain, palpitations, orthopnea, paroxysmal nocturnal dyspnea, edema, light headedness, other Gastrointestinal: Nausea, Abdominal Pain. negative: Vomiting, Diarrhea, Constipation, Melena, Hematochezia, Other Genitourinary: negative: Dysuria, Frequency, Incontinence, Hematuria, Retention , Other Musculoskeletal: negative: Neck Pain, Shoulder Pain, Arm Pain, Back Pain, Hand Pain, Leg Pain, Foot Pain, Other Skin: negative: Rash, Lesions, Koko, Bruising, Other Neurological: negative: Weakness, Numbness, Incoordination, Change in Speech, Confusion, Seizures, Other - Medications/Allergies Allergies/Adverse Reactions: Allergies Allergy/AdvReac Type Severity Reaction Status Date / Time morphine AdvReac Severe hives, sob Verified 12/11/17 19:51 ciprofloxacin AdvReac Mild Stomach Verified 12/11/17 19:51 Ache Iodinated Contrast- Oral and AdvReac Mild Stomach Verified 12/11/17 19:51 IV Dye Ache [Iodinated Contrast Media - IV Dye] iodine AdvReac Mild Stomach Verified 12/11/17 19:51 Ache Medications: Current Medications Acetaminophen (Tylenol) 650 mg PER TUBE Q4H PRN PRN Reason: Headache/Fever/Mild Pain (1-3) Last Admin: 12/13/17 09:35 Dose: 650 mg Hydrocodone Bitart/Acetaminophen (Hydrocodone-Apap 7.5-325/15) 15 ml PER TUBE Q6H PRN PRN Reason: PAIN 4-6 Alprazolam (Xanax) 1 mg PER TUBE TIDPRN PRN PRN Reason: Anxiety/Agitation Last Admin: 12/13/17 12:34 Dose: 1 mg Thiamine HCl 100 mg/ Sodium (Chloride) 51 mls @ 100 mls/hr IVPB Q24HR KAILEY Last Admin: 12/12/17 17:45 Dose: 51 mls Morphine Sulfate (Morphine) 4 mg SLOW IVP Q6H PRN PRN Reason: Moderate to Severe Pain (6-10) Last Admin: 12/13/17 12:17 Dose: 4 mg Ondansetron HCl (Zofran Odt) 4 mg PER TUBE Q6H PRN PRN Reason: Nausea/Vomiting Last Admin: 12/13/17 05:48 Dose: 4 mg Pantoprazole Sodium (Protonix) 40 mg IVP HS KAILEY Last Admin: 12/12/17 21:13 Dose: 40 mg Polyethylene Glycol (Miralax) 17 gm PER TUBE DAILYPRN PRN PRN Reason: CONSTIPATION Last Admin: 12/13/17 09:35 Dose: 17 gm Sodium Chloride (Flush - Normal Saline) 10 ml IV HS KAILEY Last Admin: 12/12/17 21:13 Dose: 10 ml Zolpidem Tartrate (Ambien) 5 mg PER TUBE HSPRN PRN PRN Reason: .INSOMNIA
--- NOTE | 2017-12-13 14:21 | MRI ---
MRI BRAIN WITH AND WITHOUT CONTRAST: Date: 12/13/17 Multiplanar, multisequential imaging of brain obtained. Post Gadolinium images were obtained with 13 mL MultiHance IV. INDICATION: Carpopedal spasm given as reason for exam. Comparison made to recent CT head of 10/20/17. Comparison is also made to the head CT of 11/23/16 and 02/01/15. The CT scans have demonstrated a focal area of low attenuation in the periventricular whit e matter from the left with punctate calcifications. This finding has remained stable when compared t o the 2014 exam, and was also first noted on exam from 07/12/12, at which time it was a new finding w hen compared to the 2011 study. FINDINGS: Today's MRI reveals a focal area of high FLAIR and T2 signal at this location in the centrum semioval e of the left cerebral hemisphere. This area of apparent gliosis on the FLAIR sequence measures up to 2.0 cm in the AP dimension. No enhancement is associated with this abnormality on the postcontrast i mages. There are other scattered white matter hyperintensities on FLAIR consistent with mild chronic ischemi c change. There is no evidence of restricted diffusion. No abnormal enhancement identified. The intracranial internal carotid arteries and proximal cerebral arteries show flow-voids. Dural veno us sinuses appear patent. Mucosal edema seen in both mastoid air cells on T2 sequence, more prominent on the right. IMPRESSION: Abnormal focus of apparent gliosis in the left centrum semiovale. This is at the site of previously n oted lucency and punctate calcification seen on CT scans as described above. Calcifications and high T2 signal could be associated with low grade neoplasm without enhancement; however, the stability on CT since 2012 would suggest a benign process. Since there are new neurologic findings, recommend shor t-term follow-up MRI to confirm MRI stability. Follow-up MRI in 3-4 months is suggested, unless neuro logic findings indicate sooner imaging. POS: JENNIFER
[2017-12-13] MEDS: Pantoprazole 40 MG VIAL IVP SCH (20:12)
[2017-12-14] MEDS: Morphine 4 MG/ML VIAL SLOW IVP PRN ×4 (01:09→19:17)
[2017-12-14] MEDS: Acetaminophen 325 MG TAB PER TUBE PRN (03:17)
[2017-12-14 06:04] LABS: Anion Gap 13 mmol/L (10-20); BUN (Urea Nitrogen) 9 mg/dL (9.8-20.1); Calc. Creatinine Clearance 94 mL/min (70-130); Calcium 9.1 mg/dL (7.8-10.44); Carbon Dioxide 23 mmol/L (22-29); Chloride 103 mmol/L (98-107); Estimated GFR-MDRD Greater than 90; Glucose 113 mg/dL (70-105); Potassium 4.1 mmol/L (3.5-5.1); Sodium 135 mmol/L (136-145)
[2017-12-14] MEDS: Ondansetron ODT 4 MG TAB PER TUBE PRN (07:11)
[2017-12-14] MEDS: Hydrocodone-Acetamin 15 ML UDCUP PER TUBE PRN ×2 (10:47→17:45)
--- NOTE | 2017-12-14 11:11 | PDOC.PN ---
- Subjective Encounter Start Date: 12/14/17 Encounter Start Time: 11:10 Subjective: FEELS WELL. NO NEW EVENTS. -: ONCE AGAIN DISCUSSED MEDICAL HISTORY W PT & IN DETAIL -: No more episodes of myoclonus/posturing - Objective Resuscitation Status: Resuscitation Status FULL:Full Resuscitation MAR Reviewed: Yes Vital Signs & Weight: Vital Signs (12 hours) Temp Pulse Resp BP Pulse Ox 12/14/17 11:04 98.5 F 74 16 115/77 97 12/14/17 07:20 97.6 F 72 16 106/71 96 Weight Admit Weight 140 lb 4.8 oz Weight 140 lb 4.8 oz I&O: 12/13/17 12/14/17 12/15/17 06:59 06:59 06:59 Intake Total 1100 1620 Balance 1100 1620 Result Diagrams: 12/12/17 11:34 12/14/17 04:50 Phys Exam - Physical Examination Constitutional: NAD HEENT: PERRLA, moist MMs, sclera anicteric, oral pharynx no lesions Neck: no nodes, no JVD, supple, full ROM Respiratory: no wheezing, no rales, no rhonchi, clear to auscultation bilateral Cardiovascular: RRR, no significant murmur, no rub Gastrointestinal: soft, non-tender, no distention, positive bowel sounds G tube site clean Musculoskeletal: no edema, pulses present Neurological: non-focal, normal sensation, moves all 4 limbs Lymphatic: no nodes Psychiatric: normal affect, A&O x 3 Skin: no rash Dx/Plan (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 - MYOCLONUS Status: Acute Comment: No clear etiology.MRI done.neurology recs rquested (2) History of gastrectomy Code(s): Z90.3 - ACQUIRED ABSENCE OF STOMACH [PART OF] Status: Chronic (3) Anxiety and depression Code(s): F41.8 - OTHER SPECIFIED ANXIETY DISORDERS Status: Chronic (4) Macrocytic anemia with vitamin B12 deficiency Code(s): D51.9 - VITAMIN B12 DEFICIENCY ANEMIA, UNSPECIFIED Status: Chronic (5) MORRIS (nonalcoholic steatohepatitis) Code(s): K75.81 - NONALCOHOLIC STEATOHEPATITIS (MORRIS) Status: Chronic (6) Acute encephalopathy Code(s): G93.40 - ENCEPHALOPATHY, UNSPECIFIED Status: Resolved Comment: resoving - Plan plan discussed w/ family, PT/OT, out of bed/ambulate, DVT proph w/SCDs Unknown etiology for myoclonic/posturing episodes.ongoin for years.? Seizur -: awating Neurology recs. Douby Vitamin/lyte abnormalities -: ? Psychiartic . report it always get better w Banana bag -: HD stable. Retsart TF slower rate as pt w some nausea. -: Mediport placement tomorrow as per recs. * .On IV thiamine for possible wernickes * Thiamine level pending Review of Systems - Review of Systems Constitutional: negative: fever, chills, sweats, weakness, malaise, other Respiratory: negative: Cough, Dry, Shortness of Breath, Hemoptysis, SOB with Excertion, Pleuritic Pain, Sputum, Wheezing Cardiovascular: negative: chest pain, palpitations, orthopnea, paroxysmal nocturnal dyspnea, edema, light headedness, other Gastrointestinal: negative: Nausea, Vomiting, Abdominal Pain, Diarrhea, Constipation, Melena, Hematochezia, Other Genitourinary: negative: Dysuria, Frequency, Incontinence, Hematuria, Retention , Other Musculoskeletal: negative: Neck Pain, Shoulder Pain, Arm Pain, Back Pain, Hand Pain, Leg Pain, Foot Pain, Other Skin: negative: Rash, Lesions, Koko, Bruising, Other Neurological: negative: Weakness, Numbness, Incoordination, Change in Speech, Confusion, Seizures, Other - Medications/Allergies Allergies/Adverse Reactions: Allergies Allergy/AdvReac Type Severity Reaction Status Date / Time morphine AdvReac Severe hives, sob Verified 12/11/17 19:51 ciprofloxacin AdvReac Mild Stomach Verified 12/11/17 19:51 Ache Iodinated Contrast- Oral and AdvReac Mild Stomach Verified 12/11/17 19:51 IV Dye Ache [Iodinated Contrast Media - IV Dye] iodine AdvReac Mild Stomach Verified 12/11/17 19:51 Ache Medications: Current Medications Acetaminophen (Tylenol) 650 mg PER TUBE Q4H PRN PRN Reason: Headache/Fever/Mild Pain (1-3) Last Admin: 12/14/17 03:17 Dose: 650 mg Hydrocodone Bitart/Acetaminophen (Hydrocodone-Apap 7.5-325/15) 15 ml PER TUBE Q6H PRN PRN Reason: PAIN 4-6 Last Admin: 12/14/17 10:47 Dose: 15 ml Alprazolam (Xanax) 1 mg PER TUBE TIDPRN PRN PRN Reason: Anxiety/Agitation Last Admin: 12/13/17 21:05 Dose: 1 mg Thiamine HCl 100 mg/ Sodium (Chloride) 51 mls @ 100 mls/hr IVPB Q24HR KAILEY Last Admin: 12/13/17 15:03 Dose: 51 mls Morphine Sulfate (Morphine) 4 mg SLOW IVP Q6H PRN PRN Reason: Moderate to Severe Pain (6-10) Last Admin: 12/14/17 07:04 Dose: 4 mg Ondansetron HCl (Zofran Odt) 4 mg PER TUBE Q6H PRN PRN Reason: Nausea/Vomiting Last Admin: 12/14/17 07:11 Dose: 4 mg Pantoprazole Sodium (Protonix) 40 mg IVP HS KAILEY Last Admin: 12/13/17 20:12 Dose: 40 mg Polyethylene Glycol (Miralax) 17 gm PER TUBE DAILYPRN PRN PRN Reason: CONSTIPATION Last Admin: 12/13/17 09:35 Dose: 17 gm Sodium Chloride (Flush - Normal Saline) 10 ml IV HS KAILEY Last Admin: 12/13/17 20:12 Dose: 10 ml Zolpidem Tartrate (Ambien) 5 mg PER TUBE HSPRN PRN PRN Reason: .INSOMNIA
--- NOTE | 2017-12-14 15:40 | CON ---
DATE OF CONSULTATION: 12/14/2017 CONSULTING PHYSICIAN: Dr. Griffith. IMPRESSION: 1. 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 2. History of thiamine deficiency, secondary to gastric sleeve. PLAN: Keppra 500 mg IV q.12 hours until a gastric route can be established. HISTORY OF PRESENT ILLNESS: Ms. Henderson is a 62-year-old woman, who has a history of problems dating back for several years following placement of a gastric sleeve. She has had complications from effo rts to correct the situation. She apparently has had periods where she goes into a full body tonic s pasm. She becomes hypoxic and loses consciousness during these events. They apparently have been tr eated with a banana bag, vitamins, which reportedly bring her out of it. It has happened several zamzam es in the last week. She does not remember going through the spasm. She has had a history of minor head injury several years ago when she fell in the bathroom. She had an MRI of the brain done, which was unremarkable. Her lab work is, otherwise, unremarkable. PAST MEDICAL HISTORY: Otherwise, negative. ALLERGIES: As listed per chart. SOCIAL HISTORY: No tobacco or alcohol use. FAMILY HISTORY: Noncontributory. REVIEW OF SYSTEMS: No headache, nausea, vomiting, dizziness, lateralized weakness or numbness, no do uble vision. Past history of transient encephalopathy. PHYSICAL EXAMINATION: GENERAL: She is reasonably well-nourished middle-aged woman in no distress. HEENT: Unremarkable. NECK: Supple. NEUROLOGIC EXAM: She is alert and appropriate. Her speech is fluent and clear. Exam is nonfocal. There are no abnormal movements. Gait was not tested. SUMMARY: Given the fact that there is a loss of consciousness associated with the tonic spasm, I cassi pect that these are seizure-related events. 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 Clinically, this would appear to be the most consistent diagnosis with her symptoms. I will go ahead and started her on Keppra and follow her clinical course. We will obtain an EEG next w unga also.
[2017-12-14] MEDS: Pantoprazole 40 MG VIAL IVP SCH (21:23)
[2017-12-14] MEDS: ALPRAZolam 1 MG TAB PER TUBE PRN (21:27)
[2017-12-15] MEDS: Morphine 4 MG/ML VIAL SLOW IVP PRN ×3 (01:21→20:26)
[2017-12-15 05:49] LABS: Anion Gap 13 mmol/L (10-20); BUN (Urea Nitrogen) 11 mg/dL (9.8-20.1); Calc. Creatinine Clearance 97 mL/min (70-130); Calcium 9.3 mg/dL (7.8-10.44); Carbon Dioxide 24 mmol/L (22-29); Chloride 104 mmol/L (98-107); Estimated GFR-MDRD Greater than 90; Glucose 98 mg/dL (70-105); Potassium 4.1 mmol/L (3.5-5.1); Sodium 137 mmol/L (136-145)
[2017-12-15] MEDS: Ondansetron ODT 4 MG TAB PER TUBE PRN (07:50)
[2017-12-15] MEDS: ALPRAZolam 1 MG TAB PER TUBE PRN ×2 (07:50→21:46)
[2017-12-15] MEDS: Sodium Chloride 0.9% 1,000 ML IV SCH ×2 (10:37→21:56)
[2017-12-15] MEDS ORDERED: CEFAZOLIN 2 GM/50 ML BAG ONE (13:06)
--- NOTE | 2017-12-15 13:14 | EEG ---
Referring Physician: Traci CARRILLO EEG # [id number] TEST TYPE: ROUTINE PORTABLE INPATIENT REPORT: AN EEG USING THE [employer]NATIONAL TEN-TWENTY SYSTEM OF ELECTRODE PLACEMENT WAS PERFORMED. The background activity is a medium amplitude 9-10 hertz alpha frequency. The patient remained awake throughout the study. Hyperventilation and photic stimulation were unremarkable. No epileptiform features were seen. IMPRESSION: THIS IS A NORMAL AWAKE EEG. 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
[2017-12-15] MEDS ORDERED: Bupivacaine/Epinephrine 0.25% 30 ML VIAL ONE (13:20)
[2017-12-15] MEDS ORDERED: Lidocaine 2% w/Epinephrine 1:200K 20 ML VIAL ONE (13:20)
[2017-12-15] MEDS ORDERED: Lidocaine 2% PF 5 ML VIAL ONE (13:20)
[2017-12-15] MEDS ORDERED: Midazolam HCl 2 mg/2 ml Vial ONE (13:23)
[2017-12-15] MEDS ORDERED: Fentanyl 100 MCG/2 ML VIAL ONE ×2 (13:23→14:37)
[2017-12-15] MEDS ORDERED: Morphine 2 MG/ML SYRINGE ONE (14:25)
[2017-12-15] MEDS ORDERED: Morphine Sulfate 2 MG/ML SYRINGE SLOW IVP PRN (14:26)
[2017-12-15] MEDS ORDERED: Promethazine HCl 25 MG/ML VIAL SLOW IVP PRN (14:26)
[2017-12-15] MEDS ORDERED: Ondansetron HCl/PF 4 MG/2 ML Vial IVP PRN (14:26)
[2017-12-15] MEDS ORDERED: Promethazine HCl 25 MG/ML VIAL IM PRN (14:26)
--- NOTE | 2017-12-15 14:33 | PDOC.PN ---
- Subjective Encounter Start Date: 12/15/17 Encounter Start Time: 10:55 -: old records requested/rev Pt seen and examined, chart reviewed in its entirety, this is my first visit with this patient follow up for: spasms, thiamine deficiency, gastric bypass, chronic moderate protein calorie malnutrition No F/C, no N/V/D/C, no CP or SOB All systems reviewed and neg x as per HPI - Objective Resuscitation Status: Resuscitation Status FULL:Full Resuscitation MAR Reviewed: Yes Vital Signs & Weight: Vital Signs (12 hours) Temp Pulse Resp BP Pulse Ox 12/15/17 07:51 97 12/15/17 07:00 97.7 F 72 18 119/79 97 Weight Admit Weight 140 lb 4.8 oz Weight 140 lb 4.8 oz I&O: 12/14/17 12/15/17 12/16/17 06:59 06:59 06:59 Intake Total 1620 60 Balance 1620 60 Result Diagrams: 12/12/17 11:34 12/17/17 04:32 Radiology Reviewed by me: Yes EKG Reviewed by me: Yes Phys Exam - Physical Examination Constitutional: NAD HEENT: PERRLA, moist MMs, sclera anicteric, oral pharynx no lesions Neck: no nodes, no JVD, supple, full ROM Respiratory: no wheezing, no rales, no rhonchi, clear to auscultation bilateral Cardiovascular: RRR, no significant murmur, no rub Gastrointestinal: soft, non-tender, no distention, positive bowel sounds PEG site C/D/I Musculoskeletal: no edema Neurological: non-focal, normal sensation, moves all 4 limbs Lymphatic: no nodes Psychiatric: normal affect, A&O x 3 Skin: no rash, normal turgor, cap refill <2 seconds Dx/Plan (1) Delirium Code(s): R41.0 - DISORIENTATION, UNSPECIFIED Status: Resolved (2) Myoclonus dystonia Code(s): G25.3 - MYOCLONUS Status: Acute Comment: No clear etiology. MRI done. neurology recs requested, think might be seizures. pt refusing Keppra until cleared by Dr Griffith (3) Wernicke encephalopathy Code(s): E51.2 - WERNICKE'S ENCEPHALOPATHY Status: Resolved (4) Hypokalemia Code(s): E87.6 - HYPOKALEMIA Status: Acute (5) Abnormal LFTs Code(s): R79.89 - OTHER SPECIFIED ABNORMAL FINDINGS OF BLOOD CHEMISTRY Status : Chronic (6) Anxiety and depression Code(s): F41.8 - OTHER SPECIFIED ANXIETY DISORDERS Status: Chronic (7) History of gastrectomy Code(s): Z90.3 - ACQUIRED ABSENCE OF STOMACH [PART OF] Status: Chronic (8) Macrocytic anemia with vitamin B12 deficiency Code(s): D51.9 - VITAMIN B12 DEFICIENCY ANEMIA, UNSPECIFIED Status: Chronic (9) MORRIS (nonalcoholic steatohepatitis) Code(s): K75.81 - NONALCOHOLIC STEATOHEPATITIS (MORRIS) Status: Chronic - Plan cont current plan of care, plan discussed w/ family, PT/OT, licensed social worker, out of bed/ambulate * . continue bolus feed eval. home i in a few days
--- NOTE | 2017-12-15 14:35 | PQF ---
Date: 12-15-17 ATTN: DR. TERESA HEART Please exercise your independent, professional judgment in responding to the clarification form. Clinical indicators are provided on the bottom of this form for your review Please check appropriate box(s): [ x ] Protein Calorie Malnutrition: [ ] Mild [x ] Moderate [ ] Severe [ ] Other Malnutrition (please specify) __ [ ] Other diagnosis [ ] Unable to determine In addition, please specify: Present on Admission (POA): [x ] Yes [ ] No [ ] Unable to determine CLINICAL INDICATORS - SIGNS / SYMPTOMS / LABS CONSULT NOTE DR. LOW 12-12-17: PER SECOND ASSESSMENT IS CHRONIC MALNOURISHED STATE. REALLY, SHE HAS BEEN TOLD AND COUNSELED THAT SHE NEEDS TO BE TAKING MORE TUBE FEEDINGS WHICH COULD EVEN BE BOLUS TUBE FEEDS IN HER REMNANT STOMACH, HOWEVER SHE DOES VERY LITTLE OF THIS AT HOME. BMI: 24.1 SAND WHEELER CONSULT 12-12-17: She does eat some but admits it is minimal. Weight was measured at 159 lbs on 10/26 during last admit. 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 Recommend a liberalized Regular diet as patient takes minimal PO intake 2. Recommend increasing Perative TF to 120 mL/hr x12 hours a day (06:00-18:00), which equates to 6 cans 3. Recommend a daily MVI and thiamine supplementation once Banana Bag has been completed Moderate Malnutrition (in acute illness) Energy Intake: <75% of estimated energy requirement for > 7 days Weight Loss: 1-2%/1 week; 5%/ 1 month; 7.5%/3 months Other: mild body fat loss; mild muscle mass loss; mild fluid accumulation; Severe Malnutrition (in acute illness) Energy Intake: < 50% of estimated energy requirement for > 5 days Weight Loss: >1-2%/1 week; >5%/1 month; >7.5%/3 months Other: moderate body fat loss; moderate muscle mass loss; moderate- severe fluid accumulation; measurably reduced sql architect strength Moderate Malnutrition (in chronic illness) Energy Intake: <75% of estimated energy requirement for >1 month Weight Loss: 5%/1 month; 7.5%/3 months; 10%/6 months; 20%/1 year Other: mild body fat loss; mild muscle mass loss; mild fluid accumulation Severe Malnutrition (in chronic illness) Energy Intake: <75% of estimated energy requirement for >1 month Weight Loss: >5%/1 month; >7.5%/3 months; >10%/6 months; >20%/1 year Other: severe body fat loss; severe muscle mass loss; severe fluid accumulation ; measurably reduced sql architect strength (This form is maintained as a part of the permanent medical record) 2014 [email or web address]. All Rights Reserved [email or web address] Office: [phone] [facility]ITALTucker
[2017-12-15] MEDS ORDERED: PROPOFOL 200 MG/20 ML VIAL ONE (15:33)
--- NOTE | 2017-12-15 15:51 | RAD ---
SINGLE VIEW CHEST: HISTORY: Mediport placement. COMPARISON: 10/27/2017 FINDINGS: A single view of the chest shows a normal sized cardiomediastinal silhouette. There is a right IJ Me diport with its tip in the superior vena cava. There is no evidence of consolidation, mass, or pleur al effusion. No pneumothorax is seen. IMPRESSION: Status post Mediport placement without evidence of complication. POS: [facility]
[2017-12-15] MEDS: Hydrocodone-Acetamin 15 ML UDCUP PER TUBE PRN (17:08)
[2017-12-15] MEDS: Pantoprazole 40 MG VIAL IVP SCH (20:28)
--- NOTE | 2017-12-15 21:45 | OP ---
DATE OF OPERATIVE: 12/15/2017 PREOPERATIVE DIAGNOSES: 1. Chronic venous insufficiency. 2. History of protein-calorie malnutrition. 3. Chronic thiamine deficiency. POSTOPERATIVE DIAGNOSES: 1. Chronic venous insufficiency. 2. History of protein-calorie malnutrition. 3. Chronic thiamine deficiency. PROCEDURE: Tunneled central line with subcutaneous port (MediPort, CT injectable low profile). SURGEON: Liban Griffith M.D. ANESTHESIA: TIVA, local. ESTIMATED BLOOD LOSS: Minimal. COMPLICATIONS: None. SPECIMEN: None. TECHNIQUE: The patient was taken to the operating room and placed supine on the table. After sedati on was obtained, bilateral neck and chest were prepped and draped in a sterile fashion. Local anesth etic was infiltrated into the right internal jugular vein. Intrajugular vein was cannulated using a 22-gauge finder needle followed by a Seldinger needle. Wire was passed into the superior vena cava u nder fluoroscopic guidance. A small celestina was made at the wire entrance site. A separate 3-cm incisi on was made in the right upper chest. Subcutaneous pocket was made below the lower incision. Tubing for the MediPort tunneled from the inferior to the superior incision. Introducer sheath was placed over the wire into the superior vena cava under fluoroscopic guidance. The dilator wire removed. Th e end of the catheter was (00:56) sheath and the sheath was peeled away. The tip of the cathet er was at the atriocaval junction. MediPort tubing cut to fit the MediPort at the lower incision, co nnected to the MediPort. MediPort was sewn to the chest wall in the subcutaneous pocket using Prolen e. MediPort flushes and draws blood without difficulty, flushed with a heparin flush. The wounds we re irrigated and closed using 3-0 Vicryl, 4-0 Monocryl, and Dermabond. The patient is en route to re covery in stable condition. All sponge counts, needle counts, lap counts were correct.
[2017-12-16] MEDS: Morphine 4 MG/ML VIAL SLOW IVP PRN ×4 (04:06→22:10)
[2017-12-16 05:18] LABS: Anion Gap 11 mmol/L (10-20); BUN (Urea Nitrogen) 10 mg/dL (9.8-20.1); Calc. Creatinine Clearance 99 mL/min (70-130); Carbon Dioxide 25 mmol/L (22-29); Chloride 107 mmol/L (98-107); Estimated GFR-MDRD Greater than 90; Glucose 96 mg/dL (70-105); Potassium 3.8 mmol/L (3.5-5.1); Sodium 139 mmol/L (136-145)
[2017-12-16] MEDS: Ondansetron ODT 4 MG TAB PER TUBE PRN ×2 (05:35→12:58)
[2017-12-16] MEDS: Sodium Chloride 0.9% 1,000 ML IV SCH (09:46)
[2017-12-16] MEDS: ALPRAZolam 1 MG TAB PER TUBE PRN ×2 (10:04→22:10)
--- NOTE | 2017-12-16 16:54 | PDOC.GSPN ---
Surgery Progress Note: Subj - Subjective Narrative: Ines TF, minimal pain at port site Surgery Progress Note: Obj - Vital signs Vital signs: Vital Signs - Most Recent Temp Pulse Resp BP Pulse Ox 98.6 F 79 19 114/68 99 12/16/17 15:55 12/16/17 15:55 12/16/17 15:55 12/16/17 15:55 12/16/17 15:55 - Physical Exam General: no distress Abdomen: soft, non tender Wound: healing well Surgery Progress Note: Results - Labs Result Diagrams: 12/12/17 11:34 12/16/17 04:32 Lab results: Laboratory Results - last 24 hr 12/16/17 04:32 Sodium 139 Potassium 3.8 Chloride 107 Carbon Dioxide 25 Anion Gap 11 BUN 10 Creatinine 0.61 Estimated GFR (MDRD) Greater than 90 Glucose 96 Calcium 9.0 Surgery Progress Note: A/P - Problem (1) Wernicke encephalopathy Current Visit: Yes Code(s): E51.2 - WERNICKE'S ENCEPHALOPATHY Status: Acute (2) Delirium Current Visit: Yes Code(s): R41.0 - DISORIENTATION, UNSPECIFIED Status: Resolved - Plan Plan: POD 1 mediport -home later this week -will try bolus feeds for more convenience at home
[2017-12-16] MEDS: Pantoprazole 40 MG VIAL IVP SCH (20:49)
[2017-12-17] MEDS: Sodium Chloride 0.9% 1,000 ML IV SCH ×2 (01:56→05:02)
[2017-12-17] MEDS: Morphine 4 MG/ML VIAL SLOW IVP PRN ×4 (05:01→22:36)
[2017-12-17 05:42] LABS: Anion Gap 9 mmol/L (10-20); BUN (Urea Nitrogen) 9 mg/dL (9.8-20.1); Calc. Creatinine Clearance 104 mL/min (70-130); Calcium 8.8 mg/dL (7.8-10.44); Carbon Dioxide 26 mmol/L (22-29); Chloride 110 mmol/L (98-107); Estimated GFR-MDRD Greater than 90; Glucose 88 mg/dL (70-105); Potassium 4.1 mmol/L (3.5-5.1); Sodium 141 mmol/L (136-145)
[2017-12-17] MEDS: Ondansetron ODT 4 MG TAB PER TUBE PRN ×2 (06:33→14:44)
[2017-12-17] MEDS: ALPRAZolam 1 MG TAB PER TUBE PRN ×2 (06:33→21:02)
--- NOTE | 2017-12-17 16:05 | PDOC.PN ---
- Subjective Encounter Start Date: 12/16/17 Encounter Start Time: 09:20 no F/C, no nN/V/D/C, no CP or sOB. hudband not at bedside at present christiano small volume bolus feeds for now. All systems reviewed adn neg x as above Mediport placed, site tender, slightly ecchymotic, no erythema. Dr Griffith clearedfor Keppra. Pt asking about TPN - Objective Resuscitation Status: Resuscitation Status FULL:Full Resuscitation MAR Reviewed: Yes Vital Signs & Weight: Vital Signs (12 hours) Temp Pulse Resp BP Pulse Ox 12/17/17 12:00 97.9 F 73 18 119/68 97 12/17/17 07:44 97.5 F L 87 18 106/70 97 Weight Admit Weight 140 lb 4.8 oz Weight 140 lb 4.8 oz I&O: 12/16/17 12/17/17 12/18/17 06:59 06:59 06:59 Intake Total 2470 2930 120 Balance 2470 2930 120 Result Diagrams: 12/12/17 11:34 12/17/17 04:32 Phys Exam - Physical Examination Constitutional: NAD HEENT: PERRLA, moist MMs, sclera anicteric, oral pharynx no lesions Neck: no nodes, no JVD, supple, full ROM Respiratory: no wheezing, no rales, no rhonchi, clear to auscultation bilateral Cardiovascular: RRR, no significant murmur, no rub Gastrointestinal: soft, non-tender, no distention, positive bowel sounds Musculoskeletal: edema present Neurological: non-focal, normal sensation, moves all 4 limbs Lymphatic: no nodes Psychiatric: normal affect, A&O x 3 Skin: no rash, normal turgor, cap refill <2 seconds Dx/Plan (1) Delirium Code(s): R41.0 - DISORIENTATION, UNSPECIFIED Status: Resolved (2) Myoclonus dystonia Code(s): G25.3 - MYOCLONUS Status: Resolved Comment: No clear etiology. MRI done. neurology recs requested, think might be seizures. christiano IV keppra for now. no spells in 5 days. (3) Wernicke encephalopathy Code(s): E51.2 - WERNICKE'S ENCEPHALOPATHY Status: Resolved (4) Hypokalemia Code(s): E87.6 - HYPOKALEMIA Status: Resolved (5) Abnormal LFTs Code(s): R79.89 - OTHER SPECIFIED ABNORMAL FINDINGS OF BLOOD CHEMISTRY Status : Resolved (6) Anxiety and depression Code(s): F41.8 - OTHER SPECIFIED ANXIETY DISORDERS Status: Chronic (7) History of gastrectomy Code(s): Z90.3 - ACQUIRED ABSENCE OF STOMACH [PART OF] Status: Chronic (8) Macrocytic anemia with vitamin B12 deficiency Code(s): D51.9 - VITAMIN B12 DEFICIENCY ANEMIA, UNSPECIFIED Status: Chronic (9) MORRIS (nonalcoholic steatohepatitis) Code(s): K75.81 - NONALCOHOLIC STEATOHEPATITIS (MORRIS) Status: Chronic - Plan cont current plan of care, PT/OT, out of bed/ambulate * .
--- NOTE | 2017-12-17 16:08 | PDOC.PN ---
- Subjective Encounter Start Date: 12/17/17 Encounter Start Time: 10:30 follow up for: moderate protein-calorie malnutrition, myoclonic spells. christiano antiepilleptics, 3-4 cans of tube feed paily., goal is 6. No F/C, no N/V/D/C, no CP or SOB All systems reviewed and neg x as per HPI - Objective Resuscitation Status: Resuscitation Status FULL:Full Resuscitation MAR Reviewed: Yes Vital Signs & Weight: Vital Signs (12 hours) Temp Pulse Resp BP Pulse Ox 12/17/17 12:00 97.9 F 73 18 119/68 97 12/17/17 07:44 97.5 F L 87 18 106/70 97 Weight Admit Weight 140 lb 4.8 oz Weight 140 lb 4.8 oz I&O: 12/16/17 12/17/17 12/18/17 06:59 06:59 06:59 Intake Total 2470 2930 120 Balance 2470 2930 120 Result Diagrams: 12/12/17 11:34 12/20/17 04:26 Phys Exam - Physical Examination Constitutional: NAD HEENT: PERRLA, moist MMs, sclera anicteric, oral pharynx no lesions Neck: no nodes, no JVD, supple, full ROM Respiratory: no wheezing, no rales, no rhonchi, clear to auscultation bilateral Cardiovascular: RRR, no significant murmur, no rub Gastrointestinal: soft, non-tender, no distention, positive bowel sounds Musculoskeletal: no edema Neurological: non-focal, normal sensation, moves all 4 limbs Lymphatic: no nodes Psychiatric: normal affect, A&O x 3 Skin: no rash, normal turgor, cap refill <2 seconds Dx/Plan (1) Delirium Code(s): R41.0 - DISORIENTATION, UNSPECIFIED Status: Resolved (2) Myoclonus dystonia Code(s): G25.3 - MYOCLONUS Status: Resolved Comment: No clear etiology. MRI done. neurology recs requested, think might be seizures. christiano IV keppra for now. no spells in 5 days. (3) Wernicke encephalopathy Code(s): E51.2 - WERNICKE'S ENCEPHALOPATHY Status: Resolved (4) Hypokalemia Code(s): E87.6 - HYPOKALEMIA Status: Resolved (5) Abnormal LFTs Code(s): R79.89 - OTHER SPECIFIED ABNORMAL FINDINGS OF BLOOD CHEMISTRY Status : Resolved (6) Anxiety and depression Code(s): F41.8 - OTHER SPECIFIED ANXIETY DISORDERS Status: Chronic (7) History of gastrectomy Code(s): Z90.3 - ACQUIRED ABSENCE OF STOMACH [PART OF] Status: Chronic (8) Macrocytic anemia with vitamin B12 deficiency Code(s): D51.9 - VITAMIN B12 DEFICIENCY ANEMIA, UNSPECIFIED Status: Chronic (9) MORRIS (nonalcoholic steatohepatitis) Code(s): K75.81 - NONALCOHOLIC STEATOHEPATITIS (MORRIS) Status: Chronic - Plan * .
[2017-12-17] MEDS: Pantoprazole 40 MG VIAL IVP SCH (21:00)
[2017-12-18] MEDS: Morphine 4 MG/ML VIAL SLOW IVP PRN ×4 (04:48→22:27)
[2017-12-18] MEDS: Sodium Chloride 0.9% 1,000 ML IV SCH ×3 (04:52→20:45)
[2017-12-18 05:02] LABS: Anion Gap 10 mmol/L (10-20); BUN (Urea Nitrogen) 11 mg/dL (9.8-20.1); Calc. Creatinine Clearance 102 mL/min (70-130); Calcium 8.7 mg/dL (7.8-10.44); Carbon Dioxide 24 mmol/L (22-29); Chloride 110 mmol/L (98-107); Estimated GFR-MDRD Greater than 90; Glucose 88 mg/dL (70-105); Potassium 3.4 mmol/L (3.5-5.1); Sodium 141 mmol/L (136-145)
[2017-12-18] MEDS: ALPRAZolam 1 MG TAB PER TUBE PRN ×2 (06:38→20:48)
[2017-12-18] MEDS: Ondansetron ODT 4 MG TAB PER TUBE PRN ×2 (06:39→14:28)
[2017-12-18] MEDS: Pantoprazole 40 MG VIAL IVP SCH (20:45)
[2017-12-19] MEDS: Morphine 4 MG/ML VIAL SLOW IVP PRN ×2 (04:09→10:05)
[2017-12-19 04:34] LABS: Anion Gap 11 mmol/L (10-20); BUN (Urea Nitrogen) 12 mg/dL (9.8-20.1); Calc. Creatinine Clearance 105 mL/min (70-130); Calcium 8.1 mg/dL (7.8-10.44); Carbon Dioxide 24 mmol/L (22-29); Chloride 109 mmol/L (98-107); Estimated GFR-MDRD Greater than 90; Glucose 84 mg/dL (70-105); Potassium 3.5 mmol/L (3.5-5.1); Sodium 140 mmol/L (136-145)
[2017-12-19] MEDS: Ondansetron ODT 4 MG TAB PER TUBE PRN ×2 (06:04→13:45)
[2017-12-19] MEDS: ALPRAZolam 1 MG TAB PER TUBE PRN ×2 (06:04→22:19)
[2017-12-19] MEDS: Sodium Chloride 0.9% 1,000 ML IV SCH ×2 (08:56→20:46)
[2017-12-19] MEDS: Hydrocodone-Acetamin 15 ML UDCUP PER TUBE PRN ×2 (16:26→22:17)
[2017-12-19] MEDS: Pantoprazole 40 MG VIAL IVP SCH (20:05)
[2017-12-20] MEDS: Sodium Chloride 0.9% 1,000 ML IV SCH (03:00)
[2017-12-20] MEDS: Hydrocodone-Acetamin 15 ML UDCUP PER TUBE PRN (04:56)
[2017-12-20 05:12] LABS: Anion Gap 11 mmol/L (10-20); BUN (Urea Nitrogen) 11 mg/dL (9.8-20.1); Calc. Creatinine Clearance 107 mL/min (70-130); Calcium 8.8 mg/dL (7.8-10.44); Carbon Dioxide 24 mmol/L (22-29); Chloride 110 mmol/L (98-107); Estimated GFR-MDRD Greater than 90; Glucose 83 mg/dL (70-105); Potassium 3.5 mmol/L (3.5-5.1); Sodium 141 mmol/L (136-145)
[2017-12-20] MEDS: ALPRAZolam 1 MG TAB PER TUBE PRN (07:18)
[2017-12-20] MEDS: Ondansetron ODT 4 MG TAB PER TUBE PRN (07:18)
[2017-12-20 11:06] VITALS: BP 127/76; TEMP 97.6
--- NOTE | 2017-12-20 14:01 | PDOC.PN ---
- Subjective Encounter Start Date: 12/18/17 Encounter Start Time: 10:00 follow up for: moderate protein-calorie malnutrition, myoclonic spells. christiano antiepileptics, 4 cans of tube feed daily, goal is 6. No F/C, no N/V/D/C, no CP or SOB All systems reviewed and neg x as per HPI - Objective Resuscitation Status: Resuscitation Status FULL:Full Resuscitation MAR Reviewed: Yes Vital Signs & Weight: Vital Signs (12 hours) Temp Pulse Resp BP Pulse Ox 12/20/17 11:04 97.6 F 61 20 127/76 98 12/20/17 08:00 99 12/20/17 07:16 97.7 F 63 18 136/79 99 Weight Admit Weight 140 lb 4.8 oz Weight 140 lb 4.8 oz I&O: 12/19/17 12/20/17 12/21/17 06:59 06:59 05:59 Intake Total 4110 640 340 Balance 4110 640 340 Result Diagrams: 12/12/17 11:34 12/20/17 04:26 Phys Exam - Physical Examination Constitutional: NAD HEENT: PERRLA, moist MMs, sclera anicteric, oral pharynx no lesions Neck: no nodes, no JVD, supple, full ROM Respiratory: no wheezing, no rales, no rhonchi, clear to auscultation bilateral Cardiovascular: RRR, no significant murmur, no rub Gastrointestinal: soft, non-tender, no distention, positive bowel sounds Musculoskeletal: no edema Neurological: non-focal, normal sensation, moves all 4 limbs Lymphatic: no nodes Psychiatric: normal affect, A&O x 3 Skin: no rash, normal turgor, cap refill <2 seconds Dx/Plan (1) Delirium Code(s): R41.0 - DISORIENTATION, UNSPECIFIED Status: Resolved (2) Myoclonus dystonia Code(s): G25.3 - MYOCLONUS Status: Resolved Comment: No clear etiology. MRI done. neurology recs requested, think might be seizures. christiano IV keppra for now. no spells in 5 days. (3) Wernicke encephalopathy Code(s): E51.2 - WERNICKE'S ENCEPHALOPATHY Status: Resolved (4) Hypokalemia Code(s): E87.6 - HYPOKALEMIA Status: Resolved (5) Abnormal LFTs Code(s): R79.89 - OTHER SPECIFIED ABNORMAL FINDINGS OF BLOOD CHEMISTRY Status : Resolved (6) Anxiety and depression Code(s): F41.8 - OTHER SPECIFIED ANXIETY DISORDERS Status: Chronic (7) History of gastrectomy Code(s): Z90.3 - ACQUIRED ABSENCE OF STOMACH [PART OF] Status: Chronic (8) Macrocytic anemia with vitamin B12 deficiency Code(s): D51.9 - VITAMIN B12 DEFICIENCY ANEMIA, UNSPECIFIED Status: Chronic (9) MORRIS (nonalcoholic steatohepatitis) Code(s): K75.81 - NONALCOHOLIC STEATOHEPATITIS (MORRIS) Status: Chronic - Plan cont current plan of care, plan discussed w/ family, PT/OT, social worker health services, out of bed/ambulate * . continue to increase feeds, home in 1-2 days
--- NOTE | 2017-12-20 14:04 | PDOC.PN ---
- Subjective Encounter Start Date: 12/19/17 Encounter Start Time: 11:30 follow up for: moderate protein-calorie malnutrition, myoclonic spells. christiano antiepileptics, 4 cans of tube feed in last 24 hours, goal is 6. No F/C, no N/V/D/C, no CP or SOB All systems reviewed and neg x as per HPI - Objective Resuscitation Status: Resuscitation Status FULL:Full Resuscitation MAR Reviewed: Yes Vital Signs & Weight: Vital Signs (12 hours) Temp Pulse Resp BP Pulse Ox 12/20/17 11:04 97.6 F 61 20 127/76 98 12/20/17 08:00 99 12/20/17 07:16 97.7 F 63 18 136/79 99 Weight Admit Weight 140 lb 4.8 oz Weight 140 lb 4.8 oz I&O: 12/19/17 12/20/17 12/21/17 06:59 06:59 05:59 Intake Total 4110 640 340 Balance 4110 640 340 Result Diagrams: 12/12/17 11:34 12/20/17 04:26 Phys Exam - Physical Examination Constitutional: NAD HEENT: PERRLA, moist MMs, sclera anicteric, oral pharynx no lesions Neck: no nodes, no JVD, supple, full ROM Respiratory: no wheezing, no rales, no rhonchi, clear to auscultation bilateral Cardiovascular: RRR, no significant murmur, no rub Gastrointestinal: soft, non-tender, no distention, positive bowel sounds Musculoskeletal: no edema, pulses present Neurological: non-focal, normal sensation, moves all 4 limbs Lymphatic: no nodes Psychiatric: normal affect, A&O x 3 Skin: no rash, normal turgor, cap refill <2 seconds Dx/Plan (1) Delirium Code(s): R41.0 - DISORIENTATION, UNSPECIFIED Status: Resolved (2) Myoclonus dystonia Code(s): G25.3 - MYOCLONUS Status: Resolved Comment: No clear etiology. MRI done. neurology recs requested, thinks might be seizures. christiano IV keppra for now. no spells in 7 days. (3) Wernicke encephalopathy Code(s): E51.2 - WERNICKE'S ENCEPHALOPATHY Status: Resolved (4) Hypokalemia Code(s): E87.6 - HYPOKALEMIA Status: Resolved (5) Abnormal LFTs Code(s): R79.89 - OTHER SPECIFIED ABNORMAL FINDINGS OF BLOOD CHEMISTRY Status : Resolved (6) Anxiety and depression Code(s): F41.8 - OTHER SPECIFIED ANXIETY DISORDERS Status: Chronic (7) History of gastrectomy Code(s): Z90.3 - ACQUIRED ABSENCE OF STOMACH [PART OF] Status: Chronic (8) Macrocytic anemia with vitamin B12 deficiency Code(s): D51.9 - VITAMIN B12 DEFICIENCY ANEMIA, UNSPECIFIED Status: Chronic (9) MORRIS (nonalcoholic steatohepatitis) Code(s): K75.81 - NONALCOHOLIC STEATOHEPATITIS (MORRIS) Status: Chronic - Plan cont current plan of care, plan discussed w/ family, PT/OT, social work faculty member, out of bed/ambulate * . anticipate d/c tomorrow
== END 2017-12-20 13:43 | disposition home or self-care (01) | DRG 641 ==
LOC: ERS 13:44 → OBSVTOIN 15:34 → T4-A 15:34
PROVIDERS: ADMIT Internal Medicine; ATTEND Internal Medicine
PROC: 0JH63XZ Insertion of Tunneled Vascular Access Device into Chest Subcutaneous Tissue and Fascia, Percutaneous Approach (ICD-10-PCS; principal; 2017-12-15)
PROC: 02HV33Z Insertion of Infusion Device into Superior Vena Cava, Percutaneous Approach (ICD-10-PCS; 2017-12-15)
DX: R29.0 Tetany (principal); E51.9 Thiamine deficiency, unspecified; E44.0 Moderate protein-calorie malnutrition; G40.89 Other seizures; K91.2 Postsurgical malabsorption, not elsewhere classified; Z98.84 Bariatric surgery status; Z93.1 Gastrostomy status; G89.4 Chronic pain syndrome; Z91.81 History of falling; Z87.440 Personal history of urinary (tract) infections; K75.81 Nonalcoholic steatohepatitis (NASH); R51 Headache; D72.829 Elevated white blood cell count, unspecified; I87.2 Venous insufficiency (chronic) (peripheral); G25.3 Myoclonus; Z68.24 Body mass index [BMI] 24.0-24.9, adult
CPT/HCPCS: 36415; 36416; 51701; 70553; 71045; 80048; 80053; 81003; 81015; 82553; 83605; 83690; 83735; 84100; 84425; 84484; 85025; 90471; 90686; 93005; 95816; 95819; 96365; 96366; 96375; A4353; A9579; C1788; C9113; G0008; J1200; J1642; J1953; J2001; J2060; J2250; J2270; J2704; J3010; J3411; J7042; J7050; Q0162

== ENCOUNTER 2018-01-21 19:03 | Observation (INO) | payer BC ==
[2018-01-21] MEDS ORDERED: Acetaminophen 325 MG TAB PO PRN (22:44)
[2018-01-21] MEDS ORDERED: Ondansetron ODT 8 MG TAB SL PRN (22:47)
--- NOTE | 2018-01-21 23:11 | RAD ---
PORTABLE CHEST: 8 COMPARISON: 12/15/17 study. HISTORY: Evaluation for pneumonia. Heart size is within normal limits. Right sided Mediport catheter is again identified. The lungs are clear of infiltrative process. IMPRESSION: No active intrathoracic disease. POS: [facility]
[2018-01-21] MEDS ORDERED: Morphine 4 MG/ML VIAL SLOW IVP SCH (23:30)
[2018-01-21] MEDS: ALPRAZolam 1 MG TAB PO PRN (23:36)
[2018-01-21] MEDS: Sodium Chloride 0.9% 1,000 ML IV SCH (23:36)
[2018-01-22] VITALS: BMI 21.6
[2018-01-22 06:18] LABS: #Basophils 0.1 thou/uL (0.0-0.2); #Eosinphils 0.1 thou/uL (0.0-0.7); #Lymphocytes 2.2 thou/uL (1.20-3.40); #Monocytes 0.3 thou/uL (0.11-0.59); #Neutrophils 1.8 thou/uL (1.40-6.50); %Basophils 1.3 % (0.0-1.0); %Eosinophils 3.2 % (0.0-10.0); %Lymphocytes 48.6 % (21.0-51.0); %Monocytes 6.5 % (0.0-10.0); %Neutrophils 40.4 % (42.0-75.0); Hemoglobin 11.2 g/dL (12.0-16.0); Mean Corpuscular HGB CONC 33.1 g/dL (32.0-36.0); Mean Corpuscular Hemoglobin 32.4 pg (27.0-31.0); Mean Corpuscular Volume 97.9 fL (78.0-98.0); Mean Platelet Volume 7.4 fL (7.4-10.4); Platelet Count 234 thou/uL (130-400); RBC Distribution Width 11.6 % (11.5-14.5); Red Blood Cell (RBC) Count 3.45 mill/uL (4.20-5.40); White Blood Cell (WBC) Count 4.6 thou/uL (4.8-10.8)
[2018-01-22] MEDS: HYDROcodone/Acetaminophen 10/325 mg Tablet PO PRN ×4 (06:22→19:13)
[2018-01-22 06:40] LABS: Anion Gap 8 mmol/L (10-20); BUN (Urea Nitrogen) 11 mg/dL (9.8-20.1); Calc. Creatinine Clearance 79 mL/min (70-130); Calcium 8.4 mg/dL (7.8-10.44); Carbon Dioxide 25 mmol/L (22-29); Chloride 108 mmol/L (98-107); Estimated GFR-MDRD 88; Glucose 70 mg/dL (70-105); Potassium 4.1 mmol/L (3.5-5.1); Sodium 137 mmol/L (136-145)
[2018-01-22 06:58] LABS: Bilirubin Negative (Negative); Blood, Urine Negative (Negative); Clarity CLEAR (Clear); Glucose, Urine (Dipstick) Negative (Negative); Leukocyte Negative (Negative); Nitrite Negative (Negative); Protein, Urine (Dipstick) Negative (Neg-Trace); Specific Gravity, Urine 1.009 (1.002-1.036)
[2018-01-22] MEDS: Folic Acid 1 MG TAB PO SCH (08:05)
[2018-01-22] MEDS: Magnesium Oxide 400 MG TAB PO SCH (08:05)
[2018-01-22] MEDS: Calcium Carbonate 500 MG TAB PO SCH (08:06)
[2018-01-22] MEDS: levETIRAcetam 500 mg/5 ml Oral Solution PO SCH ×2 (08:07→20:02)
[2018-01-22] MEDS: Stress 600 With Zinc 1 TAB PO SCH (08:07)
[2018-01-22] MEDS: Ondansetron ODT 4 MG TAB PER TUBE PRN ×2 (08:41→15:16)
[2018-01-22] MEDS ORDERED: Cyanocobalamin 1000 MCG/ML VIAL IM SCH (09:00)
[2018-01-22] MEDS: Sodium Chloride 0.9% 1,000 ML IV SCH (14:05)
--- NOTE | 2018-01-22 16:29 | HP ---
SUBJECTIVE: The patient is seen and examined at bedside. Her is at the bedside. He is the surrogate decision maker, his name is Emmanuel Henderson. Apparently, the patient was sent from the emergency room in [facility] for further evaluation of her problems. According to her , she had problems with diarrhea recently when she was fed with boluses. Also her mental status was changed significantly and she had some urinary tract retention. She was in the last few days in the emergency room for that, a New catheter was placed and she was sent home and she was supposed to see Dr. Murphy at the [facility] today. HISTORY OF PRESENT ILLNESS: The patient is a 62-year-old female, who has a long history of problems related to her previous weight-loss surgery. Apparently, she had a feeding tube placed in her stomach by Dr. Griffith and the banding was released. Since then, she has some diarrhea when she is fed with boluses. She presented to the [facility] Emergency Room with complaints of weakness. PAST MEDICAL HISTORY: 1. History of aspiration pneumonia. 2. Nonalcoholic steatohepatitis. 3. Vitamin B12 deficiency. 4. Macrocytic anemia. PAST SURGICAL HISTORY: 1. PEG tube placement, which goes to the stomach. 2. Total abdominal hysterectomy. 3. Bilateral BSO. 4. Appendectomy. 5. Abdominoplasty. 6. Prabhakar-en-Y bypass. 7. Bilateral breast reduction surgery. FAMILY HISTORY: Positive for coronary artery disease and strokes. SOCIAL HISTORY: She does not smoke. She does not drink. She does not use any illicit drugs. CODE STATUS: Full. ALLERGIES: MORPHINE, CIPRO, IODINATED CONTRAST, AND IODINE. CURRENT MEDICATIONS: 1. Magnesium 400 mg once a day. 2. Calcium carbonate 500 mg once a day. 3. Vitamin B12 of 100 mcg unknown frequency. 4. Keppra 1 teaspoon twice a day. 5. Potassium 20 mEq twice a day. 6. Protonix 40 mg twice a day. 7. Xanax 1 mg twice a day. 8. Zofran 4 mg once a day. PRIMARY CARE PHYSICIAN: Dr. Herrmann. REVIEW OF SYSTEMS: All 14 systems were reviewed and they were negative except for symptoms mentioned in HPI. PHYSICAL EXAMINATION: VITAL SIGNS: Blood pressure is 129/81, temperature 98.3, pulse 62, respiratory rate 18, and O2 saturation 97% on room air. GENERAL: She is alert and oriented x3. HEENT: Head is atraumatic and normocephalic. Eyes are PERRLA. Sclerae nonicteric. Oral mucosa is moist. NECK: Supple. LUNGS: Clear. There is a MediPort in the right upper chest accessed by IV line. HEART: S1 and S2 normal. No S3, no S4. ABDOMEN: Soft. There is a scar in the upper part of the mid abdomen. The abdomen is tender in the right upper quadrant, which is chronically tender. Bowel sounds are present. There is a feeding tube in place in the upper part of the epigastric area. EXTREMITIES: No clubbing, cyanosis, or edema. NEUROLOGICAL: She is alert and oriented x3. There are no any motor or sensory deficits. Cranial nerves intact. LABORATORY DATA: Labs showed white count of 6.5, hemoglobin of 10.3, hematocrit 34.0, and platelet count is 237. Chemistry showed normal creatinine, normal BUN, and normal electrolytes. AST 41, alkaline phosphatase 190, and the rest of chemistry within normal limits except for albumin which is 3.1. Urinalysis, 1+ blood and the rest within normal limits. UDS positive for benzodiazepines. IMPRESSION: 1. Generalized weakness, most likely related to lack of appropriate nutrition, difficulty of feeding the patient. 2. Diarrhea with a bolus feeding, most likely it is a dumping syndrome. She is started on a continuous 65 mL/hr feeding and she is doing well. No diarrhea. No residuals. 3. Altered mental status: Her mental status is within normal limits during my evaluation. 4. History of steatohepatitis, which is nonalcoholic. 5. Vitamin B12 deficiency and macrocytic anemia per history and recent MCV shows 97.9, so this is not macrocytic. 6. Tube feeding. 7. The patient is on Keppra for presumed seizures. PLAN: Admission to the hospital for observation, condition is fair. Activity bedrest and bathroom privileges. IV 75 mL of normal saline, 65 mL of feeding through the tube. We will feed here for 20 hours out of 24 hours. We will have dietitian to assess her minerals and vitamin intake. We will have urologist to step by and evaluate her for urinary tract dysfunction since she is retaining urine. Her urinalysis did not show any infection, so we are looking for a different explanation. Job ID: [id number]
[2018-01-22] MEDS: Promethazine 25 MG TAB PO PRN (18:18)
[2018-01-22] MEDS: ALPRAZolam 1 MG TAB PO PRN (20:41)
[2018-01-22] MEDS ORDERED: Morphine 4 MG/ML VIAL SLOW IVP SCH (21:30)
[2018-01-22] MEDS: Zolpidem Tartrate 5 MG TAB PO PRN (21:46)
[2018-01-22] MEDS ORDERED: Estrogens, Conjugated 30 GM TUBE VAG SCH (22:15)
[2018-01-22] MEDS: Ondansetron PF 4 MG/2 ML Vial IVP PRN (22:20)
[2018-01-23] MEDS: Sodium Chloride 0.9% 1,000 ML IV SCH ×2 (01:02→13:28)
[2018-01-23] MEDS: HYDROcodone/Acetaminophen 10/325 mg Tablet PO PRN ×4 (01:02→21:02)
--- NOTE | 2018-01-23 07:51 | CON ---
DATE OF CONSULTATION: REASON FOR CONSULTATION: Urinary retention. HISTORY OF PRESENT ILLNESS: Ms. Nela Henderson is a very pleasant 62-year-old white female with history of multiple GI disorders beginning with a banding operation of her stomach. The patient on this acute admission to the hospital was presenting due to urinary retention and possible urinary tract infection. The patient was seen in the [facility] Emergency Room twice in the last week for fullness and inability to void. The patient reports taking Epsom salt baths and warm baths and other interventions at home trying to make herself void. She was unable to urinate. The patient presented to [facility] Emergency Room on Friday and had a catheter placed with return over 1 L of urine. Catheter was removed, and the patient was subsequently discharged home with plans for followup with Dr. Nico Murphy of the [facility]. The patient had secondary urinary retention episode on Friday, presented to the emergency department, and ultimately was admitted here at the [facility] on 01/21/2018 for urinary retention. She has an indwelling New catheter placed at the [facility] Emergency Department. Ms. Henderson reports that she did not have previous urinary issues. Her medical history is significant for multiple GI surgeries associated with her history of stomach banding for weight loss followed by multiple complications. The patient has had PEG tube placement, which is currently managed by Dr. Griffith. The patient had a recent replacement of her PEG tube after an intraabdominal abscess developed secondary to prior PEG tube. At the present time, she is having more or less regular bouts of diarrhea, only when she has large boluses of food via her PEG tube. She is not able to eat in regular fashion secondary to aspiration history. She had 3 aspiration pneumonia episodes in the past, and on swallow study, is not able to sort solid food into the correct pathway, passing into her airway instead of her esophagus. From a genitourinary standpoint, the patient reports no previous genitourinary issues. She did have a total abdominal hysterectomy and bilateral salpingo-oophorectomy secondary to fibroids in the past. She has no history of breast or gynecologic cancer. She has no history of DVT or pulmonary embolism in the past. She did have breast reduction surgery in the past, but no history of breast cancer. PAST MEDICAL HISTORY: 1. Aspiration pneumonia. 2. Non-alcoholic steatohepatitis. 3. Vitamin B12 deficiency. 4. Macrocytic anemia. PAST SURGICAL HISTORY: 1. PEG tube placement x2. 2. Total abdominal hysterectomy. 3. Bilateral salpingo-oophorectomy. 4. Appendectomy. 5. Abdominoplasty. 6. Prabhakar-en-Y bypass. 7. Bilateral breast reduction surgery. FAMILY MEDICAL HISTORY: Both parents are still alive. There is a family history of coronary artery disease as well as strokes. SOCIAL HISTORY: The patient is a nonsmoker and she does not drink alcohol. She does not use illicit drugs. 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 ALLERGIES: THE PATIENT SELF REPORTS ALLERGIES TO MORPHINE AND IODINATED CONTRAST WELL IODINE. THE PATIENT REPORTS THAT SHE HAS SENSITIVITY TO CIPRO, WHICH DOES NOT RESULT IN A RASH, BUT REPORTS THAT SHE FEELS STRANGE OR PECULIAR WHILE TAKING THAT MEDICATION. MEDICATIONS: Outpatient medication list includes: 1. Magnesium 400 mg p.o. daily. 2. Calcium carbonate 500 mg p.o. daily. 3. Vitamin B12 of 100 mcg p.o. daily. 4. Keppra 1 teaspoon twice daily. 5. p.o. twice daily. 6. Protonix 40 mg twice daily. 7. Xanax 1 mg twice daily. 8. Zofran 4 mg once daily. 9. In addition, the patient takes tube feeds. REVIEW OF SYSTEMS: CONSTITUTIONAL: No complaints of headache or visual disturbance. NEUROLOGIC: No problems with motor function or sensory function by report. PULMONARY: Positive for history of aspiration pneumonia x3 and failed swallow test. CARDIAC: Negative. GASTROINTESTINAL: The patient has had multiple surgical operations due to her history of a failed stomach banding procedure. She had multiple PEG tubes as well and has also had a Prabhakar-en-Y bypass operation performed. GENITOURINARY: No prior history of recurrent urinary tract infection or urinary retention episodes. The patient's first urinary retention episode was on the Friday preceding this hospitalization. MUSCULOSKELETAL: Negative. Review of systems is otherwise negative x12 systems. PHYSICAL EXAMINATION: VITAL SIGNS: The patient is afebrile with current temperature of 97.5, pulse 61, respirations 20, O2 saturation on room air is 95%, current blood pressure is 122/74. HEAD, EYES, EARS, NOSE, AND THROAT: Extraocular movements are intact. Sclerae anicteric. Oropharynx is clear. NECK: Supple. LUNGS: Clear to auscultation bilaterally. CARDIAC: Regular rate and rhythm without murmur, rub, or gallop. ABDOMEN: Shows presence of multiple scars consistent with the patient's old history of multiple prior surgeries, associated with an old banding procedure of her stomach followed by multiple operations including Prabhakar-en-Y operation and multiple PEG tubes. GENITOURINARY: An indwelling New catheter is in place. 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 Urine in the New catheter is completely clear. No evidence of particulates or other abnormalities. There is no evidence of vaginal mass, cystocele, rectocele, or prolapse at the present time. SKIN SURVEY: The patient has multiple scars as noted above. She has a scar also from an abdominoplasty, self-reported breast reduction surgery as well. Multiple scars associated with her Prabhakar-en-Y operation and PEG tubes. NEUROLOGIC: The patient is able to move all 4 extremities against gravity without difficulty. Gait was not assessed due to the patient's current condition. She is on current tube feeds at the time of evaluation as well. 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 I am recommending periurethral application of Premarin cream. The patient may need to present to clinic for cystoscopy and dilation procedure in the near future. At the present time, I would recommend leaving the indwelling New catheter in place, periurethral application of estrogen cream. If the patient meets suitable medical criteria, she may be discharged home with the indwelling New catheter in place for subsequent cystoscopic evaluation in my clinic and possible urethral dilation at that point. Job ID: [id number]
[2018-01-23] MEDS: Folic Acid 1 MG TAB PO SCH (08:44)
[2018-01-23] MEDS: Calcium Carbonate 500 MG TAB PO SCH (08:45)
[2018-01-23] MEDS: levETIRAcetam 500 mg/5 ml Oral Solution PO SCH ×2 (09:35→21:01)
[2018-01-23] MEDS: Magnesium Oxide 400 MG TAB PO SCH (09:35)
[2018-01-23] MEDS: Stress 600 With Zinc 1 TAB PO SCH (09:35)
--- NOTE | 2018-01-23 15:39 | PRG ---
DATE OF SERVICE: 01/23/2018 SUBJECTIVE: The patient is seen at the bedside. Her is present in the room during my visit. She is feeling okay. She does not have any diarrhea. No nausea. Some abdominal pain, but that is chronic. Her mental status is good. OBJECTIVE: VITAL SIGNS: Blood pressure is 108/71, pulse is 65, temperature is 97.4, and respiratory rate is 16, and pulse oximetry is 98% on room air. HEAD, EYES, EARS, NOSE, AND THROAT: Her head is atraumatic and normocephalic. Eyes are PERRLA. Sclerae are nonicteric. Oral mucosa is moist. NECK: Supple. LUNGS: Clear. HEART: S1, S2 normal. No S3, no S4. No any murmur. ABDOMEN: Tender in the right upper quadrant. No guarding. PEG tube is in place in the epigastric area. The scar in the midline is from previous surgery. Bowel sounds are present, very active. EXTREMITIES: No clubbing, cyanosis, or edema. NEUROLOGIC: She is alert and oriented x4. There is no any motor or sensory deficits present. Cranial nerves are intact. LABORATORY FINDINGS: None today. MICROBIOLOGY DATA: Urine culture, presumptive enterococcus more than 100,000 colonies. IMPRESSION: 1. Generalized weakness, improved. 2. Diarrhea with bolus feeding, improved. The patient was switched to continuous feeding. Her rate was increased to 71 mL/h based on a dietitian's calculation, but she does not have any residuals. There is no nausea. 3. Altered mental status, improved to her baseline. 4. History of steatohepatitis, nonalcoholic. 5. Vitamin B12 deficiency and macrocytic anemia per history. 6. Tube feeding. 7. Urinary tract infection with most likely Enterococcus. 8. The patient is on Keppra for presumed seizures. PLAN: Plan is to stop her IV fluids. Continue 71 mL of the tube feeding for 20 hours, and the patient was seen by urologist, who recommends continuation of her New catheter and outpatient visit with him for possible cystoscopy or dilatation of the urethra. The patient is switched from Levaquin to ampicillin since her urine is growing most likely Enterococcus. This is going to be better coverage than levofloxacin. We will stop IV fluids as I mentioned above. Job ID: [id number]
[2018-01-23] MEDS: Morphine 2 MG/ML SYRINGE SLOW IVP PRN ×2 (16:54→22:25)
[2018-01-23] MEDS: Estrogens, Conjugated 30 GM TUBE VAG SCH (21:00)
[2018-01-23] MEDS: Zolpidem Tartrate 5 MG TAB PO PRN (21:02)
[2018-01-23] MEDS: ALPRAZolam 1 MG TAB PO PRN (21:02)
[2018-01-23] MEDS: Promethazine 25 MG TAB PO PRN (22:24)
[2018-01-24] MEDS: Morphine 2 MG/ML SYRINGE SLOW IVP PRN ×5 (03:07→21:57)
[2018-01-24] MEDS: Magnesium Oxide 400 MG TAB PO SCH (09:49)
[2018-01-24] MEDS: Stress 600 With Zinc 1 TAB PO SCH (09:49)
[2018-01-24] MEDS: Calcium Carbonate 500 MG TAB PO SCH (09:49)
[2018-01-24] MEDS: levETIRAcetam 500 mg/5 ml Oral Solution PO SCH ×2 (09:49→21:15)
[2018-01-24] MEDS: Folic Acid 1 MG TAB PO SCH (09:49)
[2018-01-24] MEDS: Saccharomyces boulardii 250 MG CAP PO SCH (09:49)
--- NOTE | 2018-01-24 14:18 | PDOC.PN ---
- Subjective Encounter Start Date: 01/24/18 Encounter Start Time: 13:30 Subjective: f/u for UTI with Enterococcus and diarrhea secondary to dumping -: syndrome from bolus TF's. Overall feels ok today. No diarrhea and toleratin -: lower volume continuous TF's. - Objective Resuscitation Status - Order Detail: 01/21/18 22:44 Resuscitation Status Routine Resuscitation Status: FULL: Full Resuscitation MAR Reviewed: Yes Vital Signs & Weight: Vital Signs (12 hours) Temp Pulse Resp BP Pulse Ox 01/24/18 11:58 98.7 F 61 14 122/81 97 01/24/18 08:00 97.8 F 63 14 108/71 97 01/24/18 04:00 97.8 F 61 22 H 120/69 97 Weight Admit Weight 126 lb Weight 126 lb I&O: 01/23/18 01/24/18 01/25/18 06:59 06:59 06:59 Intake Total 2580 1126 Output Total 2675 1200 Balance -95 -74 Result Diagrams: 01/22/18 05:49 01/22/18 05:49 Additional Labs: Microbiology 01/22/18 06:30 Urine mao catheter Urine Culture - Final Enterococcus faecalis Phys Exam - Physical Examination Constitutional: NAD HEENT: PERRLA, sclera anicteric, oral pharynx no lesions Neck: no nodes, no JVD, supple, full ROM Respiratory: no wheezing, no rales, no rhonchi, clear to auscultation bilateral S1, S2 Cardiovascular: RRR, no significant murmur, no rub, gallop PEG in place Gastrointestinal: soft, non-tender, no distention, positive bowel sounds Musculoskeletal: no edema, pulses present Neurological: normal sensation, moves all 4 limbs Psychiatric: normal affect, A&O x 3 Skin: normal turgor, cap refill <2 seconds Deviation from normal: Mao with clear urine Dx/Plan (1) UTI (urinary tract infection) due to Enterococcus Code(s): N39.0 - URINARY TRACT INFECTION, SITE NOT SPECIFIED; B95.2 - ENTEROCOCCUS THE CAUSE OF DISEASES CLASSIFIED ELSEWHERE Status: Acute Comment: Continue current Ampicillin then convert to po option in next 24h (2) Generalized weakness Code(s): R53.1 - WEAKNESS Status: Acute Comment: Resolving, continue supportive mgmt (3) Urinary retention Code(s): R33.9 - RETENTION OF URINE, UNSPECIFIED Status: Acute Comment: D/C Mao catheter, monitor for retention recurrence (4) Macrocytic anemia with vitamin B12 deficiency Code(s): D51.9 - VITAMIN B12 DEFICIENCY ANEMIA, UNSPECIFIED Status: Chronic Comment: Continue Vit B12 IM q14d (5) Acute encephalopathy Code(s): G93.40 - ENCEPHALOPATHY, UNSPECIFIED Status: Acute Comment: Resolved - Plan plan discussed w/ family, continue antibiotics, out of bed/ambulate Stable currently -: Continue Ampicillin IV another 24h -: D/C Mao catheter -: OOB/ambulate -: TF's 70ml/h * Likely home in 24h
[2018-01-24] MEDS: ALPRAZolam 1 MG TAB PO PRN (21:15)
[2018-01-24] MEDS: Zolpidem Tartrate 5 MG TAB PO PRN (21:15)
[2018-01-24] MEDS: Estrogens, Conjugated 30 GM TUBE VAG SCH (21:15)
[2018-01-24] MEDS: Ondansetron PF 4 MG/2 ML Vial IVP PRN (21:58)
--- NOTE | 2018-01-25 00:52 | PRG ---
DATE OF SERVICE: 01/24/2018 DATE OF INITIAL CONSULTATION: 01/22/2018. INITIAL REASON FOR CONSULTATION: 1. Recurrent urinary retention. 2. Urinary tract infection. BRIEF HISTORY: Ms. Nela Henderson is a 62-year-old white female with multiple gastrointestinal disorders associated with banding operation of her stomach. The patient had acute admission to the hospital on 01/21/2018 due to recurrent urinary tract infection, altered mental status and inability to void. The patient was evaluated twice as an outpatient at the [facility] Emergency Department in the last week for fullness and inability to void and was originally planned to follow up with Dr. Nico Murphy of the [facility], presented to the [facility] Emergency Department in retention and was subsequently brought to the [facility]. The patient is a long-term patient of Dr. Griffith and has a PEG tube after intraabdominal abscess secondary to a prior PEG tube. She does have history of a total abdominal hysterectomy and bilateral salpingo-oophorectomy for fibroids and has not been on estrogen products. She has no history of DVT, pulmonary embolism, breast cancer or gynecologic cancer. She did have prior breast reduction surgery. INTERVAL EVENTS: The patient has continued to improve. She is on appropriate antibiotic therapy for her pansensitive Enterococcus faecalis urine culture, obtained on 01/22/2018. The patient is feeling much better with no altered mental status complaints. PHYSICAL EXAMINATION: VITAL SIGNS: The patient has been afebrile for more than 24 hours with a temperature of 98.4, pulse 71, respirations 15, room air O2 saturation is 96%, blood pressure is 123/67. HEAD, EYES, EARS, NOSE AND THROAT: Her extraocular movements are intact. Sclerae anicteric. Oropharynx is clear. NECK: Supple. LUNGS: Clear to auscultation bilaterally. She does have some chronic pulmonary changes secondary to previous issues with aspiration pneumonia and ventilation. She does not sound congested or ill today. CARDIAC: Regular rate and rhythm. ABDOMEN: Soft and nontender. There is no flank tenderness in this patient. GENITOURINARY: An indwelling New catheter remains in place. Abdominal examination was not repeated, but she is known to have multiple scars and a PEG tube insertion site as well as recent wound healing by secondary intention associated with a previous abdominal exploration. LABORATORY DATA: The patient has not had a significant elevated white count on this admission. Last serum chemistries as well as the hematologic profile were both from 01/22/2018 with no major abnormalities. The patient's urine culture from 01/22/2018 returned with finding of Enterococcus faecalis, which was pansensitive to all tested antibiotics and multiple oral antibiotics, which may be utilized for treatment of this organism. ASSESSMENT: Urinary retention, likely secondary to postmenopausal atrophic vaginitis. The patient has been started on Premarin Cream. She had minor urethral caruncle, -type changes to her urethra, periurethral pallor and beefy red coloration of urethra were all consistent with low estrogen status. She has an indwelling New catheter at this point. Today, I am recommending the patient to have a voiding trial and instruction in clean intermittent catheterization. The patient should have her catheter removed and should later void to completion, then perform intermittent catheterization for postvoid residual check. She may be discharged home with intermittent catheterization supplies with appropriate oral antibiotics for her recurrent urinary tract infection. Followup will need to be at my office at [facility] for cystoscopy, possible urethral calibration and ongoing assessment for urinary retention. TIME SPENT: Over 35 minutes of consultation and assessment time spent in evaluation and assessment of this patient today. Job ID: [id number]
[2018-01-25] MEDS: Morphine 2 MG/ML SYRINGE SLOW IVP PRN ×3 (01:56→10:03)
[2018-01-25] MEDS: Stress 600 With Zinc 1 TAB PO SCH (10:02)
[2018-01-25] MEDS: Magnesium Oxide 400 MG TAB PO SCH (10:02)
[2018-01-25] MEDS: Folic Acid 1 MG TAB PO SCH (10:02)
[2018-01-25] MEDS: Calcium Carbonate 500 MG TAB PO SCH (10:02)
[2018-01-25] MEDS: levETIRAcetam 500 mg/5 ml Oral Solution PO SCH (10:02)
[2018-01-25] MEDS: Saccharomyces boulardii 250 MG CAP PO SCH (10:07)
[2018-01-25 11:29] VITALS: BP 123/72; TEMP 98.3
--- NOTE | 2018-01-26 03:59 | DIS ---
DATE OF ADMISSION: 01/21/2018 DATE OF DISCHARGE: 01/25/2018 DISCHARGE DIAGNOSES: 1. Urinary tract infection with Enterococcus species. 2. Generalized weakness, resolving. 3. Urinary retention secondary to postmenopausal atrophic vaginitis. 4. Macrocytic anemia with vitamin B12 deficiency, stable. 5. Acute encephalopathy, likely secondary to metabolic process, resolved. 6. Dumping syndrome secondary to bolus tube feeds, improved. CONSULTATIONS: Dr. Galeana with Urology Service. PERTINENT LAB AND X-RAY FINDINGS: Basic metabolic profile within normal limits. CBC showed a white blood cell count of 4.6, hemoglobin 11, hematocrit 34, and platelet count 234. Urine culture showed greater than 100,000 colonies of Enterococcus faecalis, pansensitive. Portable chest x-ray dated 01/21/2018, showed no acute cardiopulmonary process. HOSPITAL COURSE: The patient was admitted after presenting with increased diarrhea secondary to bolus tube feeds. The patient with chronic tube feeds due to prior Prabhakar-en-Y bypass surgery, unable to tolerate bolus tube feeds. The patient was transitioned to continuous tube feeds for approximately 20 hours of the day and tolerated without difficulty. The patient was also noted with mild encephalopathy secondary to likely metabolic process and urinary tract infection with Enterococcus species. The patient was placed on ampicillin and remained on IV ampicillin throughout her hospital course. The patient tolerated adjustment to her regular tube feeds up to 70 mL/h. The patient was also evaluated by the Urology Service during her hospital course due to urinary retention. The patient underwent general exam and was placed on Premarin vaginal cream as well as undergoing placement of New catheter. The New catheter was subsequently removed. However, the patient was recommended for intermittent bladder self-catheterizations and continuous use of Premarin vaginal cream topically. I have examined the patient at the time of discharge and discussed followup instructions. The patient verbalized understanding and in agreement and ready for discharge on 01/25/2018. DISCHARGE MEDICATIONS: 1. Alprazolam 1 mg p.o. t.i.d. p.r.n. 2. Calcium carbonate 500 mg p.o. daily. 3. Vitamin B12 of 100 mcg intramuscularly q.2 weeks. 4. Folic acid 0.8 mg p.o. daily. 5. [place] 10/325 mg 1 to 2 tabs p.o. q.4 hours p.r.n. pain. 6. Keppra 500 mg p.o. b.i.d. 7. Magnesium 400 mg p.o. daily. 8. Zofran 4 mg sublingually t.i.d. p.r.n. nausea, vomiting. 9. Protonix 40 mg p.o. b.i.d. 10. Potassium chloride 20 mEq p.o. b.i.d. 11. Phenergan 25 mg p.o. t.i.d. p.r.n. nausea, vomiting. 12. Vitamin B complex 1 tablet p.o. daily. 13. Augmentin 500 mg 1 tab p.o. b.i.d. x5 days. 14. Premarin vaginal cream 1 g topically at bedtime. 15. Neomycin/polymyxin/HC ear solution 1 to 2 drops in the left ear t.i.d. 16. Thiamine 100 mg p.o. daily. FOLLOWUP: The patient may follow up with her primary care provider, Dr. Pedro Herrmann within 7 days of discharge. The patient may follow up with Dr. Pedro Galeana with Urology Service at [facility] and to call his office for appointment time and date. ACTIVITY: Ad-irena. DIET: Heart-healthy, tube feeds with Perative with continuous feeds at 70 mL/h. CONDITION ON DISCHARGE: Stable. CODE STATUS: Full. DISPOSITION: Home on 01/25/2018. TIME SPENT: Total time preparing and coordinating discharge, 35 minutes. Job ID: [id number] MTDD
== END 2018-01-25 14:54 | disposition home or self-care (01) ==
LOC: SURG A 20:34
PROVIDERS: ADMIT Internal Medicine; ATTEND Internal Medicine
DX: N39.0 Urinary tract infection, site not specified (principal); B95.2 Enterococcus as the cause of diseases classified elsewhere; G93.40 Encephalopathy, unspecified; R33.9 Retention of urine, unspecified; K91.1 Postgastric surgery syndromes; K75.81 Nonalcoholic steatohepatitis (NASH); D53.9 Nutritional anemia, unspecified; E53.8 Deficiency of other specified B group vitamins; Z90.710 Acquired absence of both cervix and uterus; Z90.722 Acquired absence of ovaries, bilateral; Z90.49 Acquired absence of other specified parts of digestive tract; Z98.84 Bariatric surgery status; Z88.5 Allergy status to narcotic agent; Z88.1 Allergy status to other antibiotic agents; Z91.041 Radiographic dye allergy status; Z79.2 Long term (current) use of antibiotics; Z79.818 Long term (current) use of other agents affecting estrogen receptors and estrogen levels; Z79.899 Other long term (current) drug therapy; Z98.890 Other specified postprocedural states
CPT/HCPCS: 36415; 71045; 80048; 81003; 85025; 87077; 87086; 87186; 96361; 96365; 96366; 96375; 96376; G0378; J0290; J1642; J2270; J2405; J7050; Q0162

== ENCOUNTER 2018-02-27 09:39 | Outpatient (CLI) | payer BC ==
--- NOTE | 2018-02-27 12:02 | RAD ---
TUBE CHECK: 02/27/2018 PROVIDED CLINICAL HISTORY: Confirm PEG placement. FINDINGS: The cloth presser radiograph demonstrates a nonspecific bowel gas pattern. The PEG tube overlies the left up per quadrant. Subsequent to the administration of contrast material through the catheter, contrast m aterial is noted within bowel. IMPRESSION: As above. POS: JENNIFER
== END 2018-02-27 09:40 | disposition home or self-care (01) ==
LOC: RAD 09:39
PROVIDERS: ATTEND Surgery
DX: K31.1 Adult hypertrophic pyloric stenosis (principal); Z93.1 Gastrostomy status
CPT/HCPCS: 76000

== ENCOUNTER 2018-03-05 08:59 | Day surgery (SDC) | payer BC ==
[2018-03-04 13:32] VITALS: BMI 22.1
[2018-03-05] MEDS ORDERED: Sodium Chloride 0.9% 10 ML ONE ×2 (09:27→13:55)
[2018-03-05] MEDS ORDERED: CEFAZOLIN 2 GM/50 ML BAG ONE (09:59)
[2018-03-05] MEDS ORDERED: Midazolam HCl 2 mg/2 ml Vial ONE ×3 (10:27→10:58)
[2018-03-05] MEDS ORDERED: Ondansetron PF 4 MG/2 ML Vial ONE (11:50)
[2018-03-05] MEDS ORDERED: Ketorolac Tromethamine 30 MG/ML VIAL ONE (11:50)
[2018-03-05] MEDS ORDERED: PROPOFOL 200 MG/20 ML VIAL ONE (11:50)
[2018-03-05] MEDS ORDERED: Dexamethasone 20 MG/5 ML VIAL ONE (11:50)
[2018-03-05] MEDS ORDERED: Fentanyl 100 MCG/2 ML VIAL ONE ×2 (11:52→12:10)
[2018-03-05] MEDS ORDERED: Promethazine HCl 25 MG/ML VIAL ONE (11:55)
[2018-03-05] MEDS ORDERED: Morphine 2 MG/ML SYRINGE ONE ×2 (13:23→13:53)
[2018-03-05] MEDS ORDERED: Morphine 4 MG/ML VIAL ONE (13:52)
[2018-03-05] MEDS ORDERED: Sodium Chloride 0.9% 0 ML ONE (13:53)
--- NOTE | 2018-03-05 20:47 | OP ---
DATE OF PROCEDURE: 03/05/2018 PREOPERATIVE DIAGNOSES: 1. History of gastrojejunostomy stricture. 2. Protein-calorie malnutrition requiring G-tube. 3. Significant pain, dysfunction to G-tube site. POSTOPERATIVE DIAGNOSES: 1. History of gastrojejunostomy stricture. 2. Protein-calorie malnutrition requiring G-tube. 3. Significant pain, dysfunction to G-tube site. PROCEDURES PERFORMED: 1. Removal and replacement of feeding gastrostomy tube (remnant bypassed stomach). 2. Dilation of trach into the stomach. ANESTHESIA: General. ESTIMATED BLOOD LOSS: Minimal. COMPLICATIONS: None. FINDINGS: The old 14-Syrian gastrostomy tube was removed. DESCRIPTION OF PROCEDURE: The path was dilated using hemostats. The new tube was placed into the stomach without difficulty. Balloon inflated with 10 mL of sterile water, it flushes without difficulty. Dry dressings were placed underneath the enclosed holding disk. The patient was sent to Recovery in stable condition. All instrument counts, needle counts, and lap counts were correct. Job ID: [id number]
== END 2018-03-05 14:30 | disposition home or self-care (01) ==
LOC: SDC 08:59
PROVIDERS: ATTEND Surgery
PROC: 0DH63UZ Insertion of Feeding Device into Stomach, Percutaneous Approach (ICD-10-PCS; principal; 2018-03-05)
PROC: 0DP63UZ Removal of Feeding Device from Stomach, Percutaneous Approach (ICD-10-PCS; principal; 2018-03-05)
DX: K94.29 Other complications of gastrostomy (principal); K31.6 Fistula of stomach and duodenum; E78.00 Pure hypercholesterolemia, unspecified; E46 Unspecified protein-calorie malnutrition; Z68.22 Body mass index [BMI] 22.0-22.9, adult; Z79.899 Other long term (current) drug therapy; Z88.5 Allergy status to narcotic agent; Z88.1 Allergy status to other antibiotic agents; Z91.041 Radiographic dye allergy status
CPT/HCPCS: 96374; B4087; J1100; J1642; J1885; J2250; J2270; J2405; J2550; J2704; J3010; J7050

== ENCOUNTER → 2018-07-28 | Day surgery (SDC) | payer BC | LOC: SPEC 14:29 | PROVIDERS: ATTEND Surgery | DX: E46 Unspecified protein-calorie malnutrition (principal); K91.89 Other postprocedural complications and disorders of digestive system; Z88.1 Allergy status to other antibiotic agents; Z91.041 Radiographic dye allergy status ==

== ENCOUNTER 2018-07-29 06:54 | Day surgery (SDC) | payer BC ==
[2018-07-28 16:10] VITALS: BMI 22.1
[2018-07-29] MEDS ORDERED: Midazolam HCl 2 mg/2 ml Vial ONE ×2 (07:06→08:27)
[2018-07-29] MEDS ORDERED: Fentanyl 100 MCG/2 ML VIAL ONE ×2 (07:06→08:39)
--- NOTE | 2018-07-29 09:54 | SPC ---
FLUOROSCOPICALLY GUIDED GASTROSTOMY TUBE CHANGE: HISTORY: 63-year-old with long-standing history of gastrostomy which has been recently pulled out. A small temporary catheter was in place. Radiation dosimetry is 14.2 Gy*cm^2 and 3 minutes of fluoroscopy. RADIOGRAPHIC FINDINGS: Informed consent was obtained from the patient. The insertion site was prepped and draped in the usua l sterile manner using a Chloraprep solution. Some iodinated contrast was introduced into the gastric lumen through the catheter. An Amplatz wire w as introduced. The temporary 10 Ugandan catheter was removed.. A 1% lidocaine solution was used to anesthetize overlying soft tissues. The patient was sedated using 200 mcg of fentanyl and 3 mg of Versed. Despite this, the patient obey nue to have some pain during the attempted tract dilatation. Multiple attempts were made to dilate the tract using 6 mm and 5 mm angioplasty balloons. Multiple attempts were made to place a 14 Ugandan feeding tube through the tract. This was unsuccessful. At this point, a 12 Ugandan jejunostomy tube was cut to obtain a gastrostomy type catheter. This was placed over the wire into the gastric lumen. Position was confirmed. Subsequent follow-up tract dilatations will be attempted after this tract has had a chance to mature. Findings discussed with Dr. Griffith and the patient. Transcribed Date/Time: 07/29/2018 10:53 AM
[2018-07-29 11:46] VITALS: BP 140/80; TEMP 97.6
== END 2018-07-29 11:00 | disposition home or self-care (01) ==
LOC: SPEC 06:54
PROVIDERS: ATTEND Surgery
PROC: 0D20XUZ Change Feeding Device in Upper Intestinal Tract, External Approach (ICD-10-PCS; principal; 2018-07-29)
DX: K91.89 Other postprocedural complications and disorders of digestive system (principal); K75.81 Nonalcoholic steatohepatitis (NASH); D50.9 Iron deficiency anemia, unspecified; E78.00 Pure hypercholesterolemia, unspecified; F41.9 Anxiety disorder, unspecified; F32.9 Major depressive disorder, single episode, unspecified; I25.2 Old myocardial infarction; J18.9 Pneumonia, unspecified organism; Z88.1 Allergy status to other antibiotic agents; Z88.5 Allergy status to narcotic agent; Z91.041 Radiographic dye allergy status
CPT/HCPCS: 43763; 49440; C1725; C1769; J1642; J2250; J3010

== ENCOUNTER 2018-08-11 05:59 | Day surgery (SDC) | payer BC ==
[2018-08-10 09:38] VITALS: BMI 22.1
[2018-08-11] MEDS ORDERED: Midazolam HCl 2 mg/2 ml Vial ONE (07:08)
[2018-08-11] MEDS ORDERED: Fentanyl 100 MCG/2 ML VIAL ONE ×4 (07:08→10:01)
[2018-08-11] MEDS ORDERED: Sterile Water 10 ML ONE (08:43)
[2018-08-11] MEDS ORDERED: HYDROmorphone 2 MG/ML VIAL ONE (09:21)
[2018-08-11] MEDS ORDERED: Promethazine HCl 25 MG/ML VIAL ONE (09:23)
[2018-08-11] MEDS ORDERED: Ketorolac Tromethamine 30 MG/ML VIAL ONE (09:33)
--- NOTE | 2018-08-11 09:45 | SPC ---
EXAM: SPC PERC GASTROSTOMY TUBE S I PROVIDED CLINICAL HISTORY: Patient with recent upsizing of gastrostomy tube. However, due to significant discomfort while placin g a gastrostomy tube, an adequate size gastrostomy tube was unable to be placed. As result placement of a larger size gastrostomy tube was requested under general anesthesia. Fluoroscopy: Total fluoroscopy time is 1.8 minutes with total dose of 12,903 mGy square centimeter. COMPARISON: 07/29/2018 FINDINGS: After informed consent was obtained, the patient was placed on the fluoroscopy table in the supine po sition. General endotracheal anesthesia was performed by the anesthesiology department. The indwelling gastrostomy tube and surrounding area were meticulously prepped and draped in usual steril e fashion. Small amount of nonionic contrast was injected into gastrostomy tube to confirm placement in the stom ach. Saline was removed from the distal balloon, and the distal balloon was exchanged over a 0.035 inch Amplatz guidewire. Attempted placement of a 16 Ukrainian gastrostomy tube was unsuccessful. As resu lt, a 6 mm diameter angioplasty balloon was placed over the guidewire, and the tract was dilated. The gastrostomy tube and angioplasty balloon were advanced into the stomach. The distal balloon was d eflated and removed. Guidewire was also removed. A small amount of nonionic contrast was injected through the gastrostomy tube confirming placement in the stomach. The distal balloon on the gastrosto my tube was filled with 6 mL of sterile water as recommended. The gastrostomy tube was flushed and capped. Patient tolerated the procedure well and without immediate complication. Patient was transpor eris to anesthesia recovery area for further monitoring prior to discharge. IMPRESSION: Technically successful gastrostomy tube replacement and upsizing. A 12 Ukrainian gastrostomy tube was re placed for a 16 Ukrainian gastrostomy tube.
[2018-08-11] MEDS ORDERED: Morphine 4 MG/ML VIAL ONE (11:21)
[2018-08-11] MEDS ORDERED: Ondansetron PF 4 MG/2 ML Vial ONE (11:34)
[2018-08-11] MEDS ORDERED: Succinylcholine Chloride 20 MG/ML 10 ml SYRINGE FS ONE (11:34)
[2018-08-11] MEDS ORDERED: PROPOFOL 200 MG/20 ML VIAL ONE (11:34)
[2018-08-11] MEDS ORDERED: ePHEDrine 50 MG/ML VIAL ONE (11:34)
[2018-08-11] MEDS ORDERED: Sodium Chloride 0.9% 10 ML ONE (11:45)
== END 2018-08-11 12:11 | disposition home or self-care (01) ==
LOC: SPEC 05:59 → SDC 12:11
PROVIDERS: ATTEND Surgery
PROC: 0D20XUZ Change Feeding Device in Upper Intestinal Tract, External Approach (ICD-10-PCS; principal; 2018-08-11)
DX: Z43.1 Encounter for attention to gastrostomy (principal); E78.00 Pure hypercholesterolemia, unspecified; E46 Unspecified protein-calorie malnutrition; Z68.22 Body mass index [BMI] 22.0-22.9, adult; Z79.899 Other long term (current) drug therapy; Z88.5 Allergy status to narcotic agent; Z91.041 Radiographic dye allergy status; Z98.84 Bariatric surgery status; Z98.890 Other specified postprocedural states
CPT/HCPCS: 43763; 49440; A4216; B4087; C1725; J0131; J1170; J1642; J1885; J2250; J2270; J2405; J2550; J2704; J3010; J3490

== ENCOUNTER 2019-09-09 11:55 | Outpatient (CLI) | payer BC ==
--- NOTE | 2019-09-09 12:13 | RAD ---
2 VIEWS CHEST: Date: 09/09/2019 PROVIDED CLINICAL HISTORY: Dyspnea. FINDINGS: Comparison with 09/03/2016. Cardiac and mediastinal silhouette is within normal limits. Right IJ implanted port is noted with tip overlying expected location of SVC. No focal consolidation, pleural fluid, or pneumothorax apparent. There is stable blunting of the posterior left costophrenic angle. IMPRESSION: No evidence for acute cardiopulmonary process. POS: [facility]
== END 2019-09-09 11:56 | disposition home or self-care (01) ==
LOC: BICRAD 11:55
PROVIDERS: ATTEND Internal Medicine Critical Care Medicine
DX: R06.00 Dyspnea, unspecified (principal)
CPT/HCPCS: 71046

== ENCOUNTER 2020-11-08 10:08 | Outpatient (CLI) | payer BC | END 2020-11-08 10:09 | disposition home or self-care (01) | LOC: BICRAD 10:08 | PROVIDERS: ATTEND Physician Assistant Medical | DX: Z43.1 Encounter for attention to gastrostomy (principal); R10.13 Epigastric pain | CPT/HCPCS: 74019 ==

== ENCOUNTER 2021-07-01 12:05 | Inpatient (IN) | payer BC ==
[~2021-07-01 12:05] MED LIST changes: -Dexamethasone 20 MG/5 ML VIAL ONE; -Glycopyrrolate 0.2 MG/ML 5 ML SYRINGE ONE; -Ketorolac Tromethamine 30 MG/ML VIAL ONE; -Lidocaine 1% PF 5 ML VIAL ONE; +Magnevist 469MG/ML 20 ML VIAL ONE; -Metoclopramide HCl 10 MG/2 ML VIAL ONE; -Ondansetron HCl/PF 4 MG/2 ML Vial ONE; -PHENYLEPHRINE-NS 100 MCG/ML 10 ML SYRINGE ONE; -PROPOFOL 200 MG/20 ML VIAL ONE; -Succinylcholine Chloride 20 MG/ML 10 ml SYRINGE FS ONE; -ePHEDrine/0.9% NaCl/PF SYRINGE 50 mg/10 ml ONE
[2021-07-01] MEDS ORDERED: levETIRAcetam 500 MG/5 ML VIAL ONE (13:03)
[2021-07-01] MEDS ORDERED: Lorazepam 2 MG/ML VIAL ONE (13:04)
[2021-07-01] MEDS ORDERED: Aspirin Chewable 81 MG TAB ONE (13:05)
[2021-07-01] MEDS ORDERED: Bisacodyl 5 MG TAB PO PRN (13:07)
[2021-07-01] MEDS ORDERED: Ondansetron PF 4 MG/2 ML Vial IVP PRN (13:07)
[2021-07-01] MEDS ORDERED: Senokot S 8.6-50 MG TAB PO PRN (13:07)
[2021-07-01] MEDS ORDERED: Lorazepam 2 MG/ML VIAL SLOW IVP PRN (13:13)
[2021-07-01] MEDS ORDERED: Sodium Chloride 0.9% 1,000 ML IV SCH (13:45)
[2021-07-01 14:04] LABS: Actual Bicarbonate (HCO3v) 23 mEq/L (22-28); Analyzer IN Cardio ER; Base Excess -0.7 mEq/L (-2.0 to +3.0); Calcium, Ionized (venous) 0.98 mmol/L (1.16-1.32); Chloride (VBG) 107 mmol/L (98-106); Hemoglobin (Hb) 13.2 g/dL (11.7-16.0); Potassium (VBG) 4.34 mmol/L (3.70-5.30); Sodium 140.2 mmol/L (133-146); pH (venous) 7.43 (7.32-7.43)
[2021-07-01 14:26] LABS: Prothrombin Time 13.3 sec (12.0-14.7)
[2021-07-01 14:27] LABS: D-Dimer Test 1.2 *mcg/mL (0.27-0.43)
[2021-07-01 14:32] LABS: PTT 21.6 sec (22.9-36.1)
[2021-07-01] MEDS ORDERED: Prochlorperazine 10 MG/2 ML VIAL IVP SCH (15:00)
[2021-07-01] MEDS ORDERED: Thiamine HCl 200 MG/2 ML VIAL SLOW IVP SCH (15:00)
[2021-07-01] MEDS: Thiamine HCl 500 MG in Sodium Chloride 0.9% 250 ML 250 ML IVPB SCH (15:39)
[2021-07-01] MEDS: Acetaminophen 325 MG TAB PO PRN (15:54)
[2021-07-01 16:01] VITALS: BMI 24.1
[2021-07-01] MEDS ORDERED: Lorazepam 2 MG/ML VIAL SLOW IVP SCH (16:30)
[2021-07-01] MEDS ORDERED: Prochlorperazine Edisylate 10 MG in Sodium Chloride 0.9% 50 ML IVPB SCH (18:00)
[2021-07-01 20:08] LABS: Bacteria/HPF None Seen HPF (None Seen); Bilirubin Negative (Negative); Blood, Urine 1+ (Negative); Clarity Turbid (Clear); Glucose, Urine (Dipstick) 500 mg/dL (Negative); Ketone, Urine Trace mg/dL (Negative); Leukocyte Negative Leu/uL (Negative); Nitrite Negative (Negative); Protein, Urine (Dipstick) 10 mg/dL (Neg-Trace); Specific Gravity, Urine 1.037 (1.002-1.036); Squamous Epithelial None Seen HPF (0-3); Urobilinogen Normal mg/dL (Less than 2); WBC/HPF 0-3 HPF (0-3)
[2021-07-01 20:10] LABS: Urine Culture Reflex No No
[2021-07-01 20:12] LABS: Amphetamine Not Detected (NotDetected); Barbiturates Screen Not Detected (NotDetected); Benzodiazepine Screen Detected (NotDetected); Cocaine Metabolite Screen Not Detected (NotDetected); Methadone Not Detected (NotDetected); Methamphetamine Not Detected (NotDetected); Opiate Screen Not Detected (NotDetected); Oxycodone Screen Not Detected (NotDetected); Phencyclidine (PCP) Not Detected (NotDetected); THC/Cannabinoid Screen Not Detected (NotDetected); Tricyclic Screen Not Detected (NotDetected)
[2021-07-01] MEDS: Atorvastatin Calcium 40 MG TAB PO SCH (20:32)
[2021-07-01] MEDS: levETIRAcetam 500 MG/5 ML VIAL SLOW IVP SCH (20:32)
[2021-07-01] MEDS ORDERED: levETIRAcetam 500 MG/5 ML VIAL SLOW IVP SCH (21:00)
[2021-07-01] MEDS ORDERED: levETIRAcetam in NS 500 MG in Premix Bag 1 BAG IVPB SCH (21:00)
[2021-07-01 22:21] LABS: SARS-CoV-2 PCR by NAA Not Detected (NotDetected)
[2021-07-02] MEDS: Thiamine HCl 500 MG in Sodium Chloride 0.9% 250 ML 250 ML IVPB SCH ×4 (00:12→22:04)
[2021-07-02 06:31] LABS: Hemoglobin A1c 5.5 % (4.0-6.0)
[2021-07-02 06:37] LABS: #Eosinphils 0.1 thou/uL (0.0-0.7); #Lymphocytes 2.4 thou/uL (1.20-3.40); #Monocytes 0.5 thou/uL (0.11-0.59); #Neutrophils 5.4 thou/uL (1.40-6.50); %Basophils 0.5 % (0.0-1.0); %Lymphocytes 28.7 % (21.0-51.0); %Monocytes 5.4 % (0.0-10.0); %Neutrophils 64.4 % (42.0-75.0); Hemoglobin 11.8 g/dL (12.0-16.0); Mean Corpuscular HGB CONC 31.9 g/dL (32.0-36.0); Mean Corpuscular Hemoglobin 33.5 pg (27.0-31.0); Mean Platelet Volume 7.4 fL (7.4-10.4); Platelet Count 185 thou/uL (130-400); RBC Distribution Width 11.6 % (11.5-14.5); Red Blood Cell (RBC) Count 3.52 mill/uL (4.20-5.40); White Blood Cell (WBC) Count 8.4 thou/uL (4.8-10.8)
[2021-07-02 06:46] LABS: Anion Gap 11 mmol/L (10-20); BUN (Urea Nitrogen) 10 mg/dL (9.8-20.1); Calc. Creatinine Clearance 97 mL/min (70-130); Calcium 8.6 mg/dL (7.8-10.44); Carbon Dioxide 21 mmol/L (23-31); Cardiac Risk 2.8 (Less than 4.5); Chloride 111 mmol/L (98-107); Cholesterol 174 mg/dl (< 200 Desired); Glucose 90 mg/dL (80-115); HDL Cholesterol 62 mg/dL (>60 Neg Risk); LDL Cholesterol, Calculated 100 mg/dL; Potassium 3.7 mmol/L (3.5-5.1); Sodium 139 mmol/L (136-145); Triglycerides 60 mg/dL (Less than 150)
[2021-07-02 06:47] LABS: ALT (SGPT) 13 U/L (8-55); AST (SGOT) 13 U/L (5-34); Albumin 3.5 g/dL (3.4-4.8); Alkaline Phosphatase 179 U/L (40-110); Bilirubin, Direct 0.1 mg/dL (0.1-0.3); Bilirubin, Total 0.3 mg/dL (0.2-1.2); Protein, Total 5.7 g/dL (5.8-8.1)
[2021-07-02] MEDS: levETIRAcetam 500 MG/5 ML VIAL SLOW IVP SCH ×2 (08:29→20:31)
[2021-07-02] MEDS: Folic Acid 1 MG TAB PER TUBE SCH (08:29)
[2021-07-02] MEDS: Aspirin 81 mg Enteric Coated Tablet PO SCH (08:29)
[2021-07-02] MEDS ORDERED: Multivits W-Minerals Liquid 15 ML LIQ PER TUBE SCH (09:00)
[2021-07-02] MEDS ORDERED: Cyanocobalamin (Vitamin B-12) 1,000 MCG TAB PER TUBE SCH (09:00)
[2021-07-02] MEDS: Acetaminophen 325 MG TAB PO PRN (10:20)
[2021-07-02] MEDS ORDERED: Ketorolac Tromethamine 30 MG/ML VIAL IVP SCH (11:30)
[2021-07-02 11:53] LABS: Syphilis Antibody Nonreactive (Nonreactive); Syphilis Antibody Index 0.03 S/CO (<1.00 Non-Reactive)
[2021-07-02] MEDS ORDERED: Cyanocobalamin (Vitamin B-12) 1,000 MCG TAB PO SCH (12:15)
[2021-07-02] MEDS ORDERED: Multivits W-Minerals Liquid 15 ML LIQ PO SCH (12:15)
[2021-07-02] MEDS ORDERED: diphenhydrAMINE 50 MG/ML VIAL IVP SCH (12:30)
[2021-07-02] MEDS ORDERED: Metoclopramide HCl 10 MG/2 ML VIAL IVP SCH (12:30)
[2021-07-02 15:29] LABS: Troponin I Less than 0.010 ng/mL (< 0.028)
[2021-07-02] MEDS: diphenhydrAMINE 50 MG/ML VIAL IVP SCH (17:16)
[2021-07-02] MEDS: Prochlorperazine Edisylate 10 MG in Sodium Chloride 0.9% 50 ML IVPB SCH ×2 (19:54→20:31)
[2021-07-02] MEDS: Atorvastatin Calcium 40 MG TAB PO SCH (20:31)
[2021-07-03] MEDS: diphenhydrAMINE 50 MG/ML VIAL IVP SCH ×3 (01:14→13:33)
[2021-07-03] MEDS: Prochlorperazine Edisylate 10 MG in Sodium Chloride 0.9% 50 ML IVPB SCH ×3 (01:15→13:33)
[2021-07-03 06:13] LABS: #Basophils 0.1 thou/uL (0.0-0.2); #Eosinphils 0.1 thou/uL (0.0-0.7); #Lymphocytes 2.8 thou/uL (1.20-3.40); #Monocytes 0.4 thou/uL (0.11-0.59); #Neutrophils 2.5 thou/uL (1.40-6.50); %Eosinophils 1.5 % (0.0-10.0); %Lymphocytes 47.9 % (21.0-51.0); %Monocytes 6.1 % (0.0-10.0); %Neutrophils 43.5 % (42.0-75.0); Hemoglobin 11.3 g/dL (12.0-16.0); Mean Corpuscular HGB CONC 32.7 g/dL (32.0-36.0); Mean Corpuscular Hemoglobin 34.2 pg (27.0-31.0); Mean Platelet Volume 7.9 fL (7.4-10.4); Platelet Count 190 thou/uL (130-400); Red Blood Cell (RBC) Count 3.31 mill/uL (4.20-5.40); White Blood Cell (WBC) Count 5.8 thou/uL (4.8-10.8)
[2021-07-03 06:40] LABS: Anion Gap 12 mmol/L (10-20); BUN (Urea Nitrogen) 15 mg/dL (9.8-20.1); Calc. Creatinine Clearance 83 mL/min (70-130); Calcium 8.1 mg/dL (7.8-10.44); Carbon Dioxide 23 mmol/L (23-31); Chloride 111 mmol/L (98-107); Glucose 77 mg/dL (80-115); Magnesium 1.8 mg/dL (1.6-2.6); Potassium 3.9 mmol/L (3.5-5.1); Sodium 142 mmol/L (136-145)
[2021-07-03 06:56] LABS: HIV (1/2) Antibody/Antigen Non-Reactive (NonReactive); HIV 1/2 INDEX 0.21 S/CO (<1.00)
[2021-07-03] MEDS: Thiamine HCl 500 MG in Sodium Chloride 0.9% 250 ML 250 ML IVPB SCH ×3 (07:08→21:58)
[2021-07-03] MEDS: Folic Acid 1 MG TAB PER TUBE SCH (08:22)
[2021-07-03] MEDS: Multivits W-Minerals Liquid 15 ML LIQ PO SCH (08:22)
[2021-07-03] MEDS: Cyanocobalamin (Vitamin B-12) 1,000 MCG TAB PO SCH (08:22)
[2021-07-03] MEDS: levETIRAcetam 500 MG/5 ML VIAL SLOW IVP SCH ×2 (09:23→20:29)
[2021-07-03] MEDS: Aspirin 81 mg Enteric Coated Tablet PO SCH (09:23)
[2021-07-03] MEDS: Acetaminophen 325 MG TAB PO PRN (09:23)
[2021-07-03] MEDS: Ondansetron ODT 4 MG TAB PO PRN (13:52)
[2021-07-03] MEDS: Promethazine HCl 25 MG/ML VIAL IM PRN ×2 (14:25→19:43)
[2021-07-03] MEDS ORDERED: Ketorolac Tromethamine 30 MG/ML VIAL IVP SCH ×3 (15:00→21:30)
[2021-07-03] MEDS ORDERED: Morphine 4 MG/ML VIAL SLOW IVP SCH (15:15)
[2021-07-03] MEDS: Atorvastatin Calcium 40 MG TAB PO SCH (20:29)
[2021-07-03] MEDS ORDERED: Lidocaine 2% Viscous Solution 20 ML, Aluminum & Magnesium Hydroxide 30 ML, Donnatal Eli... SSW SCH (21:00)
[2021-07-04 05:26] LABS: #Basophils 0.1 thou/uL (0.0-0.2); #Eosinphils 0.1 thou/uL (0.0-0.7); #Lymphocytes 1.1 thou/uL (1.20-3.40); #Monocytes 0.6 thou/uL (0.11-0.59); #Neutrophils 7.6 thou/uL (1.40-6.50); %Basophils 0.9 % (0.0-1.0); %Eosinophils 0.6 % (0.0-10.0); %Lymphocytes 11.4 % (21.0-51.0); %Monocytes 6.8 % (0.0-10.0); %Neutrophils 80.3 % (42.0-75.0); Hemoglobin 11.8 g/dL (12.0-16.0); Mean Corpuscular HGB CONC 30.8 g/dL (32.0-36.0); Mean Corpuscular Hemoglobin 31.8 pg (27.0-31.0); Mean Platelet Volume 7.3 fL (7.4-10.4); Platelet Count 189 thou/uL (130-400); RBC Distribution Width 11.6 % (11.5-14.5); White Blood Cell (WBC) Count 9.4 thou/uL (4.8-10.8)
[2021-07-04 05:47] LABS: Anion Gap 14 mmol/L (10-20); Calcium 8.7 mg/dL (7.8-10.44); Carbon Dioxide 21 mmol/L (23-31); Chloride 106 mmol/L (98-107); Potassium 3.7 mmol/L (3.5-5.1); Sodium 137 mmol/L (136-145)
[2021-07-04 05:53] LABS: Glucose 85 mg/dL (80-115)
[2021-07-04 05:57] LABS: BUN (Urea Nitrogen) 9 mg/dL (9.8-20.1); Calc. Creatinine Clearance 90 mL/min (70-130)
[2021-07-04 05:59] LABS: Magnesium 1.7 mg/dL (1.6-2.6)
[2021-07-04] MEDS: Promethazine HCl 25 MG/ML VIAL IM PRN ×3 (06:10→20:16)
[2021-07-04] MEDS: Thiamine HCl 500 MG in Sodium Chloride 0.9% 250 ML 250 ML IVPB SCH ×3 (07:39→23:10)
[2021-07-04] MEDS: Pantoprazole 40 MG VIAL IVP SCH (08:59)
[2021-07-04] MEDS: levETIRAcetam 500 MG/5 ML VIAL SLOW IVP SCH ×2 (08:59→20:16)
[2021-07-04] MEDS: Aspirin 81 mg Enteric Coated Tablet PO SCH (08:59)
[2021-07-04] MEDS: Cyanocobalamin (Vitamin B-12) 1,000 MCG TAB PO SCH (09:00)
[2021-07-04] MEDS: Folic Acid 1 MG TAB PER TUBE SCH (09:00)
[2021-07-04] MEDS: Multivits W-Minerals Liquid 15 ML LIQ PO SCH (09:01)
[2021-07-04] MEDS: Ondansetron ODT 4 MG TAB PO PRN (11:04)
[2021-07-04] MEDS ORDERED: Lidocaine 2% Viscous Solution 10 ML, Aluminum & Magnesium Hydroxide 30 ML SSW SCH (11:45)
[2021-07-04] MEDS ORDERED: Dicyclomine 20 MG/2 ML VIAL IM PRN (12:35)
[2021-07-04] MEDS: Cyanocobalamin 1000 MCG/ML VIAL IM SCH (12:44)
[2021-07-04] MEDS ORDERED: Polyethylene Glycol 3350 17 GM Packet PER TUBE SCH (12:45)
[2021-07-04] MEDS: Atorvastatin Calcium 40 MG TAB PO SCH (20:16)
[2021-07-04] MEDS ORDERED: Morphine 4 MG/ML VIAL IM SCH (21:00)
[2021-07-05 05:19] LABS: #Basophils 0.1 thou/uL (0.0-0.2); #Eosinphils 0.1 thou/uL (0.0-0.7); #Lymphocytes 1.9 thou/uL (1.20-3.40); #Monocytes 0.6 thou/uL (0.11-0.59); #Neutrophils 4.1 thou/uL (1.40-6.50); %Eosinophils 1.5 % (0.0-10.0); %Lymphocytes 28.6 % (21.0-51.0); %Monocytes 8.5 % (0.0-10.0); %Neutrophils 60.4 % (42.0-75.0); Hemoglobin 10.8 g/dL (12.0-16.0); Mean Corpuscular HGB CONC 32.7 g/dL (32.0-36.0); Mean Corpuscular Hemoglobin 33.8 pg (27.0-31.0); Mean Platelet Volume 7.5 fL (7.4-10.4); Platelet Count 169 thou/uL (130-400); RBC Distribution Width 11.5 % (11.5-14.5); Red Blood Cell (RBC) Count 3.19 mill/uL (4.20-5.40); White Blood Cell (WBC) Count 6.8 thou/uL (4.8-10.8)
[2021-07-05 05:36] LABS: Anion Gap 12 mmol/L (10-20); BUN (Urea Nitrogen) 7 mg/dL (9.8-20.1); Calc. Creatinine Clearance 94 mL/min (70-130); Calcium 8.3 mg/dL (7.8-10.44); Carbon Dioxide 23 mmol/L (23-31); Chloride 108 mmol/L (98-107); Glucose 86 mg/dL (80-115); Magnesium 1.9 mg/dL (1.6-2.6); Potassium 3.4 mmol/L (3.5-5.1); Sodium 140 mmol/L (136-145)
[2021-07-05] MEDS: Promethazine HCl 25 MG/ML VIAL IM PRN (06:27)
[2021-07-05] MEDS: Thiamine HCl 500 MG in Sodium Chloride 0.9% 250 ML 250 ML IVPB SCH (07:31)
[2021-07-05] MEDS ORDERED: Polyethylene Glycol 3350 17 GM Packet PER TUBE SCH (09:00)
[2021-07-05] MEDS ORDERED: Midazolam HCl 2 mg/2 ml Vial ONE (09:07)
[2021-07-05] MEDS ORDERED: Ketamine 50 MG/ML (10ML VIAL) ONE (09:09)
[2021-07-05] MEDS ORDERED: PROPOFOL 200 MG/20 ML VIAL ONE (09:16)
[2021-07-05] MEDS ORDERED: PHENYLEPHRINE-NS 100 MCG/ML 10 ML SYRINGE ONE (09:16)
[2021-07-05] MEDS ORDERED: Promethazine HCl 25 MG/ML VIAL IM PRN (09:43)
[2021-07-05] MEDS ORDERED: Promethazine HCl 25 MG/ML VIAL IVPB PRN (09:43)
[2021-07-05] MEDS ORDERED: Ondansetron HCl/PF 4 MG/2 ML Vial IVP PRN (09:43)
[2021-07-05] MEDS: Cyanocobalamin 1000 MCG/ML VIAL IM SCH (11:33)
[2021-07-05] MEDS: Folic Acid 1 MG TAB PER TUBE SCH (11:34)
[2021-07-05] MEDS: Cyanocobalamin (Vitamin B-12) 1,000 MCG TAB PO SCH (11:34)
[2021-07-05] MEDS: Pantoprazole 40 MG VIAL IVP SCH (11:34)
[2021-07-05] MEDS: Multivits W-Minerals Liquid 15 ML LIQ PO SCH (11:34)
[2021-07-05] MEDS: levETIRAcetam 500 MG/5 ML VIAL SLOW IVP SCH (11:34)
[2021-07-05] MEDS: Aspirin 81 mg Enteric Coated Tablet PO SCH (11:34)
[2021-07-05 11:47] VITALS: BP 121/66; TEMP 96.5
== END 2021-07-05 13:21 | disposition home or self-care (01) | DRG 640 ==
LOC: ERS 12:05 → NEURO 13:07
PROVIDERS: ADMIT Family Medicine; ATTEND Emergency Medicine
PROC: 0DJ08ZZ Inspection of Upper Intestinal Tract, Via Natural or Artificial Opening Endoscopic (ICD-10-PCS; principal; 2021-07-05)
DX: E53.8 Deficiency of other specified B group vitamins (principal); G93.41 Metabolic encephalopathy; G81.94 Hemiplegia, unspecified affecting left nondominant side; K31.819 Angiodysplasia of stomach and duodenum without bleeding; E51.9 Thiamine deficiency, unspecified; G93.9 Disorder of brain, unspecified; R11.2 Nausea with vomiting, unspecified; D53.9 Nutritional anemia, unspecified; G89.29 Other chronic pain; G93.89 Other specified disorders of brain; I25.10 Atherosclerotic heart disease of native coronary artery without angina pectoris; G40.909 Epilepsy, unspecified, not intractable, without status epilepticus; I08.1 Rheumatic disorders of both mitral and tricuspid valves; K59.00 Constipation, unspecified; E86.0 Dehydration; F41.9 Anxiety disorder, unspecified; F32.A Depression, unspecified; Z20.822 Contact with and (suspected) exposure to COVID-19; Z87.440 Personal history of urinary (tract) infections; Z98.84 Bariatric surgery status; Z93.1 Gastrostomy status; Z88.1 Allergy status to other antibiotic agents; Z91.041 Radiographic dye allergy status; Z79.899 Other long term (current) drug therapy; Z90.710 Acquired absence of both cervix and uterus; Z90.79 Acquired absence of other genital organ(s); Z90.722 Acquired absence of ovaries, bilateral; Z90.49 Acquired absence of other specified parts of digestive tract; Z98.890 Other specified postprocedural states; Z82.49 Family history of ischemic heart disease and other diseases of the circulatory system; Z82.3 Family history of stroke
CPT/HCPCS: 36415; 36416; 70553; 71045; 74176; 80048; 80061; 80076; 80306; 80307; 81001; 82607; 82746; 82805; 83036; 83690; 83735; 84146; 84425; 84443; 84484; 85025; 85379; 86780; 86850; 86900; 86901; 87389; 93005; 93306; 93880; 93970; 95712; 95819; 95957; 96374; 96375; A9579; C9113; J0780; J1200; J1642; J1885; J1953; J2060; J2250; J2270; J2405; J2550; J2704; J2765; J3411; J3420; J7050; Q0162; U0003; U0005

== ENCOUNTER 2021-12-13 10:00 | Outpatient (CLI) | payer BC ==
[2021-12-13] MEDS ORDERED: EPINEPHrine 1 mg/ml MDV (1ml Charge) ONE (11:43)
[2021-12-13] MEDS ORDERED: diphenhydrAMINE 50 MG/ML VIAL ONE (11:43)
[2021-12-13] MEDS ORDERED: Iopamidol 370 76% 100 ML VIAL ONE (14:03)
== END 2021-12-13 10:01 | disposition home or self-care (01) ==
LOC: CT 10:00
PROVIDERS: ATTEND Surgery
DX: K85.90 Acute pancreatitis without necrosis or infection, unspecified (principal); K76.0 Fatty (change of) liver, not elsewhere classified; Z98.890 Other specified postprocedural states; Z90.49 Acquired absence of other specified parts of digestive tract; Z90.710 Acquired absence of both cervix and uterus
CPT/HCPCS: 74177; J0171; J1200; Q9967

== ENCOUNTER 2021-12-13 10:54 | Emergency (ER) | payer BC ==
[2021-12-13] MEDS ORDERED: methylPREDNISolone Sod Succ 40 MG VIAL ONE (11:00)
[2021-12-13] MEDS ORDERED: EPINEPHrine 1 MG/ML AMP ONE (11:00)
[2021-12-13] MEDS ORDERED: diphenhydrAMINE 50 MG/ML VIAL ONE (11:00)
[2021-12-13] MEDS ORDERED: methylPREDNISolone Sod Succ/PF 125 MG/2 ML VIAL ONE (11:06)
[2021-12-13] MEDS ORDERED: Famotidine/PF 20 mg/2ml Vial ONE (11:06)
== END 2021-12-13 12:46 | disposition home or self-care (01) ==
LOC: ERS 10:54
DX: R42 Dizziness and giddiness (principal); T50.8X5A Adverse effect of diagnostic agents, initial encounter; I25.2 Old myocardial infarction
CPT/HCPCS: 74177; 99283; J0171; J1200; J2920; J2930; Q9967; S0028

== ENCOUNTER 2022-02-25 10:28 | Emergency (ER) | payer BC ==
[~2022-02-25 10:28] MED LIST changes: +GASTROGRAFIN 30 ML BOT ONE; -Magnevist 469MG/ML 20 ML VIAL ONE
[2022-02-25] MEDS ORDERED: Fentanyl 100 MCG/2 ML VIAL ONE (11:37)
[2022-02-25] MEDS ORDERED: Ondansetron PF 4 MG/2 ML Vial ONE (11:38)
[2022-02-25] MEDS ORDERED: Pantoprazole 40 MG VIAL ONE (11:38)
[2022-02-25 11:53] LABS: #Basophils 0.1 thou/uL (0.0-0.2); #Eosinphils 0.1 thou/uL (0.0-0.7); #Lymphocytes 2.3 thou/uL (1.20-3.40); #Monocytes 0.4 thou/uL (0.11-0.59); #Neutrophils 4.1 thou/uL (1.40-6.50); %Eosinophils 1.7 % (0.0-10.0); %Lymphocytes 32.7 % (21.0-51.0); %Monocytes 5.9 % (0.0-10.0); %Neutrophils 58.8 % (42.0-75.0); Hemoglobin 11.7 g/dL (12.0-16.0); Mean Corpuscular HGB CONC 31.7 g/dL (32.0-36.0); Mean Corpuscular Hemoglobin 32.4 pg (27.0-31.0); Mean Platelet Volume 8.4 fL (7.4-10.4); Platelet Count 185 10x3/uL (130-400); RBC Distribution Width 11.3 % (11.5-14.5); Red Blood Cell (RBC) Count 3.62 mill/uL (4.20-5.40); White Blood Cell (WBC) Count 6.9 10x3/uL (4.8-10.8)
[2022-02-25 12:01] LABS: INR-International Normal Ratio 0.9; Prothrombin Time 12.4 sec (12.0-14.7)
[2022-02-25 12:02] LABS: PTT 26.7 sec (22.9-36.1)
[2022-02-25 12:19] LABS: ALT (SGPT) 11 U/L (8-55); AST (SGOT) 19 U/L (5-34); Albumin 3.8 g/dL (3.4-4.8); Alkaline Phosphatase 184 U/L (40-110); Anion Gap 9 mmol/L (10-20); BUN (Urea Nitrogen) 13 mg/dL (9.8-20.1); Bilirubin, Total 0.2 mg/dL (0.2-1.2); Calc. Creatinine Clearance 0 mL/min (70-130); Calcium 8.7 mg/dL (7.8-10.44); Carbon Dioxide 25 mmol/L (23-31); Chloride 111 mmol/L (98-107); Estimated GFR 99; Globulin 2.3 g/dL (2.4-3.5); Glucose 80 mg/dL (80-115); Potassium 4.1 mmol/L (3.5-5.1); Protein, Total 6.1 g/dL (5.8-8.1); Sodium 141 mmol/L (136-145)
[2022-02-25] MEDS ORDERED: Dicyclomine 20 MG/2 ML VIAL ONE (13:23)
== END 2022-02-25 13:45 | disposition home or self-care (01) ==
LOC: ERS 10:28
DX: K62.5 Hemorrhage of anus and rectum (principal); K21.9 Gastro-esophageal reflux disease without esophagitis
CPT/HCPCS: 74176; 80053; 83690; 85025; 85610; 85730; 86850; 86900; 86901; 96372; 96374; 96375; C9113; J2405; J3010; Q9963

== ENCOUNTER 2022-03-28 14:17 | Outpatient (CLI) | payer BC, MEDICARE | END 2022-03-28 14:18 | disposition home or self-care (01) | LOC: TBSIIMAG 14:17 | PROVIDERS: ATTEND Surgery | DX: G93.9 Disorder of brain, unspecified (principal) | CPT/HCPCS: 70553 ==

== ENCOUNTER 2022-03-28 16:52 | Inpatient (IN) | payer BC, MEDICARE ==
[2022-03-28] MEDS ORDERED: EPINEPHrine 1 MG/ML VIAL ONE (17:19)
[2022-03-28] MEDS ORDERED: Pantoprazole 40 MG VIAL ONE (17:55)
[2022-03-28 18:08] LABS: #Basophils 0.1 thou/uL (0.0-0.2); #Eosinphils 0.1 thou/uL (0.0-0.7); #Lymphocytes 3.1 thou/uL (1.20-3.40); #Monocytes 0.4 thou/uL (0.11-0.59); #Neutrophils 4.1 thou/uL (1.40-6.50); %Basophils 1.1 % (0.0-1.0); %Eosinophils 1.5 % (0.0-10.0); %Lymphocytes 39.4 % (21.0-51.0); %Monocytes 5.3 % (0.0-10.0); %Neutrophils 52.7 % (42.0-75.0); Hemoglobin 12.5 g/dL (12.0-16.0); Mean Corpuscular HGB CONC 32.9 g/dL (32.0-36.0); Mean Corpuscular Hemoglobin 33.4 pg (27.0-31.0); Platelet Count 195 10x3/uL (130-400); RBC Distribution Width 11.4 % (11.5-14.5); Red Blood Cell (RBC) Count 3.74 mill/uL (4.20-5.40); White Blood Cell (WBC) Count 7.8 10x3/uL (4.8-10.8)
[2022-03-28 18:18] LABS: Bacteria/HPF 2+ HPF (None Seen); Bilirubin Negative (Negative); Blood, Urine Negative (Negative); Clarity Clear (Clear); Glucose, Urine (Dipstick) Normal (Negative); Ketone, Urine Negative (Negative); Leukocyte Negative Leu/uL (Negative); Nitrite 1+ (Negative); Protein, Urine (Dipstick) Negative (Neg-Trace); RBC/HPF None Seen HPF (0-3); Specific Gravity, Urine 1.019 (1.002-1.036); Squamous Epithelial 0-3 HPF (0-3); Urobilinogen Normal mg/dL (Less than 2); WBC/HPF 0-3 HPF (0-3); pH, Urine 6.5 (5.0-9.0)
[2022-03-28] MEDS ORDERED: Morphine 4 MG/ML VIAL ONE ×2 (18:20→19:46)
[2022-03-28] MEDS ORDERED: Ondansetron PF 4 MG/2 ML Vial ONE (18:20)
[2022-03-28 18:32] LABS: ALT (SGPT) 17 U/L (8-55); AST (SGOT) 21 U/L (5-34); Albumin 4.1 g/dL (3.4-4.8); Alkaline Phosphatase 171 U/L (40-110); Anion Gap 10 mmol/L (10-20); BUN (Urea Nitrogen) 13 mg/dL (9.8-20.1); Bilirubin, Total 0.3 mg/dL (0.2-1.2); Calc. Creatinine Clearance 0 mL/min (70-130); Calcium 9.2 mg/dL (7.8-10.44); Carbon Dioxide 26 mmol/L (23-31); Chloride 107 mmol/L (98-107); Estimated GFR 98; Globulin 2.4 g/dL (2.4-3.5); Glucose 94 mg/dL (80-115); Lipase 17 U/L (8-78); Potassium 4.2 mmol/L (3.5-5.1); Protein, Total 6.5 g/dL (5.8-8.1); Sodium 139 mmol/L (136-145)
[2022-03-28] MEDS ORDERED: cefTRIAXone\\ROCEPHIN 1 GM VIAL ONE (21:34)
[2022-03-28 22:47] LABS: Amphetamine Not Detected (NotDetected); Barbiturates Screen Not Detected (NotDetected); Benzodiazepine Screen Detected (NotDetected); Cocaine Metabolite Screen Not Detected (NotDetected); Methadone Not Detected (NotDetected); Methamphetamine Not Detected (NotDetected); Opiate Screen Detected (NotDetected); Oxycodone Screen Not Detected (NotDetected); Phencyclidine (PCP) Not Detected (NotDetected); THC/Cannabinoid Screen Not Detected (NotDetected); Tricyclic Screen Not Detected (NotDetected)
[2022-03-28] MEDS ORDERED: Dextrose 5% in Water 1,000 ML IV PRN (23:11)
[2022-03-28] MEDS ORDERED: Dextrose 50% Abboject 50 ML SYRINGE SLOW IVP PRN (23:11)
[2022-03-29] MEDS ORDERED: Promethazine HCl 12.5 MG in Sodium Chloride 0.9% 50 ML IVPB SCH (01:30)
[2022-03-29] MEDS ORDERED: Lidocaine 2% Viscous Solution 10 ML, Aluminum & Magnesium Hydroxide 30 ML SSW SCH (01:30)
[2022-03-29] MEDS ORDERED: Acetaminophen 325 MG TAB PO PRN (01:58)
[2022-03-29 04:53] LABS: Hemoglobin 12.1 g/dL (12.0-16.0); Mean Corpuscular HGB CONC 30.7 g/dL (32.0-36.0); Mean Corpuscular Hemoglobin 32.7 pg (27.0-31.0); Mean Platelet Volume 9.1 fL (7.4-10.4); Platelet Count 142 10x3/uL (130-400); RBC Distribution Width 11.3 % (11.5-14.5); Red Blood Cell (RBC) Count 3.71 mill/uL (4.20-5.40)
[2022-03-29 05:33] LABS: Eosinophils 1 % (0-10); Lymphocytes 42 % (21-51); MDiff Complete? YES; Macrocytosis SLIGHT = 6-15 cells (100X) (0-5/hpf); Monocytes 5 % (0-10); Neutrophil 52 % (42-75); Platelet Morphology Comment Appears Adequate
[2022-03-29 07:33] LABS: Anion Gap 10 mmol/L (10-20); BUN (Urea Nitrogen) 8 mg/dL (9.8-20.1); Calc. Creatinine Clearance 81 mL/min (70-130); Calcium 8.4 mg/dL (7.8-10.44); Carbon Dioxide 24 mmol/L (23-31); Chloride 110 mmol/L (98-107); Estimated GFR 100; Glucose 81 mg/dL (80-115); Potassium 4.2 mmol/L (3.5-5.1); Sodium 140 mmol/L (136-145)
[2022-03-29] MEDS ORDERED: levETIRAcetam 500 MG TAB PO SCH (09:00)
[2022-03-29] MEDS ORDERED: Multivitamins, Adult 10 ML, Thiamine HCl 100 MG, Folic Acid 1 MG in Dextrose 5 %-0.45 %... IV SCH (09:00)
[2022-03-29] MEDS ORDERED: Acetaminophen 500 MG TAB PO PRN (09:09)
[2022-03-29] MEDS ORDERED: Naproxen 500 MG TAB PO PRN (09:09)
[2022-03-29] MEDS ORDERED: Morphine 2 MG/ML VIAL SLOW IVP SCH ×2 (09:30→18:30)
[2022-03-29] MEDS ORDERED: Lorazepam 2 MG/ML VIAL ONE ×2 (16:14→16:15)
[2022-03-29] MEDS ORDERED: Lactated Ringer's 1,000 ML IV SCH (16:15)
[2022-03-29] MEDS ORDERED: Sodium Chloride 0.9% 1,000 ML IV SCH (16:15)
[2022-03-29] MEDS ORDERED: LEVETIRACETAM IVPB SCH ×2 (16:30→16:45)
[2022-03-29] MEDS ORDERED: NS IVPB SCH ×2 (16:30→16:45)
[2022-03-29 16:42] LABS: Actual Bicarbonate (HCO3a) 27.6 mEq/L (22-28); Base Excess (BEa) 2.5 mEq/L (-2.0 to +3.0); CO2 Tension 44.9 mmHg (35.0-45.0); Calcium, Ionized (arterial) 1.08 mmol/L (1.12-1.30); Carboxyhemoglobin (COHb) 0.4 gm% (0.0-3.0); O2 Tension (PaO2), arterial 92.7 mmHg (> 80.0); Potassium - ABG Lab 3.56 mmol/L (3.70-5.30); pH, Arterial 7.41 (7.35-7.45)
[2022-03-29 16:43] LABS: ALV-art Gradient 0.905 mmHg (0-20); Puncture Site RRA
[2022-03-29] MEDS ORDERED: levETIRAcetam 3,000 MG, Admixture Fee 1 EACH in Sodium Chloride 0.9% 100 ML SLOW IVP SCH (16:45)
[2022-03-29] MEDS ORDERED: levETIRAcetam 500 MG/5 ML VIAL SLOW IVP SCH (16:45)
[2022-03-29 16:46] LABS: Lactic Acid 1.2 mmol/L (0.5-2.2)
[2022-03-29 16:53] LABS: Troponin I Less than 0.010 ng/mL (< 0.028)
[2022-03-29] MEDS ORDERED: levETIRAcetam 2,000 MG, Admixture Fee 1 EACH in Sodium Chloride 0.9% 100 ML SLOW IVP SCH (17:00)
[2022-03-29] MEDS ORDERED: Vancomycin 1 GM in Premix Bag 1 BAG IVPB SCH ×2 (17:00→21:00)
[2022-03-29] MEDS: Multivitamins, Adult 10 ML, Folic Acid 1 MG, Thiamine HCl 100 MG in Dextrose 5 %-0.45 %... IV SCH (19:36)
[2022-03-29] MEDS: Cefepime 2 GM in Sodium Chloride 0.9% 100 ML IVPB SCH (21:12)
[2022-03-29] MEDS ORDERED: cefTRIAXone\\ROCEPHIN 1 GM in Sodium Chloride 0.9% 100 ML IVPB SCH (22:00)
[2022-03-30] MEDS ORDERED: Vancomycin HCl 750 MG in Sodium Chloride 0.9% 250 ML 250 ML IVPB SCH (05:00)
[2022-03-30] MEDS ORDERED: Vancomycin HCl 750 MG in Sodium Chloride 0.9% 100 ML IVPB SCH (05:00)
[2022-03-30 06:48] LABS: #Eosinphils 0.1 thou/uL (0.0-0.7); #Lymphocytes 1.5 thou/uL (1.20-3.40); #Monocytes 0.2 thou/uL (0.11-0.59); #Neutrophils 1.6 thou/uL (1.40-6.50); %Basophils 1.3 % (0.0-1.0); %Eosinophils 1.5 % (0.0-10.0); %Lymphocytes 43.1 % (21.0-51.0); %Monocytes 6.2 % (0.0-10.0); %Neutrophils 47.8 % (42.0-75.0); Hemoglobin 11.2 g/dL (12.0-16.0); Mean Corpuscular HGB CONC 33.2 g/dL (32.0-36.0); Mean Corpuscular Hemoglobin 33.9 pg (27.0-31.0); Platelet Count 128 10x3/uL (130-400); RBC Distribution Width 11.2 % (11.5-14.5); White Blood Cell (WBC) Count 3.4 10x3/uL (4.8-10.8)
[2022-03-30 07:24] LABS: Anion Gap 9 mmol/L (10-20); BUN (Urea Nitrogen) 8 mg/dL (9.8-20.1); Calc. Creatinine Clearance 78 mL/min (70-130); Calcium 8.2 mg/dL (7.8-10.44); Carbon Dioxide 25 mmol/L (23-31); Chloride 111 mmol/L (98-107); Estimated GFR 99; Glucose 97 mg/dL (80-115); Potassium 3.6 mmol/L (3.5-5.1); Sodium 141 mmol/L (136-145)
[2022-03-30] MEDS ORDERED: oxyCODONE 5 MG TAB PO PRN (09:04)
[2022-03-30] MEDS ORDERED: Potassium Bicarbonate/Cit Ac 20 MEQ TAB PER TUBE SCH (09:30)
[2022-03-30] MEDS ORDERED: Polyethylene Glycol 3350 17 GM Packet PER TUBE SCH (09:30)
[2022-03-30] MEDS ORDERED: Lansoprazole 15 MG/5 ML (BATCHED)UDCUP PER TUBE SCH (09:30)
[2022-03-30] MEDS: Gabapentin 300 MG CAP PER TUBE SCH ×2 (09:57→20:14)
[2022-03-30] MEDS: Cefepime 2 GM in Sodium Chloride 0.9% 100 ML IVPB SCH ×2 (09:57→20:15)
[2022-03-30] MEDS: levETIRAcetam 500 MG/5 ML VIAL SLOW IVP SCH ×2 (09:58→20:13)
[2022-03-30] MEDS: oxyCODONE 5 MG TAB PER TUBE PRN ×4 (10:00→23:24)
[2022-03-30] MEDS: Multivitamins, Adult 10 ML, Folic Acid 1 MG, Thiamine HCl 100 MG in Dextrose 5 %-0.45 %... IV SCH (17:06)
[2022-03-30] MEDS: Acetaminophen 500 MG TAB PER TUBE PRN (17:14)
[2022-03-30] MEDS: Ondansetron PF 4 MG/2 ML Vial IVP PRN (20:13)
[2022-03-30] MEDS: Lansoprazole 15 MG/5 ML (BATCHED)UDCUP PER TUBE SCH (20:14)
[2022-03-30] MEDS: Atorvastatin Calcium 40 MG TAB PER TUBE SCH (20:14)
[2022-03-30] MEDS: Potassium Bicarbonate/Cit Ac 20 MEQ TAB PER TUBE SCH (20:14)
[2022-03-31] MEDS: oxyCODONE 5 MG TAB PER TUBE PRN (03:21)
[2022-03-31] MEDS: Acetaminophen 500 MG TAB PER TUBE PRN (05:37)
[2022-03-31 05:48] LABS: #Eosinphils 0.1 thou/uL (0.0-0.7); #Monocytes 0.4 thou/uL (0.11-0.59); #Neutrophils 3.2 thou/uL (1.40-6.50); %Basophils 0.8 % (0.0-1.0); %Eosinophils 1.2 % (0.0-10.0); %Lymphocytes 35.6 % (21.0-51.0); %Monocytes 6.6 % (0.0-10.0); %Neutrophils 55.9 % (42.0-75.0); Hemoglobin 11.4 g/dL (12.0-16.0); Mean Corpuscular HGB CONC 33.3 g/dL (32.0-36.0); Mean Corpuscular Hemoglobin 33.7 pg (27.0-31.0); Mean Platelet Volume 8.3 fL (7.4-10.4); Platelet Count 146 10x3/uL (130-400); RBC Distribution Width 11.1 % (11.5-14.5); Red Blood Cell (RBC) Count 3.38 mill/uL (4.20-5.40); White Blood Cell (WBC) Count 5.6 10x3/uL (4.8-10.8)
[2022-03-31 06:06] LABS: Anion Gap 13 mmol/L (10-20); BUN (Urea Nitrogen) 13 mg/dL (9.8-20.1); Calc. Creatinine Clearance 85 mL/min (70-130); Calcium 8.8 mg/dL (7.8-10.44); Carbon Dioxide 24 mmol/L (23-31); Chloride 107 mmol/L (98-107); Estimated GFR 101; Glucose 97 mg/dL (80-115); Potassium 3.8 mmol/L (3.5-5.1); Sodium 140 mmol/L (136-145)
[2022-03-31] MEDS: Gabapentin 300 MG CAP PER TUBE SCH ×2 (08:36→20:42)
[2022-03-31] MEDS: Aspirin Chewable 81 MG TAB PER TUBE SCH (08:36)
[2022-03-31] MEDS: Cyanocobalamin (Vitamin B-12) 1,000 MCG TAB PER TUBE SCH (08:37)
[2022-03-31] MEDS: Folic Acid 1 MG TAB PER TUBE SCH (08:37)
[2022-03-31] MEDS: Polyethylene Glycol 3350 17 GM Packet PER TUBE SCH (08:38)
[2022-03-31] MEDS: Potassium Bicarbonate/Cit Ac 20 MEQ TAB PER TUBE SCH ×2 (08:38→20:45)
[2022-03-31] MEDS: levETIRAcetam 500 MG/5 ML VIAL SLOW IVP SCH ×2 (08:38→20:55)
[2022-03-31] MEDS: Cefepime 2 GM in Sodium Chloride 0.9% 100 ML IVPB SCH (08:39)
[2022-03-31] MEDS: Lansoprazole 15 MG/5 ML (BATCHED)UDCUP PER TUBE SCH ×2 (08:56→22:37)
[2022-03-31] MEDS ORDERED: oxyCODONE 5 MG TAB PO PRN (12:49)
[2022-03-31] MEDS ORDERED: Fosfomycin 3 GM/Packet PO SCH (14:00)
[2022-03-31] MEDS: ALPRAZolam 0.25 MG TAB PO SCH ×2 (14:29→20:44)
[2022-03-31] MEDS ORDERED: Acetaminophen 500 MG TAB PO PRN (18:00)
[2022-03-31] MEDS: Atorvastatin Calcium 40 MG TAB PER TUBE SCH (20:44)
[2022-03-31] MEDS: HYDROcodone/Acetaminophen 5/325 mg Tablet PO PRN (20:53)
[2022-03-31] MEDS ORDERED: Doxycycline 100 MG in Sodium Chloride 0.9% 100 ML IVPB SCH (21:00)
[2022-04-01] MEDS: HYDROcodone/Acetaminophen 5/325 mg Tablet PO PRN ×2 (01:31→05:21)
[2022-04-01 05:05] LABS: #Eosinphils 0.1 thou/uL (0.0-0.7); #Lymphocytes 2.4 thou/uL (1.20-3.40); #Monocytes 0.4 thou/uL (0.11-0.59); #Neutrophils 2.4 thou/uL (1.40-6.50); %Basophils 0.9 % (0.0-1.0); %Eosinophils 1.7 % (0.0-10.0); %Monocytes 7.8 % (0.0-10.0); %Neutrophils 44.7 % (42.0-75.0); Hemoglobin 12.3 g/dL (12.0-16.0); Mean Corpuscular HGB CONC 33.4 g/dL (32.0-36.0); Mean Corpuscular Hemoglobin 34.1 pg (27.0-31.0); Mean Platelet Volume 8.4 fL (7.4-10.4); Platelet Count 162 10x3/uL (130-400); RBC Distribution Width 11.1 % (11.5-14.5); Red Blood Cell (RBC) Count 3.62 mill/uL (4.20-5.40); White Blood Cell (WBC) Count 5.3 10x3/uL (4.8-10.8)
[2022-04-01 05:26] LABS: Anion Gap 11 mmol/L (10-20); BUN (Urea Nitrogen) 13 mg/dL (9.8-20.1); Calc. Creatinine Clearance 85 mL/min (70-130); Calcium 9.4 mg/dL (7.8-10.44); Carbon Dioxide 30 mmol/L (23-31); Chloride 102 mmol/L (98-107); Estimated GFR 101; Glucose 94 mg/dL (80-115); Potassium 4.3 mmol/L (3.5-5.1); Sodium 139 mmol/L (136-145)
[2022-04-01] MEDS: Lansoprazole 15 MG/5 ML (BATCHED)UDCUP PER TUBE SCH ×2 (09:01→20:25)
[2022-04-01] MEDS: Gabapentin 300 MG CAP PER TUBE SCH ×3 (09:01→20:24)
[2022-04-01] MEDS: Folic Acid 1 MG TAB PER TUBE SCH (09:02)
[2022-04-01] MEDS: Cyanocobalamin (Vitamin B-12) 1,000 MCG TAB PER TUBE SCH (09:02)
[2022-04-01] MEDS: levETIRAcetam 500 MG/5 ML VIAL SLOW IVP SCH (09:02)
[2022-04-01] MEDS: Aspirin Chewable 81 MG TAB PER TUBE SCH (09:02)
[2022-04-01] MEDS: Ondansetron PF 4 MG/2 ML Vial IVP PRN (09:03)
[2022-04-01] MEDS: HYDROcodone/Acetaminophen 10/325 mg Tablet PO PRN ×2 (09:03→18:29)
[2022-04-01] MEDS: ALPRAZolam 0.25 MG TAB PO SCH ×3 (09:03→21:47)
[2022-04-01] MEDS: Polyethylene Glycol 3350 17 GM Packet PER TUBE SCH (10:21)
[2022-04-01] MEDS: Potassium Bicarbonate/Cit Ac 20 MEQ TAB PER TUBE SCH ×2 (10:21→20:24)
[2022-04-01] MEDS ORDERED: fentaNYL PF 100 MCG/2 ML SYRINGE ONE (13:15)
[2022-04-01] MEDS ORDERED: Sodium Chloride 0.9% 100 ML ONE (13:18)
[2022-04-01] MEDS ORDERED: CEFAZOLIN 1 GM VIAL ONE (13:18)
[2022-04-01] MEDS ORDERED: Succinylcholine Chloride 100 MG/5 ML SYRINGE FS ONE (13:33)
[2022-04-01] MEDS ORDERED: ePHEDrine 50 MG/ML VIAL ONE (13:33)
[2022-04-01] MEDS ORDERED: Lidocaine 1% PF 5 ML VIAL ONE (13:33)
[2022-04-01] MEDS ORDERED: PROPOFOL 200 MG/20 ML VIAL ONE (13:33)
[2022-04-01] MEDS ORDERED: Naloxone HCl 0.4 mg/ml Vial ONE (13:49)
[2022-04-01] MEDS ORDERED: Fentanyl 100 MCG/2 ML VIAL ONE ×2 (14:01→14:29)
[2022-04-01] MEDS ORDERED: Ondansetron HCl/PF 4 MG/2 ML Vial IVP PRN (14:05)
[2022-04-01] MEDS ORDERED: Promethazine HCl 25 MG/ML VIAL IM PRN (14:05)
[2022-04-01] MEDS ORDERED: Ondansetron PF 4 MG/2 ML Vial ONE (14:11)
[2022-04-01] MEDS ORDERED: Promethazine HCl 25 MG/ML VIAL ONE (14:19)
[2022-04-01] MEDS: Atorvastatin Calcium 40 MG TAB PER TUBE SCH (20:25)
[2022-04-01] MEDS: oxyCODONE 5 MG TAB PO PRN (21:33)
[2022-04-02] MEDS: levETIRAcetam 500 MG/5 ML VIAL SLOW IVP SCH ×3 (01:51→21:15)
[2022-04-02] MEDS: HYDROcodone/Acetaminophen 5/325 mg Tablet PO PRN ×3 (03:15→17:08)
[2022-04-02 05:42] LABS: #Eosinphils 0.1 thou/uL (0.0-0.7); #Monocytes 0.7 thou/uL (0.11-0.59); %Basophils 0.5 % (0.0-1.0); %Eosinophils 0.8 % (0.0-10.0); %Lymphocytes 20.6 % (21.0-51.0); %Monocytes 6.7 % (0.0-10.0); %Neutrophils 71.3 % (42.0-75.0); Hemoglobin 11.8 g/dL (12.0-16.0); Mean Corpuscular HGB CONC 33.3 g/dL (32.0-36.0); Mean Corpuscular Hemoglobin 33.6 pg (27.0-31.0); Mean Platelet Volume 8.6 fL (7.4-10.4); Platelet Count 161 10x3/uL (130-400); RBC Distribution Width 11.2 % (11.5-14.5); Red Blood Cell (RBC) Count 3.52 mill/uL (4.20-5.40); White Blood Cell (WBC) Count 9.8 10x3/uL (4.8-10.8)
[2022-04-02 06:16] LABS: Anion Gap 14 mmol/L (10-20); BUN (Urea Nitrogen) 13 mg/dL (9.8-20.1); Calc. Creatinine Clearance 74 mL/min (70-130); Calcium 9.5 mg/dL (7.8-10.44); Carbon Dioxide 26 mmol/L (23-31); Chloride 103 mmol/L (98-107); Estimated GFR 98; Glucose 94 mg/dL (80-115); Potassium 4.7 mmol/L (3.5-5.1); Sodium 138 mmol/L (136-145)
[2022-04-02] MEDS: Cyanocobalamin (Vitamin B-12) 1,000 MCG TAB PER TUBE SCH (10:40)
[2022-04-02] MEDS: Polyethylene Glycol 3350 17 GM Packet PER TUBE SCH (10:40)
[2022-04-02] MEDS: ALPRAZolam 0.25 MG TAB PO SCH ×3 (10:40→21:17)
[2022-04-02] MEDS: Folic Acid 1 MG TAB PER TUBE SCH (10:40)
[2022-04-02] MEDS: Gabapentin 300 MG CAP PER TUBE SCH ×3 (10:40→21:16)
[2022-04-02] MEDS: Potassium Bicarbonate/Cit Ac 20 MEQ TAB PER TUBE SCH ×2 (10:41→21:16)
[2022-04-02] MEDS: Lansoprazole 15 MG/5 ML (BATCHED)UDCUP PER TUBE SCH ×2 (10:41→21:15)
[2022-04-02] MEDS: Aspirin Chewable 81 MG TAB PER TUBE SCH (10:42)
[2022-04-02 11:55] VITALS: BMI 20.6
[2022-04-02] MEDS: Ondansetron PF 4 MG/2 ML Vial IVP PRN ×2 (12:47→22:12)
[2022-04-02] MEDS: Atorvastatin Calcium 40 MG TAB PER TUBE SCH (21:17)
[2022-04-02] MEDS ORDERED: Ondansetron ODT 4 MG TAB PO PRN (22:04)
[2022-04-02] MEDS ORDERED: Ondansetron PF 4 MG/2 ML Vial IVP PRN (22:04)
[2022-04-03] MEDS: HYDROcodone/Acetaminophen 5/325 mg Tablet PO PRN ×2 (00:47→06:55)
[2022-04-03 07:37] LABS: #Eosinphils 0.1 thou/uL (0.0-0.7); #Lymphocytes 2.2 thou/uL (1.20-3.40); #Monocytes 0.7 thou/uL (0.11-0.59); #Neutrophils 4.6 thou/uL (1.40-6.50); %Basophils 0.6 % (0.0-1.0); %Eosinophils 1.4 % (0.0-10.0); %Lymphocytes 28.3 % (21.0-51.0); %Monocytes 9.6 % (0.0-10.0); %Neutrophils 60.1 % (42.0-75.0); Hemoglobin 12.1 g/dL (12.0-16.0); Mean Corpuscular Hemoglobin 32.8 pg (27.0-31.0); Mean Platelet Volume 8.5 fL (7.4-10.4); Platelet Count 155 10x3/uL (130-400); RBC Distribution Width 11.2 % (11.5-14.5); Red Blood Cell (RBC) Count 3.68 mill/uL (4.20-5.40); White Blood Cell (WBC) Count 7.7 10x3/uL (4.8-10.8)
[2022-04-03 07:48] LABS: Anion Gap 12 mmol/L (10-20); BUN (Urea Nitrogen) 14 mg/dL (9.8-20.1); Calc. Creatinine Clearance 75 mL/min (70-130); Calcium 9.1 mg/dL (7.8-10.44); Carbon Dioxide 26 mmol/L (23-31); Chloride 103 mmol/L (98-107); Estimated GFR 98; Glucose 90 mg/dL (80-115); Potassium 4.4 mmol/L (3.5-5.1); Sodium 137 mmol/L (136-145)
[2022-04-03] MEDS: Gabapentin 300 MG CAP PER TUBE SCH (09:05)
[2022-04-03] MEDS: Potassium Bicarbonate/Cit Ac 20 MEQ TAB PER TUBE SCH (09:05)
[2022-04-03] MEDS: Lansoprazole 15 MG/5 ML (BATCHED)UDCUP PER TUBE SCH (09:06)
[2022-04-03] MEDS: Aspirin Chewable 81 MG TAB PER TUBE SCH (09:06)
[2022-04-03] MEDS: Folic Acid 1 MG TAB PER TUBE SCH (09:06)
[2022-04-03] MEDS: ALPRAZolam 0.25 MG TAB PO SCH (09:06)
[2022-04-03] MEDS: Cyanocobalamin (Vitamin B-12) 1,000 MCG TAB PER TUBE SCH (09:07)
[2022-04-03] MEDS: levETIRAcetam 500 MG/5 ML VIAL SLOW IVP SCH (09:07)
[2022-04-03] MEDS: Polyethylene Glycol 3350 17 GM Packet PER TUBE SCH (09:08)
[2022-04-03] MEDS: oxyCODONE 5 MG TAB PO PRN (09:12)
[2022-04-03 11:56] VITALS: BP 117/72; TEMP 98
== END 2022-04-03 13:40 | disposition home health service (06) | DRG 100 ==
LOC: ERS 16:52 → 2NO 21:49 → OBSVTOIN 03-29 18:08 → IMCU/EMU 03-29 22:08 → NEURO 03-31 05:22
PROVIDERS: ADMIT Family Medicine; ATTEND Family Medicine
DX: G40.909 Epilepsy, unspecified, not intractable, without status epilepticus (principal); G92.8 Other toxic encephalopathy; N39.0 Urinary tract infection, site not specified; Z20.822 Contact with and (suspected) exposure to COVID-19; G89.4 Chronic pain syndrome; F41.9 Anxiety disorder, unspecified; F32.A Depression, unspecified; E53.8 Deficiency of other specified B group vitamins; K75.81 Nonalcoholic steatohepatitis (NASH); I25.10 Atherosclerotic heart disease of native coronary artery without angina pectoris; T42.4X5A Adverse effect of benzodiazepines, initial encounter; G93.89 Other specified disorders of brain; R10.9 Unspecified abdominal pain; E86.1 Hypovolemia; G25.81 Restless legs syndrome; B96.89 Other specified bacterial agents as the cause of diseases classified elsewhere; Z98.84 Bariatric surgery status; Z88.1 Allergy status to other antibiotic agents; Z91.041 Radiographic dye allergy status; Z79.899 Other long term (current) drug therapy; Z79.82 Long term (current) use of aspirin; Z90.49 Acquired absence of other specified parts of digestive tract; Z90.710 Acquired absence of both cervix and uterus; Z80.8 Family history of malignant neoplasm of other organs or systems; Z82.49 Family history of ischemic heart disease and other diseases of the circulatory system; Z87.891 Personal history of nicotine dependence
CPT/HCPCS: 36415; 36416; 36600; 70450; 70553; 74176; 80048; 80053; 80177; 80306; 81003; 81015; 82607; 82805; 83605; 83690; 84484; 85025; 87077; 87086; 87186; 93005; 93010; 93970; 95712; 95819; 95957; 96365; 96372; 96375; 96376; A9579; C9113; G0378; J0171; J0690; J0692; J0696; J1642; J1650; J1953; J2060; J2270; J2272; J2310; J2405; J2550; J2704; J3010; J3370; J3370-JW; J3411; J3490; J7042; J7050; J7999; U0003; U0005

== ENCOUNTER 2022-12-19 06:06 | Day surgery (SDC) | payer BC, MEDICARE ==
[2022-12-16 13:41] VITALS: BMI 20.2
[2022-12-19] MEDS ORDERED: Midazolam HCl 2 mg/2 ml Vial ONE (07:28)
[2022-12-19] MEDS ORDERED: fentaNYL 50 mcg/mL 1 mL Vial ONE (07:34)
[2022-12-19] MEDS ORDERED: PROPOFOL 200 MG/20 ML VIAL ONE (08:36)
[2022-12-19] MEDS ORDERED: SODIUM TETRADECYL SULFATE ONE (10:17)
== END 2022-12-19 10:55 ==
LOC: SDC 06:06
PROVIDERS: ATTEND Internal Medicine Gastroenterology
PROC: 0DJ08ZZ Inspection of Upper Intestinal Tract, Via Natural or Artificial Opening Endoscopic (ICD-10-PCS; principal; 2022-12-19)
DX: K21.9 Gastro-esophageal reflux disease without esophagitis (principal); E56.9 Vitamin deficiency, unspecified; I10 Essential (primary) hypertension; Z98.84 Bariatric surgery status; Z98.0 Intestinal bypass and anastomosis status; Z90.710 Acquired absence of both cervix and uterus; Z90.49 Acquired absence of other specified parts of digestive tract; Z88.5 Allergy status to narcotic agent; Z91.041 Radiographic dye allergy status; Z87.891 Personal history of nicotine dependence
CPT/HCPCS: J1642; J2250; J3010

== ENCOUNTER 2023-03-04 13:31 | Inpatient (IN) | payer MEDICARE, BC ==
[2023-03-04] MEDS ORDERED: Morphine 4 MG/ML VIAL ONE (16:21)
[2023-03-04] MEDS ORDERED: Famotidine/PF 20 mg/2ml Vial ONE (16:21)
[2023-03-04] MEDS ORDERED: methylPREDNISolone Sod Succ 40 MG VIAL ONE (16:21)
[2023-03-04] MEDS ORDERED: diphenhydrAMINE 50 MG/ML VIAL ONE (16:21)
[2023-03-04] MEDS ORDERED: HYDROcodone/Acetaminophen 7.5/325 mg Tablet PO PRN (16:34)
[2023-03-04] MEDS ORDERED: Ondansetron PF 4 MG/2 ML Vial ONE (16:47)
[2023-03-04 16:49] LABS: #Basophils 0.1 thou/uL (0.0-0.2); #Eosinphils 0.1 thou/uL (0.0-0.7); #Monocytes 0.5 thou/uL (0.11-0.59); #Neutrophils 5.7 thou/uL (1.40-6.50); %Basophils 0.8 % (0.0-1.0); %Eosinophils 1.5 % (0.0-10.0); %Lymphocytes 26.6 % (21.0-51.0); %Monocytes 5.6 % (0.0-10.0); %Neutrophils 65.3 % (42.0-75.0); Hematocrit 32.7 % (36.0-47.0); Hemoglobin 10.4 g/dL (12.0-16.0); Mean Corpuscular HGB CONC 31.8 g/dL (32.0-36.0); Mean Corpuscular Hemoglobin 31.1 pg (27.0-31.0); Mean Corpuscular Volume 97.9 fl (78.0-98.0); Mean Platelet Volume 9.6 fL (7.4-10.4); Platelet Count 287 10x3/uL (130-400); RBC Distribution Width 14.2 % (11.5-14.5); Red Blood Cell (RBC) Count 3.34 mill/uL (4.20-5.40); White Blood Cell (WBC) Count 8.7 10x3/uL (4.8-10.8)
[2023-03-04 17:17] LABS: ALT (SGPT) 8 U/L (8-55); AST (SGOT) 18 U/L (5-34); Albumin 3.4 g/dL (3.4-4.8); Alkaline Phosphatase 190 U/L (40-110); Anion Gap 13 mmol/L (10-20); BUN (Urea Nitrogen) 13 mg/dL (9.8-20.1); Bilirubin, Total 0.4 mg/dL (0.2-1.2); Calc. Creatinine Clearance 0 mL/min (70-130); Calcium 8.2 mg/dL (7.8-10.44); Carbon Dioxide 23 mmol/L (23-31); Chloride 109 mmol/L (98-107); Estimated GFR 98; Globulin 2.5 g/dL (2.4-3.5); Glucose 83 mg/dL (80-115); Lipase 14 U/L (8-78); Potassium 3.5 mmol/L (3.5-5.1); Protein, Total 5.9 g/dL (5.8-8.1); Sodium 141 mmol/L (136-145)
[2023-03-04 18:04] LABS: Bacteria/HPF None Seen HPF (None Seen); Bilirubin Negative (Negative); Blood, Urine Negative (Negative); CAUTI Indications for Culture Alt mental st,lethar; Clarity Clear (Clear); Glucose, Urine (Dipstick) Normal (Negative); Ketone, Urine Negative (Negative); Leukocyte 75 Leu/uL (Negative); Nitrite Negative (Negative); Protein, Urine (Dipstick) Negative (Neg-Trace); RBC/HPF 0-3 HPF (0-3); Specific Gravity, Urine 1.021 (1.002-1.036); Urobilinogen Normal mg/dL (Less than 2)
[2023-03-04 18:08] LABS: Urine Culture Reflex No No
[2023-03-04] MEDS ORDERED: Acetaminophen 650 MG Suppository PR PRN (19:53)
[2023-03-04] MEDS ORDERED: Acetaminophen 325 MG TAB PO PRN (19:53)
[2023-03-04] MEDS ORDERED: Ondansetron ODT 4 MG TAB PO PRN (19:53)
[2023-03-04] MEDS ORDERED: Thiamine HCl 200 MG/2 ML VIAL SLOW IVP SCH (20:00)
[2023-03-04] MEDS ORDERED: HYDROmorphone 0.5 MG/0.5 ML SYRINGE ONE (20:01)
[2023-03-04] MEDS ORDERED: valACYclovir 500 MG TAB ONE (21:41)
[2023-03-04] MEDS ORDERED: Thiamine HCl 200 MG/2 ML VIAL ONE (21:41)
[2023-03-04] MEDS: valACYclovir 500 MG TAB PO SCH (21:47)
[2023-03-04] MEDS: D5 0.9% NS w/ 20 mEq KCl 1,000 ML IV SCH ×2 (22:10→22:49)
[2023-03-04] MEDS ORDERED: levETIRAcetam 500 MG TAB PO SCH (22:45)
[2023-03-05] MEDS: Fentanyl 100 MCG/2 ML VIAL SLOW IVP PRN ×6 (00:12→20:43)
[2023-03-05 04:35] LABS: #Basophils 0.1 thou/uL (0.0-0.2); #Eosinphils 0.2 thou/uL (0.0-0.7); #Monocytes 0.5 thou/uL (0.11-0.59); #Neutrophils 3.4 thou/uL (1.40-6.50); %Eosinophils 2.5 % (0.0-10.0); %Lymphocytes 38.8 % (21.0-51.0); %Neutrophils 50.4 % (42.0-75.0); Hematocrit 33.6 % (36.0-47.0); Hemoglobin 10.5 g/dL (12.0-16.0); Mean Corpuscular HGB CONC 31.3 g/dL (32.0-36.0); Mean Corpuscular Hemoglobin 30.2 pg (27.0-31.0); Mean Corpuscular Volume 96.6 fl (78.0-98.0); Platelet Count 264 10x3/uL (130-400); RBC Distribution Width 14.1 % (11.5-14.5); Red Blood Cell (RBC) Count 3.48 mill/uL (4.20-5.40); White Blood Cell (WBC) Count 6.7 10x3/uL (4.8-10.8)
[2023-03-05 04:49] LABS: Anion Gap 12 mmol/L (10-20); BUN (Urea Nitrogen) 13 mg/dL (9.8-20.1); Calc. Creatinine Clearance 68 mL/min (70-130); Calcium 8.3 mg/dL (7.8-10.44); Carbon Dioxide 25 mmol/L (23-31); Chloride 106 mmol/L (98-107); Estimated GFR 96; Glucose 87 mg/dL (80-115); Potassium 3.6 mmol/L (3.5-5.1); Sodium 139 mmol/L (136-145)
[2023-03-05] MEDS: ALPRAZolam 0.25 MG TAB PO SCH ×3 (07:43→20:44)
[2023-03-05] MEDS: levETIRAcetam 500 MG TAB PO SCH ×2 (07:43→20:44)
[2023-03-05] MEDS: Gabapentin 300 MG CAP PO SCH ×3 (07:43→20:44)
[2023-03-05] MEDS: Fluconazole 100 MG TAB PO SCH (07:43)
[2023-03-05] MEDS: valACYclovir 500 MG TAB PO SCH ×2 (07:44→20:44)
[2023-03-05] MEDS ORDERED: MD-Gastroview 120 ML BOT ONE (08:07)
[2023-03-05] MEDS ORDERED: FLU VACC QS2023(65UP)/MF59C/PF 60 MCG/0.5 ML SYRINGE IM ONE (09:00)
[2023-03-05] MEDS ORDERED: Barium Sulfate 96% 176 GM BOT (xray ONLY) PO ONE (09:01)
[2023-03-05] MEDS: Ondansetron PF 4 MG/2 ML Vial IVP PRN (13:31)
[2023-03-05] MEDS: D5 0.9% NS w/ 20 mEq KCl 1,000 ML IV SCH (13:33)
[2023-03-06] MEDS: Fentanyl 100 MCG/2 ML VIAL SLOW IVP PRN ×5 (02:00→18:20)
[2023-03-06] MEDS: Ondansetron PF 4 MG/2 ML Vial IVP PRN ×3 (08:11→20:21)
[2023-03-06] MEDS: ALPRAZolam 0.25 MG TAB PO SCH ×3 (08:12→19:19)
[2023-03-06] MEDS: Fluconazole 100 MG TAB PO SCH (08:12)
[2023-03-06] MEDS: valACYclovir 500 MG TAB PO SCH ×2 (08:12→19:19)
[2023-03-06] MEDS: levETIRAcetam 500 MG TAB PO SCH ×2 (08:12→19:19)
[2023-03-06] MEDS: Gabapentin 300 MG CAP PO SCH ×3 (08:12→19:19)
[2023-03-06] MEDS: D5 0.9% NS w/ 20 mEq KCl 1,000 ML IV SCH (12:57)
[2023-03-06] MEDS ORDERED: Ondansetron PF 4 MG/2 ML Vial IVP SCH (21:00)
[2023-03-07] MEDS: D5 0.9% NS w/ 20 mEq KCl 1,000 ML IV SCH (00:30)
[2023-03-07] MEDS: Fentanyl 100 MCG/2 ML VIAL SLOW IVP PRN ×2 (00:44→05:08)
[2023-03-07] MEDS: Ondansetron PF 4 MG/2 ML Vial IVP PRN (07:56)
[2023-03-07] MEDS: Gabapentin 300 MG CAP PO SCH (07:56)
[2023-03-07] MEDS: ALPRAZolam 0.25 MG TAB PO SCH (07:56)
[2023-03-07] MEDS: Fluconazole 100 MG TAB PO SCH (07:56)
[2023-03-07] MEDS: levETIRAcetam 500 MG TAB PO SCH (07:56)
[2023-03-07] MEDS: valACYclovir 500 MG TAB PO SCH (07:56)
[2023-03-07 09:51] VITALS: BP 105/70; TEMP 97.8
[2023-03-07] MEDS ORDERED: fentaNYL 50 mcg/mL 1 mL Vial SLOW IVP PRN (12:31)
== END 2023-03-07 13:24 | disposition home or self-care (01) | DRG 392 ==
LOC: ERS 13:31 → ERHOLD 18:21 → T4-A 22:34
PROVIDERS: ADMIT Internal Medicine; ATTEND Internal Medicine
DX: R10.9 Unspecified abdominal pain (principal); B37.31 Acute candidiasis of vulva and vagina; G89.29 Other chronic pain; F41.9 Anxiety disorder, unspecified; F32.A Depression, unspecified; R62.7 Adult failure to thrive; G40.909 Epilepsy, unspecified, not intractable, without status epilepticus; B02.9 Zoster without complications; F43.10 Post-traumatic stress disorder, unspecified; Z88.8 Allergy status to other drugs, medicaments and biological substances; Z88.1 Allergy status to other antibiotic agents; Z79.899 Other long term (current) drug therapy; Z98.890 Other specified postprocedural states; Z68.20 Body mass index [BMI] 20.0-20.9, adult; Z90.49 Acquired absence of other specified parts of digestive tract
CPT/HCPCS: 36415; 74246; 80048; 80053; 81001; 83605; 83690; 84425; 85025; 96374; 96375; 97139; J0780; J1170; J1200; J1642; J2270; J2405; J2920; J3010; J3411; J3480; Q9963; S0028